=== PATIENT | male | born 1945 | race Caucasian/White ===

== ENCOUNTER 2018-04-26 12:45 | Inpatient (IN) | payer MEDICARE, BC ==
[2018-04-26] VITALS (9 sets, daily range): BP systolic 122–124; BP diastolic 57–61; PULSE 54–61; RESP 16; TEMP 99.1–99.3; O2SAT 97–100
[~2018-04-26] VITALS: Ht 177.8 cm; Wt 97.3 kg
[2018-04-26 13:06] LABS: AUTOMATED NEUTROPHIL # 11.4 TH/MM3 (1.8-7.7); BASOPHIL # 0.1 TH/MM3 (0-0.2); BASOPHIL % 0.6 % (0.0-2.0); EOSINOPHIL # 0.4 TH/MM3 (0-0.4); EOSINOPHIL % 2.6 % (0.0-4.0); HEMATOCRIT 43.6 % (39.0-51.0); HEMOGLOBIN 14.7 GM/DL (13.0-17.0); MEAN CORPUSCULAR HEMOGLOBIN 31.4 PG (27.0-34.0); MEAN CORPUSCULAR HGB CONC 33.8 % (32.0-36.0); MEAN PLATELET VOLUME 8.6 FL (7.0-11.0); MONO % 6.3 % (0.0-8.0); NEUT % 71.5 % (16.0-70.0); PLATELET COUNT 210 TH/MM3 (150-450); RED BLOOD COUNT 4.69 MIL/MM3 (4.50-5.90); RED CELL DISTRIBUTION WIDTH 13.4 % (11.6-17.2)
--- NOTE | 2018-04-26 13:07 | PD ---
HPI Chief Complaint: Trauma alert Time Seen by Provider: 12:58 Travel History International Travel<30 days: No Contact w/Intl Traveler<30days: No Traveled to known affect area: No History of Present Illness HPI This patient presents as a trauma alert. When I heard about it I gave report to Dr. Shipley who is present in the ER prior to arrival. This patient is 72 and fell out of a tree approximately 12-15 foot to the ground. He struck his head. Reportedly lost consciousness for unknown amount of time. GCS initially was 8 but had come up to 12 upon arrival. Blood pressure 180/100 on arrival. Symptoms are severe. Patient is moaning on arrival but seems confused and cannot answer questions appropriately. He is unable to provide history or review of systems. Allergies-Medications (Allergen,Severity, Reaction): Coded Allergies: No Known Allergies (Unverified , 04/26/18) Review of Systems ROS Limitations: Clinical Condition, Altered Mental Status, Uncooperative, Poor Historian Physical Exam Narrative GENERAL: Well-nourished, well-developed patient in spinal mobilization. He is confused and moaning SKIN: Focused skin assessment reveals no rash and nodules. Skin is Warm and dry. HEAD: Right ear canal is filled with blood. The TM is not visible. Normocephalic. EYES: Pupils equal and round. No scleral icterus. No injection or drainage. ENT: No nasal bleeding or discharge. Mucous membranes pink and moist. NECK: Trachea midline. No JVD. C-collar maintained CARDIOVASCULAR: Regular rate and rhythm. No murmur appreciated. RESPIRATORY: No accessory muscle use. Clear to auscultation but diminished and symmetric. Breath sounds equal bilaterally. GASTROINTESTINAL: Abdomen has a slight firmness to it , non-tender, nondistended. Hepatic and splenic margins not palpable. MUSCULOSKELETAL: No obvious deformities. No clubbing. No cyanosis. No edema. NEUROLOGICAL: Awake but confused and moaning . Motor and sensory exams impossible to accurately gauge given his limited participation in exam. PSYCHIATRIC: Agitated mood and affect; insight and judgment poor . Data Data Last Documented VS Vital Signs Date Time Temp Pulse Resp B/P (MAP) Pulse Ox O2 Delivery O2 Flow Rate FiO2 04/26/18 13:45 100 100 04/26/18 12:45 4.00 Orders Orders I-Stat Profile (04/26/18 12:46) I-Stat Creatinine (04/26/18 12:46) Complete Blood Count With Diff (04/26/18 12:46) Prothrombin Time / Inr (Pt) (04/26/18 12:46) Act Partial Throm Time (Ptt) (04/26/18 12:46) Type And Screen (04/26/18 12:46) Chest, Single Ap (04/26/18 12:46) Iv Access Insert/Monitor (04/26/18 12:46) Ecg Monitoring (04/26/18 12:46) Oximetry (04/26/18 12:46) Oxygen Administration (04/26/18 12:46) Ed Poc Ultrasound (04/26/18 12:46) Basic Metabolic Panel (Bmp) (04/26/18 12:51) Fibrinogen (04/26/18 12:51) Alcohol (Ethanol) (04/26/18 12:51) Ct Brain W/O Iv Contrast(Rout) (04/26/18 12:51) Ct Cerv Spine W/O Contrast (04/26/18 12:51) Ct Abd/Pel W Iv Contrast(Rout) (04/26/18 12:51) Ct Thorax/ Chest W Iv Contrast (04/26/18 12:51) Admit To Inpatient (04/26/18 ) Code Status (04/26/18 13:01) Vital Signs (Adult) Q4H (04/26/18 13:01) Activity Bed Rest (04/26/18 13:01) Intake + Output ALBA.QSHIFT (04/26/18 13:01) ^ Orogastric Tube (04/26/18 13:01) Diet Npo (04/26/18 Lunch) Sodium Chlor 0.9% 1000 Ml Inj (Ns 1000 M (04/26/18 14:00) Sodium Chloride 0.9% Flush (Ns Flush) (04/26/18 13:15) Sodium Chloride 0.9% Flush (Ns Flush) (04/26/18 21:00) Pantoprazole Inj (Protonix Inj) (04/26/18 14:00) Basic Metabolic Panel (Bmp) (04/27/18 06:00) Hepatic Functional Panel (04/27/18 06:00) Complete Blood Count With Diff (04/27/18 06:00) Resp Incentive Spirometry (04/26/18 ) Naloxone Inj (Narcan Inj) (04/26/18 13:15) Scd Bilateral/Knee High ALBA.QSHIFT (04/26/18 13:01) Inpatient Certification (04/26/18 ) Elevate Head Of Bed (04/26/18 13:06) Resp Ventilation- Volume (04/26/18 ) Restraints Non-Violent ALBA.Q3H (04/26/18 13:06) Ventilator Weaning Readiness ALBA.DAILY@0800 (04/26/18 13:06) Propofol 1000 Mg/100 Ml Inj (Diprivan 10 (04/26/18 13:15) Fentanyl Drip (Fentanyl Drip) (04/26/18 13:15) Iohexol 350 Inj (Omnipaque 350 Inj) (04/26/18 13:35) Labs Laboratory Tests Test 04/26/18 12:47 White Blood Count 16.0 TH/MM3 Red Blood Count 4.69 MIL/MM3 Hemoglobin 14.7 GM/DL Bedside Hemoglobin 14.3 G/DL Hematocrit 43.6 % Bedside Hematocrit 42.0 % Mean Corpuscular Volume 93.0 FL Mean Corpuscular Hemoglobin 31.4 PG Mean Corpuscular Hemoglobin Concent 33.8 % Red Cell Distribution Width 13.4 % Platelet Count 210 TH/MM3 Mean Platelet Volume 8.6 FL Neutrophils (%) (Auto) 71.5 % Lymphocytes (%) (Auto) 19.0 % Monocytes (%) (Auto) 6.3 % Eosinophils (%) (Auto) 2.6 % Basophils (%) (Auto) 0.6 % Neutrophils # (Auto) 11.4 TH/MM3 Lymphocytes # (Auto) 3.0 TH/MM3 Monocytes # (Auto) 1.0 TH/MM3 Eosinophils # (Auto) 0.4 TH/MM3 Basophils # (Auto) 0.1 TH/MM3 CBC Comment DIFF FINAL Differential Comment Prothrombin Time 10.0 SEC Prothromb Time International Ratio 1.0 RATIO Activated Partial Thromboplast Time 21.2 SEC Fibrinogen 360 mg/dL Bedside Sodium 139 MMOL/L Blood Urea Nitrogen 16 MG/DL Creatinine 1.14 MG/DL Random Glucose 143 MG/DL Calcium Level 8.7 MG/DL Sodium Level 140 MEQ/L Potassium Level 3.5 MEQ/L Chloride Level 106 MEQ/L Carbon Dioxide Level 21.4 MEQ/L Bedside Potassium 3.6 MMOL/L Bedside Chloride 105 MMOL/L Anion Gap 13 MEQ/L Bedside Blood Urea Nitrogen 15 MG/DL Bedside Creatinine 1.0 MG/DL Estimat Glomerular Filtration Rate 55 ML/MIN Bedside Glucose 140 MG/DL Ethyl Alcohol Level LESS THAN 3 MG/DL MDM Medical Screen Exam Complete: Yes Emergency Medical Condition: Yes Medical Record Reviewed: Yes Differential Diagnosis Intracranial hemorrhage, brain stem herniation, pneumothorax, liver laceration Narrative Course This patient arrives critically ill as trauma alert. 2 IVs placed and IV fluid bolus initiated I reviewed his chest x-ray which is negative Patient seems to be controlling his airway on arrival. He sent the CT scanner Brain CT shows intracranial hemorrhage Cervical spine CT shows no fracture but some degenerative change Chest CT shows multiple rib fractures Abdomen and pelvis CT shows renal laceration and renal mass and transverse process fractures Patient is critically ill with multiple injuries. He will be admitted to intensive care Critical Care Narrative Aggregate critical care time was 38 minutes. Time to perform other separately billable procedures was not included in the critical care time. My time did not include minutes spent treating any other patients simultaneously or on activities that did not directly contribute to the patient's treatment. The services I provided to this patient were to treat and/or prevent clinically significant deterioration that could result in: Intracranial hemorrhage, permanent neurologic deficit, cardiopulmonary arrest I provided critical care services requiring my management, as noted below: Chart data review, documentation time, medication orders and management, vital sign assessments/reviewing monitor data, ordering and reviewing lab tests, ordering and interpreting/reviewing x-rays and diagnostic studies, care of the patient and discussion of the patient with the admitting physicians. Trauma Alert - Level One Trauma Alert Level One: Full trauma team activate Diagnosis Diagnosis: Primary Impression: Intracranial hemorrhage Additional Impressions: Multiple rib fractures Qualified Codes: S22.41XA - Multiple fractures of ribs, right side, initial encounter for closed fracture Kidney laceration Qualified Codes: S37.031A - Laceration of right kidney, unspecified degree, initial encounter Admitting Physician Requests: Admit Mario Marrufo MD Apr 26, 2018 13:07
--- NOTE | 2018-04-26 13:11 | RADRPT ---
EXAM DATE: 04/26/2018 1:04 PM EDT AGE/SEX: 89 years / Male INDICATIONS: Trauma alert. Fall from a tree. CLINICAL DATA: This is the patient's initial encounter. Patient reports that signs and symptoms have been present for 1 day and indicates a pain score of Nonresponsive. MEDICAL/SURGICAL HISTORY: Non-responsive. Non-responsive. RADIATION DOSE: 66.93 CTDI (mGy) COMPARISON: No prior [facility] exams available for comparison. TECHNIQUE: CT of the head without contrast. Using automated exposure control and adjustment of the mA and/or kV according to patient size, radiation dose was kept as low as reasonably achievable to ob tain optimal diagnostic quality images. FINDINGS: There is multifocal intracranial hemorrhage identified including a thin subdural hematoma over the le ft mid and low convexity brain with maximum thickness of just under a centimeter at the high temporal level. There is subarachnoid blood, mainly over the left convexities and a few punctate areas of par enchymal contusion are identified in the temporal, left frontoparietal and right occipital regions. T here is no significant global brain shift identified. The basal cisterns are patent. The posterior fo ssa and brainstem are grossly unremarkable. There is fluid present in the facial sinuses. No definite skull fracture identified. CONCLUSION: Parenchymal and extra-axial hemorrhage, mainly involving the left hemisphere. Thin left subdural joe salvador without significant global brain shift at present. Electronically signed by: Alcides Kilgore MD 04/26/2018 1:10 PM EDT
--- NOTE | 2018-04-26 13:12 | RADRPT ---
EXAM DATE: 04/26/2018 12:59 PM EDT AGE/SEX: 89 years / Male INDICATIONS: Trauma alert, fall from tree. CLINICAL DATA: This is the patient's initial encounter. Patient reports that signs and symptoms have been present for 1 day and indicates a pain score of Nonresponsive. MEDICAL/SURGICAL HISTORY: Non-responsive. Non-responsive. COMPARISON: No prior [facility] exams available for comparison. FINDINGS: The lungs are clear without infiltrate, nodule, or mass. There is no appreciable pleural effusion for technique. Heart and mediastinum are unremarkable. CONCLUSION: No acute cardiopulmonary disease. Electronically signed by: Fely Powell MD 04/26/2018 1:10 PM EDT
[2018-04-26] MEDS ORDERED: fentaNYL DRIP 250 ML IV PRN (13:15)
[2018-04-26] MEDS ORDERED: PROPOFOL 1000 MG/100 ML INJ 100 ML IV PRN (13:15)
[2018-04-26] MEDS ORDERED: NALOXONE HCL 0.4 MG/ML AMP IV PUSH PRN (13:15)
[2018-04-26] MEDS ORDERED: SODIUM CHLORIDE 0.9% FLUSH 10 ML FLUSH IV FLUSH PRN (13:15)
[2018-04-26] MEDS ORDERED: PROPOFOL 1000 MG/100 ML INJ 100 ML ONE (13:21)
[2018-04-26 13:24] LABS: BICARBONATE 21.4 MEQ/L (21.0-32.0); BLOOD UREA NITROGEN 16 MG/DL (7-18); CALCIUM 8.7 MG/DL (8.5-10.1); CHLORIDE 106 MEQ/L (98-107); CREATININE 1.14 MG/DL (0.60-1.30); GLOMERULAR FILTRATION RATE 55 ML/MIN (>89); GLUCOSE,RANDOM 143 MG/DL (74-106); SODIUM (NA) 140 MEQ/L (136-145)
[2018-04-26] MEDS ORDERED: IOHEXOL 350 MG/ML 10 ML VIAL (for RAD DIAG) IVCONTRAST ONE (13:35)
--- NOTE | 2018-04-26 13:46 | RADRPT ---
EXAM DATE: 04/26/2018 1:26 PM EDT AGE/SEX: 89 years / Male INDICATIONS: Trauma alert. Fall from a tree. CLINICAL DATA: This is the patient's initial encounter. Patient reports that signs and symptoms have been present for 1 day and indicates a pain score of Nonresponsive. MEDICAL/SURGICAL HISTORY: Non-responsive. Non-responsive. RADIATION DOSE: 19.88 CTDI (mGy) COMPARISON: No prior [place] exams available for comparison. TECHNIQUE: Contiguous axial images were obtained using helical multirow detector technique. The vol umetric data was post-processed with multiplanar reconstruction in oblique axial, sagittal, and coron al planes. Using automated exposure control and adjustment of the mA and/or kV according to patient s ize, radiation dose was kept as low as reasonably achievable to obtain optimal diagnostic quality eusebia ges. FINDINGS: No significant subluxation or soft tissue swelling is seen. There is opacification of the right sphe noid sinus discussed on the patient's brain CT examination. C2-C3: No appreciable compromise to the thecal sac, exiting nerve roots are seen. The neural foramin a are patent bilaterally. No appreciable thecal sac stenosis is seen. C3-C4: Slight degenerative changes are present in the disc space and facets. Slight bulging disc and hypertrophic changes are present with mild compromise to bilateral lateral recess and no significant thecal sac stenosis. C4-C5: No appreciable compromise to the thecal sac, exiting nerve roots are seen. The neural foramin a are patent bilaterally. No appreciable thecal sac stenosis is seen. C5-C6: Significant degenerative changes are present in the disc space and facets. There is moderate neural foraminal compromise on the right without any significant thecal sac stenosis. C6-C7: No appreciable compromise to the thecal sac, exiting nerve roots are seen. The neural forami na are patent bilaterally. No appreciable thecal sac stenosis is seen. C7-T1: No appreciable compromise to the thecal sac, exiting nerve roots are seen. The neural foramin a are patent bilaterally. No appreciable thecal sac stenosis is seen. CONCLUSION: Degenerative spondylosis with neural foraminal compromise right C5-6 without any signifi cant thecal sac stenosis. Electronically signed by: Fely Powell MD 04/26/2018 1:45 PM EDT
--- NOTE | 2018-04-26 13:56 | RADRPT ---
EXAM DATE: 04/26/2018 1:33 PM EDT AGE/SEX: 89 years / Male INDICATIONS: Trauma alert. Fall from a tree. CLINICAL DATA: This is the patient's initial encounter. Patient reports that signs and symptoms have been present for 1 day and indicates a pain score of Nonresponsive. MEDICAL/SURGICAL HISTORY: Non-responsive. Non-responsive. RADIATION DOSE: 19.85 CTDI (mGy) COMPARISON: No prior [place] exams available for comparison. TECHNIQUE: Multiple contiguous axial images were obtained through the chest during bolus infusion of 89 ml Omnipaque 350 (iohexol) nonionic water-soluble contrast as a cumulative dose for multiple exa ms. Images were obtained in suspended respiration using multiple row detector helical technique. U sing automated exposure control and adjustment of the mA and/or kV according to patient size, radiati on dose was kept as low as reasonably achievable to obtain optimal diagnostic quality images. FINDINGS: Moderate parenchymal contusion is present in the right upper lobe arts of the right middle lobe. Ther e is dependent atelectasis in both lung bases. There is no pneumothorax. There is a tiny right pleura l effusion. No appreciable pathological adenopathy is seen within the mediastinum. Multiple acute r ib fractures are seen on the right and there are also old rib fractures on the right. There is a joe ngioma T10 vertebrae. There are acute fractures of transverse process of T5 and T6 on the right possi christian T7. Small hiatal hernia is seen. There are findings in the upper abdomen discussed on the patient 's CT abdomen. CONCLUSION: 1. Multiple displaced rib fractures on the right and there are fractures of transverse processes of T5, T6 and possibly T7 on the right. 2. Parenchymal contusions in the right lung. 3. There are findings in the upper abdomen discussed on the patient's CT abdomen. Electronically signed by: Fely Powell MD 04/26/2018 1:54 PM EDT
[2018-04-26] MEDS: SODIUM CHLOR 0.9% 1000 ML INJ 1,000 ML IV SCH (14:00)
--- NOTE | 2018-04-26 14:02 | RADRPT ---
EXAM DATE: 04/26/2018 1:33 PM EDT AGE/SEX: 89 years / Male INDICATIONS: Trauma alert. Fall from a tree. CLINICAL DATA: This is the patient's initial encounter. Patient reports that signs and symptoms have been present for 1 day and indicates a pain score of Nonresponsive. MEDICAL/SURGICAL HISTORY: Non-responsive. Non-responsive. ORAL CONTRAST: No oral contrast ingested. RADIATION DOSE: 19.85 CTDI (mGy) ; Combined studies COMPARISON: No prior [place] exams available for comparison. TECHNIQUE: Multiple contiguous axial images were obtained through the abdomen and pelvis following b olus infusion of 89 ml Omnipaque 350 (iohexol) nonionic water-soluble contrast as a cumulative dose for multiple exams. No oral contrast ingested. Using automated exposure control and adjustment of t he mA and/or kV according to patient size, the radiation dose was kept as low as reasonably achievabl e to obtain optimal diagnostic quality images. FINDINGS: Lower Lungs: See the CT of the thorax dictated separately.. Liver: The liver has a homogeneous density without space-occupying lesion. There is no dilation of th e biliary tree. Spleen: Homogeneous density without enlargement. Pancreas: Unremarkable without mass or calcification. Kidneys: There is a laceration involving the posterior mid to lower pole of the right kidney. There is a small amount of hemorrhage within the perirenal retroperitoneum. A 2.4 cm solid mass is seen lat erally within the right mid pole. 2.9 cm simple cyst involving the lower pole of the right kidney. Le ft kidney is unremarkable.. Adrenal Glands: Unremarkable. Aorta: The aorta and proximal iliac vessels are grossly unremarkable without aneurysmal dilation. Bowel/Mesentery: The bowel loops are grossly unremarkable. The cecum and sigmoid colon have a normal configuration. Abdominal Wall: Intact. Retroperitoneum: No evidence of adenopathy in the retrocrural, para-aortic, or deep pelvic regions. Bladder: Contours are smooth. Reproductive Organs: No abnormal masses or calcifications seen. Inguinal: The inguinal region is unremarkable without evidence of adenopathy. Bony Structures: Unremarkable. CONCLUSION: 1. Laceration involving the mid to lower pole of the right kidney with a small amount of perirenal b lood but no active hemorrhage observed. 2. 2.4 cm solid mass involving the right mid pole kidney worrisome for renal cell carcinoma. Electronically signed by: Derek Cardenas MD 04/26/2018 2:00 PM EDT
[2018-04-26] MEDS ORDERED: SUCCINYLCHOLINE CHLORIDE 200 MG/10 ML VIAL ONE (14:10)
[2018-04-26] MEDS: PROPOFOL 1000 MG/100 ML IV PRN ×2 (14:38→20:16)
[2018-04-26] MEDS: PANTOPRAZOLE SODIUM 40 MG VIAL IV PUSH SCH (14:38)
[2018-04-26] MEDS: fentaNYL 2,500 MCG/NS 250 ML IV PRN (14:38)
--- NOTE | 2018-04-26 16:52 | PD.OP ---
Operative Report Date of Surgery: Apr 26, 2018 Preoperative Diagnosis: Severe traumatic brain injury Postoperative Diagnosis: Severe traumatic brain injury Procedure: Right frontal melissa hole, placement of bur hole with placement of intracranial pressure monitor. Anesthesia: local Surgeon: Emiliano Chiang Wheel Polisher(s): SALEEM Operation and Findings: INDICATIONS FOR THE PROCEDURE The patient is 75 an adult male who was brought to [facility] as a trauma alert with a severe traumatic brain injury GCS was 7 CT of the brain showed traumatic subarachnoid hemorrhage and a small subdural hematoma. Placement of ICP monitor was indicated as recommended by the Trauma Commitee of [place] [employer] DETAILS OF THE SURGICAL PROCEDURE The right frontal area was shaved, prepped and draped in the usual sterile fashion. An entry point was selected behind the hairline, approximately 30 mm lateral to the midline. The incision was infiltrated with 1% lidocaine with epinephrine 1:100,000 dilution. A small incision was made with a 15 blade down to the level of the periosteum. Using a twist drill a melissa hole was made. The dura was opened with a blunt stylet, and a Simin bolt was secured to the bone. A fiberoptic transducer was calibrated according to the rubber tile floor layer's instructions, and advanced into the parenchyma of the frontal lobe through the bolt. An intracranial pressure of 11 mmHg was achieved with a good waveform. A Betadine sterile dressing was applied. The patient tolerated the procedure well. There were no intraoperative complications. Blood loss was minimal. Emiliano Chiang MD Apr 26, 2018 16:52
--- NOTE | 2018-04-26 16:59 | MH ---
cc: Goergia Bustillo MD DATE OF ADMISSION: 04/26/2018 ADMITTING PHYSICIAN: Georgia Bustillo MD, trauma surgery ADMITTING DIAGNOSES: Traumatic brain injury, right chest injury. HISTORY OF PRESENT DISEASE: This 72-year-old gentleman was brought in as priority 1 trauma alert after falling about 12-15 feet out of a tree as the ladder went flying sideways. The patient fell on a concrete walkway, right side down. According to witnesses, he was completely unconscious and on the arrival, the paramedics' [place] Coma Scale was 3-4, which improved on the way to about 8 or 9. The patient brought with a spinal board with C-collar in place, moaning and groaning and complained but pain in the right chest. PAST MEDICAL HISTORY: According to his is completely negative. PAST SURGICAL HISTORY: Negative. MEDICATIONS: The patient does not take any medications. ALLERGIES: NO ALLERGIES. 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 PHYSICAL EXAMINATION: GENERAL: Reveals a 72-year-old male. HEENT: Normocephalic, trauma to the head consisting of some bruising over the left side of the head just above the ear and some small lacerations and abrasions of the ear. The patient has blood coming out of the ear. The patient also has some contusions over the left side of the occiput, but these are barely palpable. Pupils are equal, reactive. Extraocular muscles appear to be intact, but patient does not follow commands. No loza sign, no raccoon eyes. As above noted, there are abrasions over the right ear and also blood in the external auditory canal. No hemotympanum on the left. Facial bones appeared to be intact. Oral cavity appears to be intact. Mandible is intact. NECK: C-collar front is removed. The patient has bilateral carotid pulses. No bruits. No signs of trauma to the neck. C-collar is repositioned. CHEST: Bilateral breath sounds. The patient is very tender to palpation on the right chest, and while there is no crepitus present, patient is certainly tender over the area of the 4th, 5th, 6th and 7th ribs. HEART: Regular rhythm. Hemodynamically, patient is stable. Pressure in the emergency room is 180/100. ABDOMEN: Slightly firm on palpation, some voluntary guarding, but no rebound. No masses noted. No signs of trauma to the abdomen. Pelvis appears to be stable. Flanks: Patient has some bruising over the right flank and slight swelling there over the right kidney, but nothing else. No abrasions. EXTREMITIES: The patient has bilateral femoral, popliteal, dorsalis pedis and posterior tibial pulse to palpation. Bilateral brachial, radial and ulnar pulses. No signs of deformities of extremities. NEUROLOGIC: As noted above, patient's [place] Coma Scale was 3 on the scene. Now, in the ER, is about 10, perhaps 11 at times. The patient is moving all 4 extremities and follows simple commands. Sensory is preserved. Deep tendon reflexes are normal. No pathologic reflexes. PROTOCOL RESUSCITATION: The patient was resuscitated on trauma principles. Primary and secondary survey, resuscitation, definitive care carried out simultaneously. The patient is taken to the CAT scan for further workup. FINAL DIAGNOSIS: Traumatic brain injury with mainly left frontal temporoparietal subarachnoid and subdural bleed and some superficial contusions of the brain, right chest contusion with a small hemothorax and serial rib fractures of 5th, 6th, 7th, 8th ribs, transverse process fractures of several vertebrae, lacerations of the right kidney with a hematoma. The patient is taken back to the emergency room trauma room after CAT scan, intubated under elective circumstances, then transferred to ICU for further care. Neurosurgery was consulted. All the neurosurgical protective measures in place. Spoken to the family. CRITICAL CARE TIME: 48 minutes. MD FABIOLA Davis/MILAGRO , 04:29 PM , 04:58 PM
--- NOTE | 2018-04-26 17:00 | PD.CONS ---
[facility] Service Neurosurgery Consult Requested By Trauma sureon Reason for Consult Trauma alert Primary Care Physician Alcides Beach MD History of Present Illness This 72-year-old gentleman was brought in as priority 1 trauma alert after falling about 12-15 feet out of a tree. Apparently the ladder fell sideways. No seizure activity. No tonguebitting. No incontinence of stool or urine. The patient fell on a concrete walkway, right side down. According to witnesses, he was completely unconscious and on the arrival, the paramedics' [place] Coma Scale was 3, which improved after resuscitation to about 8. The patient brought with a spinal board with C-collar in place, moaning and groaning. CT showed traumatic SAHand a small SDH. Neurosurgery consultation was requested Review of Systems ROS not possible due to his neurological condition ROS Limitations: Clinical Condition, Intubated, Altered Mental Status Past Family Social History Allergies: Coded Allergies: No Known Allergies (Unverified , 04/26/18) Past Medical History Unobtainable due to his neurological condition Past Surgical History Unobtainable due to his neurological condition Reported Medications Unobtainable due to his neurological condition Active Ordered Medications Current Medications Sodium Chloride 1,000 ml @ 100 mls/hr Q10H IV ; Start 04/26/18 at 14:00 Sodium Chloride (NS Flush) 2 ml UNSCH PRN IV FLUSH FLUSH AFTER USING IV ACCESS ; Start 04/26/18 at 13:15 Sodium Chloride (NS Flush) 2 ml BID IV FLUSH ; Start 04/26/18 at 21:00 Pantoprazole Sodium (Protonix Inj) 40 mg Q24H IV PUSH Last administered on at 14:38; Start 04/26/18 at 14:00 Naloxone HCl (Narcan Inj) 0.4 mg UNSCH PRN IV PUSH SEE LABEL COMMENTS; Start at 13:15 Propofol 100 ml @ 0 mls/hr TITRATE PRN IV SEDATION; Start 04/26/18 at 13:15; Stop 04/26/18 at 14:31; Status DC Fentanyl Citrate 250 ml TITRATE PRN IV SEDATION; Start 04/26/18 at 13:15; Stop 04/26/18 at 14:31; Status DC Iohexol (Omnipaque 350 Inj) 89 ml STK-MED ONCE IVCONTRAST Last administered on 04/26/18at 13:35; Start 04/26/18 at 13:35; Stop 04/26/18 at 13:36; Status DC Succinylcholine Chloride (Quelicin Inj) 200 mg STK-MED ONCE .ROUTE ; Start at 14:10; Stop 04/26/18 at 14:11; Status DC Fentanyl Citrate 250 ml @ 5 mls/hr TITRATE PRN IV Sedation Last administered on 04/26/18at 14:38; Start 04/26/18 at 14:30 Propofol 100 ml @ 2.463 mls/ hr TITRATE PRN IV SEDATION Last administered on at 14:38; Start 04/26/18 at 14:30 Propofol 100 ml @ As Directed STK-MED ONCE .ROUTE ; Start 04/26/18 at 13:21; Stop 04/26/18 at 14:31; Status DC Levetriacetam 500 mg/Sodium Chloride 105 ml @ 420 mls/hr Q12HR IV ; Start at 21:00 Sodium Chloride 188 meq/Sodium Chloride 1,047 ml @ 40 mls/hr Q24H IV ; Start at 16:45; Status UNV Family History Unobtainable due to his neurological condition Social History Unobtainable due to his neurological condition Apparently 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 GCS 7. HEENT: Normocephalic, trauma to the head consisting of some bruising over the left side of the head just above the ear and some small lacerations and abrasions of the ear. The patient has blood coming from his right ear. The patient also has some contusions over the left side of the occiput CHEST: Bilateral breath sounds. The patient is very tender to palpation on the right chest, and while there is no crepitus present, patient is certainly tender over the area of the 4th, 5th, 6th and 7th ribs. HEART: Regular rhythm. Hemodynamically, patient is stable. Pressure in the emergency room is 180/100. ABDOMEN: Slightly firm on palpation, some voluntary guarding, but no rebound. No masses noted. No signs of trauma to the abdomen. Pelvis appears to be stable. Flanks: Patient has some bruising over the right flank and slight swelling there over the right kidney, but nothing else. No abrasions. EXTREMITIES: The patient has bilateral femoral, popliteal, dorsalis pedis and posterior tibial pulse to palpation. Bilateral brachial, radial and ulnar pulses. No signs of deformities of extremities. Cranial Nerves: Pupils equal, round, reactive to light. Eyes appear conjugated. There was no nystagmus, no papilledema. Face musculature appeared symmetrical at rest. Face sensation, olfaction, visual ching, and hearing cannot be adequately assessed due to his neurological condition. The patient has a corneal reflex. He has a gag reflex. The sternocleidomastoid and trapezius are symmetrical. Motor: His muscle tone and bulk are normal. He moves purposefully all 4 extremities symmetrically. Reflexes: Deep tendon reflexes are 1+ and symmetrical in the biceps, triceps, and brachioradialis, bilaterally, in the upper extremities. In the lower extremities, the patellar and ankles are 1+, bilaterally. There is a bilateral plantar flexion response. There is no clonus or other abnormal reflexes noted. Sensory: On examination there is response to painful stimuli, localizing with both upper and lower extremities. Cerebellar: Examination cannot be adequately assessed due to the patient's neurological condition. Laboratory Laboratory Tests Test 04/26/18 12:47 White Blood Count 16.0 Red Blood Count 4.69 Hemoglobin 14.7 Bedside Hemoglobin 14.3 Hematocrit 43.6 Bedside Hematocrit 42.0 Mean Corpuscular Volume 93.0 Mean Corpuscular Hemoglobin 31.4 Mean Corpuscular Hemoglobin Concent 33.8 Red Cell Distribution Width 13.4 Platelet Count 210 Mean Platelet Volume 8.6 Neutrophils (%) (Auto) 71.5 Lymphocytes (%) (Auto) 19.0 Monocytes (%) (Auto) 6.3 Eosinophils (%) (Auto) 2.6 Basophils (%) (Auto) 0.6 Neutrophils # (Auto) 11.4 Lymphocytes # (Auto) 3.0 Monocytes # (Auto) 1.0 Eosinophils # (Auto) 0.4 Basophils # (Auto) 0.1 CBC Comment DIFF FINAL Differential Comment Prothrombin Time 10.0 Prothromb Time International Ratio 1.0 Activated Partial Thromboplast Time 21.2 Fibrinogen 360 Bedside Sodium 139 Blood Urea Nitrogen 16 Creatinine 1.14 Random Glucose 143 Calcium Level 8.7 Sodium Level 140 Potassium Level 3.5 Chloride Level 106 Carbon Dioxide Level 21.4 Bedside Potassium 3.6 Bedside Chloride 105 Anion Gap 13 Bedside Blood Urea Nitrogen 15 Bedside Creatinine 1.0 Estimat Glomerular Filtration Rate 55 Bedside Glucose 140 Ethyl Alcohol Level LESS THAN 3 Result Diagram: 04/26/18 1247 04/26/18 1247 Attending Statement I reviewed his radiiological studies including Head CT 04/26/18 125 Signed Impressions: CONCLUSION: Parenchymal and extra-axial hemorrhage, mainly involving the left hemisphere. T hin left subdural hematoma without significant global brain shift at present. Chest CT 04/26/18 125 Signed Impressions: CONCLUSION: 1. Multiple displaced rib fractures on the right and there are fractures of tr ansverse processes of T5, T6 and possibly T7 on the right. 2. Parenchymal contusions in the right lung. 3. There are findings in the upper abdomen discussed on the patient's CT abdom en. Cervical Spine CT 04/26/181250 Signed Impressions: CONCLUSION: Degenerative spondylosis with neural foraminal compromise right C5 -6 without any significant thecal sac stenosis. Abdomen/Pelvis CT 04/26/18 125 Signed Impressions: CONCLUSION: 1. Laceration involving the mid to lower pole of the right kidney with a small amount of perirenal blood but no active hemorrhage observed. 2. 2.4 cm solid mass involving the right mid pole kidney worrisome for renal c ell carcinoma. Chest X-Ray 04/26/18 1246 Signed Impressions: CONCLUSION: No acute cardiopulmonary disease. neuro checks. Placement of ICP monitor was indicated as recommended by the Tra[employer] of [place]. HOB elevation 30 degrees. Monitor PCO2 Otorrhea. Elevate HOB 30 degrees Thoracic transverse process fractures. Nonperative treatment. Narcotic analgesics for pain control Pulmonary.. Continue aggressive pulmonary toilette, nasotracheal suction, and breathing treatments with nebulizers. Nutrition. NPO Renal. monitor closely urine output, BUN and creatinine Endocrine. Monitor serial Acu checks and SSI as needed in detail ID monitor for signs of infection Protonix for stress ulcer prophylaxis Familia hose and SCD's for DVT prophylaxis. Further recommendations will depend on his clinical evolution and follow up Studies Emiliano Chiang MD Apr 26, 2018 17:00
[2018-04-26] MEDS: SODIUM CHLORIDE 23.4% INJ 188 MEQ in SODIUM CHLOR 0.9% 1000 ML INJ 1,000 ML IV SCH (18:13)
--- NOTE | 2018-04-26 19:38 | RADRPT ---
EXAM DATE: 04/26/2018 7:29 PM EDT AGE/SEX: 72 years / Male INDICATIONS: Short of breath, intubation. CLINICAL DATA: This is the patient's initial encounter. Patient reports that signs and symptoms have been present for 1 day and indicates a pain score of Nonresponsive. MEDICAL/SURGICAL HISTORY: None. None. COMPARISON: Chest x-ray 04/26/2018 at 1249 hours. FINDINGS: A single portable frontal view the chest shows an endotracheal tube with the tip 5 cm from the eleazar . Nasogastric tube courses off the inferior margin of the film. Consolidation is seen involving the r ight lower lobe. Left lung is clear. No effusions. Heart is normal in size. CONCLUSION: Right lower lobe infiltrate. This is new from the prior study. Interval intubation and placement o f nasogastric tube. Electronically signed by: Derek Cardenas MD 04/26/2018 7:37 PM EDT
[2018-04-26] MEDS: levETIRAcetam INJ 500 MG in SODIUM CHLORIDE 0.9% INJ 100 ML IV SCH (20:16)
[2018-04-26] MEDS: SODIUM CHLORIDE 0.9% FLUSH 10 ML FLUSH IV FLUSH SCH (20:16)
[2018-04-27] VITALS (17 sets, daily range): BP systolic 110–152; BP diastolic 48–52; PULSE 46–64; RESP 16–20; TEMP 98.2–99.7; O2SAT 100
[2018-04-27] MEDS: PROPOFOL 1000 MG/100 ML IV PRN ×5 (01:00→19:24)
[2018-04-27 07:22] LABS: AUTOMATED NEUTROPHIL # 5.7 TH/MM3 (1.8-7.7); BASOPHIL % 0.1 % (0.0-2.0); HEMATOCRIT 31.4 % (39.0-51.0); HEMOGLOBIN 10.9 GM/DL (13.0-17.0); LYMPH % 9.2 % (9.0-44.0); LYMPHOCYTE # 0.7 TH/MM3 (1.0-4.8); MEAN CELL VOLUME 92.1 FL (80.0-100.0); MEAN CORPUSCULAR HGB CONC 34.8 % (32.0-36.0); MEAN PLATELET VOLUME 8.8 FL (7.0-11.0); MONO % 13.9 % (0.0-8.0); NEUT % 76.8 % (16.0-70.0); PLATELET COUNT 157 TH/MM3 (150-450); RED BLOOD COUNT 3.41 MIL/MM3 (4.50-5.90); RED CELL DISTRIBUTION WIDTH 13.5 % (11.6-17.2); WHITE BLOOD COUNT 7.5 TH/MM3 (4.0-11.0)
[2018-04-27 07:24] LABS: ALBUMIN 2.4 GM/DL (3.4-5.0); BICARBONATE 19.3 MEQ/L (21.0-32.0); CALCIUM 7.7 MG/DL (8.5-10.1); CREATININE 0.78 MG/DL (0.60-1.30); DIRECT BILIRUBIN ADULT 0.1 MG/DL (0.0-0.2); INDIRECT BILIRUBIN 0.4 MG/DL (0.0-0.8); TOTAL BILIRUBIN ADULT 0.5 MG/DL (0.2-1.0); TOTAL PROTEIN 5.3 GM/DL (6.4-8.2)
[2018-04-27] MEDS ORDERED: POTASSIUM CHLORIDE 25 MEQ EFFERVESCENT TAB PO PRN ×2 (07:30)
[2018-04-27] MEDS ORDERED: MAGNESIUM SULFATE INJ 4 GM in SODIUM CHLORIDE 0.9% INJ 92 ML IV PRN (07:30)
[2018-04-27] MEDS ORDERED: MAGNESIUM SULFATE INJ 2 GM in SODIUM CHLORIDE 0.9% INJ 96 ML IV PRN (07:30)
[2018-04-27] MEDS ORDERED: RESP: ALBUTEROL 2.5 MG/IPRATROPIUM 0.5 MG NEB (PRN) NEB (07:30)
[2018-04-27] MEDS ORDERED: POTASSIUM PHOSPHATE MONOBASIC 500 MG TAB PO PRN (07:30)
[2018-04-27] MEDS ORDERED: POTASSIUM PHOSPHATE MONOBASIC 500 MG TAB PO/TUBE PRN (07:30)
[2018-04-27] MEDS ORDERED: SODIUM PHOSPHATE INJ 30 MMOL in SODIUM CHLOR 0.9% 250 ML INJ 240 ML IV PRN (07:30)
[2018-04-27] MEDS ORDERED: MAGNESIUM OXIDE 400 MG TAB PO PRN (07:30)
[2018-04-27] MEDS ORDERED: POTASSIUM CHLOR 40 MEQ PREMIX 100 ML IV-CENTRAL PRN ×2 (07:30)
[2018-04-27] MEDS ORDERED: POTASSIUM CHLOR 20 MEQ PREMIX 100 ML IV PRN (07:30)
[2018-04-27] MEDS ORDERED: POTASSIUM PHOSPHATE INJ 30 MMOL in SODIUM CHLOR 0.9% 250 ML INJ 250 ML IV PRN (07:30)
[2018-04-27] MEDS ORDERED: LACTULOSE SYRUP 20 GM/30 ML CUP PO PRN (07:30)
[2018-04-27] MEDS: CHLORHEXIDINE 0.12% (ORAL KIT) 15 ML CUP MT SCH ×2 (08:00→20:00)
[2018-04-27] MEDS: RESP: ALBUTEROL 2.5 MG/IPRATROPIUM 0.5 MG NEB (SCH) NEB ×3 (08:57→20:36)
[2018-04-27] MEDS: SODIUM CHLORIDE 0.9% FLUSH 10 ML FLUSH IV FLUSH SCH ×2 (09:00→22:15)
[2018-04-27] MEDS: DOCUSATE SODIUM 50 MG/SENNA 8.6 MG TAB PO SCH ×2 (09:04→22:15)
[2018-04-27] MEDS: levETIRAcetam INJ 500 MG in SODIUM CHLORIDE 0.9% INJ 100 ML IV SCH ×2 (09:04→22:16)
[2018-04-27] MEDS: MAGNESIUM HYDROXIDE SUSP 30 ML CUP PO SCH ×2 (09:04→22:15)
[2018-04-27] MEDS: PANTOPRAZOLE SODIUM 40 MG VIAL IV PUSH SCH (14:00)
[2018-04-27] MEDS: SODIUM CHLOR 0.9% 1000 ML INJ 1,000 ML IV SCH ×2 (14:59)
--- NOTE | 2018-04-27 15:12 | HHI.CCPN ---
Subjective Brief History This 72-year-old gentleman was brought in as priority 1 trauma alert after falling about 12-15 feet out of a tree as the ladder went flying sideways. The patient fell on a concrete walkway, right side down. According to witnesses, he was completely unconscious and on the arrival, the paramedics' [place] Coma Scale was 3-4, which improved on the way to about 8 or 9. The patient brought with a spinal board with C-collar in place, moaning and groaning and complained but pain in the right chest. Patient was resuscitated according trauma principles and placed in ICU for further care Final injuries Traumatic brain injury with mainly left frontal temporoparietal subarachnoid and subdural bleed and some superficial contusions of the brain Right chest contusion with a small hemothorax and serial rib fractures of 5th, 6th, 7th, 8th ribs, Transverse process fractures of several vertebrae, Laceration of the right kidney with a hematoma and a small mass of the right kidney 24 Hour Review/Hospital Course 04/27/2018 Patient remains intubated and ventilated Neuroprotective measures including propofol and fentanyl Keppra 2% hypertonic saline at 30 cc/h ICP remains 4-12 mmHg Hemodynamically patient stable Bilateral good breath sounds on decreasing levels of ventilatory support with good PO2 FiO2 gradient Objective Vital Signs Date Time Temp Pulse Resp B/P (MAP) Pulse Ox O2 Delivery O2 Flow Rate FiO2 04/27/18 14:00 52 04/27/18 12:00 40 04/27/18 12:00 99.0 18 142/48 (79) 100 04/27/18 07:00 Mechanical Ventilator 04/26/18 12:45 4.00 Intake and Output 04/27/18 04/27/18 04/28/18 08:00 16:00 00:00 Intake Total 1005 ml Output Total 400 ml Balance -400 ml 1005 ml Result Diagram: 04/27/18 0555 04/27/18 1115 Other Results Laboratory Tests Test 04/26/18 18:45 Blood Gas Puncture Site ART LINE Blood Gas Patient Temperature 98.6 Blood Gas HCO3 19 mmol/L (22-26) Blood Gas Base Excess -5.4 mmol/L (-2-2) Blood Gas Oxygen Saturation 97 % (90-100) Arterial Blood pH 7.37 (7.380-7.420) Arterial Blood Partial Pressure CO2 34 mmHg (38-42) Arterial Blood Partial Pressure O2 161 mmHg (61-120) Arterial Blood Oxygen Content 17.0 Vol % (12.0-20.0) Arterial Blood Carboxyhemoglobin 0.9 % (0-4) Arterial Blood Methemoglobin 1.2 % (0-2) Blood Gas Hemoglobin 12.2 G/DL (12.0-16.0) Oxygen Delivery Device VENTILATOR Blood Gas Ventilator Setting PRVC16/550/1.0/+5 Blood Gas Inspired Oxygen 50 % Exam [employer] Patient remains intubated and ventilated Neuroprotective measures including propofol and fentanyl Keppra 2% hypertonic saline at 30 cc/h ICP remains 4-12 mmHg Hemodynamic/Cardiac Hemodynamically patient stable white count normal and hemoglobin 10 g/dL Pulmonary/Respiratory Hemodynamically patient stable Bilateral good breath sounds on decreasing levels of ventilatory support with good PO2 FiO2 gradient Remains on AC ventilatory support 40% FiO2 and adequate PCO2 between 32 and 40 mmHg Abdomen/GI Nutrition Abdomen soft flat Renal/I&O Renal function well-preserved Assessment and Plan Attestation Plan Patient to continue this regimen Repeat CT scan of the brain tomorrow We will start on enteral feedings Depending on patient's neurologic progression will probably wake up patient on Tuesday see how he does Critical care time 34 minutes Georgia Bustillo MD Apr 27, 2018 15:12
--- NOTE | 2018-04-27 16:46 | HHI.NSPN ---
(Sofia Younger) Note Status Status: Progress Note (Sofia Younger) Interval History Interval History This 72-year-old gentleman was brought in as priority 1 trauma alert after falling about 12-15 feet out of a tree. Apparently the ladder fell sideways. No seizure activity. No tonguebitting. No incontinence of stool or urine. The patient fell on a concrete walkway, right side down. According to witnesses, he was completely unconscious and on the arrival, the paramedics' [place] Coma Scale was 3, which improved after resuscitation to about 8. The patient brought with a spinal board with C-collar in place, moaning and groaning. CT showed traumatic SAHand a small SDH. Neurosurgery consultation was requested 04/27: patient seen this morning during rounds, mildly sedated, intubated, but seen to be moving purposefully, no opening eyes or following commands. (Sofia Younger) Labs, Micro, & Vital Signs Results Date Time Temp Pulse Resp B/P (MAP) Pulse Ox O2 Delivery O2 Flow Rate FiO2 04/27/18 15:15 100 40 04/27/18 14:00 52 04/27/18 12:00 52 04/27/18 12:00 40 04/27/18 12:00 99.0 52 18 142/48 (79) 100 04/27/18 10:06 100 40 04/27/18 10:00 56 04/27/18 08:00 40 04/27/18 08:00 48 04/27/18 08:00 98.2 46 16 140/52 (81) 100 04/27/18 07:42 100 40 04/27/18 07:00 100 Mechanical Ventilator 40 04/27/18 06:00 52 04/27/18 04:00 50 04/27/18 04:00 98.6 50 16 110/48 (68) 100 04/27/18 04:00 40 04/27/18 03:30 100 35 04/27/18 02:00 50 04/27/18 00:00 40 04/27/18 00:00 50 04/27/18 00:00 99.0 50 16 110/48 (68) 100 04/26/18 23:50 100 35 04/26/18 22:00 54 04/26/18 20:45 100 40 04/26/18 20:00 40 04/26/18 20:00 99.3 54 16 122/57 (78) 100 04/26/18 20:00 55 04/26/18 19:00 Mechanical Ventilator 40 04/26/18 18:00 60 04/28/18 07:00 Intake Total 1005 ml Balance 1005 ml Constitutional Vital Signs Date Time Temp Pulse Resp B/P (MAP) Pulse Ox O2 Delivery O2 Flow Rate FiO2 04/27/18 15:15 100 40 04/27/18 14:00 52 04/27/18 12:00 52 04/27/18 12:00 40 04/27/18 12:00 99.0 52 18 142/48 (79) 100 04/27/18 10:06 100 40 04/27/18 10:00 56 04/27/18 08:00 40 04/27/18 08:00 48 04/27/18 08:00 98.2 46 16 140/52 (81) 100 04/27/18 07:42 100 40 04/27/18 07:00 100 Mechanical Ventilator 40 04/27/18 06:00 52 04/27/18 04:00 50 04/27/18 04:00 98.6 50 16 110/48 (68) 100 04/27/18 04:00 40 04/27/18 03:30 100 35 04/27/18 02:00 50 04/27/18 00:00 40 04/27/18 00:00 50 04/27/18 00:00 99.0 50 16 110/48 (68) 100 04/26/18 23:50 100 35 04/26/18 22:00 54 04/26/18 20:45 100 40 04/26/18 20:00 40 04/26/18 20:00 99.3 54 16 122/57 (78) 100 04/26/18 20:00 55 04/26/18 19:00 Mechanical Ventilator 40 04/26/18 18:00 60 04/28/18 07:00 Intake Total 1005 ml Balance 1005 ml (Sofia Younger) Review of Systems ROS Limitations: Intubated (Sofia Younger) Physical Exam General: intubated, no apparent distress HEENT: normocephalic, right ICP monitor in place, ICPs =3. Some blood noted in right ear. Nonicteric sclera. Neuro: sedated, not following commands. Cranial nerve: pupils equal, round, and reactive to light. Conjugate gaze. Neck: no JVD, trachea midline Musculoskeletal: no clubbing, moving extremities purposefully, not following commands for testing Respiratory: clear, mechanically ventilated Heart: regular rate rhythm (Sofia Younger) General: intubated, appears comfortable in no apparent distress HEENT: normocephalic, right ICP monitor in place, ICPs controlled. Nonicteric sclera. Neuro: sedated, not following commands. Cranial nerve: pupils equal, round, and reactive to light. Conjugate gaze. Neck: no JVD, trachea midline Musculoskeletal: no clubbing, not following commands for testing Respiratory: clear, mechanically ventilated Heart: regular rate rhythm (Emiliano Chiang MD) Medications Current Medications Current Medications Medications (Trade) Dose Ordered Sig/Bonilla Route PRN Reason Start Time Stop Time Status Last Admin Dose Admin Sodium Chloride 1,000 ml @ 40 mls/hr Q24H IV 04/26/18 14:00 04/27/18 14:59 Sodium Chloride (NS Flush) 2 ml UNSCH PRN IV FLUSH FLUSH AFTER USING IV ACCESS 04/26/18 13:15 Sodium Chloride (NS Flush) 2 ml BID IV FLUSH 04/26/18 21:00 04/27/18 09:00 Pantoprazole Sodium (Protonix Inj) 40 mg Q24H IV PUSH 04/26/18 14:00 04/27/18 14:00 Naloxone HCl (Narcan Inj) 0.4 mg UNSCH PRN IV PUSH SEE LABEL COMMENTS 04/26/18 13:15 Fentanyl Citrate 250 ml @ 5 mls/hr TITRATE PRN IV Sedation 04/26/18 14:30 04/26/18 14:38 Propofol 100 ml @ 2.463 mls/ hr TITRATE PRN IV SEDATION 04/26/18 14:30 04/27/18 16:03 Levetriacetam 500 mg/Sodium Chloride 105 ml @ 420 mls/hr Q12HR IV 04/26/18 21:00 04/27/18 09:04 Sodium Chloride 188 meq/Sodium Chloride 1,047 ml @ 40 mls/hr Q24H IV 04/26/18 18:30 04/26/18 18:13 Potassium Chloride 100 ml @ 50 mls/hr Q2H PRN IV-CENTRAL For Potassium 2.8 - 3.2 mEq/L 04/27/18 07:30 Potassium Chloride 100 ml @ 50 mls/hr Q2H PRN IV For Potassium 2.8 - 3.2 mEq/L 04/27/18 07:30 Potassium Bicarb/ Potassium Chloride (K-Lyte Cl Eff) 50 meq UNSCH PRN PO For Potassium 3.3 - 3.5 mEq/L 04/27/18 07:30 Potassium Chloride 100 ml @ 25 mls/hr UNSCH PRN IV-CENTRAL For Potassium 3.3 - 3.5 mEq/L 04/27/18 07:30 Potassium Chloride 100 ml @ 50 mls/hr Q2H PRN IV For Potassium 3.3 - 3.5 mEq/L 04/27/18 07:30 Magnesium Sulfate 4 gm/Sodium Chloride 100 ml @ 50 mls/hr UNSCH PRN IV For Magnesium 0.9 - 1.1 mg/dL 04/27/18 07:30 Magnesium Oxide (Mag-Ox) 800 mg UNSCH PRN PO For Magnesium 1.2 - 1.6 mg/dL 04/27/18 07:30 Magnesium Sulfate 2 gm/Sodium Chloride 100 ml @ 50 mls/hr UNSCH PRN IV For Magnesium 1.2 - 1.6 mg/dL 04/27/18 07:30 Potassium Phosphate (K-Phos) 2,000 mg Q4H PRN PO For Phosphorus < 2.5 mg/dL 04/27/18 07:30 Sodium Phosphate 30 mmol/Sodium Chloride 250 ml @ 42 mls/hr UNSCH PRN IV For Phosphorus < 2.5 mg/dL 04/27/18 07:30 Potassium Phosphate (K-Phos) 2,000 mg UNSCH PRN PO/TUBE SEE LABEL COMMENTS 04/27/18 07:30 Potassium Phosphate 30 mmol/ Sodium Chloride 260 ml @ 42 mls/hr UNSCH PRN IV SEE LABEL COMMENTS 04/27/18 07:30 Chlorhexidine Gluconate (Peridex 0.12% Liq) 15 ml BID@08,20 MT 04/27/18 08:00 04/27/18 08:00 Albuterol/ Ipratropium (Duoneb Neb) 1 ampule Q6HR NEB NEB 04/27/18 10:00 04/27/18 15:15 Albuterol/ Ipratropium (Duoneb Neb) 1 ampule Q2HR NEB PRN NEB wheezing 04/27/18 07:30 Senna/Docusate Sodium (Meron-Colace) 1 tab BID PO 04/27/18 09:00 04/27/18 09:04 Magnesium Hydroxide (Milk Of Magnesia Liq) 30 ml BID PO 04/27/18 09:00 04/27/18 09:04 Lactulose (Lactulose Liq) 30 ml DAILY PRN PO If no Bowel Movement in 2 days 04/27/18 07:30 Acetaminophen 100 ml @ 400 mls/hr Q6H PRN IV temp>101 04/27/18 16:15 UNV (Sofia Younger) Current Medications Current Medications Sodium Chloride 1,000 ml @ 100 mls/hr Q10H IV Last administered on 04/29/18at 23 :34; Start 04/26/18 at 14:00; Stop 04/30/18 at 09:29; Status DC Sodium Chloride (NS Flush) 2 ml UNSCH PRN IV FLUSH FLUSH AFTER USING IV ACCESS ; Start 04/26/18 at 13:15 Sodium Chloride (NS Flush) 2 ml BID IV FLUSH Last administered on 05/02/18at 20: 34; Start 04/26/18 at 21:00 Pantoprazole Sodium (Protonix Inj) 40 mg Q24H IV PUSH Last administered on 05/03at 14:07; Start 04/26/18 at 14:00 Naloxone HCl (Narcan Inj) 0.4 mg UNSCH PRN IV PUSH SEE LABEL COMMENTS; Start at 13:15 Propofol 100 ml @ 0 mls/hr TITRATE PRN IV SEDATION; Start 04/26/18 at 13:15; Stop 04/26/18 at 14:31; Status DC Fentanyl Citrate 250 ml TITRATE PRN IV SEDATION; Start 04/26/18 at 13:15; Stop 04/26/18 at 14:31; Status DC Iohexol (Omnipaque 350 Inj) 89 ml STK-MED ONCE IVCONTRAST Last administered on 04/26/18at 13:35; Start 04/26/18 at 13:35; Stop 04/26/18 at 13:36; Status DC Succinylcholine Chloride (Quelicin Inj) 200 mg STK-MED ONCE .ROUTE ; Start at 14:10; Stop 04/26/18 at 14:11; Status DC Fentanyl Citrate 250 ml @ 5 mls/hr TITRATE PRN IV Sedation Last administered on 05/03/18at 12:17; Start 04/26/18 at 14:30 Propofol 100 ml @ 2.463 mls/ hr TITRATE PRN IV SEDATION Last administered on at 12:17; Start 04/26/18 at 14:30 Propofol 100 ml @ As Directed STK-MED ONCE .ROUTE ; Start 04/26/18 at 13:21; Stop 04/26/18 at 14:31; Status DC Levetriacetam 500 mg/Sodium Chloride 105 ml @ 420 mls/hr Q12HR IV Last administered on 05/03/18at 08:37; Start 04/26/18 at 21:00 Sodium Chloride 188 meq/Sodium Chloride 1,047 ml @ 40 mls/hr Q24H IV Last administered on 04/29/18at 20:58; Start 04/26/18 at 18:30; Stop 04/30/18 at 09:29; Status DC Potassium Chloride 100 ml @ 50 mls/hr Q2H PRN IV-CENTRAL For Potassium 2.8 - 3.2 mEq/L; Start 04/27/18 at 07:30 Potassium Chloride 100 ml @ 50 mls/hr Q2H PRN IV For Potassium 2.8 - 3.2 mEq/L ; Start 04/27/18 at 07:30 Potassium Bicarb/ Potassium Chloride (K-Lyte Cl Eff) 50 meq UNSCH PRN PO For Potassium 3.3 - 3.5 mEq/L Last administered on 04/29/18at 06:17; Start 04/27/18 at 07:30 Potassium Chloride 100 ml @ 25 mls/hr UNSCH PRN IV-CENTRAL For Potassium 3.3 - 3.5 mEq/L; Start 04/27/18 at 07:30 Potassium Chloride 100 ml @ 50 mls/hr Q2H PRN IV For Potassium 3.3 - 3.5 mEq/L ; Start 04/27/18 at 07:30 Magnesium Sulfate 4 gm/Sodium Chloride 100 ml @ 50 mls/hr UNSCH PRN IV For Magnesium 0.9 - 1.1 mg/dL; Start 04/27/18 at 07:30 Magnesium Oxide (Mag-Ox) 800 mg UNSCH PRN PO For Magnesium 1.2 - 1.6 mg/dL; Start 04/27/18 at 07:30 Magnesium Sulfate 2 gm/Sodium Chloride 100 ml @ 50 mls/hr UNSCH PRN IV For Magnesium 1.2 - 1.6 mg/dL; Start 04/27/18 at 07:30 Potassium Phosphate (K-Phos) 2,000 mg Q4H PRN PO For Phosphorus < 2.5 mg/dL; Start 04/27/18 at 07:30 Sodium Phosphate 30 mmol/Sodium Chloride 250 ml @ 42 mls/hr UNSCH PRN IV For Phosphorus < 2.5 mg/dL Last administered on 04/27/18at 22:16; Start 04/27/18 at 07: 30 Potassium Phosphate (K-Phos) 2,000 mg UNSCH PRN PO/TUBE SEE LABEL COMMENTS; Start 04/27/18 at 07:30 Potassium Phosphate 30 mmol/ Sodium Chloride 260 ml @ 42 mls/hr UNSCH PRN IV SEE LABEL COMMENTS; Start 04/27/18 at 07:30 Chlorhexidine Gluconate (Peridex 0.12% Liq) 15 ml BID@08,20 MT Last administered on 05/03/18at 08:00; Start 04/27/18 at 08:00 Potassium Bicarb/ Potassium Chloride (K-Lyte Cl Eff) 50 meq ONCE PRN PO Electrolyte replacement; Start 04/27/18 at 07:30; Status UNV Albuterol/ Ipratropium (Duoneb Neb) 1 ampule Q6HR NEB NEB Last administered on 05/01/18at 07:40; Start 04/27/18 at 10:00; Stop 05/01/18 at 09:59; Status DC Albuterol/ Ipratropium (Duoneb Neb) 1 ampule Q2HR NEB PRN NEB wheezing; Start 04/27/18 at 07:30 Senna/Docusate Sodium (Meron-Colace) 1 tab BID PO Last administered on at 08:36; Start 04/27/18 at 09:00 Magnesium Hydroxide (Milk Of Magnesia Liq) 30 ml BID PO Last administered on at 08:36; Start 04/27/18 at 09:00 Lactulose (Lactulose Liq) 30 ml DAILY PRN PO If no Bowel Movement in 2 days; Start 04/27/18 at 07:30; Stop 04/29/18 at 08:39; Status DC Acetaminophen 100 ml @ 400 mls/hr Q6H PRN IV temp>101 Last administered on at 14:07; Start 04/27/18 at 16:15 Meperidine HCl (Demerol Inj) 25 mg Q6H PRN IV PUSH shivering; Start 04/28/18 at 10:30 Lactulose (Lactulose Liq) 30 ml DAILY PO Last administered on 05/03/18at 08:36; Start 04/29/18 at 09:00 Furosemide (Lasix Inj) 40 mg ONCE ONCE IV PUSH Last administered on 04/30/18at 09:57; Start 04/30/18 at 09:30; Stop 04/30/18 at 09:38; Status DC Hydralazine HCl (Apresoline Inj) 10 mg Q6H PRN IV PUSH SBP>175. DBP > 105; Start 04/30/18 at 10:15; Stop 04/30/18 at 13:57; Status DC Clonidine (Catapres-Tts 0.1mg Patch.7d) 1 patch Q7D T-DERMAL Last administered on 04/30/18at 11:45; Start 04/30/18 at 11:00; Stop 05/01/18 at 16:05; Status DC Miscellaneous Information 1 Q7D T-DERMAL ; Start 05/07/18 at 11:00; Stop at 11:00; Status DC Enoxaparin Sodium (Lovenox Inj) 40 mg Q24H SQ Last administered on 05/03/18at 10 :43; Start 05/01/18 at 11:00 Metoprolol Tartrate (Lopressor Inj) 5 mg Q6H IV PUSH ; Start 05/01/18 at 12:00; Stop 05/02/18 at 09:23; Status DC Clonidine (Catapres-Tts 0.2 Mg Patch.7d) 1 patch Q7D T-DERMAL Last administered on 05/01/18at 16:28; Start 05/01/18 at 17:00; Stop 05/03/18 at 09:36 ; Status DC Lisinopril (Prinivil) 10 mg Q12HR PO Last administered on 05/03/18at 08:36; Start 05/01/18 at 17:00 Oxycodone HCl (Roxicodone) 10 mg Q6H NG Last administered on 05/03/18at 10:43; Start 05/01/18 at 16:15 Hydralazine HCl (Apresoline Inj) 10 mg Q6H PRN IV PUSH SYS BP GREATER THAN 170 MMHG; Start 05/01/18 at 17:15; Stop 05/01/18 at 17:18; Status DC Hydralazine HCl (Apresoline) 25 mg Q6H NG Last administered on 05/03/18at 10:43 ; Start 05/01/18 at 17:00 Nicardipine HCl 25 mg/Sodium Chloride 260 ml @ 52 mls/hr TITRATE PRN IV Blood pressure management Last administered on 05/03/18at 07:21; Start 05/01/18 at 18: 00 Etomidate (Amidate Inj) 40 mg STK-MED ONCE .ROUTE ; Start 05/02/18 at 08:38; Stop 05/02/18 at 08:39; Status DC Rocuronium Mitchell (Zemuron Inj) 100 mg STK-MED ONCE .ROUTE ; Start 05/02/18 at 08:39; Stop 05/02/18 at 08:40; Status DC Rocuronium Mitchell (Zemuron Inj) 50 mg BOLUS ONCE IV Last administered on 05/02at 10:00; Start 05/02/18 at 10:00; Stop 05/02/18 at 10:01; Status DC Midazolam HCl (Versed Inj) 5 mg ONCE ONCE IM ; Start 05/02/18 at 10:00; Stop at 10:05; Status DC Midazolam HCl (Versed Inj) 5 mg ONCE ONCE IV ; Start 05/02/18 at 10:15; Stop at 10:16; Status DC Clonidine (Catapres-Tts 0.3 Mg Patch.7d) 1 patch Q7D T-DERMAL Last administered on 05/03/18at 11:48; Start 05/03/18 at 11:00 Furosemide (Lasix Inj) 40 mg ONCE ONCE IV PUSH Last administered on 05/03/18at 10:44; Start 05/03/18 at 09:45; Stop 05/03/18 at 10:09; Status DC Artificial Tears (Lacrilube Opht Oint) 1 applic Q12HR EACH EYE Last administered on 05/03/18at 11:48; Start 05/03/18 at 11:00 Miscellaneous Information 1 Q7D T-DERMAL ; Start 05/10/18 at 10:59 (Emiliano Chiang MD) Medical Decision Making MDM Remarks 73 year old male trauma alert, fall off ladder onto cement TBI, left traumatic subarachnoid, subdural hemorrhage, s/p placement of ICP monitor (Sofia Younger) Plan Plan Remarks cont ICP monitoring neuro checks f/u CT Brain tomorrow am cont critical care per trauma team nonchemical dvt prophylaxis in view of acute ICH protonix for stress ulcer prophylaxis seizure prophylaxis (Sofia Younger) Attending Statement Neurologically ICP's are fluctuating On sedation vacation patient moves all 4 extremities opens eyes but does not follow commands and does not track making [place] Coma Scale 7 CPP within the parameters of autoregulation Remains on neuroprotective measures including propofol fentanyl Keppra Decrease 2% saline to about 20 cc an hour at this point Hemodynamic/Cardiac Hemodynamically stable with boots of hypertension Pulmonary/Respiratory He remains critical remains on assist control ventilation and pulmonary status and PO2 FiO2 gradient will allow for extubation Abdomen/GI Nutrition Abdomen soft active bowel sounds enteral feeds tolerated again as the Time progresses I do not believe the patient will need a feeding tube i.e. PEG and will extubate successfully eventually Renal/I&O Renal function well-preserved Hypertonic saline 2% at 20 cc/h Sodium 1 48 mEq/L and serum osmolality within physiologic parameters under 330 mOsm per lite Renal/I&O Renal function will preserved Nutrition. tube feedings Renal. monitor closely urine output, BUN and creatinine Endocrine. Monitor serial Acu checks and SSI as needed in detail ID monitor for signs of infection Protonix for stress ulcer prophylaxis Familia hose and SCD's for DVT prophylaxis The exam, history, and the medical decision-making described in the above note were completed with the assistance of the mid-level provider. I reviewed and agree with the findings presented. I attest that I had a [id number] encounter with the patient on the same day, and personally performed and documented my assessment and findings in the medical record. (Emiliano Chiang MD) Sofia Younger Apr 27, 2018 16:46 Emiliano Chiang MD May 03, 2018 14:52
[2018-04-27 18:21] LABS: PHOSPHORUS 2.1 MG/DL (2.5-4.9)
[2018-04-27] MEDS: SODIUM CHLORIDE 23.4% INJ 188 MEQ in SODIUM CHLOR 0.9% 1000 ML INJ 1,000 ML IV SCH (19:23)
[2018-04-28] VITALS (22 sets, daily range): BP systolic 102–148; BP diastolic 44–66; PULSE 51–84; RESP 16–22; TEMP 99–100.3; O2SAT 96–100
[2018-04-28] MEDS: PROPOFOL 1000 MG/100 ML IV PRN ×4 (00:41→18:49)
[2018-04-28] MEDS: fentaNYL 2,500 MCG/NS 250 ML IV PRN (00:42)
[2018-04-28] MEDS: RESP: ALBUTEROL 2.5 MG/IPRATROPIUM 0.5 MG NEB (SCH) NEB ×4 (03:15→20:42)
--- NOTE | 2018-04-28 04:45 | RADRPT ---
EXAM DATE: 04/28/2018 4:31 AM EDT AGE/SEX: 72 years / Male INDICATIONS: Follow up trauma. CLINICAL DATA: This is the patient's subsequent encounter. Patient reports that signs and symptoms h ave been present for 3 days and indicates a pain score of Nonresponsive. MEDICAL/SURGICAL HISTORY: Non-responsive. Non-responsive. COMPARISON: [facility] [place], CHEST SINGLE AP, 04/26/2018. . FINDINGS: Mild basilar airspace disease similar to April 26. Cardiomegaly. Endotracheal tube in good position. NG enters stomach. CONCLUSION: Endotracheal tube and nasogastric tube in good position. Stable mild basilar airspace disease. No pne umothorax. Electronically signed by: Bart Serrato MD 04/28/2018 4:43 AM EDT
--- NOTE | 2018-04-28 05:09 | RADRPT ---
EXAM DATE: 04/28/2018 4:58 AM EDT AGE/SEX: 72 years / Male INDICATIONS: Follow-up trauma, subdural hematoma. CLINICAL DATA: This is the patient's subsequent encounter. Patient reports that signs and symptoms h ave been present for 2 days and indicates a pain score of Nonresponsive. MEDICAL/SURGICAL HISTORY: Non-responsive. Non-responsive. RADIATION DOSE: 56.35 CTDI (mGy) COMPAR[place]: [facility] [place]RA[place], 04/26/2018. . TECHNIQUE: CT of the head without contrast. Using automated exposure control and adjustment of the mA and/or kV according to patient size, radiation dose was kept as low as reasonably achievable to ob tain optimal diagnostic quality images. FINDINGS: There is a small amount of residual subdural hematoma which is improving from 11 6 on the left. Scatt ered hemorrhagic contusions in the brain or involving with some developing encephalomalacia in the le ft frontal region. Scattered subarachnoid hemorrhage is stable. There is fluid in the left maxillary sinus, sphenoid sinus and ethmoid air cells. Total thickening right maxillary sinus. CONCLUSION: 1. Improving left subdural hemorrhage. Evolving bilateral hemorrhagic contusions with scattered suba rachnoid hemorrhage. No new intracranial hemorrhage. Electronically signed by: Bart Serrato MD 04/28/2018 5:08 AM EDT
[2018-04-28 05:53] LABS: AUTOMATED NEUTROPHIL # 6.2 TH/MM3 (1.8-7.7); BASOPHIL % 0.3 % (0.0-2.0); EOSINOPHIL # 0.1 TH/MM3 (0-0.4); EOSINOPHIL % 1.4 % (0.0-4.0); HEMATOCRIT 27.2 % (39.0-51.0); HEMOGLOBIN 9.2 GM/DL (13.0-17.0); LYMPH % 7.8 % (9.0-44.0); LYMPHOCYTE # 0.6 TH/MM3 (1.0-4.8); MEAN CELL VOLUME 93.8 FL (80.0-100.0); MEAN CORPUSCULAR HEMOGLOBIN 31.9 PG (27.0-34.0); MEAN PLATELET VOLUME 8.5 FL (7.0-11.0); MONO % 8.3 % (0.0-8.0); MONOCYTE # 0.6 TH/MM3 (0-0.9); NEUT % 82.2 % (16.0-70.0); PLATELET COUNT 125 TH/MM3 (150-450); RED CELL DISTRIBUTION WIDTH 13.7 % (11.6-17.2); WHITE BLOOD COUNT 7.6 TH/MM3 (4.0-11.0)
[2018-04-28 06:21] LABS: ALBUMIN 2.2 GM/DL (3.4-5.0); BICARBONATE 22.9 MEQ/L (21.0-32.0); CALCIUM 7.1 MG/DL (8.5-10.1); CALCIUM-PROTEIN CORRECTED 8.2 MG/DL (8.5-10.1); CREATININE 0.78 MG/DL (0.60-1.30); TOTAL BILIRUBIN ADULT 0.5 MG/DL (0.2-1.0); TOTAL PROTEIN 5.1 GM/DL (6.4-8.2)
[2018-04-28] MEDS: CHLORHEXIDINE 0.12% (ORAL KIT) 15 ML CUP MT SCH ×2 (08:00→20:00)
[2018-04-28] MEDS: SODIUM CHLORIDE 0.9% FLUSH 10 ML FLUSH IV FLUSH SCH ×2 (08:33→21:00)
[2018-04-28] MEDS: DOCUSATE SODIUM 50 MG/SENNA 8.6 MG TAB PO SCH ×2 (08:33→20:55)
[2018-04-28] MEDS: MAGNESIUM HYDROXIDE SUSP 30 ML CUP PO SCH ×2 (08:33→20:55)
[2018-04-28] MEDS: levETIRAcetam INJ 500 MG in SODIUM CHLORIDE 0.9% INJ 100 ML IV SCH ×2 (08:34→20:55)
[2018-04-28] MEDS ORDERED: MEPERIDINE HCL 25 MG/ML VIAL IV PUSH PRN (10:30)
--- NOTE | 2018-04-28 11:24 | PD.HHIRBSE ---
Patient History Record/History Review Reason for Referral: The patient is a 72 year old unknown handed male status post traumatic brain injury secondary to a 12-15 foot fall sustained on 04/26/2018. The patient was admitted as a Trauma Alert I after falling 12-15 feet onto a concrete sidewalk. He had positive LOC at the scene, with GCS of 3-4, improving to 8-[address] showed left frontotemporal SAH and SDH with additional contusion. Additional injuries included serial rib fractures and right kidney laceration. He is referred for baseline neurobehavioral status examination per trauma protocol to assess cognitive, behavioral and emotional aspects of the injury and to provide treatment recommendations. Past Surgical/Medical History Past Surgery: Yes Major surgery in last 100 days: Unknown Hx Anesthesia Reactions: No Hx Orthopedic Surgery: Yes (left ankle) Hx of Neuro Prob: No Hx of Musculoskeletal Pro: No Hx of Cardiovascular Prob: No Hx of Respiratory Problem: No Hx of Problems: No Hx of Immuno Disor: No Hx of Endocrine Problems: No Hx of Eye Probl: No Hx of Hearing or Ear Problems: No Hx Dental Problems: No Blood Transfusion History Will receive Blood /Blood prod: Yes Medication Active Medications Acetaminophen 100 ml @ 400 mls/hr Q6H PRN IV; Start 04/27/18 at 16:15 Meperidine HCl (Demerol Inj) 25 mg Q6H PRN IV PUSH; Start 04/28/18 at 10:30 Mental Status Assessment Orientation: unable to asses Self, unable to asses Place, unable to asses Time , unable to asses Situation Observation The patient is presently intubated and sedated. Adjustment/Coping Assessment Adjustment/Coping: Not Assessed: Depression, Anxiety, Pain, Apathy, Awareness, Insight Observation The patient is intubated and sedated. LTG Status: Deferred STG Status: Deferred Team Members: Neuropsychologist Behavior Assessment Agitation: None Treatment Engagement: No effort Observation Behaviorally, the patient demonstrated no signs of agitation, impulsivity or disinhibition. There was no remarkable evidence of a formal thought disorder or psychosis. LTG - Status: Deferred STG Status: Deferred Team Members: Neuropsychologist Diagnosis/Discharge Plan Impression 72 year old male s/p TBI 2T fall on 04/26/2018. Diagnosis: (1) Major neurocognitive disorder due to Alzheimer's disease, probable, without behavioral disturbance [place] Level: I:No response-total assistance Maximizing acute care outcome It is recommended that the patient be monitored for emergent behavioral impulsivity as the medical condition evolves. This patients neuropathological challenges may limit his rehabilitation potential going forward, and these challenges will require specialized therapeutic skills to maximize outcome. Additionally, the patients family is experiencing ongoing issues of adjustment given the traumatic nature of the injury, and they may benefit from ongoing psychological assistance. At this point in the recovery process, the patient does not have cognitive capacity as the patient is unable to understand a situation and its likely consequences, nor is he able to manipulate information rationally. Cognitive capacity will be assessed throughout the recovery process. Discharge Planning Anticipated Problems Ongoing areas of concern will include behavioral impulsivity, lack of insight and judgment, which is expected to improve with time and treatment. Presently , the patient is critically ill. Given the severity of the patient's injuries it is my clinical opinion that this patient will be unable to return to any type of productive employment for at least one year, perhaps longer and likely never. This patient is not considered safe to discharge home without supervision at this time. Treatment Plan This clinician will continue to follow with you throughout the course of this patients critical care treatment, and I will be available to meet with the patients family/support system to facilitate their understanding and the ongoing care of their family member. The goals of neuropsychological intervention shall be both educational and supportive to the family/support system as is deemed clinically appropriate. Discharge Needs TBD Thank you Thank you for the opportunity to assist in this patients care. Germán Arriaga, Ph.D., ABPP Board Certified in Clinical Neuropsychology [place] [employer] [place] Licensed Psychologist #[id number] Germán Arriaga PhD Apr 28, 2018 11:24
--- NOTE | 2018-04-28 11:34 | PD.HHIRBSE ---
Patient History Record/History Review Reason for Referral: The patient is a 72 year old unknown handed male status post traumatic brain injury secondary to a 12-15 foot fall sustained on 04/26/2018. The patient was admitted as a Trauma Alert I after falling 12-15 feet onto a concrete sidewalk. He had positive LOC at the scene, with GCS of 3-4, improving to 8-[address] showed left frontotemporal SAH and SDH with additional contusion. Additional injuries included serial rib fractures and right kidney laceration. He is referred for baseline neurobehavioral status examination per trauma protocol to assess cognitive, behavioral and emotional aspects of the injury and to provide treatment recommendations. Past Surgical/Medical History Past Surgery: Yes Major surgery in last 100 days: Unknown Hx Anesthesia Reactions: No Hx Orthopedic Surgery: Yes (left ankle) Hx of Neuro Prob: No Hx of Musculoskeletal Pro: No Hx of Cardiovascular Prob: No Hx of Respiratory Problem: No Hx of Problems: No Hx of Immuno Disor: No Hx of Endocrine Problems: No Hx of Eye Probl: No Hx of Hearing or Ear Problems: No Hx Dental Problems: No Blood Transfusion History Will receive Blood /Blood prod: Yes Medication Active Medications Acetaminophen 100 ml @ 400 mls/hr Q6H PRN IV; Start 04/27/18 at 16:15 Meperidine HCl (Demerol Inj) 25 mg Q6H PRN IV PUSH; Start 04/28/18 at 10:30 Mental Status Assessment Orientation: unable to asses Self, unable to asses Place, unable to asses Time , unable to asses Situation Observation The patient is presently intubated and sedated. Adjustment/Coping Assessment Adjustment/Coping: Not Assessed: Depression, Anxiety, Pain, Apathy, Awareness, Insight Observation The patient is intubated and sedated. LTG Status: Deferred STG Status: Deferred Team Members: Neuropsychologist Behavior Assessment Agitation: None Treatment Engagement: No effort Observation Behaviorally, the patient demonstrated no signs of agitation, impulsivity or disinhibition. There was no remarkable evidence of a formal thought disorder or psychosis. LTG - Status: Deferred STG Status: Deferred Team Members: Neuropsychologist Diagnosis/Discharge Plan Impression 72 year old male s/p TBI 2T fall on 04/26/2018. Diagnosis: (1) Major neurocognitive disorder as late effect of traumatic brain injury without behavioral disturbance Maximizing acute care outcome It is recommended that the patient be monitored for emergent behavioral impulsivity as the medical condition evolves. This patients neuropathological challenges may limit his rehabilitation potential going forward, and these challenges will require specialized therapeutic skills to maximize outcome. Additionally, the patients family is experiencing ongoing issues of adjustment given the traumatic nature of the injury, and they may benefit from ongoing psychological assistance. At this point in the recovery process, the patient does not have cognitive capacity as the patient is unable to understand a situation and its likely consequences, nor is he able to manipulate information rationally. Cognitive capacity will be assessed throughout the recovery process. Discharge Planning Anticipated Problems Ongoing areas of concern will include behavioral impulsivity, lack of insight and judgment, which is expected to improve with time and treatment. Presently , the patient is critically ill. Given the severity of the patient's injuries it is my clinical opinion that this patient will be unable to return to any type of productive employment for at least one year, perhaps longer and likely never. This patient is not considered safe to discharge home without supervision at this time. Treatment Plan This clinician will continue to follow with you throughout the course of this patients rehabilitation treatment, and I will be available to meet with the patients family/support system to facilitate their understanding and the ongoing care of their family member. The goals of neuropsychological intervention shall be both educational and supportive to the family/support system as is deemed clinically appropriate. Additionally, I would recommend a referral to Dr. Lund for ongoing patient and family adjustment issues if they are coming to [place]. Discharge Needs TBD Thank you Thank you for the opportunity to assist in this patients care. Germán Arriaga, Ph.D., ABPP Board Certified in Clinical Neuropsychology [place] [employer] [place] Licensed Psychologist #[id number] Germán Arriaga PhD Apr 28, 2018 11:34
[2018-04-28] MEDS: PANTOPRAZOLE SODIUM 40 MG VIAL IV PUSH SCH (13:13)
[2018-04-28] MEDS: ACETAMINOPHEN 1000 MG/100 ML 100 ML IV PRN ×2 (13:13→21:04)
[2018-04-28] MEDS: SODIUM CHLOR 0.9% 1000 ML INJ 1,000 ML IV SCH (14:34)
--- NOTE | 2018-04-28 15:02 | PD.PSY.CON ---
Provisional Diagnosis Admission Date Apr 26, 2018 at 13:48 History of Present Illness Service Psychiatry Consult Requested By Trauma Reason for Consult Psychiatric evaluate Primary Care Physician Alcides Beach MD Past Family Social History Coded Allergies: No Known Allergies (Unverified , 04/26/18) Current Medications Medications (Trade) Dose Ordered Sig/[place] Route Start Time Stop Time Status Last Admin Sodium Chloride 1,000 ml @ 100 mls/hr Q10H IV 04/26/18 14:00 04/28/18 14:34 (NS Flush) 2 ml UNSCH PRN IV FLUSH 04/26/18 13:15 (NS Flush) 2 ml BID IV FLUSH 04/26/18 21:00 04/28/18 08:33 (Protonix Inj) 40 mg Q24H IV PUSH 04/26/18 14:00 04/28/18 13:13 (Narcan Inj) 0.4 mg UNSCH PRN IV PUSH 04/26/18 13:15 Fentanyl Citrate 250 ml @ 5 mls/hr TITRATE PRN IV 04/26/18 14:30 04/28/18 00:42 Propofol 100 ml @ 2.463 mls/ hr TITRATE PRN IV 04/26/18 14:30 04/28/18 13:13 Levetriacetam 500 mg/Sodium Chloride 105 ml @ 420 mls/hr Q12HR IV 04/26/18 21:00 04/28/18 08:34 Sodium Chloride 188 meq/Sodium Chloride 1,047 ml @ 40 mls/hr Q24H IV 04/26/18 18:30 04/27/18 19:23 Potassium Chloride 100 ml @ 50 mls/hr Q2H PRN IV-CENTRAL 04/27/18 07:30 Potassium Chloride 100 ml @ 50 mls/hr Q2H PRN IV 04/27/18 07:30 (K-Lyte Cl Eff) 50 meq UNSCH PRN PO 04/27/18 07:30 Potassium Chloride 100 ml @ 25 mls/hr UNSCH PRN IV-CENTRAL 04/27/18 07:30 Potassium Chloride 100 ml @ 50 mls/hr Q2H PRN IV 04/27/18 07:30 Magnesium Sulfate 4 gm/Sodium Chloride 100 ml @ 50 mls/hr UNSCH PRN IV 04/27/18 07:30 (Mag-Ox) 800 mg UNSCH PRN PO 04/27/18 07:30 Magnesium Sulfate 2 gm/Sodium Chloride 100 ml @ 50 mls/hr UNSCH PRN IV 04/27/18 07:30 (K-Phos) 2,000 mg Q4H PRN PO 04/27/18 07:30 Sodium Phosphate 30 mmol/Sodium Chloride 250 ml @ 42 mls/hr UNSCH PRN IV 04/27/18 07:30 04/27/18 22:16 (K-Phos) 2,000 mg UNSCH PRN PO/TUBE 04/27/18 07:30 Potassium Phosphate 30 mmol/ Sodium Chloride 260 ml @ 42 mls/hr UNSCH PRN IV 04/27/18 07:30 (Peridex 0.12% Liq) 15 ml BID@08,20 MT 04/27/18 08:00 04/28/18 08:00 (Duoneb Neb) 1 ampule Q6HR NEB NEB 04/27/18 10:00 04/28/18 07:35 (Duoneb Neb) 1 ampule Q2HR NEB PRN NEB 04/27/18 07:30 (Meron-Colace) 1 tab BID PO 04/27/18 09:00 04/28/18 08:33 (Milk Of Magnesia Liq) 30 ml BID PO 04/27/18 09:00 04/28/18 08:33 (Lactulose Liq) 30 ml DAILY PRN PO 04/27/18 07:30 Acetaminophen 100 ml @ 400 mls/hr Q6H PRN IV 04/27/18 16:15 04/28/18 13:13 (Demerol Inj) 25 mg Q6H PRN IV PUSH 04/28/18 10:30 Physical Exam Vital Signs Vital Signs Date Time Temp Pulse Resp B/P (MAP) Pulse Ox O2 Delivery O2 Flow Rate FiO2 04/28/18 13:22 100 40 04/28/18 12:00 99.7 74 19 148/48 (81) 04/28/18 07:00 Mechanical Ventilator 04/26/18 12:45 4.00 I/O 04/28/18 04/28/18 04/29/18 08:00 16:00 00:00 Intake Total 4312 ml 105 ml Output Total 400 ml Balance 3912 ml 105 ml Lab Results Test 04/27/18 17:50 04/28/18 03:38 04/28/18 05:30 04/28/18 12:00 Sodium Level 146 MEQ/L 147 MEQ/L 148 MEQ/L Serum Osmolality 297 MOSM/KG 301 MOSM/KG 306 MOSM/KG Phosphorus Level 2.1 MG/DL Blood Gas Puncture Site ART LINE Blood Gas Patient Temperature 98.6 Blood Gas HCO3 21 mmol/L Blood Gas Base Excess -3.3 mmol/L Blood Gas Oxygen Saturation 96 % Arterial Blood pH 7.35 Arterial Blood Partial Pressure CO2 40 mmHg Arterial Blood Partial Pressure O2 100 mmHg Arterial Blood Oxygen Content 12.6 Vol % Arterial Blood Carboxyhemoglobin 1.1 % Arterial Blood Methemoglobin 1.3 % Blood Gas Hemoglobin 9.3 G/DL Oxygen Delivery Device VENT Blood Gas Ventilator Setting PRVC/AC Blood Gas Inspired Oxygen 40 % White Blood Count 7.6 TH/MM3 Red Blood Count 2.90 MIL/MM3 Hemoglobin 9.2 GM/DL Hematocrit 27.2 % Mean Corpuscular Volume 93.8 FL Mean Corpuscular Hemoglobin 31.9 PG Mean Corpuscular Hemoglobin Concent 34.0 % Red Cell Distribution Width 13.7 % Platelet Count 125 TH/MM3 Mean Platelet Volume 8.5 FL Neutrophils (%) (Auto) 82.2 % Lymphocytes (%) (Auto) 7.8 % Monocytes (%) (Auto) 8.3 % Eosinophils (%) (Auto) 1.4 % Basophils (%) (Auto) 0.3 % Neutrophils # (Auto) 6.2 TH/MM3 Lymphocytes # (Auto) 0.6 TH/MM3 Monocytes # (Auto) 0.6 TH/MM3 Eosinophils # (Auto) 0.1 TH/MM3 Basophils # (Auto) 0.0 TH/MM3 CBC Comment DIFF FINAL Differential Comment Blood Urea Nitrogen 14 MG/DL Creatinine 0.78 MG/DL Random Glucose 106 MG/DL Total Protein 5.1 GM/DL Albumin 2.2 GM/DL Calcium Level 7.1 MG/DL Alkaline Phosphatase 32 U/L Aspartate Amino Transf (AST/SGOT) 39 U/L Alanine Aminotransferase (ALT/SGPT) 35 U/L Total Bilirubin 0.5 MG/DL Potassium Level 3.6 MEQ/L Chloride Level 117 MEQ/L Carbon Dioxide Level 22.9 MEQ/L Anion Gap 7 MEQ/L Estimat Glomerular Filtration Rate 98 ML/MIN Protein Corrected Calcium 8.2 MG/DL Assessment & Plan Problem List: (1) Major neurocognitive disorder due to Alzheimer's disease, probable, without behavioral disturbance ICD Codes: G30.9 - Alzheimer's disease, unspecified; F02.80 - Dementia in other diseases classified elsewhere without behavioral disturbance Assessment & Plan: The patient is intubated, unable to participate in psychiatric assessment at the moment. I will follow-up. Assessment & Plan Estimated LOS: Dangelo Cordova MD Apr 28, 2018 15:02
--- NOTE | 2018-04-28 15:03 | HHI.NSPN ---
(Sofia Younger) Note Status Status: Progress Note (Sofia Younger) Interval History Interval History This 72-year-old gentleman was brought in as priority 1 trauma alert after falling about 12-15 feet out of a tree. Apparently the ladder fell sideways. No seizure activity. No tonguebitting. No incontinence of stool or urine. The patient fell on a concrete walkway, right side down. According to witnesses, he was completely unconscious and on the arrival, the paramedics' [place] Coma Scale was 3, which improved after resuscitation to about 8. The patient brought with a spinal board with C-collar in place, moaning and groaning. CT showed traumatic SAHand a small SDH. Neurosurgery consultation was requested 04/27: patient seen this morning during rounds, mildly sedated, intubated, but seen to be moving purposefully, no opening eyes or following commands. 04/28: seen this am during rounds, ICPs controlled overnight, intubated and currently well sedated. f/u CT Brain this morning completed, improved SDH, with evolving contusion. (Sofia Younger) Labs, Micro, & Vital Signs Results Date Time Temp Pulse Resp B/P (MAP) Pulse Ox O2 Delivery O2 Flow Rate FiO2 04/28/18 13:22 100 40 04/28/18 12:00 40 04/28/18 12:00 99.7 74 19 148/48 (81) 100 04/28/18 12:00 74 04/28/18 10:00 62 04/28/18 09:53 100 40 04/28/18 08:00 40 04/28/18 08:00 99.0 64 17 128/52 (77) 100 04/28/18 08:00 62 04/28/18 07:35 100 40 04/28/18 07:00 100 Mechanical Ventilator 40 04/28/18 06:00 99.7 60 16 130/66 (87) 99 04/28/18 06:00 60 04/28/18 05:17 98 40 04/28/18 04:40 100 100 04/28/18 04:00 40 04/28/18 04:00 99.3 60 16 110/56 (74) 100 04/28/18 04:00 54 04/28/18 02:08 100 40 04/28/18 02:00 51 04/28/18 00:00 40 04/28/18 00:00 51 04/27/18 22:00 50 04/27/18 20:34 100 40 04/27/18 20:00 55 04/27/18 20:00 40 04/27/18 19:00 100 Mechanical Ventilator 40 04/27/18 18:00 59 04/27/18 16:00 99.7 64 20 152/52 (85) 100 04/27/18 16:00 40 04/27/18 16:00 64 04/27/18 15:15 100 40 04/29/18 07:00 Intake Total 105 ml Balance 105 ml Constitutional Vital Signs Date Time Temp Pulse Resp B/P (MAP) Pulse Ox O2 Delivery O2 Flow Rate FiO2 04/28/18 13:22 100 40 04/28/18 12:00 40 04/28/18 12:00 99.7 74 19 148/48 (81) 100 04/28/18 12:00 74 04/28/18 10:00 62 04/28/18 09:53 100 40 04/28/18 08:00 40 04/28/18 08:00 99.0 64 17 128/52 (77) 100 04/28/18 08:00 62 04/28/18 07:35 100 40 04/28/18 07:00 100 Mechanical Ventilator 40 04/28/18 06:00 99.7 60 16 130/66 (87) 99 04/28/18 06:00 60 04/28/18 05:17 98 40 04/28/18 04:40 100 100 04/28/18 04:00 40 04/28/18 04:00 99.3 60 16 110/56 (74) 100 04/28/18 04:00 54 04/28/18 02:08 100 40 04/28/18 02:00 51 04/28/18 00:00 40 04/28/18 00:00 51 04/27/18 22:00 50 04/27/18 20:34 100 40 04/27/18 20:00 55 6/7/18 20:00 40 04/27/18 19:00 100 Mechanical Ventilator 40 04/27/18 18:00 59 04/27/18 16:00 99.7 64 20 152/52 (85) 100 04/27/18 16:00 40 04/27/18 16:00 64 04/27/18 15:15 100 40 04/29/18 07:00 Intake Total 105 ml Balance 105 ml (Sofia Younger) Review of Systems ROS Limitations: Intubated (Sofia Younger) Physical Exam General: intubated, no apparent distress HEENT: normocephalic, right ICP monitor in place, ICPs = 5. Nonicteric sclera. Neuro: sedated, not following commands. Cranial nerve: pupils equal, round, and reactive to light. Conjugate gaze. Neck: no JVD, trachea midline Musculoskeletal: no clubbing, moving extremities purposefully, not following commands for testing Respiratory: clear, mechanically ventilated Heart: regular rate rhythm (Sofia Younger) General: intubated, appears comfortable in no apparent distress HEENT: normocephalic, right ICP monitor in place, ICPs controlled. Nonicteric sclera. Neuro: sedated, not following commands. Cranial nerve: pupils equal, round, and reactive to light. Conjugate gaze. Neck: no JVD, trachea midline Musculoskeletal: no clubbing, not following commands for testing Respiratory: clear, mechanically ventilated Heart: regular rate rhythm (Emiliano Chiang MD) Medications Current Medications Current Medications Medications (Trade) Dose Ordered Sig/Bonilla Route PRN Reason Start Time Stop Time Status Last Admin Dose Admin Sodium Chloride 1,000 ml @ 100 mls/hr Q10H IV 04/26/18 14:00 04/28/18 14:34 Sodium Chloride (NS Flush) 2 ml UNSCH PRN IV FLUSH FLUSH AFTER USING IV ACCESS 04/26/18 13:15 Sodium Chloride (NS Flush) 2 ml BID IV FLUSH 04/26/18 21:00 04/28/18 08:33 Pantoprazole Sodium (Protonix Inj) 40 mg Q24H IV PUSH 04/26/18 14:00 04/28/18 13:13 Naloxone HCl (Narcan Inj) 0.4 mg UNSCH PRN IV PUSH SEE LABEL COMMENTS 04/26/18 13:15 Fentanyl Citrate 250 ml @ 5 mls/hr TITRATE PRN IV Sedation 04/26/18 14:30 04/28/18 00:42 Propofol 100 ml @ 2.463 mls/ hr TITRATE PRN IV SEDATION 04/26/18 14:30 04/28/18 13:13 Levetriacetam 500 mg/Sodium Chloride 105 ml @ 420 mls/hr Q12HR IV 04/26/18 21:00 04/28/18 08:34 Sodium Chloride 188 meq/Sodium Chloride 1,047 ml @ 40 mls/hr Q24H IV 04/26/18 18:30 04/27/18 19:23 Potassium Chloride 100 ml @ 50 mls/hr Q2H PRN IV-CENTRAL For Potassium 2.8 - 3.2 mEq/L 04/27/18 07:30 Potassium Chloride 100 ml @ 50 mls/hr Q2H PRN IV For Potassium 2.8 - 3.2 mEq/L 04/27/18 07:30 Potassium Bicarb/ Potassium Chloride (K-Lyte Cl Eff) 50 meq UNSCH PRN PO For Potassium 3.3 - 3.5 mEq/L 04/27/18 07:30 Potassium Chloride 100 ml @ 25 mls/hr UNSCH PRN IV-CENTRAL For Potassium 3.3 - 3.5 mEq/L 04/27/18 07:30 Potassium Chloride 100 ml @ 50 mls/hr Q2H PRN IV For Potassium 3.3 - 3.5 mEq/L 04/27/18 07:30 Magnesium Sulfate 4 gm/Sodium Chloride 100 ml @ 50 mls/hr UNSCH PRN IV For Magnesium 0.9 - 1.1 mg/dL 04/27/18 07:30 Magnesium Oxide (Mag-Ox) 800 mg UNSCH PRN PO For Magnesium 1.2 - 1.6 mg/dL 04/27/18 07:30 Magnesium Sulfate 2 gm/Sodium Chloride 100 ml @ 50 mls/hr UNSCH PRN IV For Magnesium 1.2 - 1.6 mg/dL 04/27/18 07:30 Potassium Phosphate (K-Phos) 2,000 mg Q4H PRN PO For Phosphorus < 2.5 mg/dL 04/27/18 07:30 Sodium Phosphate 30 mmol/Sodium Chloride 250 ml @ 42 mls/hr UNSCH PRN IV For Phosphorus < 2.5 mg/dL 04/27/18 07:30 04/27/18 22:16 Potassium Phosphate (K-Phos) 2,000 mg UNSCH PRN PO/TUBE SEE LABEL COMMENTS 04/27/18 07:30 Potassium Phosphate 30 mmol/ Sodium Chloride 260 ml @ 42 mls/hr UNSCH PRN IV SEE LABEL COMMENTS 04/27/18 07:30 Chlorhexidine Gluconate (Peridex 0.12% Liq) 15 ml BID@08,20 MT 04/27/18 08:00 04/28/18 08:00 Albuterol/ Ipratropium (Duoneb Neb) 1 ampule Q6HR NEB NEB 04/27/18 10:00 04/28/18 07:35 Albuterol/ Ipratropium (Duoneb Neb) 1 ampule Q2HR NEB PRN NEB wheezing 04/27/18 07:30 Senna/Docusate Sodium (Meron-Colace) 1 tab BID PO 04/27/18 09:00 04/28/18 08:33 Magnesium Hydroxide (Milk Of Magnesia Liq) 30 ml BID PO 04/27/18 09:00 04/28/18 08:33 Lactulose (Lactulose Liq) 30 ml DAILY PRN PO If no Bowel Movement in 2 days 04/27/18 07:30 Acetaminophen 100 ml @ 400 mls/hr Q6H PRN IV temp>101 04/27/18 16:15 04/28/18 13:13 Meperidine HCl (Demerol Inj) 25 mg Q6H PRN IV PUSH shivering 04/28/18 10:30 (Sofia Younger) Current Medications Current Medications Sodium Chloride 1,000 ml @ 100 mls/hr Q10H IV Last administered on 04/29/18at 23 :34; Start 04/26/18 at 14:00; Stop 04/30/18 at 09:29; Status DC Sodium Chloride (NS Flush) 2 ml UNSCH PRN IV FLUSH FLUSH AFTER USING IV ACCESS ; Start 04/26/18 at 13:15 Sodium Chloride (NS Flush) 2 ml BID IV FLUSH Last administered on 05/02/18at 20: 34; Start 04/26/18 at 21:00 Pantoprazole Sodium (Protonix Inj) 40 mg Q24H IV PUSH Last administered on 05/03at 14:07; Start 04/26/18 at 14:00 Naloxone HCl (Narcan Inj) 0.4 mg UNSCH PRN IV PUSH SEE LABEL COMMENTS; Start at 13:15 Propofol 100 ml @ 0 mls/hr TITRATE PRN IV SEDATION; Start 04/26/18 at 13:15; Stop 04/26/18 at 14:31; Status DC Fentanyl Citrate 250 ml TITRATE PRN IV SEDATION; Start 04/26/18 at 13:15; Stop 04/26/18 at 14:31; Status DC Iohexol (Omnipaque 350 Inj) 89 ml STK-MED ONCE IVCONTRAST Last administered on 04/26/18at 13:35; Start 04/26/18 at 13:35; Stop 04/26/18 at 13:36; Status DC Succinylcholine Chloride (Quelicin Inj) 200 mg STK-MED ONCE .ROUTE ; Start at 14:10; Stop 04/26/18 at 14:11; Status DC Fentanyl Citrate 250 ml @ 5 mls/hr TITRATE PRN IV Sedation Last administered on 05/03/18at 12:17; Start 04/26/18 at 14:30 Propofol 100 ml @ 2.463 mls/ hr TITRATE PRN IV SEDATION Last administered on at 12:17; Start 04/26/18 at 14:30 Propofol 100 ml @ As Directed STK-MED ONCE .ROUTE ; Start 04/26/18 at 13:21; Stop 04/26/18 at 14:31; Status DC Levetriacetam 500 mg/Sodium Chloride 105 ml @ 420 mls/hr Q12HR IV Last administered on 05/03/18at 08:37; Start 04/26/18 at 21:00 Sodium Chloride 188 meq/Sodium Chloride 1,047 ml @ 40 mls/hr Q24H IV Last administered on 04/29/18at 20:58; Start 04/26/18 at 18:30; Stop 04/30/18 at 09:29; Status DC Potassium Chloride 100 ml @ 50 mls/hr Q2H PRN IV-CENTRAL For Potassium 2.8 - 3.2 mEq/L; Start 04/27/18 at 07:30 Potassium Chloride 100 ml @ 50 mls/hr Q2H PRN IV For Potassium 2.8 - 3.2 mEq/L ; Start 04/27/18 at 07:30 Potassium Bicarb/ Potassium Chloride (K-Lyte Cl Eff) 50 meq UNSCH PRN PO For Potassium 3.3 - 3.5 mEq/L Last administered on 04/29/18at 06:17; Start 04/27/18 at 07:30 Potassium Chloride 100 ml @ 25 mls/hr UNSCH PRN IV-CENTRAL For Potassium 3.3 - 3.5 mEq/L; Start 04/27/18 at 07:30 Potassium Chloride 100 ml @ 50 mls/hr Q2H PRN IV For Potassium 3.3 - 3.5 mEq/L ; Start 04/27/18 at 07:30 Magnesium Sulfate 4 gm/Sodium Chloride 100 ml @ 50 mls/hr UNSCH PRN IV For Magnesium 0.9 - 1.1 mg/dL; Start 04/27/18 at 07:30 Magnesium Oxide (Mag-Ox) 800 mg UNSCH PRN PO For Magnesium 1.2 - 1.6 mg/dL; Start 04/27/18 at 07:30 Magnesium Sulfate 2 gm/Sodium Chloride 100 ml @ 50 mls/hr UNSCH PRN IV For Magnesium 1.2 - 1.6 mg/dL; Start 04/27/18 at 07:30 Potassium Phosphate (K-Phos) 2,000 mg Q4H PRN PO For Phosphorus < 2.5 mg/dL; Start 04/27/18 at 07:30 Sodium Phosphate 30 mmol/Sodium Chloride 250 ml @ 42 mls/hr UNSCH PRN IV For Phosphorus < 2.5 mg/dL Last administered on 04/27/18at 22:16; Start 04/27/18 at 07: 30 Potassium Phosphate (K-Phos) 2,000 mg UNSCH PRN PO/TUBE SEE LABEL COMMENTS; Start 04/27/18 at 07:30 Potassium Phosphate 30 mmol/ Sodium Chloride 260 ml @ 42 mls/hr UNSCH PRN IV SEE LABEL COMMENTS; Start 04/27/18 at 07:30 Chlorhexidine Gluconate (Peridex 0.12% Liq) 15 ml BID@08,20 MT Last administered on 05/03/18at 08:00; Start 04/27/18 at 08:00 Potassium Bicarb/ Potassium Chloride (K-Lyte Cl Eff) 50 meq ONCE PRN PO Electrolyte replacement; Start 04/27/18 at 07:30; Status UNV Albuterol/ Ipratropium (Duoneb Neb) 1 ampule Q6HR NEB NEB Last administered on 05/01/18at 07:40; Start 04/27/18 at 10:00; Stop 05/01/18 at 09:59; Status DC Albuterol/ Ipratropium (Duoneb Neb) 1 ampule Q2HR NEB PRN NEB wheezing; Start 04/27/18 at 07:30 Senna/Docusate Sodium (Meron-Colace) 1 tab BID PO Last administered on at 08:36; Start 04/27/18 at 09:00 Magnesium Hydroxide (Milk Of Magnesia Liq) 30 ml BID PO Last administered on at 08:36; Start 04/27/18 at 09:00 Lactulose (Lactulose Liq) 30 ml DAILY PRN PO If no Bowel Movement in 2 days; Start 04/27/18 at 07:30; Stop 04/29/18 at 08:39; Status DC Acetaminophen 100 ml @ 400 mls/hr Q6H PRN IV temp>101 Last administered on at 14:07; Start 04/27/18 at 16:15 Meperidine HCl (Demerol Inj) 25 mg Q6H PRN IV PUSH shivering; Start 04/28/18 at 10:30 Lactulose (Lactulose Liq) 30 ml DAILY PO Last administered on 05/03/18at 08:36; Start 04/29/18 at 09:00 Furosemide (Lasix Inj) 40 mg ONCE ONCE IV PUSH Last administered on 04/30/18at 09:57; Start 04/30/18 at 09:30; Stop 04/30/18 at 09:38; Status DC Hydralazine HCl (Apresoline Inj) 10 mg Q6H PRN IV PUSH SBP>175. DBP > 105; Start 04/30/18 at 10:15; Stop 04/30/18 at 13:57; Status DC Clonidine (Catapres-Tts 0.1mg Patch.7d) 1 patch Q7D T-DERMAL Last administered on 04/30/18at 11:45; Start 04/30/18 at 11:00; Stop 05/01/18 at 16:05; Status DC Miscellaneous Information 1 Q7D T-DERMAL ; Start 05/07/18 at 11:00; Stop at 11:00; Status DC Enoxaparin Sodium (Lovenox Inj) 40 mg Q24H SQ Last administered on 05/03/18at 10 :43; Start 05/01/18 at 11:00 Metoprolol Tartrate (Lopressor Inj) 5 mg Q6H IV PUSH ; Start 05/01/18 at 12:00; Stop 05/02/18 at 09:23; Status DC Clonidine (Catapres-Tts 0.2 Mg Patch.7d) 1 patch Q7D T-DERMAL Last administered on 05/01/18at 16:28; Start 05/01/18 at 17:00; Stop 05/03/18 at 09:36 ; Status DC Lisinopril (Prinivil) 10 mg Q12HR PO Last administered on 05/03/18at 08:36; Start 05/01/18 at 17:00 Oxycodone HCl (Roxicodone) 10 mg Q6H NG Last administered on 05/03/18at 10:43; Start 05/01/18 at 16:15 Hydralazine HCl (Apresoline Inj) 10 mg Q6H PRN IV PUSH SYS BP GREATER THAN 170 MMHG; Start 05/01/18 at 17:15; Stop 05/01/18 at 17:18; Status DC Hydralazine HCl (Apresoline) 25 mg Q6H NG Last administered on 05/03/18at 10:43 ; Start 05/01/18 at 17:00 Nicardipine HCl 25 mg/Sodium Chloride 260 ml @ 52 mls/hr TITRATE PRN IV Blood pressure management Last administered on 05/03/18at 07:21; Start 05/01/18 at 18: 00 Etomidate (Amidate Inj) 40 mg STK-MED ONCE .ROUTE ; Start 05/02/18 at 08:38; Stop 05/02/18 at 08:39; Status DC Rocuronium [place] (Zemuron Inj) 100 mg STK-MED ONCE .ROUTE ; Start 05/02/18 at 08:39; Stop 05/02/18 at 08:40; Status DC Rocuronium [place] (Zemuron Inj) 50 mg BOLUS ONCE IV Last administered on 05/02at 10:00; Start 05/02/18 at 10:00; Stop 05/02/18 at 10:01; Status DC Midazolam HCl (Versed Inj) 5 mg ONCE ONCE IM ; Start 05/02/18 at 10:00; Stop at 10:05; Status DC Midazolam HCl (Versed Inj) 5 mg ONCE ONCE IV ; Start 05/02/18 at 10:15; Stop at 10:16; Status DC Clonidine (Catapres-Tts 0.3 Mg Patch.7d) 1 patch Q7D T-DERMAL Last administered on 05/03/18at 11:48; Start 05/03/18 at 11:00 Furosemide (Lasix Inj) 40 mg ONCE ONCE IV PUSH Last administered on 05/03/18at 10:44; Start 05/03/18 at 09:45; Stop 05/03/18 at 10:09; Status DC Artificial Tears (Lacrilube Opht Oint) 1 applic Q12HR EACH EYE Last administered on 05/03/18at 11:48; Start 05/03/18 at 11:00 Miscellaneous Information 1 Q7D T-DERMAL ; Start 05/10/18 at 10:59 (Emiliano Chiang MD) Medical Decision Making MDM Remarks 73 year old male trauma alert, fall off ladder onto cement TBI, left traumatic subarachnoid, subdural hemorrhage, s/p placement of ICP monitor 04/26/18, stable ICPs Last Impressions Head CT 04/28/18 0600 Signed Impressions: CONCLUSION: 1. Improving left subdural hemorrhage. Evolving bilateral hemorrhagic contusio ns with scattered subarachnoid hemorrhage. No new intracranial hemorrhage. Chest X-Ray 04/28/18 0600 Signed Impressions: CONCLUSION: Endotracheal tube and nasogastric tube in good position. Stable mild basilar ai rspace disease. No pneumothorax. Chest CT 04/26/18 1251 Signed Impressions: CONCLUSION: 1. Multiple displaced rib fractures on the right and there are fractures of tr ansverse processes of T5, T6 and possibly T7 on the right. 2. Parenchymal contusions in the right lung. 3. There are findings in the upper abdomen discussed on the patient's CT abdom en. Cervical Spine CT 04/26/18 1251 Signed Impressions: CONCLUSION: Degenerative spondylosis with neural foraminal compromise right C5 -6 without any significant thecal sac stenosis. Abdomen/Pelvis CT 04/26/18 1251 Signed Impressions: CONCLUSION: 1. Laceration involving the mid to lower pole of the right kidney with a small amount of perirenal blood but no active hemorrhage observed. 2. 2.4 cm solid mass involving the right mid pole kidney worrisome for renal c ell carcinoma. (Sofia Younger) Plan Plan Remarks f/u CT Brain reviewed, cont nonsurgical management cont ICP monitoring neuro checks cont critical care per trauma team nonchemical dvt prophylaxis in view of acute ICH protonix for stress ulcer prophylaxis seizure prophylaxis (Sofia Younger) Attending Statement Neurologically ICP's are controlled On sedation vacation patient moves all 4 extremities opens eyes but does not follow commands and does not track making [place] Coma Scale 7 CPP within the parameters of autoregulation Remains on neuroprotective measures including propofol fentanyl Keppra Decrease 2% saline to about 20 cc an hour at this point Hemodynamic/Cardiac Hemodynamically stable with boots of hypertension Pulmonary/Respiratory He remains critical remains on assist control ventilation and pulmonary status and PO2 FiO2 gradient will allow for extubation Abdomen/GI Nutrition Abdomen soft active bowel sounds enteral feeds tolerated again as the Time progresses I do not believe the patient will need a feeding tube i.e. PEG and will extubate successfully eventually Renal/I&O Renal function well-preserved Hypertonic saline 2% at 20 cc/h Sodium 1 48 mEq/L and serum osmolality within physiologic parameters under 330 mOsm per lite Renal/I&O Renal function will preserved Nutrition. tube feedings Renal. monitor closely urine output, BUN and creatinine Endocrine. Monitor serial Acu checks and SSI as needed in detail ID monitor for signs of infection Protonix for stress ulcer prophylaxis Familia hose and SCD's for DVT prophylaxis The exam, history, and the medical decision-making described in the above note were completed with the assistance of the mid-level provider. I reviewed and agree with the findings presented. I attest that I had a aviq-jo-pyna encounter with the patient on the same day, and personally performed and documented my assessment and findings in the medical record. (Emiliano Chiang MD) Sofia Younger Apr 28, 2018 15:03 Emiliano Chiang MD May 03, 2018 15:00
--- NOTE | 2018-04-28 18:55 | HHI.CCPN ---
Subjective Brief History This 72-year-old gentleman was brought in as priority 1 trauma alert after falling about 12-15 feet out of a tree as the ladder went flying sideways. The patient fell on a concrete walkway, right side down. According to witnesses, he was completely unconscious and on the arrival, the paramedics' [place] Coma Scale was 3-4, which improved on the way to about 8 or 9. The patient brought with a spinal board with C-collar in place, moaning and groaning and complained but pain in the right chest. Patient was resuscitated according trauma principles and placed in ICU for further care Final injuries Traumatic brain injury with mainly left frontal temporoparietal subarachnoid and subdural bleed and some superficial contusions of the brain Right chest contusion with a small hemothorax and serial rib fractures of 5th, 6th, 7th, 8th ribs, Transverse process fractures of several vertebrae, Laceration of the right kidney with a hematoma and a small mass of the right kidney 24 Hour Review/Hospital Course 04/27/2018 Patient remains intubated and ventilated Neuroprotective measures including propofol and fentanyl Keppra 2% hypertonic saline at 30 cc/h ICP remains 4-12 mmHg Hemodynamically patient stable Bilateral good breath sounds on decreasing levels of ventilatory support with good PO2 FiO2 gradient 04/28/2018 No change in neurologic status On sedation vacation patient moves all 4 extremities opens eyes but does not follow commands and does not track making [place] Coma Scale about 6 or 7 This is fairly significant brain injury and will take a while to resolve ICP remains low and from my point ICP monitor can be removed CPP within the parameters of autoregulation Remains on neuroprotective measures including propofol fentanyl Keppra Decrease 2% saline to about 20 cc an hour at this point Hemodynamically patient stable Bilateral breath sounds remains on assist control ventilation and pulmonary status and PO2 FiO2 gradient will allow for extubation but of course patient's neurologic status does not allow for the same Patient will not need tracheostomy and I believe he will recover in next few days sufficiently and regaining consciousness to extubate safely Abdomen soft enteral feeds tolerated Renal function normal Objective Vital Signs Date Time Temp Pulse Resp B/P (MAP) Pulse Ox O2 Delivery O2 Flow Rate FiO2 04/28/18 16:32 100 40 04/28/18 16:00 100.0 56 16 102/44 (63) 04/28/18 07:00 Mechanical Ventilator 04/26/18 12:45 4.00 Intake and Output 6/8/18 6/8/18 6/9/18 08:00 16:00 00:00 Intake Total 4312 ml 105 ml Output Total 400 ml Balance 3912 ml 105 ml Result Diagram: 04/28/18 0530 04/28/18 1200 Other Results Laboratory Tests Test 04/28/18 03:38 Blood Gas Puncture Site ART LINE Blood Gas Patient Temperature 98.6 Blood Gas HCO3 21 mmol/L (22-26) Blood Gas Base Excess -3.3 mmol/L (-2-2) Blood Gas Oxygen Saturation 96 % (90-100) Arterial Blood pH 7.35 (7.380-7.420) Arterial Blood Partial Pressure CO2 40 mmHg (38-42) Arterial Blood Partial Pressure O2 100 mmHg (61-120) Arterial Blood Oxygen Content 12.6 Vol % (12.0-20.0) Arterial Blood Carboxyhemoglobin 1.1 % (0-4) Arterial Blood Methemoglobin 1.3 % (0-2) Blood Gas Hemoglobin 9.3 G/DL (12.0-16.0) Oxygen Delivery Device VENT Blood Gas Ventilator Setting PRVC/AC Blood Gas Inspired Oxygen 40 % Imaging Last [address] 04/28/18 06 Signed Impressions: CONCLUSION: 1. Improving left subdural hemorrhage. Evolving bilateral hemorrhagic contusio ns with scattered subarachnoid hemorrhage. No new intracranial hemorrhage. Chest X-Ray 04/28/18 06 Signed Impressions: CONCLUSION: Endotracheal tube and nasogastric tube in good position. Stable mild basilar ai rspace disease. No pneumothorax. Exam SERVER No change in neurologic status On sedation vacation patient moves all 4 extremities opens eyes but does not follow commands and does not track making [place] Coma Scale about 6 or 7 This is fairly significant brain injury and will take a while to resolve ICP remains low and from my point ICP monitor can be removed CPP within the parameters of autoregulation Remains on neuroprotective measures including propofol fentanyl Keppra Decrease 2% saline to about 20 cc an hour at this point Hemodynamic/Cardiac Hemodynamically patient stable Pulmonary/Respiratory Bilateral breath sounds remains on assist control ventilation and pulmonary status and PO2 FiO2 gradient will allow for extubation but of course patient's neurologic status does not allow for the same Patient will not need tracheostomy and I believe he will recover in next few days sufficiently and regaining consciousness to extubate safely Abdomen/GI Nutrition Abdomen soft active bowel sounds enteral feeds tolerated again as the Time progresses I do not believe the patient will need a feeding tube i.e. PEG and will extubate successfully eventually Renal/I&O Renal function well-preserved Hypertonic saline 2% at 20 cc/h Sodium 1 48 mEq/L and serum osmolality within physiologic parameters under 330 mOsm per liter Assessment and Plan Attestation Critical care 32 minutes Georgia Bustillo MD Apr 28, 2018 18:55
[2018-04-28] MEDS: SODIUM CHLORIDE 23.4% INJ 188 MEQ in SODIUM CHLOR 0.9% 1000 ML INJ 1,000 ML IV SCH (22:44)
[2018-04-29] VITALS (19 sets, daily range): BP systolic 106–158; BP diastolic 48–72; PULSE 50–80; RESP 16–22; TEMP 98.2–100.2; O2SAT 97–100
[2018-04-29] MEDS: SODIUM CHLOR 0.9% 1000 ML INJ 1,000 ML IV SCH ×3 (01:52→23:34)
[2018-04-29] MEDS: PROPOFOL 1000 MG/100 ML IV PRN ×3 (02:58→21:24)
[2018-04-29] MEDS: RESP: ALBUTEROL 2.5 MG/IPRATROPIUM 0.5 MG NEB (SCH) NEB ×4 (04:06→20:05)
--- NOTE | 2018-04-29 04:18 | RADRPT ---
EXAM DATE: 04/29/2018 3:47 AM EDT AGE/SEX: 72 years / Male INDICATIONS: Shortness of breath CLINICAL DATA: This is the patient's subsequent encounter. Patient reports that signs and symptoms h ave been present for 4 - 6 days and indicates a pain score of Nonresponsive. MEDICAL/SURGICAL HISTORY: Non-responsive. Non-responsive. COMPARISON: [facility], CHEST SINGLE AP, 04/28/2018. . FINDINGS: Endotracheal tube in good position. NG enters stomach. Basilar airspace disease and pleural effusion slightly increased from 8 comparison. No pneumothorax. CONCLUSION: Increasing basilar airspace disease since April 28. Bilateral pleural effusions present. Support appara tus unchanged. Electronically signed by: Bart Serrato MD 04/29/2018 4:17 AM EDT
[2018-04-29 04:25] LABS: AUTOMATED NEUTROPHIL # 5.1 TH/MM3 (1.8-7.7); BASOPHIL % 0.7 % (0.0-2.0); EOSINOPHIL # 0.2 TH/MM3 (0-0.4); EOSINOPHIL % 2.8 % (0.0-4.0); HEMATOCRIT 22.2 % (39.0-51.0); HEMOGLOBIN 7.7 GM/DL (13.0-17.0); LYMPHOCYTE # 0.5 TH/MM3 (1.0-4.8); MEAN CELL VOLUME 93.2 FL (80.0-100.0); MEAN CORPUSCULAR HEMOGLOBIN 32.3 PG (27.0-34.0); MEAN CORPUSCULAR HGB CONC 34.6 % (32.0-36.0); MEAN PLATELET VOLUME 8.6 FL (7.0-11.0); MONO % 7.1 % (0.0-8.0); MONOCYTE # 0.4 TH/MM3 (0-0.9); NEUT % 81.4 % (16.0-70.0); PLATELET COUNT 117 TH/MM3 (150-450); RED BLOOD COUNT 2.38 MIL/MM3 (4.50-5.90); RED CELL DISTRIBUTION WIDTH 13.7 % (11.6-17.2); WHITE BLOOD COUNT 6.3 TH/MM3 (4.0-11.0)
[2018-04-29 04:55] LABS: ALBUMIN 1.8 GM/DL (3.4-5.0); BICARBONATE 23.1 MEQ/L (21.0-32.0); CALCIUM 7.1 MG/DL (8.5-10.1); CALCIUM-PROTEIN CORRECTED 8.5 MG/DL (8.5-10.1); CREATININE 0.74 MG/DL (0.60-1.30); TOTAL BILIRUBIN ADULT 0.3 MG/DL (0.2-1.0); TOTAL PROTEIN 4.6 GM/DL (6.4-8.2)
[2018-04-29] MEDS: CHLORHEXIDINE 0.12% (ORAL KIT) 15 ML CUP MT SCH ×2 (08:00→19:53)
--- NOTE | 2018-04-29 08:56 | HHI.CCPN ---
Subjective Brief History This 72-year-old gentleman was brought in as priority 1 trauma alert after falling about 12-15 feet out of a tree as the ladder went flying sideways. The patient fell on a concrete walkway, right side down. According to witnesses, he was completely unconscious and on the arrival, the paramedics' [place] Coma Scale was 3-4, which improved on the way to about 8 or 9. The patient brought with a spinal board with C-collar in place, moaning and groaning and complained but pain in the right chest. Patient was resuscitated according trauma principles and placed in ICU for further care Final injuries Traumatic brain injury with mainly left frontal temporoparietal subarachnoid and subdural bleed and some superficial contusions of the brain Right chest contusion with a small hemothorax and serial rib fractures of 5th, 6th, 7th, 8th ribs, Transverse process fractures of several vertebrae, Laceration of the right kidney with a hematoma and a small mass of the right kidney 24 Hour Review/Hospital Course 04/27/2018 Patient remains intubated and ventilated Neuroprotective measures including propofol and fentanyl Keppra 2% hypertonic saline at 30 cc/h ICP remains 4-12 mmHg Hemodynamically patient stable Bilateral good breath sounds on decreasing levels of ventilatory support with good PO2 FiO2 gradient 04/28/2018 No change in neurologic status On sedation vacation patient moves all 4 extremities opens eyes but does not follow commands and does not track making [place] Coma Scale about 6 or 7 This is fairly significant brain injury and will take a while to resolve ICP remains low and from my point ICP monitor can be removed CPP within the parameters of autoregulation Remains on neuroprotective measures including propofol fentanyl Keppra Decrease 2% saline to about 20 cc an hour at this point Hemodynamically patient stable Bilateral breath sounds remains on assist control ventilation and pulmonary status and PO2 FiO2 gradient will allow for extubation but of course patient's neurologic status does not allow for the same Patient will not need tracheostomy and I believe he will recover in next few days sufficiently and regaining consciousness to extubate safely Abdomen soft enteral feeds tolerated Renal function normal 04/29/2018 No change in neurologic status Patient remains stable on propofol fentanyl Keppra ICP remains within physiologic range and ICP monitor may be removed as per neurosurgery Hemodynamically remains stable however hemoglobin dropped to 7.8 g/dL as a result of hemodilution and obviously decreased production We will transfuse 2 units PRBC faced with age and neurologic injury Bilateral good breath sounds good PO2 FiO2 gradient Abdomen soft enteral feeds tolerated Plan Once okay with neurosurgery will wake up the patient and start weaning down the sedation probably tomorrow or Tuesday Transfuse 2 units PRBC Continue care Objective Vital Signs Date Time Temp Pulse Resp B/P (MAP) Pulse Ox O2 Delivery O2 Flow Rate FiO2 04/29/18 06:00 64 04/29/18 04:29 100 40 04/29/18 04:00 98.2 18 106/48 (67) 04/28/18 20:00 Mechanical Ventilator 04/26/18 12:45 4.00 Intake and Output 04/29/18 04/29/18 04/30/18 08:00 16:00 00:00 Intake Total 487 ml Output Total 350 ml Balance 137 ml Result Diagram: 04/29/18 0400 04/29/18 0400 Other Results Laboratory Tests Test 04/29/18 03:13 Blood Gas Puncture Site ART LINE Blood Gas Patient Temperature 98.6 Blood Gas HCO3 23 mmol/L (22-26) Blood Gas Base Excess -1.6 mmol/L (-2-2) Blood Gas Oxygen Saturation 97 % (90-100) Arterial Blood pH 7.39 (7.380-7.420) Arterial Blood Partial Pressure CO2 38 mmHg (38-42) Arterial Blood Partial Pressure O2 117 mmHg (61-120) Arterial Blood Oxygen Content 11.8 Vol % (12.0-20.0) Arterial Blood Carboxyhemoglobin 1.2 % (0-4) Arterial Blood Methemoglobin 1.1 % (0-2) Blood Gas Hemoglobin 8.5 G/DL (12.0-16.0) Oxygen Delivery Device VENTILATOR Blood Gas Ventilator Setting PRVC16/550/1.0/+5 Blood Gas Inspired Oxygen 40 % Imaging Last 24 hours Impressions Chest X-Ray 04/29/18 0600 Signed Impressions: CONCLUSION: Increasing basilar airspace disease since April 28. Bilateral pleural effusions p resent. Support apparatus unchanged. 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 neurologic status Patient remains stable on propofol fentanyl Keppra ICP remains within physiologic range and ICP monitor may be removed as per neurosurgery Hemodynamic/Cardiac Hemodynamically remains stable however hemoglobin dropped to 7.8 g/dL as a result of hemodilution and obviously decreased production We will transfuse 2 units PRBC faced with age and neurologic injury Pulmonary/Respiratory Bilateral good breath sounds good PO2 FiO2 gradient Remains on assist control ventilation with PCO2 between 32 and 40 mmHg Again when okay with neurosurgery will start weaning down the ventilator and work toward extubation if neurologic status allows for the same Abdomen/GI Nutrition Abdomen soft enteral feeds tolerated Assessment and Plan Attestation Plan Once okay with neurosurgery will wake up the patient and start weaning down the sedation probably tomorrow or Tuesday Transfuse 2 units PRBC Critical care time 32 minutes Georgia Bustillo MD Apr 29, 2018 08:55
[2018-04-29] MEDS: SODIUM CHLORIDE 0.9% FLUSH 10 ML FLUSH IV FLUSH SCH ×2 (09:00→20:58)
[2018-04-29] MEDS: MAGNESIUM HYDROXIDE SUSP 30 ML CUP PO SCH ×2 (09:01→20:58)
[2018-04-29] MEDS: LACTULOSE SYRUP 20 GM/30 ML CUP PO SCH (09:01)
[2018-04-29] MEDS: DOCUSATE SODIUM 50 MG/SENNA 8.6 MG TAB PO SCH ×2 (09:01→20:58)
[2018-04-29] MEDS: levETIRAcetam INJ 500 MG in SODIUM CHLORIDE 0.9% INJ 100 ML IV SCH ×2 (09:02→19:53)
[2018-04-29] MEDS: PANTOPRAZOLE SODIUM 40 MG VIAL IV PUSH SCH (13:53)
--- NOTE | 2018-04-29 15:59 | HHI.NSPN ---
History Chief Complaint: Intubated Interval History his 72-year-old gentleman was brought in as priority 1 trauma alert after falling about 12-15 feet out of a tree. Apparently the ladder fell sideways. No seizure activity. No tonguebitting. No incontinence of stool or urine. The patient fell on a concrete walkway, right side down. According to witnesses, he was completely unconscious and on the arrival, the paramedics' [place] Coma Scale was 3, which improved after resuscitation to about 8. The patient brought with a spinal board with C-collar in place, moaning and groaning. CT showed traumatic SAHand a small SDH. Neurosurgery consultation was requested 04/27: patient seen this morning during rounds, mildly sedated, intubated, but seen to be moving purposefully, no opening eyes or following commands. 04/28: seen this am during rounds, ICPs controlled overnight, intubated and currently well sedated. f/u CT Brain this morning completed, improved SDH, with evolving contusion. 04/29/2018: Remains intubated, sedated. ICP monitor in place with ICPs less than 10 with good waveform. Pinpoint pupils. Mild flexion deep pain upper extremities. Not following commands Exam Results Vital Signs Date Time Temp Pulse Resp B/P (MAP) Pulse Ox O2 Delivery O2 Flow Rate FiO2 04/29/18 14:57 100.0 61 16 145/56 100 04/29/18 12:00 40 04/29/18 07:00 Mechanical Ventilator 04/26/18 12:45 4.00 Intake and Output 04/29/18 04/29/18 04/30/18 08:00 16:00 00:00 Intake Total 487 ml 490 ml Output Total 350 ml Balance 137 ml 490 ml Physical Examination General: intubated, no apparent distress HEENT: normocephalic, right ICP monitor in place, ICP less than 10 with good waveform. Nonicteric sclera. Neuro: sedated, not following commands. Cranial nerve: pupils equal, round, and reactive to light. 10 mm. Conjugate gaze left greater than right. Neck: no JVD, trachea midline Musculoskeletal: no clubbing, moving extremities purposefully, not following commands for testing Respiratory: clear, mechanically ventilated Heart: regular rate rhythm Lab, Micro, Other Results Last 48 hours Impressions Chest X-Ray 04/29/18599 Signed Impressions: CONCLUSION: Increasing basilar airspace disease since April 28. Bilateral pleural effusions p resent. Support apparatus unchanged. Head CT 04/28/18599 Signed Impressions: CONCLUSION: 1. Improving left subdural hemorrhage. Evolving bilateral hemorrhagic contusio ns with scattered subarachnoid hemorrhage. No new intracranial hemorrhage. Chest X-Ray 04/28/18599 Signed Impressions: CONCLUSION: Endotracheal tube and nasogastric tube in good position. Stable mild basilar ai rspace disease. No pneumothorax. Laboratory Tests Test 04/28/18 18:20 04/29/18 00:00 04/29/18 03:13 04/29/18 04:00 Sodium Level 149 MEQ/L 151 MEQ/L 152 MEQ/L Serum Osmolality 303 MOSM/KG 310 MOSM/KG 312 MOSM/KG Blood Gas Puncture Site ART LINE Blood Gas Patient Temperature 98.6 Blood Gas HCO3 23 mmol/L Blood Gas Base Excess -1.6 mmol/L Blood Gas Oxygen Saturation 97 % Arterial Blood pH 7.39 Arterial Blood Partial Pressure CO2 38 mmHg Arterial Blood Partial Pressure O2 117 mmHg Arterial Blood Oxygen Content 11.8 Vol % Arterial Blood Carboxyhemoglobin 1.2 % Arterial Blood Methemoglobin 1.1 % Blood Gas Hemoglobin 8.5 G/DL Oxygen Delivery Device VENTILATOR Blood Gas Ventilator Setting PRVC16/550/1.0/+5 Blood Gas Inspired Oxygen 40 % White Blood Count 6.3 TH/MM3 Red Blood Count 2.38 MIL/MM3 Hemoglobin 7.7 GM/DL Hematocrit 22.2 % Mean Corpuscular Volume 93.2 FL Mean Corpuscular Hemoglobin 32.3 PG Mean Corpuscular Hemoglobin Concent 34.6 % Red Cell Distribution Width 13.7 % Platelet Count 117 TH/MM3 Mean Platelet Volume 8.6 FL Neutrophils (%) (Auto) 81.4 % Lymphocytes (%) (Auto) 8.0 % Monocytes (%) (Auto) 7.1 % Eosinophils (%) (Auto) 2.8 % Basophils (%) (Auto) 0.7 % Neutrophils # (Auto) 5.1 TH/MM3 Lymphocytes # (Auto) 0.5 TH/MM3 Monocytes # (Auto) 0.4 TH/MM3 Eosinophils # (Auto) 0.2 TH/MM3 Basophils # (Auto) 0.0 TH/MM3 CBC Comment DIFF FINAL Differential Comment Blood Urea Nitrogen 11 MG/DL Creatinine 0.74 MG/DL Random Glucose 134 MG/DL Total Protein 4.6 GM/DL Albumin 1.8 GM/DL Calcium Level 7.1 MG/DL Alkaline Phosphatase 34 U/L Aspartate Amino Transf (AST/SGOT) 30 U/L Alanine Aminotransferase (ALT/SGPT) 27 U/L Total Bilirubin 0.3 MG/DL Potassium Level 3.5 MEQ/L Chloride Level 122 MEQ/L Carbon Dioxide Level 23.1 MEQ/L Anion Gap 7 MEQ/L Estimat Glomerular Filtration Rate 104 ML/MIN Protein Corrected Calcium 8.5 MG/DL Test 04/29/18 12:15 Sodium Level 155 MEQ/L Serum Osmolality 315 MOSM/KG Medical Decision Making Impression and Plan Impression: 1. Stable neurologic exam following traumatic brain injury. ICPs are satisfactory. CT scan head 04/28/2018 revealed improving subdural hematoma, evolving contusions. Plan: Continue ICP monitor Continue Keppra for seizure prophylaxis Ulcer prophylaxis Continuing ventilatory support and sedation as needed Monitor sodium Oscar Blanca MD Apr 29, 2018 15:59
[2018-04-29] MEDS: fentaNYL 2,500 MCG/NS 250 ML IV PRN (19:53)
[2018-04-29] MEDS: SODIUM CHLORIDE 23.4% INJ 188 MEQ in SODIUM CHLOR 0.9% 1000 ML INJ 1,000 ML IV SCH (20:58)
[2018-04-30] VITALS (17 sets, daily range): BP systolic 124–167; BP diastolic 49–73; PULSE 52–89; RESP 16–24; TEMP 99–101.1; O2SAT 98–100
[2018-04-30] MEDS: PROPOFOL 1000 MG/100 ML IV PRN ×5 (01:08→22:15)
--- NOTE | 2018-04-30 03:50 | RADRPT ---
EXAM DATE: 04/30/2018 3:45 AM EDT AGE/SEX: 72 years / Male INDICATIONS: Follow up trauma. CLINICAL DATA: This is the patient's subsequent encounter. Patient reports that signs and symptoms h ave been present for 4 - 6 days and indicates a pain score of Nonresponsive. MEDICAL/SURGICAL HISTORY: Non-responsive. Non-responsive. COMPARISON: [facility] [place], CHEST SINGLE AP, 04/29/2018. . FINDINGS: The endotracheal tube and nasogastric tube are both good position. Mild bibasilar consolidations righ t greater than left. Bilateral pleural effusions right greater than left. CONCLUSION: Persistent consolidation right lung base. ET tube in good position. Electronically signed by: Arcadio Trejo MD 04/30/2018 3:49 AM EDT
[2018-04-30] MEDS: RESP: ALBUTEROL 2.5 MG/IPRATROPIUM 0.5 MG NEB (SCH) NEB ×4 (04:08→20:19)
[2018-04-30 04:45] LABS: AUTOMATED NEUTROPHIL # 6.6 TH/MM3 (1.8-7.7); BASOPHIL % 0.5 % (0.0-2.0); EOSINOPHIL # 0.4 TH/MM3 (0-0.4); EOSINOPHIL % 4.4 % (0.0-4.0); HEMATOCRIT 30.2 % (39.0-51.0); HEMOGLOBIN 10.4 GM/DL (13.0-17.0); LYMPH % 11.1 % (9.0-44.0); MEAN CELL VOLUME 91.4 FL (80.0-100.0); MEAN CORPUSCULAR HEMOGLOBIN 31.5 PG (27.0-34.0); MEAN CORPUSCULAR HGB CONC 34.4 % (32.0-36.0); MEAN PLATELET VOLUME 8.7 FL (7.0-11.0); MONO % 7.5 % (0.0-8.0); MONOCYTE # 0.7 TH/MM3 (0-0.9); NEUT % 76.5 % (16.0-70.0); PLATELET COUNT 134 TH/MM3 (150-450); RED CELL DISTRIBUTION WIDTH 14.4 % (11.6-17.2); WHITE BLOOD COUNT 8.7 TH/MM3 (4.0-11.0)
[2018-04-30 05:10] LABS: ALBUMIN 1.8 GM/DL (3.4-5.0); BICARBONATE 24.7 MEQ/L (21.0-32.0); CALCIUM 7.3 MG/DL (8.5-10.1); CREATININE 0.76 MG/DL (0.60-1.30)
[2018-04-30 05:12] LABS: CALCIUM-PROTEIN CORRECTED 8.4 MG/DL (8.5-10.1); TOTAL BILIRUBIN ADULT 0.5 MG/DL (0.2-1.0); TOTAL PROTEIN 5.1 GM/DL (6.4-8.2)
[2018-04-30 05:40] LABS: BANDS 10 % (0-6); LYMPHOCYTES 11 % (9-44); MONOCYTES 1 % (0-8); MYELOCYTES 1 % (0-0); NEUTROPHIL # MANUAL DIFF 7.2 TH/MM3 (1.8-7.7); POLYS (SEG NEUTROPHILS) 72 % (16-70)
[2018-04-30 05:41] LABS: TOXIC GRANULATION 2+ (NORMAL)
[2018-04-30] MEDS: ACETAMINOPHEN 1000 MG/100 ML 100 ML IV PRN (06:07)
[2018-04-30] MEDS: CHLORHEXIDINE 0.12% (ORAL KIT) 15 ML CUP MT SCH ×2 (07:25→20:28)
[2018-04-30] MEDS: levETIRAcetam INJ 500 MG in SODIUM CHLORIDE 0.9% INJ 100 ML IV SCH ×2 (07:25→20:39)
[2018-04-30] MEDS: SODIUM CHLORIDE 0.9% FLUSH 10 ML FLUSH IV FLUSH SCH ×2 (07:26→20:39)
[2018-04-30] MEDS: DOCUSATE SODIUM 50 MG/SENNA 8.6 MG TAB PO SCH ×2 (07:27→20:29)
[2018-04-30] MEDS: MAGNESIUM HYDROXIDE SUSP 30 ML CUP PO SCH ×2 (07:27→20:29)
[2018-04-30] MEDS: LACTULOSE SYRUP 20 GM/30 ML CUP PO SCH (07:27)
[2018-04-30] MEDS ORDERED: FUROSEMIDE 40 MG/4 ML VIAL IV PUSH ONE (09:30)
--- NOTE | 2018-04-30 09:50 | HHI.NSPN ---
History Chief Complaint: Unable to assess due to clinical condition. Interval History This 72-year-old gentleman was brought in as priority 1 trauma alert after falling about 12-15 feet out of a tree. Apparently the ladder fell sideways. No seizure activity. No tonguebitting. No incontinence of stool or urine. The patient fell on a concrete walkway, right side down. According to witnesses, he was completely unconscious and on the arrival, the paramedics' [place] Coma Scale was 3, which improved after resuscitation to about 8. The patient brought with a spinal board with C-collar in place, moaning and groaning. CT showed traumatic SAHand a small SDH. Neurosurgery consultation was requested 04/27: patient seen this morning during rounds, mildly sedated, intubated, but seen to be moving purposefully, no opening eyes or following commands. 04/28: seen this am during rounds, ICPs controlled overnight, intubated and currently well sedated. f/u CT Brain this morning completed, improved SDH, with evolving contusion. 04/29/2018: Remains intubated, sedated. ICP monitor in place with ICPs less than 10 with good waveform. Pinpoint pupils. Mild flexion deep pain upper extremities. Not following commands 04/30: This morning the patient does appear to have his eyes partially open with family visiting. His sedation had been held prior to being seen and his ICPs ranged from 13 to 15 mm Hg as seen. His systolic blood pressure went up to the 190s mm Hg with the sedation off. He had would spontaneously move the left upper extremity grossly. He did not appear to follow any commands. He moved both lower extremities to noxious stimulation. Exam Results 04/28/18 04/28/18 04/29/18 04/29/18 04/30/18 04/30/18 06:00 18:00 06:00 18:00 06: 18:00 Intake Total 5382 ml 427 ml 1487 ml 2839 ml 651 ml Output Total 400 ml 700 ml 350 ml 450 ml 350.0 ml Balance 4982 ml -273 ml 1137 ml 2389 ml 301.0 ml Intake IV Total 5382 ml 305 ml 1000 ml 1205 ml Tube Feeding 62 ml 487 ml 694 ml 651 ml Packed Cells 800 ml Blood Product IV Normal Saline Flush 140 ml Tube Irrigant 60 ml Output Urine Total 350 ml 500 ml 350 ml 450 ml 350 ml Gastric Drainage Total 50 ml 200 ml Tube Feeding Residual Discard 0 ml # Bowel Movements 0 0 0 2 1 Vital Signs Date Time Temp Pulse Resp B/P (MAP) Pulse Ox O2 Delivery O2 Flow Rate FiO2 04/30/18 08:13 99 40 04/30/18 08:00 40 04/30/18 08:00 68 04/30/18 08:00 100.0 68 24 167/62 (97) 100 04/30/18 07:00 100 Mechanical Ventilator 40 04/30/18 06:00 67 04/30/18 06:00 40 04/30/18 04:08 99 40 04/30/18 04:00 89 04/30/18 04:00 100.2 69 19 164/56 (92) 100 04/30/18 02:00 62 04/30/18 00:00 52 04/30/18 00:00 40 04/30/18 00:00 99.0 52 16 124/49 (74) 99 04/29/18 23:10 97 40 04/29/18 22:00 71 04/29/18 20:05 98 40 04/29/18 20:00 77 04/29/18 20:00 99.5 69 20 154/58 (90) 98 04/29/18 20:00 Mechanical Ventilator 04/29/18 20:00 40 04/29/18 18:00 55 04/29/18 16:00 100.2 70 20 148/68 (94) 100 04/29/18 16:00 70 04/29/18 16:00 40 04/29/18 14:57 100.0 61 16 145/56 100 04/29/18 14:00 62 04/29/18 13:38 99.9 62 16 139/54 100 04/29/18 12:00 68 04/29/18 12:00 40 04/29/18 12:00 100.0 68 17 139/72 (94) 100 04/29/18 10:00 62 04/29/18 09:16 100 40 04/29/18 08:00 99.1 62 17 158/68 (98) 100 04/29/18 08:00 40 04/29/18 08:00 62 04/29/18 07:00 100 Mechanical Ventilator 40 04/29/18 06:00 64 04/29/18 04:29 100 40 04/29/18 04:00 98.2 50 18 106/48 (67) 100 04/29/18 04:00 40 04/29/18 04:00 50 04/29/18 02:00 80 04/29/18 01:45 99 40 04/29/18 00:00 63 04/29/18 00:00 40 04/29/18 00:00 99.1 63 22 146/61 (89) 100 04/28/18 22:30 99 40 04/28/18 22:00 84 04/28/18 20:00 69 04/28/18 20:00 Mechanical Ventilator 04/28/18 20:00 100.3 77 22 141/50 (80) 99 04/28/18 20:00 40 04/28/18 19:50 100 40 04/28/18 18:00 68 04/28/18 16:32 100 40 04/28/18 16:00 100.0 56 16 102/44 (63) 99 04/28/18 16:00 56 04/28/18 16:00 40 04/28/18 14:00 58 04/28/18 13:22 100 40 04/28/18 12:00 40 04/28/18 12:00 99.7 74 19 148/48 (81) 100 04/28/18 12:00 74 04/28/18 10:00 62 04/28/18 09:53 100 40 04/28/18 08:00 40 04/28/18 08:00 99.0 64 17 128/52 (77) 100 04/28/18 08:00 62 04/28/18 07:35 100 40 04/28/18 07:00 100 Mechanical Ventilator 40 04/28/18 06:00 99.7 60 16 130/66 (87) 99 04/28/18 06:00 60 04/28/18 05:17 98 40 04/28/18 04:40 100 100 04/28/18 04:00 40 04/28/18 04:00 99.3 60 16 110/56 (74) 100 04/28/18 04:00 54 04/28/18 02:08 100 40 04/28/18 02:00 51 04/28/18 00:00 40 04/28/18 00:00 51 04/27/18 22:00 50 04/27/18 20:34 100 40 04/27/18 20:00 55 04/27/18 20:00 40 04/27/18 19:00 100 Mechanical Ventilator 40 04/27/18 18:00 59 04/27/18 16:00 99.7 64 20 152/52 (85) 100 04/27/18 16:00 40 04/27/18 16:00 64 04/27/18 15:15 100 40 04/27/18 14:00 52 04/27/18 12:00 52 04/27/18 12:00 40 04/27/18 12:00 99.0 52 18 142/48 (79) 100 04/27/18 10:06 100 40 04/27/18 10:00 56 Physical Examination GENERAL: Intubated and mechanically sedated. No apparent distress. Eyes appear partially open with family visiting. HEENT: Normocephalic. ICP monitoring bolt in place, site w/o any drainage, erythema or streaking. PERRLA, left gaze preference. Orally intubated. OGT. MUSCULOSKELETAL: Grossly moving left upper. Moved both lower to noxious stimulation. No evident clubbing or deformity. NEUROLOGICAL: Eyes appear partially open but opens to noxious stimulation. PERRLA, left gaze preference. Nonverbal, intubated. Does not appear to follow any commands. Grossly moving LUE spontaneously. Slight flexion response BLE L>R to local noxious stimulation. ICP ranged from 13 to 15 mm Hg w/good waveform. Lab, Micro, Other Results Recent Impressions Chest X-Ray 04/30/18599 Signed Impressions: CONCLUSION: Persistent consolidation right lung base. ET tube in good position. Chest X-Ray 04/29/18599 Signed Impressions: CONCLUSION: Increasing basilar airspace disease since April 28. Bilateral pleural effusions p resent. Support apparatus unchanged. Head CT 04/28/18599 Signed Impressions: CONCLUSION: 1. Improving left subdural hemorrhage. Evolving bilateral hemorrhagic contusio ns with scattered subarachnoid hemorrhage. No new intracranial hemorrhage. Chest X-Ray 04/28/18599 Signed Impressions: CONCLUSION: Endotracheal tube and nasogastric tube in good position. Stable mild basilar ai rspace disease. No pneumothorax. Laboratory Tests Test 04/27/18 11:15 04/27/18 17:50 04/28/18 03:38 04/28/18 05:30 Sodium Level 144 MEQ/L 146 MEQ/L 147 MEQ/L Serum Osmolality 295 MOSM/KG 297 MOSM/KG 301 MOSM/KG Phosphorus Level 2.1 MG/DL Blood Gas Puncture Site ART LINE Blood Gas Patient Temperature 98.6 Blood Gas HCO3 21 mmol/L Blood Gas Base Excess -3.3 mmol/L Blood Gas Oxygen Saturation 96 % Arterial Blood pH 7.35 Arterial Blood Partial Pressure CO2 40 mmHg Arterial Blood Partial Pressure O2 100 mmHg Arterial Blood Oxygen Content 12.6 Vol % Arterial Blood Carboxyhemoglobin 1.1 % Arterial Blood Methemoglobin 1.3 % Blood Gas Hemoglobin 9.3 G/DL Oxygen Delivery Device VENT Blood Gas Ventilator Setting PRVC/AC Blood Gas Inspired Oxygen 40 % White Blood Count 7.6 TH/MM3 Red Blood Count 2.90 MIL/MM3 Hemoglobin 9.2 GM/DL Hematocrit 27.2 % Mean Corpuscular Volume 93.8 FL Mean Corpuscular Hemoglobin 31.9 PG Mean Corpuscular Hemoglobin Concent 34.0 % Red Cell Distribution Width 13.7 % Platelet Count 125 TH/MM3 Mean Platelet Volume 8.5 FL Neutrophils (%) (Auto) 82.2 % Lymphocytes (%) (Auto) 7.8 % Monocytes (%) (Auto) 8.3 % Eosinophils (%) (Auto) 1.4 % Basophils (%) (Auto) 0.3 % Neutrophils # (Auto) 6.2 TH/MM3 Lymphocytes # (Auto) 0.6 TH/MM3 Monocytes # (Auto) 0.6 TH/MM3 Eosinophils # (Auto) 0.1 TH/MM3 Basophils # (Auto) 0.0 TH/MM3 CBC Comment DIFF FINAL Differential Comment Blood Urea Nitrogen 14 MG/DL Creatinine 0.78 MG/DL Random Glucose 106 MG/DL Total Protein 5.1 GM/DL Albumin 2.2 GM/DL Calcium Level 7.1 MG/DL Alkaline Phosphatase 32 U/L Aspartate Amino Transf (AST/SGOT) 39 U/L Alanine Aminotransferase (ALT/SGPT) 35 U/L Total Bilirubin 0.5 MG/DL Potassium Level 3.6 MEQ/L Chloride Level 117 MEQ/L Carbon Dioxide Level 22.9 MEQ/L Anion Gap 7 MEQ/L Estimat Glomerular Filtration Rate 98 ML/MIN Protein Corrected Calcium 8.2 MG/DL Test 04/28/18 12:00 04/28/18 18:20 04/29/18 00:00 04/29/18 03:13 Sodium Level 148 MEQ/L 149 MEQ/L 151 MEQ/L Serum Osmolality 306 MOSM/KG 303 MOSM/KG 310 MOSM/KG Blood Gas Puncture Site ART LINE Blood Gas Patient Temperature 98.6 Blood Gas HCO3 23 mmol/L Blood Gas Base Excess -1.6 mmol/L Blood Gas Oxygen Saturation 97 % Arterial Blood pH 7.39 Arterial Blood Partial Pressure CO2 38 mmHg Arterial Blood Partial Pressure O2 117 mmHg Arterial Blood Oxygen Content 11.8 Vol % Arterial Blood Carboxyhemoglobin 1.2 % Arterial Blood Methemoglobin 1.1 % Blood Gas Hemoglobin 8.5 G/DL Oxygen Delivery Device VENTILATOR Blood Gas Ventilator Setting PRVC16/550/1.0/+5 Blood Gas Inspired Oxygen 40 % Test 04/29/18 04:00 04/29/18 12:15 04/29/18 17:15 04/30/18 00:00 White Blood Count 6.3 TH/MM3 Red Blood Count 2.38 MIL/MM3 Hemoglobin 7.7 GM/DL Hematocrit 22.2 % Mean Corpuscular Volume 93.2 FL Mean Corpuscular Hemoglobin 32.3 PG Mean Corpuscular Hemoglobin Concent 34.6 % Red Cell Distribution Width 13.7 % Platelet Count 117 TH/MM3 Mean Platelet Volume 8.6 FL Neutrophils (%) (Auto) 81.4 % Lymphocytes (%) (Auto) 8.0 % Monocytes (%) (Auto) 7.1 % Eosinophils (%) (Auto) 2.8 % Basophils (%) (Auto) 0.7 % Neutrophils # (Auto) 5.1 TH/MM3 Lymphocytes # (Auto) 0.5 TH/MM3 Monocytes # (Auto) 0.4 TH/MM3 Eosinophils # (Auto) 0.2 TH/MM3 Basophils # (Auto) 0.0 TH/MM3 CBC Comment DIFF FINAL Differential Comment Blood Urea Nitrogen 11 MG/DL Creatinine 0.74 MG/DL Random Glucose 134 MG/DL Total Protein 4.6 GM/DL Albumin 1.8 GM/DL Calcium Level 7.1 MG/DL Alkaline Phosphatase 34 U/L Aspartate Amino Transf (AST/SGOT) 30 U/L Alanine Aminotransferase (ALT/SGPT) 27 U/L Total Bilirubin 0.3 MG/DL Sodium Level 152 MEQ/L 155 MEQ/L 155 MEQ/L 157 MEQ/L Potassium Level 3.5 MEQ/L Chloride Level 122 MEQ/L Carbon Dioxide Level 23.1 MEQ/L Anion Gap 7 MEQ/L Estimat Glomerular Filtration Rate 104 ML/MIN Serum Osmolality 312 MOSM/KG 315 MOSM/KG 319 MOSM/KG 318 MOSM/KG Protein Corrected Calcium 8.5 MG/DL Test 04/30/18 02:50 04/30/18 04:15 Blood Gas Puncture Site ART LINE Blood Gas Patient Temperature 98.6 Blood Gas HCO3 23 mmol/L Blood Gas Base Excess -1.2 mmol/L Blood Gas Oxygen Saturation 94 % Arterial Blood pH 7.39 Arterial Blood Partial Pressure CO2 39 mmHg Arterial Blood Partial Pressure O2 80 mmHg Arterial Blood Oxygen Content 13.4 Vol % Arterial Blood Carboxyhemoglobin 1.7 % Arterial Blood Methemoglobin 1.1 % Blood Gas Hemoglobin 10.0 G/DL Oxygen Delivery Device VENTILATOR Blood Gas Ventilator Setting PRVC/AC Blood Gas Inspired Oxygen 40 % White Blood Count 8.7 TH/MM3 Red Blood Count 3.30 MIL/MM3 Hemoglobin 10.4 GM/DL Hematocrit 30.2 % Mean Corpuscular Volume 91.4 FL Mean Corpuscular Hemoglobin 31.5 PG Mean Corpuscular Hemoglobin Concent 34.4 % Red Cell Distribution Width 14.4 % Platelet Count 134 TH/MM3 Mean Platelet Volume 8.7 FL Neutrophils (%) (Auto) 76.5 % Lymphocytes (%) (Auto) 11.1 % Monocytes (%) (Auto) 7.5 % Eosinophils (%) (Auto) 4.4 % Basophils (%) (Auto) 0.5 % Neutrophils # (Auto) 6.6 TH/MM3 Lymphocytes # (Auto) 1.0 TH/MM3 Monocytes # (Auto) 0.7 TH/MM3 Eosinophils # (Auto) 0.4 TH/MM3 Basophils # (Auto) 0.0 TH/MM3 CBC Comment AUTO DIFF Differential Total Cells Counted 100 Neutrophils % (Manual) 72 % Band Neutrophils % 10 % Lymphocytes % 11 % Monocytes % 1 % Eosinophils % 5 % Neutrophils # (Manual) 7.2 TH/MM3 Myelocytes 1 % Differential Comment FINAL DIFF MANUAL Toxic Granulation 2+ Platelet Estimate LOW Platelet Morphology Comment NORMAL Blood Urea Nitrogen 12 MG/DL Creatinine 0.76 MG/DL Random Glucose 130 MG/DL Total Protein 5.1 GM/DL Albumin 1.8 GM/DL Calcium Level 7.3 MG/DL Alkaline Phosphatase 50 U/L Aspartate Amino Transf (AST/SGOT) 45 U/L Alanine Aminotransferase (ALT/SGPT) 42 U/L Total Bilirubin 0.5 MG/DL Sodium Level 157 MEQ/L Potassium Level 3.8 MEQ/L Chloride Level 126 MEQ/L Carbon Dioxide Level 24.7 MEQ/L Anion Gap 6 MEQ/L Estimat Glomerular Filtration Rate 101 ML/MIN Serum Osmolality 322 MOSM/KG Protein Corrected Calcium 8.4 MG/DL Medical Decision Making Impression and Plan Impression: 1. Stable neurologic exam following traumatic brain injury. ICPs are satisfactory. CT scan head 04/28/2018 revealed improving subdural hematoma, evolving contusions. Definite eye opening to noxious stimulation. Grossly moving LUE spontaneously & BLE to noxious stimulation slightly. ICPs in mid teens. Sodium 157. Plan: Continue neuro checks. Continue ICP monitor Continue Keppra for seizure prophylaxis Mechanical DVT prophylaxis. Stress ulcer prophylaxis. Continuing ventilatory support and sedation as needed Monitor sodium Rajan Whitmore Apr 30, 2018 09:50
[2018-04-30] MEDS ORDERED: hydrALAZINE HCL 20 MG/ML VIAL IV PUSH PRN (10:15)
--- NOTE | 2018-04-30 10:41 | HHI.CCPN ---
Subjective Brief History This 72-year-old gentleman was brought in as priority 1 trauma alert after falling about 12-15 feet out of a tree as the ladder went flying sideways. The patient fell on a concrete walkway, right side down. According to witnesses, he was completely unconscious and on the arrival, the paramedics' [place] Coma Scale was 3-4, which improved on the way to about 8 or 9. The patient brought with a spinal board with C-collar in place, moaning and groaning and complained but pain in the right chest. Patient was resuscitated according trauma principles and placed in ICU for further care Final injuries Traumatic brain injury with mainly left frontal temporoparietal subarachnoid and subdural bleed and some superficial contusions of the brain Right chest contusion with a small hemothorax and serial rib fractures of 5th, 6th, 7th, 8th ribs, Transverse process fractures of several vertebrae, Laceration of the right kidney with a hematoma and a small mass of the right kidney 24 Hour Review/Hospital Course 04/27/2018 Patient remains intubated and ventilated Neuroprotective measures including propofol and fentanyl Keppra 2% hypertonic saline at 30 cc/h ICP remains 4-12 mmHg Hemodynamically patient stable Bilateral good breath sounds on decreasing levels of ventilatory support with good PO2 FiO2 gradient 04/28/2018 No change in neurologic status On sedation vacation patient moves all 4 extremities opens eyes but does not follow commands and does not track making [place] Coma Scale about 6 or 7 This is fairly significant brain injury and will take a while to resolve ICP remains low and from my point ICP monitor can be removed CPP within the parameters of autoregulation Remains on neuroprotective measures including propofol fentanyl Keppra Decrease 2% saline to about 20 cc an hour at this point Hemodynamically patient stable Bilateral breath sounds remains on assist control ventilation and pulmonary status and PO2 FiO2 gradient will allow for extubation but of course patient's neurologic status does not allow for the same Patient will not need tracheostomy and I believe he will recover in next few days sufficiently and regaining consciousness to extubate safely Abdomen soft enteral feeds tolerated Renal function normal 04/29/2018 No change in neurologic status Patient remains stable on propofol fentanyl Keppra ICP remains within physiologic range and ICP monitor may be removed as per neurosurgery Hemodynamically remains stable however hemoglobin dropped to 7.8 g/dL as a result of hemodilution and obviously decreased production We will transfuse 2 units PRBC faced with age and neurologic injury Bilateral good breath sounds good PO2 FiO2 gradient Abdomen soft enteral feeds tolerated Plan Once okay with neurosurgery will wake up the patient and start weaning down the sedation probably tomorrow or Tuesday Transfuse 2 units PRBC Continue care 04/30/2018 No change in current status Patient remains on neuroprotective measures with decreasing levels of propofol and fentanyl On sedation vacation moves purposefully does not open eyes yet Will need another few days before sufficiently improved to wean and extubate ICP remains 5-12 mmHg Hemodynamically patient stable if not somewhat hypertensive which is being addressed Bilateral breath sounds and bilateral pleural effusions with atelectasis as a result probably of her original event and retention of secretions I am concerned about patient's pulmonary function and he might need bronchoscopy early next week Renal function preserved Patient about 12 L positive since the arrival will diurese gently to take of the third space now that systemic inflammatory response is abating Objective Vital Signs Date Time Temp Pulse Resp B/P (MAP) Pulse Ox O2 Delivery O2 Flow Rate FiO2 04/30/18 10:00 68 04/30/18 08:13 99 40 04/30/18 08:00 100.0 24 167/62 (97) 04/30/18 07:00 Mechanical Ventilator 04/26/18 12:45 4.00 Intake and Output 04/30/18 04/30/18 05/01/18 08:00 16:00 00:00 Intake Total 651 ml Output Total 350.0 ml Balance 301.0 ml Result Diagram: 04/30/18 0415 04/30/18 0415 Other Results Laboratory Tests Test 04/30/18 02:50 Blood Gas Puncture Site ART LINE Blood Gas Patient Temperature 98.6 Blood Gas HCO3 23 mmol/L (22-26) Blood Gas Base Excess -1.2 mmol/L (-2-2) Blood Gas Oxygen Saturation 94 % (90-100) Arterial Blood pH 7.39 (7.380-7.420) Arterial Blood Partial Pressure CO2 39 mmHg (38-42) Arterial Blood Partial Pressure O2 80 mmHg (61-120) Arterial Blood Oxygen Content 13.4 Vol % (12.0-20.0) Arterial Blood Carboxyhemoglobin 1.7 % (0-4) Arterial Blood Methemoglobin 1.1 % (0-2) Blood Gas Hemoglobin 10.0 G/DL (12.0-16.0) Oxygen Delivery Device VENTILATOR Blood Gas Ventilator Setting PRVC/AC Blood Gas Inspired Oxygen 40 % Imaging Last 24 hours Impressions Chest X-Ray 04/30/18 0600 Signed Impressions: CONCLUSION: Persistent consolidation right lung base. ET tube in good position. 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 Patient remains on neuroprotective measures with decreasing levels of propofol and fentanyl On sedation vacation moves purposefully does not open eyes yet Will need another few days before sufficiently improved to wean and extubate ICP remains 5-12 mmHg DC hypertonic saline in face of rising sodium is 1 57 mEq/L Hemodynamic/Cardiac Hemodynamically patient stable if not somewhat hypertensive which is being addressed Pulmonary/Respiratory Bilateral breath sounds and bilateral pleural effusions with atelectasis as a result probably of her original event and retention of secretions I am concerned about patient's pulmonary function and he might need bronchoscopy early next week Patient remains on assist control ventilation with good PO2 FiO2 gradient Abdomen/GI Nutrition Enteral feeds tolerated Renal/I&O Renal function preserved Patient about 12 L positive since the arrival will diurese gently to take of the third space now that systemic inflammatory response is abating Assessment and Plan Attestation Critical care 32 minutes Georgia Bustillo MD Apr 30, 2018 10:41
[2018-04-30] MEDS ORDERED: cloNIDine HCL 0.1 MG/24 HR PATCH T-DERMAL SCH (11:00)
[2018-04-30] MEDS: PANTOPRAZOLE SODIUM 40 MG VIAL IV PUSH SCH (14:49)
[2018-04-30] MEDS: fentaNYL 2,500 MCG/NS 250 ML IV PRN (16:08)
[2018-05-01] VITALS (17 sets, daily range): BP systolic 142–166; BP diastolic 52–77; PULSE 51–67; RESP 16–19; TEMP 99.9–100.6; O2SAT 93–99
[2018-05-01] MEDS: PROPOFOL 1000 MG/100 ML IV PRN ×2 (02:45→22:23)
[2018-05-01] MEDS: fentaNYL 2,500 MCG/NS 250 ML IV PRN ×2 (03:06→17:18)
[2018-05-01] MEDS: RESP: ALBUTEROL 2.5 MG/IPRATROPIUM 0.5 MG NEB (SCH) NEB ×2 (03:52→07:40)
--- NOTE | 2018-05-01 03:53 | RADRPT ---
EXAM DATE: 05/01/2018 3:37 AM EDT AGE/SEX: 72 years / Male INDICATIONS: Follow up trauma. CLINICAL DATA: This is the patient's subsequent encounter. Patient reports that signs and symptoms h ave been present for 4 - 6 days and indicates a pain score of Nonresponsive. MEDICAL/SURGICAL HISTORY: Non-responsive. Non-responsive. COMPARISON: [facility] [place], CHEST SINGLE AP, 04/30/2018. . FINDINGS: Endotracheal tube, nasogastric tube remain in place. Persistent bilateral confluent pulmonary opacity with lower lung zone predominance. No significant interval change. Bilateral pleural effusions uncha nged. No evidence of pneumothorax. CONCLUSION: Persistent prominent bilateral confluent pulmonary parenchymal opacity indicating pulmonary edema or consolidation. Persistent bilateral pleural effusions. Electronically signed by: Rodrigo Olivares MD 05/01/2018 3:52 AM EDT
[2018-05-01 05:02] LABS: BASOPHIL # 0.1 TH/MM3 (0-0.2); BASOPHIL % 0.7 % (0.0-2.0); EOSINOPHIL # 0.6 TH/MM3 (0-0.4); EOSINOPHIL % 6.9 % (0.0-4.0); HEMATOCRIT 30.7 % (39.0-51.0); HEMOGLOBIN 10.4 GM/DL (13.0-17.0); LYMPH % 9.9 % (9.0-44.0); LYMPHOCYTE # 0.9 TH/MM3 (1.0-4.8); MEAN CELL VOLUME 90.9 FL (80.0-100.0); MEAN CORPUSCULAR HEMOGLOBIN 30.7 PG (27.0-34.0); MEAN CORPUSCULAR HGB CONC 33.8 % (32.0-36.0); MEAN PLATELET VOLUME 8.9 FL (7.0-11.0); MONO % 7.3 % (0.0-8.0); MONOCYTE # 0.7 TH/MM3 (0-0.9); NEUT % 75.2 % (16.0-70.0); PLATELET COUNT 158 TH/MM3 (150-450); RED BLOOD COUNT 3.38 MIL/MM3 (4.50-5.90); RED CELL DISTRIBUTION WIDTH 14.4 % (11.6-17.2); WHITE BLOOD COUNT 9.3 TH/MM3 (4.0-11.0)
[2018-05-01 05:10] LABS: ALBUMIN 1.7 GM/DL (3.4-5.0); ALKALINE PHOSPHATASE 67 U/L (45-117); ALT (GPT) 65 U/L (12-78); AST (GOT) 57 U/L (15-37); BICARBONATE 28.4 MEQ/L (21.0-32.0); BLOOD UREA NITROGEN 16 MG/DL (7-18); CALCIUM 7.5 MG/DL (8.5-10.1); CHLORIDE 122 MEQ/L (98-107); CREATININE 0.72 MG/DL (0.60-1.30); GLOMERULAR FILTRATION RATE 107 ML/MIN (>89); GLUCOSE,RANDOM 147 MG/DL (74-106); TOTAL BILIRUBIN ADULT 0.5 MG/DL (0.2-1.0); TOTAL PROTEIN 5.1 GM/DL (6.4-8.2)
[2018-05-01 05:13] LABS: SODIUM (NA) 156 MEQ/L (136-145)
[2018-05-01] MEDS: CHLORHEXIDINE 0.12% (ORAL KIT) 15 ML CUP MT SCH ×2 (07:55→20:00)
[2018-05-01 08:08] LABS: BANDS 22 % (0-6); BASOPHILS 1 % (0-2); LYMPHOCYTES 7 % (9-44); METAMYELOCYTES 5 % (0-1); MONOCYTES 5 % (0-8); MYELOCYTES 1 % (0-0); NEUTROPHIL # MANUAL DIFF 7.6 TH/MM3 (1.8-7.7); POLYS (SEG NEUTROPHILS) 54 % (16-70)
--- NOTE | 2018-05-01 08:09 | HHI.PR ---
Neuropsych Emotional Emotional: UnabletoAssess: Emotional, Anxious/Fearful, Depressed/Sad, Hostile/ Resentful, Irritable/Angry/Frustrate, Labile, Constricted/Blunted Behavior Behavior: Intact: Impulsive/Agitated, Unable to Asses: Behavior, Coping/ Acceptance, Cooperative w/ Treatment, Motivation, Frustration Tolerance/[place], Suicidal/Homicidal Risk Cognitive Cognitive: Unable to Asses: Cognitive, Attention/Concentration, Confused/ Orientation, Insight/Awareness, Judgement/Problem-Solving, Memory Psychosocial Psychosocial: Intact: Psychosocial, Family/Other Adjustment, Realistic Expectation, Unable to Asses: Self-Esteem/Confidence Progress Notes/Response to Tx Contents of Sessions: Adjustment, Level of Consciousness Time with Patient: 30 minutes Premorbid psychological status Premorbid Cognitive, Emotional and Behavioral Status: Stable. The patient has college years of education and a solid work history prior to this injury. The patient has no prior psychiatric difficulties, as described above. Substance abuse history is unknown. Behavioral Reactions of Patient and Family/Support System: Stable. The patient s family is experiencing ongoing issues of adjustment given the nature of the injury, and this aspect of recovery will require ongoing monitoring. Emotional/Behavioral Status of Patient and Family/Support System: Stable. Pertinent issues, if appropriate to this patients clinical care, are described in detail above. Maximizing acute care outcome It is recommended that the patient be monitored for emergent behavioral impulsivity as the medical condition evolves. This patients neuropathological challenges may limit his rehabilitation potential going forward, and these challenges will require specialized therapeutic skills to maximize outcome. Additionally, the patients family is experiencing ongoing issues of adjustment given the traumatic nature of the injury, and they may benefit from ongoing psychological assistance. At this point in the recovery process, the patient does not have cognitive capacity as the patient is unable to understand a situation and its likely consequences, nor is he able to manipulate information rationally. Cognitive capacity will be assessed throughout the recovery process. Anticipated Problems Ongoing areas of concern will include behavioral impulsivity, lack of insight and judgment, which is expected to improve with time and treatment. Presently , the patient is critically ill. Given the severity of the patient's injuries it is my clinical opinion that this patient will be unable to return to any type of productive employment for at least one year, perhaps longer and likely never. This patient is not considered safe to discharge home without supervision at this time. Treatment Plan This clinician will continue to follow with you throughout the course of this patients critical care treatment, and I will be available to meet with the patients family/support system to facilitate their understanding and the ongoing care of their family member. The goals of neuropsychological intervention shall be both educational and supportive to the family/support system as is deemed clinically appropriate. [facility] Level: III:Localized response-total assist Impression 72 year old male s/p TBI 2T fall on 04/26/2018. Diagnosis: (1) Major neurocognitive disorder as late effect of traumatic brain injury without behavioral disturbance Progress Note Narrative PTD 5. Off sedation, the patient moves purposefully, and as such he is considered a sedated [place] III. His ICPs have been between 5-12. No issues of agitation/restlessness as the patient remains sedated and intubated. I will follow. Germán Arriaga PhD May 01, 2018 8:09 am
[2018-05-01] MEDS: DOCUSATE SODIUM 50 MG/SENNA 8.6 MG TAB PO SCH ×2 (08:52→21:40)
[2018-05-01] MEDS: LACTULOSE SYRUP 20 GM/30 ML CUP PO SCH (08:53)
[2018-05-01] MEDS: SODIUM CHLORIDE 0.9% FLUSH 10 ML FLUSH IV FLUSH SCH ×2 (08:53→21:40)
[2018-05-01] MEDS: levETIRAcetam INJ 500 MG in SODIUM CHLORIDE 0.9% INJ 100 ML IV SCH ×2 (08:53→21:40)
[2018-05-01] MEDS: MAGNESIUM HYDROXIDE SUSP 30 ML CUP PO SCH ×2 (08:54→21:40)
[2018-05-01] MEDS: ENOXAPARIN SODIUM 40 MG/0.4 ML SYRINGE SQ SCH (09:54)
[2018-05-01] MEDS: METOPROLOL TARTRATE 5 MG/5 ML VIAL IV PUSH SCH ×3 (11:59→23:54)
[2018-05-01] MEDS: PANTOPRAZOLE SODIUM 40 MG VIAL IV PUSH SCH (14:16)
[2018-05-01] MEDS: ACETAMINOPHEN 1000 MG/100 ML 100 ML IV PRN (14:21)
--- NOTE | 2018-05-01 16:11 | HHI.CCPN ---
Subjective Brief History This 72-year-old gentleman was brought in as priority 1 trauma alert after falling about 12-15 feet out of a tree as the ladder went flying sideways. The patient fell on a concrete walkway, right side down. According to witnesses, he was completely unconscious and on the arrival, the paramedics' [place] Coma Scale was 3-4, which improved on the way to about 8 or 9. The patient brought with a spinal board with C-collar in place, moaning and groaning and complained but pain in the right chest. Patient was resuscitated according trauma principles and placed in ICU for further care Final injuries Traumatic brain injury with mainly left frontal temporoparietal subarachnoid and subdural bleed and some superficial contusions of the brain Right chest contusion with a small hemothorax and serial rib fractures of 5th, 6th, 7th, 8th ribs, Transverse process fractures of several vertebrae, Laceration of the right kidney with a hematoma and a small mass of the right kidney 24 Hour Review/Hospital Course 04/27/2018 Patient remains intubated and ventilated Neuroprotective measures including propofol and fentanyl Keppra 2% hypertonic saline at 30 cc/h ICP remains 4-12 mmHg Hemodynamically patient stable Bilateral good breath sounds on decreasing levels of ventilatory support with good PO2 FiO2 gradient 04/28/2018 No change in neurologic status On sedation vacation patient moves all 4 extremities opens eyes but does not follow commands and does not track making [place] Coma Scale about 6 or 7 This is fairly significant brain injury and will take a while to resolve ICP remains low and from my point ICP monitor can be removed CPP within the parameters of autoregulation Remains on neuroprotective measures including propofol fentanyl Keppra Decrease 2% saline to about 20 cc an hour at this point Hemodynamically patient stable Bilateral breath sounds remains on assist control ventilation and pulmonary status and PO2 FiO2 gradient will allow for extubation but of course patient's neurologic status does not allow for the same Patient will not need tracheostomy and I believe he will recover in next few days sufficiently and regaining consciousness to extubate safely Abdomen soft enteral feeds tolerated Renal function normal 04/29/2018 No change in neurologic status Patient remains stable on propofol fentanyl Keppra ICP remains within physiologic range and ICP monitor may be removed as per neurosurgery Hemodynamically remains stable however hemoglobin dropped to 7.8 g/dL as a result of hemodilution and obviously decreased production We will transfuse 2 units PRBC faced with age and neurologic injury Bilateral good breath sounds good PO2 FiO2 gradient Abdomen soft enteral feeds tolerated Plan Once okay with neurosurgery will wake up the patient and start weaning down the sedation probably tomorrow or Tuesday Transfuse 2 units PRBC Continue care 04/30/2018 No change in current status Patient remains on neuroprotective measures with decreasing levels of propofol and fentanyl On sedation vacation moves purposefully does not open eyes yet Will need another few days before sufficiently improved to wean and extubate ICP remains 5-12 mmHg Hemodynamically patient stable if not somewhat hypertensive which is being addressed Bilateral breath sounds and bilateral pleural effusions with atelectasis as a result probably of her original event and retention of secretions I am concerned about patient's pulmonary function and he might need bronchoscopy early next week Renal function preserved Patient about 12 L positive since the arrival will diurese gently to take of the third space now that systemic inflammatory response is abating 05/01/2018 Neurologically patient is unchanged if not somewhat better With decrease of sedation and sedation vacation patient is waking up moving all 4 extremities however does not open eyes or follow commands This is very early in the course and I believe patient will eventually improve neurologically Hemodynamically stable somewhat hypertensive and medications adjusted for the same Added nicardipine drip for management of recalcitrant hypertension Bilateral breath sounds remains on assist control ventilation will start on CPAP trials daily Abdomen soft enteral feeds tolerated I am not sure this patient will require tracheostomy but I believe he will come off the ventilator without one Objective Vital Signs Date Time Temp Pulse Resp B/P (MAP) Pulse Ox O2 Delivery O2 Flow Rate FiO2 05/01/18 16:00 51 05/01/18 12:00 100.6 16 166/77 (106) 99 05/01/18 12:00 35 05/01/18 07:15 Mechanical Ventilator Intake and Output 05/01/18 05/01/18 05/02/18 08:00 16:00 00:00 Intake Total 1161 ml Output Total 500 ml Balance 661 ml Result Diagram: 05/01/18 0430 05/01/18 0430 Other Results Laboratory Tests Test 05/01/18 04:30 Blood Gas Puncture Site SANTA Blood Gas Patient Temperature 98.6 Blood Gas HCO3 27 mmol/L (22-26) Blood Gas Base Excess 2.8 mmol/L (-2-2) Blood Gas Oxygen Saturation 94 % (90-100) Arterial Blood pH 7.41 (7.380-7.420) Arterial Blood Partial Pressure CO2 44 mmHg (38-42) Arterial Blood Partial Pressure O2 77 mmHg (61-120) Arterial Blood Oxygen Content 13.9 Vol % (12.0-20.0) Arterial Blood Carboxyhemoglobin 1.7 % (0-4) Arterial Blood Methemoglobin 0.8 % (0-2) Blood Gas Hemoglobin 10.4 G/DL (12.0-16.0) Oxygen Delivery Device VENT Blood Gas Ventilator Setting SEE COMMENTS Blood Gas Inspired Oxygen 40 % Imaging Last 24 hours Impressions Chest X-Ray 05/01/18 0600 Signed Impressions: CONCLUSION: Persistent prominent bilateral confluent pulmonary parenchymal opacity indicati ng pulmonary edema or consolidation. Persistent bilateral pleural effusions. 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 patient is unchanged if not somewhat better With decrease of sedation and sedation vacation patient is waking up moving all 4 extremities however does not open eyes or follow commands This is very early in the course and I believe patient will eventually improve neurologically Hypertonic saline has been discontinued considering that patient's sodium is 1 56 mEq/L and serum osmolality remains below 330 mOsm per liter ICPs low and bolt has been removed Hemodynamic/Cardiac Hemodynamically patient is stable Pulmonary/Respiratory Hemodynamically stable somewhat hypertensive and medications adjusted for the same Bilateral breath sounds remains on assist control ventilation will start on CPAP trials daily Abdomen/GI Nutrition Abdomen soft enteral feeds tolerated Renal/I&O Renal function will preserved Assessment and Plan Attestation Noted bolt has been removed will wean down the sedation and see if patient can tolerate some CPAP trials and decide depending on the level of neurologic recovery but the patient requires tracheostomy or not Critical care time 32 minutes Georgia Bustillo MD May 01, 2018 16:11
[2018-05-01] MEDS: LISINOPRIL 10 MG TAB PO SCH ×2 (17:00→21:40)
[2018-05-01] MEDS ORDERED: cloNIDine HCL 0.2 MG/24 HR PATCH T-DERMAL SCH (17:00)
--- NOTE | 2018-05-01 17:08 | HHI.NSPN ---
(Sofia Younger) Note Status Status: Progress Note (Sofia Younger) Interval History Interval History This 72-year-old gentleman was brought in as priority 1 trauma alert after falling about 12-15 feet out of a tree. Apparently the ladder fell sideways. No seizure activity. No tonguebitting. No incontinence of stool or urine. The patient fell on a concrete walkway, right side down. According to witnesses, he was completely unconscious and on the arrival, the paramedics' [place] Coma Scale was 3, which improved after resuscitation to about 8. The patient brought with a spinal board with C-collar in place, moaning and groaning. CT showed traumatic SAHand a small SDH. Neurosurgery consultation was requested 04/27: patient seen this morning during rounds, mildly sedated, intubated, but seen to be moving purposefully, no opening eyes or following commands. 04/28: seen this am during rounds, ICPs controlled overnight, intubated and currently well sedated. f/u CT Brain this morning completed, improved SDH, with evolving contusion. 05/01: intubated, sedated reported to move spontaneously when sedation lowered but not following command. ICPs controlled. (Sofia Younger) Labs, Micro, & Vital Signs Results Date Time Temp Pulse Resp B/P (MAP) Pulse Ox O2 Delivery O2 Flow Rate FiO2 05/01/18 16:00 100.2 51 16 162/72 (102) 98 05/01/18 16:00 100 05/01/18 16:00 51 05/01/18 14:00 57 05/01/18 12:00 100.6 59 16 166/77 (106) 99 05/01/18 12:00 59 05/01/18 12:00 97 35 05/01/18 12:00 100 05/01/18 10:00 65 05/01/18 08:00 100.2 67 19 162/73 (102) 98 05/01/18 08:00 100 05/01/18 08:00 64 05/01/18 07:40 98 35 05/01/18 07:15 97 Mechanical Ventilator 40 05/01/18 06:00 60 05/01/18 04:00 60 05/01/18 04:00 99.9 60 16 148/58 (88) 97 05/01/18 04:00 40 05/01/18 03:53 99 40 05/01/18 02:00 62 05/01/18 00:11 98 40 05/01/18 00:00 58 05/01/18 00:00 100.0 58 16 146/54 (84) 98 05/01/18 00:00 40 04/30/18 22:00 62 04/30/18 20:19 99 40 04/30/18 20:00 64 04/30/18 20:00 100.4 64 20 164/73 (103) 100 04/30/18 20:00 40 04/30/18 19:00 100 Mechanical Ventilator 40 04/30/18 18:00 60 Constitutional Vital Signs Date Time Temp Pulse Resp B/P (MAP) Pulse Ox O2 Delivery O2 Flow Rate FiO2 05/01/18 16:00 100.2 51 16 162/72 (102) 98 05/01/18 16:00 100 05/01/18 16:00 51 05/01/18 14:00 57 05/01/18 12:00 100.6 59 16 166/77 (106) 99 05/01/18 12:00 59 05/01/18 12:00 97 35 05/01/18 12:00 100 05/01/18 10:00 65 05/01/18 08:00 100.2 67 19 162/73 (102) 98 05/01/18 08:00 100 05/01/18 08:00 64 05/01/18 07:40 98 35 05/01/18 07:15 97 Mechanical Ventilator 40 05/01/18 06:00 60 05/01/18 04:00 60 05/01/18 04:00 99.9 60 16 148/58 (88) 97 05/01/18 04:00 40 05/01/18 03:53 99 40 05/01/18 02:00 62 05/01/18 00:11 98 40 05/01/18 00:00 58 05/01/18 00:00 100.0 58 16 146/54 (84) 98 6/11/18 00:00 40 04/30/18 22:00 62 04/30/18 20:19 99 40 04/30/18 20:00 64 04/30/18 20:00 100.4 64 20 164/73 (103) 100 04/30/18 20:00 40 04/30/18 19:00 100 Mechanical Ventilator 40 04/30/18 18:00 60 (Sofia Younger) Physical Exam General: intubated, appears comfortable in no apparent distress HEENT: normocephalic, right ICP monitor in place, ICPs controlled. Nonicteric sclera. Neuro: sedated, not following commands. Cranial nerve: pupils equal, round, and reactive to light. Conjugate gaze. Neck: no JVD, trachea midline Musculoskeletal: no clubbing, not following commands for testing Respiratory: clear, mechanically ventilated Heart: regular rate rhythm (Sofia Younger) General: intubated, appears comfortable in no apparent distress HEENT: normocephalic, right ICP monitor in place, ICPs controlled. Nonicteric sclera. Neuro: sedated, not following commands. Cranial nerve: pupils equal, round, and reactive to light. Conjugate gaze. Neck: no JVD, trachea midline Musculoskeletal: no clubbing, not following commands for testing Respiratory: clear, mechanically ventilated Heart: regular rate rhythm (Emiliano Chiang MD) Medications Current Medications Current Medications Medications (Trade) Dose Ordered Sig/Bonilla Route PRN Reason Start Time Stop Time Status Last Admin Dose Admin Sodium Chloride (NS Flush) 2 ml UNSCH PRN IV FLUSH FLUSH AFTER USING IV ACCESS 04/26/18 13:15 Sodium Chloride (NS Flush) 2 ml BID IV FLUSH 04/26/18 21:00 05/01/18 08:53 Pantoprazole Sodium (Protonix Inj) 40 mg Q24H IV PUSH 04/26/18 14:00 05/01/18 14:16 Naloxone HCl (Narcan Inj) 0.4 mg UNSCH PRN IV PUSH SEE LABEL COMMENTS 04/26/18 13:15 Fentanyl Citrate 250 ml @ 5 mls/hr TITRATE PRN IV Sedation 04/26/18 14:30 05/01/18 03:06 Propofol 100 ml @ 2.463 mls/ hr TITRATE PRN IV SEDATION 04/26/18 14:30 05/01/18 02:45 Levetriacetam 500 mg/Sodium Chloride 105 ml @ 420 mls/hr Q12HR IV 04/26/18 21:00 05/01/18 08:53 Potassium Chloride 100 ml @ 50 mls/hr Q2H PRN IV-CENTRAL For Potassium 2.8 - 3.2 mEq/L 04/27/18 07:30 Potassium Chloride 100 ml @ 50 mls/hr Q2H PRN IV For Potassium 2.8 - 3.2 mEq/L 04/27/18 07:30 Potassium Bicarb/ Potassium Chloride (K-Lyte Cl Eff) 50 meq UNSCH PRN PO For Potassium 3.3 - 3.5 mEq/L 04/27/18 07:30 04/29/18 06:17 Potassium Chloride 100 ml @ 25 mls/hr UNSCH PRN IV-CENTRAL For Potassium 3.3 - 3.5 mEq/L 04/27/18 07:30 Potassium Chloride 100 ml @ 50 mls/hr Q2H PRN IV For Potassium 3.3 - 3.5 mEq/L 04/27/18 07:30 Magnesium Sulfate 4 gm/Sodium Chloride 100 ml @ 50 mls/hr UNSCH PRN IV For Magnesium 0.9 - 1.1 mg/dL 04/27/18 07:30 Magnesium Oxide (Mag-Ox) 800 mg UNSCH PRN PO For Magnesium 1.2 - 1.6 mg/dL 04/27/18 07:30 Magnesium Sulfate 2 gm/Sodium Chloride 100 ml @ 50 mls/hr UNSCH PRN IV For Magnesium 1.2 - 1.6 mg/dL 04/27/18 07:30 Potassium Phosphate (K-Phos) 2,000 mg Q4H PRN PO For Phosphorus < 2.5 mg/dL 04/27/18 07:30 Sodium Phosphate 30 mmol/Sodium Chloride 250 ml @ 42 mls/hr UNSCH PRN IV For Phosphorus < 2.5 mg/dL 04/27/18 07:30 04/27/18 22:16 Potassium Phosphate (K-Phos) 2,000 mg UNSCH PRN PO/TUBE SEE LABEL COMMENTS 04/27/18 07:30 Potassium Phosphate 30 mmol/ Sodium Chloride 260 ml @ 42 mls/hr UNSCH PRN IV SEE LABEL COMMENTS 04/27/18 07:30 Chlorhexidine Gluconate (Peridex 0.12% Liq) 15 ml BID@08,20 MT 04/27/18 08:00 05/01/18 07:55 Albuterol/ Ipratropium (Duoneb Neb) 1 ampule Q2HR NEB PRN NEB wheezing 04/27/18 07:30 Senna/Docusate Sodium (Meron-Colace) 1 tab BID PO 04/27/18 09:00 05/01/18 08:52 Magnesium Hydroxide (Milk Of Magnesia Liq) 30 ml BID PO 04/27/18 09:00 04/29/18 09:01 Acetaminophen 100 ml @ 400 mls/hr Q6H PRN IV temp>101 04/27/18 16:15 05/01/18 14:21 Meperidine HCl (Demerol Inj) 25 mg Q6H PRN IV PUSH shivering 04/28/18 10:30 Lactulose (Lactulose Liq) 30 ml DAILY PO 04/29/18 09:00 04/29/18 09:01 Enoxaparin Sodium (Lovenox Inj) 40 mg Q24H SQ 05/01/18 11:00 05/01/18 09:54 Metoprolol Tartrate (Lopressor Inj) 5 mg Q6H IV PUSH 05/01/18 12:00 Clonidine (Catapres-Tts 0.2 Mg Patch.7d) 1 patch Q7D T-DERMAL 05/01/18 17:00 05/01/18 16:28 Lisinopril (Prinivil) 10 mg Q12HR PO 05/01/18 21:00 Oxycodone HCl (Roxicodone) 10 mg Q6H NG 05/01/18 16:15 05/01/18 16:29 (Sofia Younger) Current Medications Current Medications Sodium Chloride 1,000 ml @ 100 mls/hr Q10H IV Last administered on 04/29/18at 23 :34; Start 04/26/18 at 14:00; Stop 04/30/18 at 09:29; Status DC Sodium Chloride (NS Flush) 2 ml UNSCH PRN IV FLUSH FLUSH AFTER USING IV ACCESS ; Start 04/26/18 at 13:15 Sodium Chloride (NS Flush) 2 ml BID IV FLUSH Last administered on 05/02/18at 20: 34; Start 04/26/18 at 21:00 Pantoprazole Sodium (Protonix Inj) 40 mg Q24H IV PUSH Last administered on 05/03at 14:07; Start 04/26/18 at 14:00 Naloxone HCl (Narcan Inj) 0.4 mg UNSCH PRN IV PUSH SEE LABEL COMMENTS; Start at 13:15 Propofol 100 ml @ 0 mls/hr TITRATE PRN IV SEDATION; Start 04/26/18 at 13:15; Stop 04/26/18 at 14:31; Status DC Fentanyl Citrate 250 ml TITRATE PRN IV SEDATION; Start 04/26/18 at 13:15; Stop 04/26/18 at 14:31; Status DC Iohexol (Omnipaque 350 Inj) 89 ml STK-MED ONCE IVCONTRAST Last administered on 04/26/18at 13:35; Start 04/26/18 at 13:35; Stop 04/26/18 at 13:36; Status DC Succinylcholine Chloride (Quelicin Inj) 200 mg STK-MED ONCE .ROUTE ; Start at 14:10; Stop 04/26/18 at 14:11; Status DC Fentanyl Citrate 250 ml @ 5 mls/hr TITRATE PRN IV Sedation Last administered on 05/03/18at 12:17; Start 04/26/18 at 14:30 Propofol 100 ml @ 2.463 mls/ hr TITRATE PRN IV SEDATION Last administered on at 12:17; Start 04/26/18 at 14:30 Propofol 100 ml @ As Directed STK-MED ONCE .ROUTE ; Start 04/26/18 at 13:21; Stop 04/26/18 at 14:31; Status DC Levetriacetam 500 mg/Sodium Chloride 105 ml @ 420 mls/hr Q12HR IV Last administered on 05/03/18at 08:37; Start 04/26/18 at 21:00 Sodium Chloride 188 meq/Sodium Chloride 1,047 ml @ 40 mls/hr Q24H IV Last administered on 04/29/18at 20:58; Start 04/26/18 at 18:30; Stop 04/30/18 at 09:29; Status DC Potassium Chloride 100 ml @ 50 mls/hr Q2H PRN IV-CENTRAL For Potassium 2.8 - 3.2 mEq/L; Start 04/27/18 at 07:30 Potassium Chloride 100 ml @ 50 mls/hr Q2H PRN IV For Potassium 2.8 - 3.2 mEq/L ; Start 04/27/18 at 07:30 Potassium Bicarb/ Potassium Chloride (K-Lyte Cl Eff) 50 meq UNSCH PRN PO For Potassium 3.3 - 3.5 mEq/L Last administered on 04/29/18at 06:17; Start 04/27/18 at 07:30 Potassium Chloride 100 ml @ 25 mls/hr UNSCH PRN IV-CENTRAL For Potassium 3.3 - 3.5 mEq/L; Start 04/27/18 at 07:30 Potassium Chloride 100 ml @ 50 mls/hr Q2H PRN IV For Potassium 3.3 - 3.5 mEq/L ; Start 04/27/18 at 07:30 Magnesium Sulfate 4 gm/Sodium Chloride 100 ml @ 50 mls/hr UNSCH PRN IV For Magnesium 0.9 - 1.1 mg/dL; Start 04/27/18 at 07:30 Magnesium Oxide (Mag-Ox) 800 mg UNSCH PRN PO For Magnesium 1.2 - 1.6 mg/dL; Start 04/27/18 at 07:30 Magnesium Sulfate 2 gm/Sodium Chloride 100 ml @ 50 mls/hr UNSCH PRN IV For Magnesium 1.2 - 1.6 mg/dL; Start 04/27/18 at 07:30 Potassium Phosphate (K-Phos) 2,000 mg Q4H PRN PO For Phosphorus < 2.5 mg/dL; Start 04/27/18 at 07:30 Sodium Phosphate 30 mmol/Sodium Chloride 250 ml @ 42 mls/hr UNSCH PRN IV For Phosphorus < 2.5 mg/dL Last administered on 04/27/18at 22:16; Start 04/27/18 at 07: 30 Potassium Phosphate (K-Phos) 2,000 mg UNSCH PRN PO/TUBE SEE LABEL COMMENTS; Start 04/27/18 at 07:30 Potassium Phosphate 30 mmol/ Sodium Chloride 260 ml @ 42 mls/hr UNSCH PRN IV SEE LABEL COMMENTS; Start 04/27/18 at 07:30 Chlorhexidine Gluconate (Peridex 0.12% Liq) 15 ml BID@08,20 MT Last administered on 05/03/18at 08:00; Start 04/27/18 at 08:00 Potassium Bicarb/ Potassium Chloride (K-Lyte Cl Eff) 50 meq ONCE PRN PO Electrolyte replacement; Start 04/27/18 at 07:30; Status UNV Albuterol/ Ipratropium (Duoneb Neb) 1 ampule Q6HR NEB NEB Last administered on 05/01/18at 07:40; Start 04/27/18 at 10:00; Stop 05/01/18 at 09:59; Status DC Albuterol/ Ipratropium (Duoneb Neb) 1 ampule Q2HR NEB PRN NEB wheezing; Start 04/27/18 at 07:30 Senna/Docusate Sodium (Meron-Colace) 1 tab BID PO Last administered on at 08:36; Start 04/27/18 at 09:00 Magnesium Hydroxide (Milk Of Magnesia Liq) 30 ml BID PO Last administered on at 08:36; Start 04/27/18 at 09:00 Lactulose (Lactulose Liq) 30 ml DAILY PRN PO If no Bowel Movement in 2 days; Start 04/27/18 at 07:30; Stop 04/29/18 at 08:39; Status DC Acetaminophen 100 ml @ 400 mls/hr Q6H PRN IV temp>101 Last administered on at 14:07; Start 04/27/18 at 16:15 Meperidine HCl (Demerol Inj) 25 mg Q6H PRN IV PUSH shivering; Start 04/28/18 at 10:30 Lactulose (Lactulose Liq) 30 ml DAILY PO Last administered on 05/03/18at 08:36; Start 04/29/18 at 09:00 Furosemide (Lasix Inj) 40 mg ONCE ONCE IV PUSH Last administered on 04/30/18at 09:57; Start 04/30/18 at 09:30; Stop 04/30/18 at 09:38; Status DC Hydralazine HCl (Apresoline Inj) 10 mg Q6H PRN IV PUSH SBP>175. DBP > 105; Start 04/30/18 at 10:15; Stop 04/30/18 at 13:57; Status DC Clonidine (Catapres-Tts 0.1mg Patch.7d) 1 patch Q7D T-DERMAL Last administered on 04/30/18at 11:45; Start 04/30/18 at 11:00; Stop 05/01/18 at 16:05; Status DC Miscellaneous Information 1 Q7D T-DERMAL ; Start 05/07/18 at 11:00; Stop at 11:00; Status DC Enoxaparin Sodium (Lovenox Inj) 40 mg Q24H SQ Last administered on 05/03/18at 10 :43; Start 05/01/18 at 11:00 Metoprolol Tartrate (Lopressor Inj) 5 mg Q6H IV PUSH ; Start 05/01/18 at 12:00; Stop 05/02/18 at 09:23; Status DC Clonidine (Catapres-Tts 0.2 Mg Patch.7d) 1 patch Q7D T-DERMAL Last administered on 05/01/18at 16:28; Start 05/01/18 at 17:00; Stop 05/03/18 at 09:36 ; Status DC Lisinopril (Prinivil) 10 mg Q12HR PO Last administered on 05/03/18at 08:36; Start 05/01/18 at 17:00 Oxycodone HCl (Roxicodone) 10 mg Q6H NG Last administered on 05/03/18at 10:43; Start 05/01/18 at 16:15 Hydralazine HCl (Apresoline Inj) 10 mg Q6H PRN IV PUSH SYS BP GREATER THAN 170 MMHG; Start 05/01/18 at 17:15; Stop 05/01/18 at 17:18; Status DC Hydralazine HCl (Apresoline) 25 mg Q6H NG Last administered on 05/03/18at 10:43 ; Start 05/01/18 at 17:00 Nicardipine HCl 25 mg/Sodium Chloride 260 ml @ 52 mls/hr TITRATE PRN IV Blood pressure management Last administered on 05/03/18at 07:21; Start 05/01/18 at 18: 00 Etomidate (Amidate Inj) 40 mg STK-MED ONCE .ROUTE ; Start 05/02/18 at 08:38; Stop 05/02/18 at 08:39; Status DC Rocuronium [place] (Zemuron Inj) 100 mg STK-MED ONCE .ROUTE ; Start 05/02/18 at 08:39; Stop 05/02/18 at 08:40; Status DC Rocuronium [place] (Zemuron Inj) 50 mg BOLUS ONCE IV Last administered on 05/02at 10:00; Start 05/02/18 at 10:00; Stop 05/02/18 at 10:01; Status DC Midazolam HCl (Versed Inj) 5 mg ONCE ONCE IM ; Start 05/02/18 at 10:00; Stop at 10:05; Status DC Midazolam HCl (Versed Inj) 5 mg ONCE ONCE IV ; Start 05/02/18 at 10:15; Stop at 10:16; Status DC Clonidine (Catapres-Tts 0.3 Mg Patch.7d) 1 patch Q7D T-DERMAL Last administered on 05/03/18at 11:48; Start 05/03/18 at 11:00 Furosemide (Lasix Inj) 40 mg ONCE ONCE IV PUSH Last administered on 05/03/18at 10:44; Start 05/03/18 at 09:45; Stop 05/03/18 at 10:09; Status DC Artificial Tears (Lacrilube Opht Oint) 1 applic Q12HR EACH EYE Last administered on 05/03/18at 11:48; Start 05/03/18 at 11:00 Miscellaneous Information 1 Q7D T-DERMAL ; Start 05/10/18 at 10:59 (Emiliano Chiang MD) Medical Decision Making MDM Remarks 73 year old male trauma alert, fall off ladder onto cement TBI, left traumatic subarachnoid, subdural hemorrhage, s/p placement of ICP monitor 04/26/18, stable ICPs Head CT 04/28/18 Impressions: CONCLUSION: 1. Improving left subdural hemorrhage. Evolving bilateral hemorrhagic contusio ns with scattered subarachnoid hemorrhage. No new intracranial hemorrhage. (Sofia Younger) Plan Plan Remarks ICP monitor removed per Dr. Chiang, cont critical care per trauma team, neuro checks, sedation weaning as tolerated and follow up neuro exam (Sofia Younger) Attending Statement Neurologically patient is unchanged. remove ICPs low and bolt has been removed With decrease of sedation and sedation vacation patient is waking up moving all 4 extremities however does not open eyes or follow commands Hypertonic saline has been discontinued considering that patient's sodium is 1 56 mEq/L and serum osmolality remains below 330 mOsm per liter Hemodynamic/Cardiac Hemodynamically patient is stable Pulmonary/Respiratory Hemodynamically stable somewhat hypertensive and medications adjusted for the same Bilateral breath sounds remains on assist control ventilation will start on CPAP trials daily Abdomen/GI Nutrition Abdomen soft enteral feeds tolerated Renal/I&O Renal function will preserved Nutrition. tube feedings Renal. monitor closely urine output, BUN and creatinine Endocrine. Monitor serial Acu checks and SSI as needed in detail ID monitor for signs of infection Protonix for stress ulcer prophylaxis Familia hose and SCD's for DVT prophylaxis The exam, history, and the medical decision-making described in the above note were completed with the assistance of the mid-level provider. I reviewed and agree with the findings presented. I attest that I had a [id number] encounter with the patient on the same day, and personally performed and documented my assessment and findings in the medical record. (Emiliano Chiang MD) Sofia Younger May 01, 2018 17:08 Emiliano Chiang MD May 03, 2018 14:33
[2018-05-01] MEDS ORDERED: hydrALAZINE HCL 20 MG/ML VIAL IV PUSH PRN (17:15)
[2018-05-01] MEDS: hydrALAZINE HCL 25 MG TAB NG SCH ×2 (17:19→22:41)
[2018-05-01] MEDS: niCARdipine INJ 25 MG in SODIUM CHLOR 0.9% 250 ML INJ 250 ML IV PRN ×2 (20:21→22:42)
[2018-05-02] VITALS (20 sets, daily range): BP systolic 123–156; BP diastolic 52–74; PULSE 58–70; RESP 18–26; TEMP 98.2–101.1; O2SAT 92–100
--- NOTE | 2018-05-02 03:40 | RADRPT ---
EXAM DATE: 05/02/2018 3:37 AM EDT AGE/SEX: 72 years / Male INDICATIONS: Trauma. CLINICAL DATA: This is the patient's subsequent encounter. Patient reports that signs and symptoms h ave been present for 1 week and indicates a pain score of Nonresponsive. MEDICAL/SURGICAL HISTORY: Non-responsive. Non-responsive. [place] [facility] [place]. . FINDINGS: Single AP view of the chest. Endotracheal tube and nasogastric tube remain in place. Decrease in bila teral pulmonary opacity. Persistent bilateral pleural effusions. Cardiomediastinal silhouette unchang ed. CONCLUSION: Decreased bilateral pulmonary parenchymal opacity indicating decreased pulmonary edema. Small bilater al pleural effusions again seen. Electronically signed by: Rodrigo Olivares MD 05/02/2018 3:39 AM EDT
[2018-05-02] MEDS: niCARdipine INJ 25 MG in SODIUM CHLOR 0.9% 250 ML INJ 250 ML IV PRN ×9 (03:43→23:59)
[2018-05-02 04:32] LABS: BASOPHIL # 0.1 TH/MM3 (0-0.2); BASOPHIL % 0.7 % (0.0-2.0); EOSINOPHIL # 0.2 TH/MM3 (0-0.4); EOSINOPHIL % 1.9 % (0.0-4.0); HEMATOCRIT 32.3 % (39.0-51.0); LYMPH % 7.5 % (9.0-44.0); LYMPHOCYTE # 0.8 TH/MM3 (1.0-4.8); MEAN CELL VOLUME 91.5 FL (80.0-100.0); MEAN CORPUSCULAR HEMOGLOBIN 31.2 PG (27.0-34.0); MEAN CORPUSCULAR HGB CONC 34.1 % (32.0-36.0); MEAN PLATELET VOLUME 8.6 FL (7.0-11.0); MONO % 10.4 % (0.0-8.0); NEUT % 79.5 % (16.0-70.0); PLATELET COUNT 183 TH/MM3 (150-450); RED BLOOD COUNT 3.54 MIL/MM3 (4.50-5.90); RED CELL DISTRIBUTION WIDTH 14.4 % (11.6-17.2)
[2018-05-02 04:37] LABS: ALBUMIN 1.7 GM/DL (3.4-5.0); ALT (GPT) 64 U/L (12-78); AST (GOT) 43 U/L (15-37); BICARBONATE 27.7 MEQ/L (21.0-32.0); BLOOD UREA NITROGEN 23 MG/DL (7-18); CALCIUM 7.7 MG/DL (8.5-10.1); CHLORIDE 118 MEQ/L (98-107); CREATININE 0.71 MG/DL (0.60-1.30); GLOMERULAR FILTRATION RATE 109 ML/MIN (>89); GLUCOSE,RANDOM 114 MG/DL (74-106); SODIUM (NA) 152 MEQ/L (136-145)
[2018-05-02] MEDS: hydrALAZINE HCL 25 MG TAB NG SCH ×4 (04:38→22:24)
[2018-05-02 04:40] LABS: ALKALINE PHOSPHATASE 66 U/L (45-117); TOTAL BILIRUBIN ADULT 0.6 MG/DL (0.2-1.0); TOTAL PROTEIN 5.6 GM/DL (6.4-8.2)
[2018-05-02] MEDS: fentaNYL 2,500 MCG/NS 250 ML IV PRN ×2 (05:03→19:58)
[2018-05-02 05:25] LABS: BANDS 7 % (0-6); BASOPHILS 1 % (0-2); LYMPHOCYTES 3 % (9-44); METAMYELOCYTES 1 % (0-1); MONOCYTES 5 % (0-8); NEUTROPHIL # MANUAL DIFF 8.9 TH/MM3 (1.8-7.7); POLYS (SEG NEUTROPHILS) 81 % (16-70)
[2018-05-02] MEDS: METOPROLOL TARTRATE 5 MG/5 ML VIAL IV PUSH SCH (05:52)
[2018-05-02] MEDS: CHLORHEXIDINE 0.12% (ORAL KIT) 15 ML CUP MT SCH ×2 (07:21→20:32)
--- NOTE | 2018-05-02 07:55 | HHI.PR ---
Neuropsych Emotional Emotional: UnabletoAssess: Emotional, Anxious/Fearful, Depressed/Sad, Hostile/ Resentful, Irritable/Angry/Frustrate, Labile, Constricted/Blunted Behavior Behavior: Intact: Impulsive/Agitated, Unable to Asses: Behavior, Coping/ Acceptance, Cooperative w/ Treatment, Motivation, Frustration Tolerance/[place], Suicidal/Homicidal Risk Cognitive Cognitive: Unable to Asses: Cognitive, Attention/Concentration, Confused/ Orientation, Insight/Awareness, Judgement/Problem-Solving, Memory Psychosocial Psychosocial: Intact: Psychosocial, Family/Other Adjustment, Realistic Expectation, Unable to Asses: Self-Esteem/Confidence Progress Notes/Response to Tx Contents of Sessions: Adjustment, Level of Consciousness Time with Patient: 30 minutes Premorbid psychological status Premorbid Cognitive, Emotional and Behavioral Status: Stable. The patient has college years of education and a solid work history prior to this injury. The patient has no prior psychiatric difficulties, as described above. Substance abuse history is unknown. Behavioral Reactions of Patient and Family/Support System: Stable. The patient s family is experiencing ongoing issues of adjustment given the nature of the injury, and this aspect of recovery will require ongoing monitoring. Emotional/Behavioral Status of Patient and Family/Support System: Stable. Pertinent issues, if appropriate to this patients clinical care, are described in detail above. Maximizing acute care outcome It is recommended that the patient be monitored for emergent behavioral impulsivity as the medical condition evolves. This patients neuropathological challenges may limit his rehabilitation potential going forward, and these challenges will require specialized therapeutic skills to maximize outcome. Additionally, the patients family is experiencing ongoing issues of adjustment given the traumatic nature of the injury, and they may benefit from ongoing psychological assistance. At this point in the recovery process, the patient does not have cognitive capacity as the patient is unable to understand a situation and its likely consequences, nor is he able to manipulate information rationally. Cognitive capacity will be assessed throughout the recovery process. Anticipated Problems Ongoing areas of concern will include behavioral impulsivity, lack of insight and judgment, which is expected to improve with time and treatment. Presently , the patient is critically ill. Given the severity of the patient's injuries it is my clinical opinion that this patient will be unable to return to any type of productive employment for at least one year, perhaps longer and likely never. This patient is not considered safe to discharge home without supervision at this time. Treatment Plan This clinician will continue to follow with you throughout the course of this patients critical care treatment, and I will be available to meet with the patients family/support system to facilitate their understanding and the ongoing care of their family member. The goals of neuropsychological intervention shall be both educational and supportive to the family/support system as is deemed clinically appropriate. [facility] Level: III:Localized response-total assist Impression 72 year old male s/p TBI 2T fall on 04/26/2018. Diagnosis: (1) Major neurocognitive disorder as late effect of traumatic brain injury without behavioral disturbance Progress Note Narrative PTD 6. The patient continues to improve from a medical standpoint, may not need trach. There are no issues of agitation/restlessness, and the patient is Rancho III off sedation. I will follow. Germán Arriaga PhD May 02, 2018 7:55 am
[2018-05-02] MEDS: MAGNESIUM HYDROXIDE SUSP 30 ML CUP PO SCH ×2 (07:58→20:33)
[2018-05-02] MEDS: LACTULOSE SYRUP 20 GM/30 ML CUP PO SCH (07:58)
[2018-05-02] MEDS: levETIRAcetam INJ 500 MG in SODIUM CHLORIDE 0.9% INJ 100 ML IV SCH ×2 (07:58→20:32)
[2018-05-02] MEDS: LISINOPRIL 10 MG TAB PO SCH ×2 (07:58→20:33)
[2018-05-02] MEDS: SODIUM CHLORIDE 0.9% FLUSH 10 ML FLUSH IV FLUSH SCH ×2 (07:58→20:34)
[2018-05-02] MEDS: DOCUSATE SODIUM 50 MG/SENNA 8.6 MG TAB PO SCH ×2 (07:58→20:33)
[2018-05-02] MEDS ORDERED: ETOMIDATE 40 MG/20 ML VIAL ONE (08:38)
[2018-05-02] MEDS ORDERED: ROCURONIUM INJ 50 MG/5 ML VIAL ONE (08:39)
[2018-05-02] MEDS ORDERED: ROCURONIUM INJ 50 MG/5 ML VIAL IV ONE (10:00)
[2018-05-02] MEDS ORDERED: MIDAZOLAM HCL 5 MG/ML VIAL (1 ML) IM ONE (10:00)
[2018-05-02] MEDS: ENOXAPARIN SODIUM 40 MG/0.4 ML SYRINGE SQ SCH (10:01)
--- NOTE | 2018-05-02 10:05 | HHI.NSPN ---
(Sofia Younger) Note Status Status: Progress Note (Sofia Younger) Interval History Interval History This 72-year-old gentleman was brought in as priority 1 trauma alert after falling about 12-15 feet out of a tree. Apparently the ladder fell sideways. No seizure activity. No tonguebitting. No incontinence of stool or urine. The patient fell on a concrete walkway, right side down. According to witnesses, he was completely unconscious and on the arrival, the paramedics' [place] Coma Scale was 3, which improved after resuscitation to about 8. The patient brought with a spinal board with C-collar in place, moaning and groaning. CT showed traumatic SAHand a small SDH. Neurosurgery consultation was requested 04/27: patient seen this morning during rounds, mildly sedated, intubated, but seen to be moving purposefully, no opening eyes or following commands. 04/28: seen this am during rounds, ICPs controlled overnight, intubated and currently well sedated. f/u CT Brain this morning completed, improved SDH, with evolving contusion. 05/01: intubated, sedated reported to move spontaneously when sedation lowered but not following command. ICPs controlled. 05/02: intubated, mildly sedated, minimally opens eyes, moves extremities, but not following commands. planned bronchoscopy today with trauma. (Sofia Younger) Labs, Micro, & Vital Signs Results Date Time Temp Pulse Resp B/P (MAP) Pulse Ox O2 Delivery O2 Flow Rate FiO2 05/02/18 09:30 93 45 05/02/18 08:00 68 05/02/18 08:00 99.8 68 19 139/53 (81) 92 05/02/18 08:00 45 05/02/18 07:25 62 155/58 05/02/18 07:00 94 Mechanical Ventilator 45 05/02/18 06:00 62 05/02/18 04:51 93 40 05/02/18 04:00 35 05/02/18 04:00 100.0 62 18 156/52 (86) 93 05/02/18 04:00 62 05/02/18 03:43 63 157/53 05/02/18 02:00 62 05/02/18 01:28 94 35 05/02/18 00:00 62 05/02/18 00:00 35 05/02/18 00:00 100.0 62 23 144/54 (84) 94 05/01/18 22:42 67 142/52 05/01/18 22:00 64 05/01/18 20:24 93 35 05/01/18 20:21 74 166/74 05/01/18 20:00 64 05/01/18 20:00 35 05/01/18 20:00 99.9 64 19 142/52 (82) 95 05/01/18 19:00 95 Mechanical Ventilator 35 05/01/18 18:00 64 05/01/18 17:18 98 35 05/01/18 16:00 100.2 51 16 162/72 (102) 98 05/01/18 16:00 100 05/01/18 16:00 51 05/01/18 14:00 57 05/01/18 12:00 100.6 59 16 166/77 (106) 99 05/01/18 12:00 59 05/01/18 12:00 97 35 05/01/18 12:00 100 Constitutional Vital Signs Date Time Temp Pulse Resp B/P (MAP) Pulse Ox O2 Delivery O2 Flow Rate FiO2 05/02/18 09:30 93 45 05/02/18 08:00 68 05/02/18 08:00 99.8 68 19 139/53 (81) 92 05/02/18 08:00 45 05/02/18 07:25 62 155/58 05/02/18 07:00 94 Mechanical Ventilator 45 05/02/18 06:00 62 05/02/18 04:51 93 40 05/02/18 04:00 35 05/02/18 04:00 100.0 62 18 156/52 (86) 93 05/02/18 04:00 62 05/02/18 03:43 63 157/53 05/02/18 02:00 62 05/02/18 01:28 94 35 05/02/18 00:00 62 05/02/18 00:00 35 05/02/18 00:00 100.0 62 23 144/54 (84) 94 05/01/18 22:42 67 142/52 05/01/18 22:00 64 05/01/18 20:24 93 35 05/01/18 20:21 74 166/74 05/01/18 20:00 64 05/01/18 20:00 35 05/01/18 20:00 99.9 64 19 142/52 (82) 95 05/01/18 19:00 95 Mechanical Ventilator 35 05/01/18 18:00 64 05/01/18 17:18 98 35 05/01/18 16:00 100.2 51 16 162/72 (102) 98 05/01/18 16:00 100 05/01/18 16:00 51 05/01/18 14:00 57 05/01/18 12:00 100.6 59 16 166/77 (106) 99 05/01/18 12:00 59 05/01/18 12:00 97 35 05/01/18 12:00 100 (Sofia Younger) Review of Systems ROS Limitations: Intubated (Sofia Younger) Physical Exam General: intubated, appears comfortable in no apparent distress HEENT: normocephalic, right bolt site with steri-strips, clean and dry. Nonicteric sclera. Neuro: sedated, opened eyes briefly when stimulated but not following commands. Cranial nerve: pupils equal, round, and reactive to light. Conjugate gaze. Neck: no JVD, trachea midline Musculoskeletal: no clubbing, not following commands for testing, some spontaneous movements seen Respiratory: clear, mechanically ventilated Heart: regular rate rhythm (Sofia Younger) General: intubated, appears comfortable in no apparent distress HEENT: normocephalic, right ICP monitor in place, ICPs controlled. Nonicteric sclera. Neuro: sedated, not following commands. Cranial nerve: pupils equal, round, and reactive to light. Conjugate gaze. Neck: no JVD, trachea midline Musculoskeletal: no clubbing, not following commands for testing Respiratory: clear, mechanically ventilated Heart: regular rate rhythm (Emiliano Chiang MD) Medications Current Medications Current Medications Medications (Trade) Dose Ordered Sig/Bonilla Route PRN Reason Start Time Stop Time Status Last Admin Dose Admin Sodium Chloride (NS Flush) 2 ml UNSCH PRN IV FLUSH FLUSH AFTER USING IV ACCESS 04/26/18 13:15 Sodium Chloride (NS Flush) 2 ml BID IV FLUSH 04/26/18 21:00 05/02/18 07:58 Pantoprazole Sodium (Protonix Inj) 40 mg Q24H IV PUSH 04/26/18 14:00 05/01/18 14:16 Naloxone HCl (Narcan Inj) 0.4 mg UNSCH PRN IV PUSH SEE LABEL COMMENTS 04/26/18 13:15 Fentanyl Citrate 250 ml @ 5 mls/hr TITRATE PRN IV Sedation 04/26/18 14:30 05/02/18 05:03 Propofol 100 ml @ 2.463 mls/ hr TITRATE PRN IV SEDATION 04/26/18 14:30 05/01/18 22:23 Levetriacetam 500 mg/Sodium Chloride 105 ml @ 420 mls/hr Q12HR IV 04/26/18 21:00 05/02/18 07:58 Potassium Chloride 100 ml @ 50 mls/hr Q2H PRN IV-CENTRAL For Potassium 2.8 - 3.2 mEq/L 04/27/18 07:30 Potassium Chloride 100 ml @ 50 mls/hr Q2H PRN IV For Potassium 2.8 - 3.2 mEq/L 04/27/18 07:30 Potassium Bicarb/ Potassium Chloride (K-Lyte Cl Eff) 50 meq UNSCH PRN PO For Potassium 3.3 - 3.5 mEq/L 04/27/18 07:30 04/29/18 06:17 Potassium Chloride 100 ml @ 25 mls/hr UNSCH PRN IV-CENTRAL For Potassium 3.3 - 3.5 mEq/L 04/27/18 07:30 Potassium Chloride 100 ml @ 50 mls/hr Q2H PRN IV For Potassium 3.3 - 3.5 mEq/L 04/27/18 07:30 Magnesium Sulfate 4 gm/Sodium Chloride 100 ml @ 50 mls/hr UNSCH PRN IV For Magnesium 0.9 - 1.1 mg/dL 04/27/18 07:30 Magnesium Oxide (Mag-Ox) 800 mg UNSCH PRN PO For Magnesium 1.2 - 1.6 mg/dL 04/27/18 07:30 Magnesium Sulfate 2 gm/Sodium Chloride 100 ml @ 50 mls/hr UNSCH PRN IV For Magnesium 1.2 - 1.6 mg/dL 04/27/18 07:30 Potassium Phosphate (K-Phos) 2,000 mg Q4H PRN PO For Phosphorus < 2.5 mg/dL 04/27/18 07:30 Sodium Phosphate 30 mmol/Sodium Chloride 250 ml @ 42 mls/hr UNSCH PRN IV For Phosphorus < 2.5 mg/dL 04/27/18 07:30 04/27/18 22:16 Potassium Phosphate (K-Phos) 2,000 mg UNSCH PRN PO/TUBE SEE LABEL COMMENTS 04/27/18 07:30 Potassium Phosphate 30 mmol/ Sodium Chloride 260 ml @ 42 mls/hr UNSCH PRN IV SEE LABEL COMMENTS 04/27/18 07:30 Chlorhexidine Gluconate (Peridex 0.12% Liq) 15 ml BID@08,20 MT 04/27/18 08:00 05/02/18 07:21 Albuterol/ Ipratropium (Duoneb Neb) 1 ampule Q2HR NEB PRN NEB wheezing 04/27/18 07:30 Senna/Docusate Sodium (Meron-Colace) 1 tab BID PO 04/27/18 09:00 05/02/18 07:58 Magnesium Hydroxide (Milk Of Magnesia Liq) 30 ml BID PO 04/27/18 09:00 05/02/18 07:58 Acetaminophen 100 ml @ 400 mls/hr Q6H PRN IV temp>101 04/27/18 16:15 05/01/18 14:21 Meperidine HCl (Demerol Inj) 25 mg Q6H PRN IV PUSH shivering 04/28/18 10:30 Lactulose (Lactulose Liq) 30 ml DAILY PO 04/29/18 09:00 05/02/18 07:58 Enoxaparin Sodium (Lovenox Inj) 40 mg Q24H SQ 05/01/18 11:00 05/02/18 10:01 Clonidine (Catapres-Tts 0.2 Mg Patch.7d) 1 patch Q7D T-DERMAL 05/01/18 17:00 05/01/18 16:28 Lisinopril (Prinivil) 10 mg Q12HR PO 05/01/18 17:00 05/02/18 07:58 Oxycodone HCl (Roxicodone) 10 mg Q6H NG 05/01/18 16:15 05/02/18 10:01 Hydralazine HCl (Apresoline) 25 mg Q6H NG 05/01/18 17:00 05/02/18 10:01 Nicardipine HCl 25 mg/Sodium Chloride 260 ml @ 52 mls/hr TITRATE PRN IV Blood pressure management 05/01/18 18:00 05/02/18 07:25 (Sofia Younger) Current Medications Current Medications Sodium Chloride 1,000 ml @ 100 mls/hr Q10H IV Last administered on 04/29/18at 23 :34; Start 04/26/18 at 14:00; Stop 04/30/18 at 09:29; Status DC Sodium Chloride (NS Flush) 2 ml UNSCH PRN IV FLUSH FLUSH AFTER USING IV ACCESS ; Start 04/26/18 at 13:15 Sodium Chloride (NS Flush) 2 ml BID IV FLUSH Last administered on 05/02/18at 20: 34; Start 04/26/18 at 21:00 Pantoprazole Sodium (Protonix Inj) 40 mg Q24H IV PUSH Last administered on 05/03at 14:07; Start 04/26/18 at 14:00 Naloxone HCl (Narcan Inj) 0.4 mg UNSCH PRN IV PUSH SEE LABEL COMMENTS; Start at 13:15 Propofol 100 ml @ 0 mls/hr TITRATE PRN IV SEDATION; Start 04/26/18 at 13:15; Stop 04/26/18 at 14:31; Status DC Fentanyl Citrate 250 ml TITRATE PRN IV SEDATION; Start 04/26/18 at 13:15; Stop 04/26/18 at 14:31; Status DC Iohexol (Omnipaque 350 Inj) 89 ml STK-MED ONCE IVCONTRAST Last administered on 04/26/18at 13:35; Start 04/26/18 at 13:35; Stop 04/26/18 at 13:36; Status DC Succinylcholine Chloride (Quelicin Inj) 200 mg STK-MED ONCE .ROUTE ; Start at 14:10; Stop 04/26/18 at 14:11; Status DC Fentanyl Citrate 250 ml @ 5 mls/hr TITRATE PRN IV Sedation Last administered on 05/03/18at 12:17; Start 04/26/18 at 14:30 Propofol 100 ml @ 2.463 mls/ hr TITRATE PRN IV SEDATION Last administered on at 12:17; Start 04/26/18 at 14:30 Propofol 100 ml @ As Directed STK-MED ONCE .ROUTE ; Start 04/26/18 at 13:21; Stop 04/26/18 at 14:31; Status DC Levetriacetam 500 mg/Sodium Chloride 105 ml @ 420 mls/hr Q12HR IV Last administered on 05/03/18at 08:37; Start 04/26/18 at 21:00 Sodium Chloride 188 meq/Sodium Chloride 1,047 ml @ 40 mls/hr Q24H IV Last administered on 04/29/18at 20:58; Start 04/26/18 at 18:30; Stop 04/30/18 at 09:29; Status DC Potassium Chloride 100 ml @ 50 mls/hr Q2H PRN IV-CENTRAL For Potassium 2.8 - 3.2 mEq/L; Start 04/27/18 at 07:30 Potassium Chloride 100 ml @ 50 mls/hr Q2H PRN IV For Potassium 2.8 - 3.2 mEq/L ; Start 04/27/18 at 07:30 Potassium Bicarb/ Potassium Chloride (K-Lyte Cl Eff) 50 meq UNSCH PRN PO For Potassium 3.3 - 3.5 mEq/L Last administered on 04/29/18at 06:17; Start 04/27/18 at 07:30 Potassium Chloride 100 ml @ 25 mls/hr UNSCH PRN IV-CENTRAL For Potassium 3.3 - 3.5 mEq/L; Start 04/27/18 at 07:30 Potassium Chloride 100 ml @ 50 mls/hr Q2H PRN IV For Potassium 3.3 - 3.5 mEq/L ; Start 04/27/18 at 07:30 Magnesium Sulfate 4 gm/Sodium Chloride 100 ml @ 50 mls/hr UNSCH PRN IV For Magnesium 0.9 - 1.1 mg/dL; Start 04/27/18 at 07:30 Magnesium Oxide (Mag-Ox) 800 mg UNSCH PRN PO For Magnesium 1.2 - 1.6 mg/dL; Start 04/27/18 at 07:30 Magnesium Sulfate 2 gm/Sodium Chloride 100 ml @ 50 mls/hr UNSCH PRN IV For Magnesium 1.2 - 1.6 mg/dL; Start 04/27/18 at 07:30 Potassium Phosphate (K-Phos) 2,000 mg Q4H PRN PO For Phosphorus < 2.5 mg/dL; Start 04/27/18 at 07:30 Sodium Phosphate 30 mmol/Sodium Chloride 250 ml @ 42 mls/hr UNSCH PRN IV For Phosphorus < 2.5 mg/dL Last administered on 04/27/18at 22:16; Start 04/27/18 at 07: 30 Potassium Phosphate (K-Phos) 2,000 mg UNSCH PRN PO/TUBE SEE LABEL COMMENTS; Start 04/27/18 at 07:30 Potassium Phosphate 30 mmol/ Sodium Chloride 260 ml @ 42 mls/hr UNSCH PRN IV SEE LABEL COMMENTS; Start 04/27/18 at 07:30 Chlorhexidine Gluconate (Peridex 0.12% Liq) 15 ml BID@08,20 MT Last administered on 05/03/18at 08:00; Start 04/27/18 at 08:00 Potassium Bicarb/ Potassium Chloride (K-Lyte Cl Eff) 50 meq ONCE PRN PO Electrolyte replacement; Start 04/27/18 at 07:30; Status UNV Albuterol/ Ipratropium (Duoneb Neb) 1 ampule Q6HR NEB NEB Last administered on 05/01/18at 07:40; Start 04/27/18 at 10:00; Stop 05/01/18 at 09:59; Status DC Albuterol/ Ipratropium (Duoneb Neb) 1 ampule Q2HR NEB PRN NEB wheezing; Start 04/27/18 at 07:30 Senna/Docusate Sodium (Meron-Colace) 1 tab BID PO Last administered on at 08:36; Start 04/27/18 at 09:00 Magnesium Hydroxide (Milk Of Magnesia Liq) 30 ml BID PO Last administered on at 08:36; Start 04/27/18 at 09:00 Lactulose (Lactulose Liq) 30 ml DAILY PRN PO If no Bowel Movement in 2 days; Start 04/27/18 at 07:30; Stop 04/29/18 at 08:39; Status DC Acetaminophen 100 ml @ 400 mls/hr Q6H PRN IV temp>101 Last administered on at 14:07; Start 04/27/18 at 16:15 Meperidine HCl (Demerol Inj) 25 mg Q6H PRN IV PUSH shivering; Start 04/28/18 at 10:30 Lactulose (Lactulose Liq) 30 ml DAILY PO Last administered on 05/03/18at 08:36; Start 04/29/18 at 09:00 Furosemide (Lasix Inj) 40 mg ONCE ONCE IV PUSH Last administered on 04/30/18at 09:57; Start 04/30/18 at 09:30; Stop 04/30/18 at 09:38; Status DC Hydralazine HCl (Apresoline Inj) 10 mg Q6H PRN IV PUSH SBP>175. DBP > 105; Start 04/30/18 at 10:15; Stop 04/30/18 at 13:57; Status DC Clonidine (Catapres-Tts 0.1mg Patch.7d) 1 patch Q7D T-DERMAL Last administered on 04/30/18at 11:45; Start 04/30/18 at 11:00; Stop 05/01/18 at 16:05; Status DC Miscellaneous Information 1 Q7D T-DERMAL ; Start 05/07/18 at 11:00; Stop at 11:00; Status DC Enoxaparin Sodium (Lovenox Inj) 40 mg Q24H SQ Last administered on 05/03/18at 10 :43; Start 05/01/18 at 11:00 Metoprolol Tartrate (Lopressor Inj) 5 mg Q6H IV PUSH ; Start 05/01/18 at 12:00; Stop 05/02/18 at 09:23; Status DC Clonidine (Catapres-Tts 0.2 Mg Patch.7d) 1 patch Q7D T-DERMAL Last administered on 05/01/18at 16:28; Start 05/01/18 at 17:00; Stop 05/03/18 at 09:36 ; Status DC Lisinopril (Prinivil) 10 mg Q12HR PO Last administered on 05/03/18at 08:36; Start 05/01/18 at 17:00 Oxycodone HCl (Roxicodone) 10 mg Q6H NG Last administered on 05/03/18at 10:43; Start 05/01/18 at 16:15 Hydralazine HCl (Apresoline Inj) 10 mg Q6H PRN IV PUSH SYS BP GREATER THAN 170 MMHG; Start 05/01/18 at 17:15; Stop 05/01/18 at 17:18; Status DC Hydralazine HCl (Apresoline) 25 mg Q6H NG Last administered on 05/03/18at 10:43 ; Start 05/01/18 at 17:00 Nicardipine HCl 25 mg/Sodium Chloride 260 ml @ 52 mls/hr TITRATE PRN IV Blood pressure management Last administered on 05/03/18at 07:21; Start 05/01/18 at 18: 00 Etomidate (Amidate Inj) 40 mg STK-MED ONCE .ROUTE ; Start 05/02/18 at 08:38; Stop 05/02/18 at 08:39; Status DC Rocuronium Marble (Zemuron Inj) 100 mg STK-MED ONCE .ROUTE ; Start 05/02/18 at 08:39; Stop 05/02/18 at 08:40; Status DC Rocuronium Marble (Zemuron Inj) 50 mg BOLUS ONCE IV Last administered on 05/02at 10:00; Start 05/02/18 at 10:00; Stop 05/02/18 at 10:01; Status DC Midazolam HCl (Versed Inj) 5 mg ONCE ONCE IM ; Start 05/02/18 at 10:00; Stop at 10:05; Status DC Midazolam HCl (Versed Inj) 5 mg ONCE ONCE IV ; Start 05/02/18 at 10:15; Stop at 10:16; Status DC Clonidine (Catapres-Tts 0.3 Mg Patch.7d) 1 patch Q7D T-DERMAL Last administered on 05/03/18at 11:48; Start 05/03/18 at 11:00 Furosemide (Lasix Inj) 40 mg ONCE ONCE IV PUSH Last administered on 05/03/18at 10:44; Start 05/03/18 at 09:45; Stop 05/03/18 at 10:09; Status DC Artificial Tears (Lacrilube Opht Oint) 1 applic Q12HR EACH EYE Last administered on 05/03/18at 11:48; Start 05/03/18 at 11:00 Miscellaneous Information 1 Q7D T-DERMAL ; Start 05/10/18 at 10:59 (Emiliano Chiang MD) Medical Decision Making MDM Remarks 73 year old male trauma alert, fall off ladder onto cement TBI, left traumatic subarachnoid, subdural hemorrhage, s/p placement of ICP monitor 04/26/18, stable ICPs, ICP monitor removed 05/01/[address] 04/28/18 Impressions: CONCLUSION: 1. Improving left subdural hemorrhage. Evolving bilateral hemorrhagic contusions with scattered subarachnoid hemorrhage. No new intracranial hemorrhage. (Sofia Yonuger) Plan Plan Remarks cont critical care per trauma team, neuro checks, sedation weaning as tolerated and follow up neuro exam dw family in room (Sofia Younger) Attending Statement Neurologically ICPs bolt has been removed With decrease of sedation and sedation vacation patient is waking up moving all 4 extremities, but he does not open eyes or follow commands Hypertonic saline has been discontinued considering that patient's sodium is 1 56 mEq/L and serum osmolality remains below 330 mOsm per liter Hemodynamic/Cardiac Hemodynamically patient is hypertgensive, on multiple medicationsstable Pulmonary/Respiratory Hemodynamically stable somewhat hypertensive and medications adjusted for the same Bilateral breath sounds remains on assist control ventilation will start on CPAP trials daily Abdomen/GI Nutrition Abdomen soft enteral feeds tolerated Renal/I&O Renal function will preserved Nutrition. tube feedings Renal. monitor closely urine output, BUN and creatinine Endocrine. Monitor serial Acu checks and SSI as needed in detail ID monitor for signs of infection Protonix for stress ulcer prophylaxis Familia hose and SCD's for DVT prophylaxis The exam, history, and the medical decision-making described in the above note were completed with the assistance of the mid-level provider. I reviewed and agree with the findings presented. I attest that I had a [id number] encounter with the patient on the same day, and personally performed and documented my assessment and findings in the medical record. (Emiliano Chiang MD) Sofia Younger May 02, 2018 10:05 Emiliano Chiang MD May 03, 2018 14:33
[2018-05-02] MEDS: MIDAZOLAM HCL 5 MG/ML VIAL (1 ML) IV ONE ×2 (10:15→10:16)
[2018-05-02] MEDS: PANTOPRAZOLE SODIUM 40 MG VIAL IV PUSH SCH (14:00)
--- NOTE | 2018-05-02 16:13 | HHI.CCPN ---
Subjective Brief History This 72-year-old gentleman was brought in as priority 1 trauma alert after falling about 12-15 feet out of a tree as the ladder went flying sideways. The patient fell on a concrete walkway, right side down. According to witnesses, he was completely unconscious and on the arrival, the paramedics' [place] Coma Scale was 3-4, which improved on the way to about 8 or 9. The patient brought with a spinal board with C-collar in place, moaning and groaning and complained but pain in the right chest. Patient was resuscitated according trauma principles and placed in ICU for further care Final injuries Traumatic brain injury with mainly left frontal temporoparietal subarachnoid and subdural bleed and some superficial contusions of the brain Right chest contusion with a small hemothorax and serial rib fractures of 5th, 6th, 7th, 8th ribs, Transverse process fractures of several vertebrae, Laceration of the right kidney with a hematoma and a small mass of the right kidney 24 Hour Review/Hospital Course 04/27/2018 Patient remains intubated and ventilated Neuroprotective measures including propofol and fentanyl Keppra 2% hypertonic saline at 30 cc/h ICP remains 4-12 mmHg Hemodynamically patient stable Bilateral good breath sounds on decreasing levels of ventilatory support with good PO2 FiO2 gradient 04/28/2018 No change in neurologic status On sedation vacation patient moves all 4 extremities opens eyes but does not follow commands and does not track making [place] Coma Scale about 6 or 7 This is fairly significant brain injury and will take a while to resolve ICP remains low and from my point ICP monitor can be removed CPP within the parameters of autoregulation Remains on neuroprotective measures including propofol fentanyl Keppra Decrease 2% saline to about 20 cc an hour at this point Hemodynamically patient stable Bilateral breath sounds remains on assist control ventilation and pulmonary status and PO2 FiO2 gradient will allow for extubation but of course patient's neurologic status does not allow for the same Patient will not need tracheostomy and I believe he will recover in next few days sufficiently and regaining consciousness to extubate safely Abdomen soft enteral feeds tolerated Renal function normal 04/29/2018 No change in neurologic status Patient remains stable on propofol fentanyl Keppra ICP remains within physiologic range and ICP monitor may be removed as per neurosurgery Hemodynamically remains stable however hemoglobin dropped to 7.8 g/dL as a result of hemodilution and obviously decreased production We will transfuse 2 units PRBC faced with age and neurologic injury Bilateral good breath sounds good PO2 FiO2 gradient Abdomen soft enteral feeds tolerated Plan Once okay with neurosurgery will wake up the patient and start weaning down the sedation probably tomorrow or Tuesday Transfuse 2 units PRBC Continue care 04/30/2018 No change in current status Patient remains on neuroprotective measures with decreasing levels of propofol and fentanyl On sedation vacation moves purposefully does not open eyes yet Will need another few days before sufficiently improved to wean and extubate ICP remains 5-12 mmHg Hemodynamically patient stable if not somewhat hypertensive which is being addressed Bilateral breath sounds and bilateral pleural effusions with atelectasis as a result probably of her original event and retention of secretions I am concerned about patient's pulmonary function and he might need bronchoscopy early next week Renal function preserved Patient about 12 L positive since the arrival will diurese gently to take of the third space now that systemic inflammatory response is abating 05/01/2018 Neurologically patient is unchanged if not somewhat better With decrease of sedation and sedation vacation patient is waking up moving all 4 extremities however does not open eyes or follow commands This is very early in the course and I believe patient will eventually improve neurologically Hemodynamically stable somewhat hypertensive and medications adjusted for the same Added nicardipine drip for management of recalcitrant hypertension Bilateral breath sounds remains on assist control ventilation will start on CPAP trials daily Abdomen soft enteral feeds tolerated I am not sure this patient will require tracheostomy but I believe he will come off the ventilator without one 05/02/2018 Patient neurologically slightly improving On sedation vacation moves all 4 extremities does not follow commands Bilateral good breath sounds on assist control ventilation and will start on CPAP trials Patient does have significant secretions and atelectasis mainly right lower lobe Underwent successful bronchoscopy today Abdomen soft enteral feeds tolerated Again as noted previously patient might or might not require tracheostomy and will see how he does in next few days neurologically which will be the base of placing one or not Objective Vital Signs Date Time Temp Pulse Resp B/P (MAP) Pulse Ox O2 Delivery O2 Flow Rate FiO2 05/02/18 16:07 98 50 05/02/18 15:18 60 141/53 05/02/18 12:00 98.2 20 05/02/18 07:00 Mechanical Ventilator Intake and Output 05/02/18 05/02/18 05/03/18 08:00 16:00 00:00 Intake Total 948 ml 500 ml Output Total 925 ml Balance 23 ml 500 ml Result Diagram: 05/02/18 0414 05/02/18 0414 Other Results Laboratory Tests Test 05/02/18 05:06 Blood Gas Puncture Site ART LINE Blood Gas Patient Temperature 98.6 Blood Gas HCO3 26 mmol/L (22-26) Blood Gas Base Excess 2.4 mmol/L (-2-2) Blood Gas Oxygen Saturation 91 % (90-100) Arterial Blood pH 7.44 (7.380-7.420) Arterial Blood Partial Pressure CO2 39 mmHg (38-42) Arterial Blood Partial Pressure O2 62 mmHg (61-120) Arterial Blood Oxygen Content 16.0 Vol % (12.0-20.0) Arterial Blood Carboxyhemoglobin 1.6 % (0-4) Arterial Blood Methemoglobin 1.0 % (0-2) Blood Gas Hemoglobin 12.5 G/DL (12.0-16.0) Oxygen Delivery Device VENTILATOR Blood Gas Ventilator Setting PRVC-AC Blood Gas Inspired Oxygen 35 % Imaging Last 24 hours Impressions Chest X-Ray 05/02/18 0600 Signed Impressions: CONCLUSION: Decreased bilateral pulmonary parenchymal opacity indicating decreased pulmonar y edema. Small bilateral pleural effusions again seen. Exam [employer] On sedation vacation moves all extremities but does not follow commands Hemodynamic/Cardiac Hemodynamically stable Pulmonary/Respiratory Bilateral good breath sounds remains on assist control ventilation mode Abdomen/GI Nutrition Abdomen soft enteral feeds tolerated Renal/I&O Renal function preserved Metabolic/Acid-Base Metabolically intact Assessment and Plan Attestation Critical care time 32 minutes Georgia Bustillo MD May 02, 2018 16:13
[2018-05-02] MEDS: PROPOFOL 1000 MG/100 ML IV PRN (18:58)
[2018-05-02] MEDS: ACETAMINOPHEN 1000 MG/100 ML 100 ML IV PRN (20:33)
[2018-05-03] VITALS (14 sets, daily range): BP systolic 122–179; BP diastolic 53–86; PULSE 60–92; RESP 16–26; TEMP 99.9–101.1; O2SAT 92–100
[2018-05-03] MEDS: niCARdipine INJ 25 MG in SODIUM CHLOR 0.9% 250 ML INJ 250 ML IV PRN ×3 (03:10→07:21)
[2018-05-03] MEDS: hydrALAZINE HCL 25 MG TAB NG SCH ×4 (05:12→23:03)
--- NOTE | 2018-05-03 05:28 | RADRPT ---
EXAM DATE: 05/03/2018 5:23 AM EDT AGE/SEX: 72 years / Male INDICATIONS: Shortness of breath. CLINICAL DATA: This is the patient's subsequent encounter. Patient reports that signs and symptoms h ave been present for 1 week and indicates a pain score of Nonresponsive. MEDICAL/SURGICAL HISTORY: Non-responsive. Non-responsive. COMPARISON: [facility] – [place]ST SINGLE AP, 05/02/2018. . FINDINGS: Single AP view of the chest. Endotracheal tube and nasogastric tube remain in place. Bilateral pulmon slade parenchymal opacity with lower lung zone predominance unchanged. Cardiomediastinal silhouette unc hanged. No evidence of pneumothorax. Small bilateral pleural effusions. CONCLUSION: No significant interval change with persistent bilateral mid to lower lung zone pulmonary opacity. Electronically signed by: Rodrigo Olivares MD 05/03/2018 5:27 AM EDT
[2018-05-03 05:40] LABS: AUTOMATED NEUTROPHIL # 7.9 TH/MM3 (1.8-7.7); BASOPHIL # 0.1 TH/MM3 (0-0.2); BASOPHIL % 0.7 % (0.0-2.0); EOSINOPHIL # 0.2 TH/MM3 (0-0.4); EOSINOPHIL % 1.8 % (0.0-4.0); HEMATOCRIT 32.3 % (39.0-51.0); HEMOGLOBIN 10.9 GM/DL (13.0-17.0); LYMPH % 5.8 % (9.0-44.0); LYMPHOCYTE # 0.6 TH/MM3 (1.0-4.8); MEAN CORPUSCULAR HEMOGLOBIN 30.8 PG (27.0-34.0); MEAN CORPUSCULAR HGB CONC 33.9 % (32.0-36.0); MEAN PLATELET VOLUME 8.5 FL (7.0-11.0); MONO % 10.9 % (0.0-8.0); MONOCYTE # 1.1 TH/MM3 (0-0.9); NEUT % 80.8 % (16.0-70.0); PLATELET COUNT 226 TH/MM3 (150-450); RED BLOOD COUNT 3.55 MIL/MM3 (4.50-5.90); RED CELL DISTRIBUTION WIDTH 13.9 % (11.6-17.2); WHITE BLOOD COUNT 9.8 TH/MM3 (4.0-11.0)
[2018-05-03 05:56] LABS: ALBUMIN 1.8 GM/DL (3.4-5.0); ALT (GPT) 58 U/L (12-78); AST (GOT) 37 U/L (15-37); BLOOD UREA NITROGEN 32 MG/DL (7-18); CALCIUM 7.7 MG/DL (8.5-10.1); CHLORIDE 118 MEQ/L (98-107); GLOMERULAR FILTRATION RATE 95 ML/MIN (>89); GLUCOSE,RANDOM 139 MG/DL (74-106); SODIUM (NA) 152 MEQ/L (136-145)
[2018-05-03 05:59] LABS: ALKALINE PHOSPHATASE 76 U/L (45-117); TOTAL BILIRUBIN ADULT 0.8 MG/DL (0.2-1.0); TOTAL PROTEIN 5.6 GM/DL (6.4-8.2)
[2018-05-03 07:17] LABS: BANDS 10 % (0-6); LYMPHOCYTES 7 % (9-44); METAMYELOCYTES 2 % (0-1); MONOCYTES 5 % (0-8); NEUTROPHIL # MANUAL DIFF 8.4 TH/MM3 (1.8-7.7); POLYS (SEG NEUTROPHILS) 74 % (16-70)
[2018-05-03] MEDS: CHLORHEXIDINE 0.12% (ORAL KIT) 15 ML CUP MT SCH ×2 (08:00→21:12)
--- NOTE | 2018-05-03 08:23 | HHI.PR ---
Neuropsych Emotional Emotional: UnabletoAssess: Emotional, Anxious/Fearful, Depressed/Sad, Hostile/ Resentful, Irritable/Angry/Frustrate, Labile, Constricted/Blunted Behavior Behavior: Intact: Impulsive/Agitated, Unable to Asses: Behavior, Coping/ Acceptance, Cooperative w/ Treatment, Motivation, Frustration Tolerance/[place], Suicidal/Homicidal Risk Cognitive Cognitive: Unable to Asses: Cognitive, Attention/Concentration, Confused/ Orientation, Insight/Awareness, Judgement/Problem-Solving, Memory Psychosocial Psychosocial: Intact: Psychosocial, Family/Other Adjustment, Realistic Expectation, Unable to Asses: Self-Esteem/Confidence Progress Notes/Response to Tx Contents of Sessions: Adjustment, Level of Consciousness Time with Patient: 30 minutes Premorbid psychological status Premorbid Cognitive, Emotional and Behavioral Status: Stable. The patient has college years of education and a solid work history prior to this injury. The patient has no prior psychiatric difficulties, as described above. Substance abuse history is unknown. Behavioral Reactions of Patient and Family/Support System: Stable. The patient s family is experiencing ongoing issues of adjustment given the nature of the injury, and this aspect of recovery will require ongoing monitoring. Emotional/Behavioral Status of Patient and Family/Support System: Stable. Pertinent issues, if appropriate to this patients clinical care, are described in detail above. Maximizing acute care outcome It is recommended that the patient be monitored for emergent behavioral impulsivity as the medical condition evolves. This patients neuropathological challenges may limit his rehabilitation potential going forward, and these challenges will require specialized therapeutic skills to maximize outcome. Additionally, the patients family is experiencing ongoing issues of adjustment given the traumatic nature of the injury, and they may benefit from ongoing psychological assistance. At this point in the recovery process, the patient does not have cognitive capacity as the patient is unable to understand a situation and its likely consequences, nor is he able to manipulate information rationally. Cognitive capacity will be assessed throughout the recovery process. Anticipated Problems Ongoing areas of concern will include behavioral impulsivity, lack of insight and judgment, which is expected to improve with time and treatment. Presently , the patient is critically ill. Given the severity of the patient's injuries it is my clinical opinion that this patient will be unable to return to any type of productive employment for at least one year, perhaps longer and likely never. This patient is not considered safe to discharge home without supervision at this time. Treatment Plan This clinician will continue to follow with you throughout the course of this patients critical care treatment, and I will be available to meet with the patients family/support system to facilitate their understanding and the ongoing care of their family member. The goals of neuropsychological intervention shall be both educational and supportive to the family/support system as is deemed clinically appropriate. [facility] Level: III:Localized response-total assist Impression 72 year old male s/p TBI 2T fall on 04/26/2018. Diagnosis: (1) Major neurocognitive disorder as late effect of traumatic brain injury without behavioral disturbance Progress Note Narrative PTD 7. Bronchoscopy yesterday. On sedation vacation, moves x 4 but does not follow. Now [place] III, sedated. May or may not require trach. No issues of agitation/restlessness. I will follow. Germán Arriaga PhD May 03, 2018 8:23 am
[2018-05-03] MEDS: PROPOFOL 1000 MG/100 ML IV PRN ×5 (08:32→23:57)
[2018-05-03] MEDS: DOCUSATE SODIUM 50 MG/SENNA 8.6 MG TAB PO SCH ×2 (08:36→21:13)
[2018-05-03] MEDS: LACTULOSE SYRUP 20 GM/30 ML CUP PO SCH (08:36)
[2018-05-03] MEDS: LISINOPRIL 10 MG TAB PO SCH ×2 (08:36→21:13)
[2018-05-03] MEDS: MAGNESIUM HYDROXIDE SUSP 30 ML CUP PO SCH ×2 (08:36→21:13)
[2018-05-03] MEDS: levETIRAcetam INJ 500 MG in SODIUM CHLORIDE 0.9% INJ 100 ML IV SCH ×2 (08:37→21:05)
[2018-05-03] MEDS: SODIUM CHLORIDE 0.9% FLUSH 10 ML FLUSH IV FLUSH SCH ×2 (08:39→21:13)
[2018-05-03] MEDS ORDERED: FUROSEMIDE 40 MG/4 ML VIAL IV PUSH ONE (09:45)
[2018-05-03] MEDS: ENOXAPARIN SODIUM 40 MG/0.4 ML SYRINGE SQ SCH (10:43)
[2018-05-03] MEDS: cloNIDine HCL 0.3 MG/24 HR PATCH T-DERMAL SCH (11:48)
[2018-05-03] MEDS: ARTIFICIAL TEARS OPTH OINT 3.5 APPLIC/3.5 GM TUBO EACH EYE SCH ×2 (11:48→21:00)
--- NOTE | 2018-05-03 12:14 | HHI.CCPN ---
Subjective Brief History This 72-year-old gentleman was brought in as priority 1 trauma alert after falling about 12-15 feet out of a tree as the ladder went flying sideways. The patient fell on a concrete walkway, right side down. According to witnesses, he was completely unconscious and on the arrival, the paramedics' [place] Coma Scale was 3-4, which improved on the way to about 8 or 9. The patient brought with a spinal board with C-collar in place, moaning and groaning and complained but pain in the right chest. Patient was resuscitated according trauma principles and placed in ICU for further care Final injuries Traumatic brain injury with mainly left frontal temporoparietal subarachnoid and subdural bleed and some superficial contusions of the brain Right chest contusion with a small hemothorax and serial rib fractures of 5th, 6th, 7th, 8th ribs, Transverse process fractures of several vertebrae, Laceration of the right kidney with a hematoma and a small mass of the right kidney 24 Hour Review/Hospital Course 04/27/2018 Patient remains intubated and ventilated Neuroprotective measures including propofol and fentanyl Keppra 2% hypertonic saline at 30 cc/h ICP remains 4-12 mmHg Hemodynamically patient stable Bilateral good breath sounds on decreasing levels of ventilatory support with good PO2 FiO2 gradient 04/28/2018 No change in neurologic status On sedation vacation patient moves all 4 extremities opens eyes but does not follow commands and does not track making [place] Coma Scale about 6 or 7 This is fairly significant brain injury and will take a while to resolve ICP remains low and from my point ICP monitor can be removed CPP within the parameters of autoregulation Remains on neuroprotective measures including propofol fentanyl Keppra Decrease 2% saline to about 20 cc an hour at this point Hemodynamically patient stable Bilateral breath sounds remains on assist control ventilation and pulmonary status and PO2 FiO2 gradient will allow for extubation but of course patient's neurologic status does not allow for the same Patient will not need tracheostomy and I believe he will recover in next few days sufficiently and regaining consciousness to extubate safely Abdomen soft enteral feeds tolerated Renal function normal 04/29/2018 No change in neurologic status Patient remains stable on propofol fentanyl Keppra ICP remains within physiologic range and ICP monitor may be removed as per neurosurgery Hemodynamically remains stable however hemoglobin dropped to 7.8 g/dL as a result of hemodilution and obviously decreased production We will transfuse 2 units PRBC faced with age and neurologic injury Bilateral good breath sounds good PO2 FiO2 gradient Abdomen soft enteral feeds tolerated Plan Once okay with neurosurgery will wake up the patient and start weaning down the sedation probably tomorrow or Tuesday Transfuse 2 units PRBC Continue care 04/30/2018 No change in current status Patient remains on neuroprotective measures with decreasing levels of propofol and fentanyl On sedation vacation moves purposefully does not open eyes yet Will need another few days before sufficiently improved to wean and extubate ICP remains 5-12 mmHg Hemodynamically patient stable if not somewhat hypertensive which is being addressed Bilateral breath sounds and bilateral pleural effusions with atelectasis as a result probably of her original event and retention of secretions I am concerned about patient's pulmonary function and he might need bronchoscopy early next week Renal function preserved Patient about 12 L positive since the arrival will diurese gently to take of the third space now that systemic inflammatory response is abating 05/01/2018 Neurologically patient is unchanged if not somewhat better With decrease of sedation and sedation vacation patient is waking up moving all 4 extremities however does not open eyes or follow commands This is very early in the course and I believe patient will eventually improve neurologically Hemodynamically stable somewhat hypertensive and medications adjusted for the same Added nicardipine drip for management of recalcitrant hypertension Bilateral breath sounds remains on assist control ventilation will start on CPAP trials daily Abdomen soft enteral feeds tolerated I am not sure this patient will require tracheostomy but I believe he will come off the ventilator without one 05/02/2018 Patient neurologically slightly improving On sedation vacation moves all 4 extremities does not follow commands Bilateral good breath sounds on assist control ventilation and will start on CPAP trials Patient does have significant secretions and atelectasis mainly right lower lobe Underwent successful bronchoscopy today Abdomen soft enteral feeds tolerated Again as noted previously patient might or might not require tracheostomy and will see how he does in next few days neurologically which will be the base of placing one or not 05/03/2018 Neurologic status unchanged On sedation vacation patient moves all 4 extremities but does not follow commands and is very restless ICP monitor has been removed due to low ICP pressures throughout At this point the patient remains on small dose propofol and fentanyl in face of his injuries however he is not ready to come off the respirator due to the low GCS Hemodynamically patient is stable however hypertensive Catapres patch Lisinopril Hydralazine Beta-blockers could not be used due to patient's development of bradycardia. Patient was placed on nicardipine drip however at this point we going to stop this due to large fluid load associated with the same Abdomen soft enteral feeds tolerated Renal function is preserved patient is now fluid overloaded in anasarca with bilateral pleural effusions right more than left We will try outpatient somewhat and see how he does but he may need right chest drained to evacuate hydrothorax Objective Vital Signs Date Time Temp Pulse Resp B/P (MAP) Pulse Ox O2 Delivery O2 Flow Rate FiO2 05/03/18 11:53 92 40 05/03/18 07:21 74 159/57 05/03/18 06:12 19 05/03/18 04:00 100.4 05/02/18 19:00 Mechanical Ventilator Intake and Output 05/03/18 05/03/18 05/04/18 08:00 16:00 00:00 Intake Total 1269 ml Output Total 925 ml Balance 344 ml Result Diagram: 05/03/18 0520 05/03/18 0520 Other Results Laboratory Tests Test 05/03/18 03:32 Blood Gas Puncture Site ART LINE Blood Gas Patient Temperature 98.6 Blood Gas HCO3 26 mmol/L (22-26) Blood Gas Base Excess 3.0 mmol/L (-2-2) Blood Gas Oxygen Saturation 93 % (90-100) Arterial Blood pH 7.49 (7.380-7.420) Arterial Blood Partial Pressure CO2 35 mmHg (38-42) Arterial Blood Partial Pressure O2 69 mmHg (61-120) Arterial Blood Oxygen Content 14.2 Vol % (12.0-20.0) Arterial Blood Carboxyhemoglobin 1.5 % (0-4) Arterial Blood Methemoglobin 1.0 % (0-2) Blood Gas Hemoglobin 10.8 G/DL (12.0-16.0) Oxygen Delivery Device VENTILATOR Blood Gas Ventilator Setting PRVC16/550/1.0/+10 Blood Gas Inspired Oxygen 40 % Imaging Last 24 hours Impressions Chest X-Ray 05/03/18 0600 Signed Impressions: CONCLUSION: No significant interval change with persistent bilateral mid to lower lung zone pulmonary opacity. Exam [facility] [employer] Neurologic status unchanged On sedation vacation patient moves all 4 extremities but does not follow commands and is very restless ICP monitor has been removed due to low ICP pressures throughout At this point the patient remains on small dose propofol and fentanyl in face of his injuries however he is not ready to come off the respirator due to the low GCS Hemodynamic/Cardiac Hemodynamically patient is stable however hypertensive Catapres patch Lisinopril Hydralazine Beta-blockers could not be used due to patient's development of bradycardia. Patient was placed on nicardipine drip however at this point we going to stop this due to large fluid load associated with the same Pulmonary/Respiratory Remains on the ventilator assist control and will start on some CPAP trials although patient of course cannot be extubated due to low level of consciousness Depending on his progress in next few days he may or may not need tracheostomy Abdomen/GI Nutrition Abdomen soft enteral feeds tolerated Renal/I&O Renal function is preserved patient is now fluid overloaded in anasarca with bilateral pleural effusions right more than left We will try outpatient somewhat and see how he does but he may need right chest drained to evacuate hydrothorax Assessment and Plan Attestation Critical care time 32 minutes Georgia Bustillo MD May 03, 2018 12:14
[2018-05-03] MEDS: fentaNYL 2,500 MCG/NS 250 ML IV PRN (12:17)
--- NOTE | 2018-05-03 12:38 | HHI.NSPN ---
(Sofia Younger) Note Status Status: Progress Note (Sofia Younger) Interval History Interval History This 72-year-old gentleman was brought in as priority 1 trauma alert after falling about 12-15 feet out of a tree. Apparently the ladder fell sideways. No seizure activity. No tonguebitting. No incontinence of stool or urine. The patient fell on a concrete walkway, right side down. According to witnesses, he was completely unconscious and on the arrival, the paramedics' [place] Coma Scale was 3, which improved after resuscitation to about 8. The patient brought with a spinal board with C-collar in place, moaning and groaning. CT showed traumatic SAHand a small SDH. Neurosurgery consultation was requested 04/27: patient seen this morning during rounds, mildly sedated, intubated, but seen to be moving purposefully, no opening eyes or following commands. 04/28: seen this am during rounds, ICPs controlled overnight, intubated and currently well sedated. f/u CT Brain this morning completed, improved SDH, with evolving contusion. 05/01: intubated, sedated reported to move spontaneously when sedation lowered but not following command. ICPs controlled. 05/02: intubated, mildly sedated, minimally opens eyes, moves extremities, but not following commands. planned bronchoscopy today with trauma. 05/03: remains intubated, sedated. no changes neurologically. (Sofia Younger) Labs, Micro, & Vital Signs Results Date Time Temp Pulse Resp B/P (MAP) Pulse Ox O2 Delivery O2 Flow Rate FiO2 05/03/18 11:53 92 40 05/03/18 09:57 96 40 05/03/18 07:21 74 159/57 05/03/18 06:12 19 05/03/18 06:00 66 05/03/18 05:13 66 152/56 05/03/18 04:24 97 40 05/03/18 04:00 100.4 80 16 156/70 (98) 98 05/03/18 04:00 50 05/03/18 04:00 80 05/03/18 03:10 75 167/64 05/03/18 02:00 60 05/03/18 01:34 97 40 05/03/18 00:00 99.9 60 16 127/53 (77) 98 05/03/18 00:00 60 05/03/18 00:00 50 05/02/18 23:59 63 125/51 05/02/18 22:17 98 40 05/02/18 22:00 68 05/02/18 21:52 68 149/59 05/02/18 20:10 98 40 05/02/18 20:00 70 05/02/18 20:00 101.1 70 26 138/58 (84) 98 05/02/18 20:00 50 05/02/18 19:58 68 140/56 05/02/18 19:00 96 Mechanical Ventilator 40 05/02/18 18:13 67 165/61 05/02/18 18:00 62 05/02/18 16:07 98 50 05/02/18 16:00 100.2 66 21 124/74 (91) 98 05/02/18 16:00 65 05/02/18 16:00 50 05/02/18 15:18 60 141/53 05/02/18 14:00 59 05/02/18 13:10 92 100 05/02/18 12:23 60 119/58 05/04/18 07:00 Intake Total 260 ml Balance 260 ml Constitutional Vital Signs Date Time Temp Pulse Resp B/P (MAP) Pulse Ox O2 Delivery O2 Flow Rate FiO2 05/03/18 11:53 92 40 05/03/18 09:57 96 40 05/03/18 07:21 74 159/57 05/03/18 06:12 19 05/03/18 06:00 66 05/03/18 05:13 66 152/56 05/03/18 04:24 97 40 05/03/18 04:00 100.4 80 16 156/70 (98) 98 05/03/18 04:00 50 05/03/18 04:00 80 05/03/18 03:10 75 167/64 05/03/18 02:00 60 05/03/18 01:34 97 40 05/03/18 00:00 99.9 60 16 127/53 (77) 98 05/03/18 00:00 60 6/13/18 00:00 50 05/02/18 23:59 63 125/51 05/02/18 22:17 98 40 05/02/18 22:00 68 05/02/18 21:52 68 149/59 05/02/18 20:10 98 40 05/02/18 20:00 70 05/02/18 20:00 101.1 70 26 138/58 (84) 98 05/02/18 20:00 50 05/02/18 19:58 68 140/56 05/02/18 19:00 96 Mechanical Ventilator 40 05/02/18 18:13 67 165/61 05/02/18 18:00 62 05/02/18 16:07 98 50 05/02/18 16:00 100.2 66 21 124/74 (91) 98 05/02/18 16:00 65 05/02/18 16:00 50 05/02/18 15:18 60 141/53 05/02/18 14:00 59 05/02/18 13:10 92 100 05/02/18 12:23 60 119/58 05/04/18 07:00 Intake Total 260 ml Balance 260 ml (Sofia Younger) Physical Exam General: intubated, intermittent coughing. HEENT: normocephalic. Nonicteric sclera. Leaking noted from bolt site under steri strips. Steri-strips remove, with slight serous drainage from bolt site. Neuro: sedated, not following commands. Cranial nerve: pupils equal, round, and reactive to light. Conjugate gaze. Neck: no JVD, trachea midline Musculoskeletal: no clubbing, not following commands for testing, some spontaneous movements seen Respiratory: clear, mechanically ventilated Heart: regular rate rhythm (Sofia Younger) General: intubated, intermittent coughing. HEENT: normocephalic. Nonicteric sclera. Leaking noted from bolt site under steri strips. Steri-strips remove, with slight serous drainage from bolt site. Neuro: sedated, not following commands. Cranial nerve: pupils equal, round, and reactive to light. Conjugate gaze. Neck: no JVD, trachea midline Musculoskeletal: no clubbing, not following commands for testing, some spontaneous movements seen Respiratory: clear, mechanically ventilated Heart: regular rate rhythm (Emiliano Chiang MD) Medications Current Medications Current Medications Medications (Trade) Dose Ordered Sig/[place]illa Route PRN Reason Start Time Stop Time Status Last Admin Dose Admin Sodium Chloride (NS Flush) 2 ml UNSCH PRN IV FLUSH FLUSH AFTER USING IV ACCESS 04/26/18 13:15 Sodium Chloride (NS Flush) 2 ml BID IV FLUSH 04/26/18 21:00 05/02/18 20:34 Pantoprazole Sodium (Protonix Inj) 40 mg Q24H IV PUSH 04/26/18 14:00 05/02/18 14:00 Naloxone HCl (Narcan Inj) 0.4 mg UNSCH PRN IV PUSH SEE LABEL COMMENTS 04/26/18 13:15 Fentanyl Citrate 250 ml @ 5 mls/hr TITRATE PRN IV Sedation 04/26/18 14:30 05/02/18 19:58 Propofol 100 ml @ 2.463 mls/ hr TITRATE PRN IV SEDATION 04/26/18 14:30 05/03/18 08:32 Levetriacetam 500 mg/Sodium Chloride 105 ml @ 420 mls/hr Q12HR IV 04/26/18 21:00 05/03/18 08:37 Potassium Chloride 100 ml @ 50 mls/hr Q2H PRN IV-CENTRAL For Potassium 2.8 - 3.2 mEq/L 04/27/18 07:30 Potassium Chloride 100 ml @ 50 mls/hr Q2H PRN IV For Potassium 2.8 - 3.2 mEq/L 04/27/18 07:30 Potassium Bicarb/ Potassium Chloride (K-Lyte Cl Eff) 50 meq UNSCH PRN PO For Potassium 3.3 - 3.5 mEq/L 04/27/18 07:30 04/29/18 06:17 Potassium Chloride 100 ml @ 25 mls/hr UNSCH PRN IV-CENTRAL For Potassium 3.3 - 3.5 mEq/L 04/27/18 07:30 Potassium Chloride 100 ml @ 50 mls/hr Q2H PRN IV For Potassium 3.3 - 3.5 mEq/L 04/27/18 07:30 Magnesium Sulfate 4 gm/Sodium Chloride 100 ml @ 50 mls/hr UNSCH PRN IV For Magnesium 0.9 - 1.1 mg/dL 04/27/18 07:30 Magnesium Oxide (Mag-Ox) 800 mg UNSCH PRN PO For Magnesium 1.2 - 1.6 mg/dL 04/27/18 07:30 Magnesium Sulfate 2 gm/Sodium Chloride 100 ml @ 50 mls/hr UNSCH PRN IV For Magnesium 1.2 - 1.6 mg/dL 04/27/18 07:30 Potassium Phosphate (K-Phos) 2,000 mg Q4H PRN PO For Phosphorus < 2.5 mg/dL 04/27/18 07:30 Sodium Phosphate 30 mmol/Sodium Chloride 250 ml @ 42 mls/hr UNSCH PRN IV For Phosphorus < 2.5 mg/dL 04/27/18 07:30 04/27/18 22:16 Potassium Phosphate (K-Phos) 2,000 mg UNSCH PRN PO/TUBE SEE LABEL COMMENTS 04/27/18 07:30 Potassium Phosphate 30 mmol/ Sodium Chloride 260 ml @ 42 mls/hr UNSCH PRN IV SEE LABEL COMMENTS 04/27/18 07:30 Chlorhexidine Gluconate (Peridex 0.12% Liq) 15 ml BID@08,20 MT 04/27/18 08:00 05/03/18 08:00 Albuterol/ Ipratropium (Duoneb Neb) 1 ampule Q2HR NEB PRN NEB wheezing 04/27/18 07:30 Senna/Docusate Sodium (Meron-Colace) 1 tab BID PO 04/27/18 09:00 05/03/18 08:36 Magnesium Hydroxide (Milk Of Magnesia Liq) 30 ml BID PO 04/27/18 09:00 05/03/18 08:36 Acetaminophen 100 ml @ 400 mls/hr Q6H PRN IV temp>101 04/27/18 16:15 05/02/18 20:33 Meperidine HCl (Demerol Inj) 25 mg Q6H PRN IV PUSH shivering 04/28/18 10:30 Lactulose (Lactulose Liq) 30 ml DAILY PO 04/29/18 09:00 05/03/18 08:36 Enoxaparin Sodium (Lovenox Inj) 40 mg Q24H SQ 05/01/18 11:00 05/03/18 10:43 Lisinopril (Prinivil) 10 mg Q12HR PO 05/01/18 17:00 05/03/18 08:36 Oxycodone HCl (Roxicodone) 10 mg Q6H NG 05/01/18 16:15 05/03/18 10:43 Hydralazine HCl (Apresoline) 25 mg Q6H NG 05/01/18 17:00 05/03/18 10:43 Nicardipine HCl 25 mg/Sodium Chloride 260 ml @ 52 mls/hr TITRATE PRN IV Blood pressure management 05/01/18 18:00 05/03/18 07:21 Clonidine (Catapres-Tts 0.3 Mg Patch.7d) 1 patch Q7D T-DERMAL 05/03/18 11:00 05/03/18 11:48 Artificial Tears (Lacrilube Opht Oint) 1 applic Q12HR EACH EYE 05/03/18 11:00 05/03/18 11:48 Miscellaneous Information 1 Q7D T-DERMAL 05/10/18 10:59 (Sofia Younger) Current Medications Current Medications Sodium Chloride 1,000 ml @ 100 mls/hr Q10H IV Last administered on 04/29/18at 23 :34; Start 04/26/18 at 14:00; Stop 04/30/18 at 09:29; Status DC Sodium Chloride (NS Flush) 2 ml UNSCH PRN IV FLUSH FLUSH AFTER USING IV ACCESS ; Start 04/26/18 at 13:15 Sodium Chloride (NS Flush) 2 ml BID IV FLUSH Last administered on 05/02/18at 20: 34; Start 04/26/18 at 21:00 Pantoprazole Sodium (Protonix Inj) 40 mg Q24H IV PUSH Last administered on 05/03at 14:07; Start 04/26/18 at 14:00 Naloxone HCl (Narcan Inj) 0.4 mg UNSCH PRN IV PUSH SEE LABEL COMMENTS; Start at 13:15 Propofol 100 ml @ 0 mls/hr TITRATE PRN IV SEDATION; Start 04/26/18 at 13:15; Stop 04/26/18 at 14:31; Status DC Fentanyl Citrate 250 ml TITRATE PRN IV SEDATION; Start 04/26/18 at 13:15; Stop 04/26/18 at 14:31; Status DC Iohexol (Omnipaque 350 Inj) 89 ml STK-MED ONCE IVCONTRAST Last administered on 04/26/18at 13:35; Start 04/26/18 at 13:35; Stop 04/26/18 at 13:36; Status DC Succinylcholine Chloride (Quelicin Inj) 200 mg STK-MED ONCE .ROUTE ; Start at 14:10; Stop 04/26/18 at 14:11; Status DC Fentanyl Citrate 250 ml @ 5 mls/hr TITRATE PRN IV Sedation Last administered on 05/03/18at 12:17; Start 04/26/18 at 14:30 Propofol 100 ml @ 2.463 mls/ hr TITRATE PRN IV SEDATION Last administered on at 12:17; Start 04/26/18 at 14:30 Propofol 100 ml @ As Directed STK-MED ONCE .ROUTE ; Start 04/26/18 at 13:21; Stop 04/26/18 at 14:31; Status DC Levetriacetam 500 mg/Sodium Chloride 105 ml @ 420 mls/hr Q12HR IV Last administered on 05/03/18at 08:37; Start 04/26/18 at 21:00 Sodium Chloride 188 meq/Sodium Chloride 1,047 ml @ 40 mls/hr Q24H IV Last administered on 04/29/18at 20:58; Start 04/26/18 at 18:30; Stop 04/30/18 at 09:29; Status DC Potassium Chloride 100 ml @ 50 mls/hr Q2H PRN IV-CENTRAL For Potassium 2.8 - 3.2 mEq/L; Start 04/27/18 at 07:30 Potassium Chloride 100 ml @ 50 mls/hr Q2H PRN IV For Potassium 2.8 - 3.2 mEq/L ; Start 04/27/18 at 07:30 Potassium Bicarb/ Potassium Chloride (K-Lyte Cl Eff) 50 meq UNSCH PRN PO For Potassium 3.3 - 3.5 mEq/L Last administered on 04/29/18at 06:17; Start 04/27/18 at 07:30 Potassium Chloride 100 ml @ 25 mls/hr UNSCH PRN IV-CENTRAL For Potassium 3.3 - 3.5 mEq/L; Start 04/27/18 at 07:30 Potassium Chloride 100 ml @ 50 mls/hr Q2H PRN IV For Potassium 3.3 - 3.5 mEq/L ; Start 04/27/18 at 07:30 Magnesium Sulfate 4 gm/Sodium Chloride 100 ml @ 50 mls/hr UNSCH PRN IV For Magnesium 0.9 - 1.1 mg/dL; Start 04/27/18 at 07:30 Magnesium Oxide (Mag-Ox) 800 mg UNSCH PRN PO For Magnesium 1.2 - 1.6 mg/dL; Start 04/27/18 at 07:30 Magnesium Sulfate 2 gm/Sodium Chloride 100 ml @ 50 mls/hr UNSCH PRN IV For Magnesium 1.2 - 1.6 mg/dL; Start 04/27/18 at 07:30 Potassium Phosphate (K-Phos) 2,000 mg Q4H PRN PO For Phosphorus < 2.5 mg/dL; Start 04/27/18 at 07:30 Sodium Phosphate 30 mmol/Sodium Chloride 250 ml @ 42 mls/hr UNSCH PRN IV For Phosphorus < 2.5 mg/dL Last administered on 04/27/18at 22:16; Start 04/27/18 at 07: 30 Potassium Phosphate (K-Phos) 2,000 mg UNSCH PRN PO/TUBE SEE LABEL COMMENTS; Start 04/27/18 at 07:30 Potassium Phosphate 30 mmol/ Sodium Chloride 260 ml @ 42 mls/hr UNSCH PRN IV SEE LABEL COMMENTS; Start 04/27/18 at 07:30 Chlorhexidine Gluconate (Peridex 0.12% Liq) 15 ml BID@08,20 MT Last administered on 05/03/18at 08:00; Start 04/27/18 at 08:00 Potassium Bicarb/ Potassium Chloride (K-Lyte Cl Eff) 50 meq ONCE PRN PO Electrolyte replacement; Start 04/27/18 at 07:30; Status UNV Albuterol/ Ipratropium (Duoneb Neb) 1 ampule Q6HR NEB NEB Last administered on 05/01/18at 07:40; Start 04/27/18 at 10:00; Stop 05/01/18 at 09:59; Status DC Albuterol/ Ipratropium (Duoneb Neb) 1 ampule Q2HR NEB PRN NEB wheezing; Start 04/27/18 at 07:30 Senna/Docusate Sodium (Meron-Colace) 1 tab BID PO Last administered on at 08:36; Start 04/27/18 at 09:00 Magnesium Hydroxide (Milk Of Magnesia Liq) 30 ml BID PO Last administered on at 08:36; Start 04/27/18 at 09:00 Lactulose (Lactulose Liq) 30 ml DAILY PRN PO If no Bowel Movement in 2 days; Start 04/27/18 at 07:30; Stop 04/29/18 at 08:39; Status DC Acetaminophen 100 ml @ 400 mls/hr Q6H PRN IV temp>101 Last administered on at 14:07; Start 04/27/18 at 16:15 Meperidine HCl (Demerol Inj) 25 mg Q6H PRN IV PUSH shivering; Start 04/28/18 at 10:30 Lactulose (Lactulose Liq) 30 ml DAILY PO Last administered on 05/03/18at 08:36; Start 04/29/18 at 09:00 Furosemide (Lasix Inj) 40 mg ONCE ONCE IV PUSH Last administered on 04/30/18at 09:57; Start 04/30/18 at 09:30; Stop 04/30/18 at 09:38; Status DC Hydralazine HCl (Apresoline Inj) 10 mg Q6H PRN IV PUSH SBP>175. DBP > 105; Start 04/30/18 at 10:15; Stop 04/30/18 at 13:57; Status DC Clonidine (Catapres-Tts 0.1mg Patch.7d) 1 patch Q7D T-DERMAL Last administered on 04/30/18at 11:45; Start 04/30/18 at 11:00; Stop 05/01/18 at 16:05; Status DC Miscellaneous Information 1 Q7D T-DERMAL ; Start 05/07/18 at 11:00; Stop at 11:00; Status DC Enoxaparin Sodium (Lovenox Inj) 40 mg Q24H SQ Last administered on 05/03/18at 10 :43; Start 05/01/18 at 11:00 Metoprolol Tartrate (Lopressor Inj) 5 mg Q6H IV PUSH ; Start 05/01/18 at 12:00; Stop 05/02/18 at 09:23; Status DC Clonidine (Catapres-Tts 0.2 Mg Patch.7d) 1 patch Q7D T-DERMAL Last administered on 05/01/18at 16:28; Start 05/01/18 at 17:00; Stop 05/03/18 at 09:36 ; Status DC Lisinopril (Prinivil) 10 mg Q12HR PO Last administered on 05/03/18at 08:36; Start 05/01/18 at 17:00 Oxycodone HCl (Roxicodone) 10 mg Q6H NG Last administered on 05/03/18at 10:43; Start 05/01/18 at 16:15 Hydralazine HCl (Apresoline Inj) 10 mg Q6H PRN IV PUSH SYS BP GREATER THAN 170 MMHG; Start 05/01/18 at 17:15; Stop 05/01/18 at 17:18; Status DC Hydralazine HCl (Apresoline) 25 mg Q6H NG Last administered on 05/03/18at 10:43 ; Start 05/01/18 at 17:00 Nicardipine HCl 25 mg/Sodium Chloride 260 ml @ 52 mls/hr TITRATE PRN IV Blood pressure management Last administered on 05/03/18at 07:21; Start 05/01/18 at 18: 00 Etomidate (Amidate Inj) 40 mg STK-MED ONCE .ROUTE ; Start 05/02/18 at 08:38; Stop 05/02/18 at 08:39; Status DC Rocuronium [place] (Zemuron Inj) 100 mg STK-MED ONCE .ROUTE ; Start 05/02/18 at 08:39; Stop 05/02/18 at 08:40; Status DC Rocuronium [place] (Zemuron Inj) 50 mg BOLUS ONCE IV Last administered on 05/02at 10:00; Start 05/02/18 at 10:00; Stop 05/02/18 at 10:01; Status DC Midazolam HCl (Versed Inj) 5 mg ONCE ONCE IM ; Start 05/02/18 at 10:00; Stop at 10:05; Status DC Midazolam HCl (Versed Inj) 5 mg ONCE ONCE IV ; Start 05/02/18 at 10:15; Stop at 10:16; Status DC Clonidine (Catapres-Tts 0.3 Mg Patch.7d) 1 patch Q7D T-DERMAL Last administered on 05/03/18at 11:48; Start 05/03/18 at 11:00 Furosemide (Lasix Inj) 40 mg ONCE ONCE IV PUSH Last administered on 05/03/18at 10:44; Start 05/03/18 at 09:45; Stop 05/03/18 at 10:09; Status DC Artificial Tears (Lacrilube Opht Oint) 1 applic Q12HR EACH EYE Last administered on 05/03/18at 11:48; Start 05/03/18 at 11:00 Miscellaneous Information 1 Q7D T-DERMAL ; Start 05/10/18 at 10:59 (Emiliano Chiang MD) Medical Decision Making MDM Remarks 73 year old male trauma alert, fall off ladder onto cement TBI, left traumatic subarachnoid, subdural hemorrhage, s/p placement of ICP monitor 04/26/18, stable ICPs, ICP monitor removed 05/01/[address] 04/28/18 Impressions: CONCLUSION: 1. Improving left subdural hemorrhage. Evolving bilateral hemorrhagic contusions with scattered subarachnoid hemorrhage. No new intracranial hemorrhage. (Sofia Younger) Plan Plan Remarks cont critical care per trauma team, sedation weaning as tolerated and follow up neuro exam notified Dr. Chiang regarding appearance of bolt site who personally examined wound, he advised to clean wound and place a suture using sterile techniques, area was clean with Betadine solution, a single stitch placed with silk suture. no further leaking noted (Sofia Younger) Attending Statement Neurologically ICPs were low and bolt has been removed With decrease of sedation and sedation vacation patient is waking up moving all 4 extremities however does not open eyes or follow commands Hypertonic saline has been discontinued considering that patient's sodium is 1 56 mEq/L and serum osmolality remains below 330 mOsm per liter Hemodynamic/Cardiac Hemodynamically patient is stable, but very hypertensive Catapres patch Lisinopril Hydralazine Beta-blockers could not be used due to patient's development of bradycardia. Pulmonary/Respiratory Hemodynamically stable somewhat hypertensive and medications adjusted for the same Bilateral breath sounds remains on assist control ventilation will start on CPAP trials daily Abdomen/GI Nutrition Abdomen soft enteral feeds tolerated Renal/I&O Renal function will preserved Nutrition. tube feedings Renal. monitor closely urine output, BUN and creatinine Endocrine. Monitor serial Acu checks and SSI as needed in detail ID monitor for signs of infection Protonix for stress ulcer prophylaxis Familia hose and SCD's for DVT prophylaxis The exam, history, and the medical decision-making described in the above note were completed with the assistance of the mid-level provider. I reviewed and agree with the findings presented. I attest that I had a [id number] encounter with the patient on the same day, and personally performed and documented my assessment and findings in the medical record. (Emiliano Chiang MD) Sofia Younger May 03, 2018 12:38 Emiliano Chiang MD May 03, 2018 14:34
[2018-05-03] MEDS: ACETAMINOPHEN 1000 MG/100 ML 100 ML IV PRN ×2 (14:07→21:04)
[2018-05-03] MEDS: PANTOPRAZOLE SODIUM 40 MG VIAL IV PUSH SCH (14:07)
[2018-05-03] MEDS ORDERED: FUROSEMIDE 20 MG/2 ML VIAL IV PUSH ONE (20:45)
[2018-05-03] MEDS: METOPROLOL TARTRATE 5 MG/5 ML VIAL IV PUSH SCH (21:04)
[2018-05-04] VITALS (21 sets, daily range): BP systolic 156–185; BP diastolic 56–73; PULSE 58–75; RESP 15–21; TEMP 100–101.2; O2SAT 98–100
[2018-05-04] MEDS: METOPROLOL TARTRATE 5 MG/5 ML VIAL IV PUSH SCH ×4 (03:14→20:06)
[2018-05-04] MEDS: PROPOFOL 1000 MG/100 ML IV PRN ×5 (03:48→23:17)
[2018-05-04] MEDS: hydrALAZINE HCL 25 MG TAB NG SCH ×4 (03:48→23:00)
--- NOTE | 2018-05-04 04:41 | RADRPT ---
EXAM DATE: 05/04/2018 4:36 AM EDT AGE/SEX: 72 years / Male INDICATIONS: Shortness of breath. CLINICAL DATA: This is the patient's subsequent encounter. Patient reports that signs and symptoms h ave been present for 1 week and indicates a pain score of Nonresponsive. MEDICAL/SURGICAL HISTORY: Non-responsive. Non-responsive. COMPARISON: [facility] – [place], CHEST SINGLE AP, 05/03/2018. . FINDINGS: Single AP view the chest. Endotracheal tube and nasogastric tube remain in place. Persistent bilatera l diffuse pulmonary parenchymal opacity with lower lung zone predominance is again seen with slight i ncrease in severity. Cardiomediastinal silhouette unchanged. Small bilateral pleural effusions. No ev idence of pneumothorax. CONCLUSION: Slight increase in severity of bilateral pulmonary parenchymal opacity. Differential diagnosis includ es pulmonary edema versus infection. Electronically signed by: Rodrigo Olivares MD 05/04/2018 4:40 AM EDT
[2018-05-04] MEDS: fentaNYL 2,500 MCG/NS 250 ML IV PRN (05:20)
[2018-05-04 05:30] LABS: AUTOMATED NEUTROPHIL # 8.1 TH/MM3 (1.8-7.7); BASOPHIL # 0.1 TH/MM3 (0-0.2); BASOPHIL % 0.6 % (0.0-2.0); EOSINOPHIL # 0.2 TH/MM3 (0-0.4); EOSINOPHIL % 2.2 % (0.0-4.0); HEMATOCRIT 31.7 % (39.0-51.0); HEMOGLOBIN 10.6 GM/DL (13.0-17.0); LYMPH % 10.3 % (9.0-44.0); LYMPHOCYTE # 1.1 TH/MM3 (1.0-4.8); MEAN CELL VOLUME 91.8 FL (80.0-100.0); MEAN CORPUSCULAR HEMOGLOBIN 30.7 PG (27.0-34.0); MEAN CORPUSCULAR HGB CONC 33.4 % (32.0-36.0); MEAN PLATELET VOLUME 8.7 FL (7.0-11.0); MONO % 10.7 % (0.0-8.0); MONOCYTE # 1.1 TH/MM3 (0-0.9); NEUT % 76.2 % (16.0-70.0); PLATELET COUNT 228 TH/MM3 (150-450); RED BLOOD COUNT 3.45 MIL/MM3 (4.50-5.90); RED CELL DISTRIBUTION WIDTH 13.9 % (11.6-17.2); WHITE BLOOD COUNT 10.6 TH/MM3 (4.0-11.0)
[2018-05-04 05:53] LABS: ALBUMIN 1.7 GM/DL (3.4-5.0); ALKALINE PHOSPHATASE 103 U/L (45-117); ALT (GPT) 104 U/L (12-78); AST (GOT) 89 U/L (15-37); BICARBONATE 26.8 MEQ/L (21.0-32.0); BLOOD UREA NITROGEN 30 MG/DL (7-18); CALCIUM 7.7 MG/DL (8.5-10.1); CHLORIDE 116 MEQ/L (98-107); CREATININE 0.76 MG/DL (0.60-1.30); GLOMERULAR FILTRATION RATE 101 ML/MIN (>89); GLUCOSE,RANDOM 109 MG/DL (74-106); MAGNESIUM 2.9 MG/DL (1.5-2.5); SODIUM (NA) 151 MEQ/L (136-145); TOTAL BILIRUBIN ADULT 0.6 MG/DL (0.2-1.0); TOTAL PROTEIN 5.6 GM/DL (6.4-8.2)
[2018-05-04 07:53] LABS: BASOPHILS 2 % (0-2); LYMPHOCYTES 3 % (9-44); MONOCYTES 5 % (0-8); MYELOCYTES 1 % (0-0); NEUTROPHIL # MANUAL DIFF 9.2 TH/MM3 (1.8-7.7); POLYS (SEG NEUTROPHILS) 86 % (16-70)
--- NOTE | 2018-05-04 08:06 | HHI.PR ---
Neuropsych Emotional Emotional: UnabletoAssess: Emotional, Anxious/Fearful, Depressed/Sad, Hostile/ Resentful, Irritable/Angry/Frustrate, Labile, Constricted/Blunted Behavior Behavior: Intact: Impulsive/Agitated, Unable to Asses: Behavior, Coping/ Acceptance, Cooperative w/ Treatment, Motivation, Frustration Tolerance/[place], Suicidal/Homicidal Risk Cognitive Cognitive: Unable to Asses: Cognitive, Attention/Concentration, Confused/ Orientation, Insight/Awareness, Judgement/Problem-Solving, Memory Psychosocial Psychosocial: Intact: Psychosocial, Family/Other Adjustment, Realistic Expectation, Unable to Asses: Self-Esteem/Confidence Progress Notes/Response to Tx Contents of Sessions: Adjustment, Level of Consciousness Time with Patient: 30 minutes Premorbid psychological status Premorbid Cognitive, Emotional and Behavioral Status: Stable. The patient has college years of education and a solid work history prior to this injury. The patient has no prior psychiatric difficulties, as described above. Substance abuse history is unknown. Behavioral Reactions of Patient and Family/Support System: Stable. The patient s family is experiencing ongoing issues of adjustment given the nature of the injury, and this aspect of recovery will require ongoing monitoring. Emotional/Behavioral Status of Patient and Family/Support System: Stable. Pertinent issues, if appropriate to this patients clinical care, are described in detail above. Maximizing acute care outcome It is recommended that the patient be monitored for emergent behavioral impulsivity as the medical condition evolves. This patients neuropathological challenges may limit his rehabilitation potential going forward, and these challenges will require specialized therapeutic skills to maximize outcome. Additionally, the patients family is experiencing ongoing issues of adjustment given the traumatic nature of the injury, and they may benefit from ongoing psychological assistance. At this point in the recovery process, the patient does not have cognitive capacity as the patient is unable to understand a situation and its likely consequences, nor is he able to manipulate information rationally. Cognitive capacity will be assessed throughout the recovery process. Anticipated Problems Ongoing areas of concern will include behavioral impulsivity, lack of insight and judgment, which is expected to improve with time and treatment. Presently , the patient is critically ill. Given the severity of the patient's injuries it is my clinical opinion that this patient will be unable to return to any type of productive employment for at least one year, perhaps longer and likely never. This patient is not considered safe to discharge home without supervision at this time. Treatment Plan This clinician will continue to follow with you throughout the course of this patients critical care treatment, and I will be available to meet with the patients family/support system to facilitate their understanding and the ongoing care of their family member. The goals of neuropsychological intervention shall be both educational and supportive to the family/support system as is deemed clinically appropriate. [facility] Level: III:Localized response-total assist Impression 72 year old male s/p TBI 2T fall on 04/26/2018. Diagnosis: (1) Major neurocognitive disorder as late effect of traumatic brain injury without behavioral disturbance Progress Note Narrative PTD 8. The patient is restless on sedation vacation, beta blockers cannot be used due to bradycardia. Otherwise, he remains sedated and intubated. No issues of agitation when sedated. He is [place]. I will follow. Germán Arriaga PhD May 04, 2018 8:06 am
[2018-05-04] MEDS: MAGNESIUM HYDROXIDE SUSP 30 ML CUP PO SCH ×2 (09:00→20:06)
[2018-05-04] MEDS: LACTULOSE SYRUP 20 GM/30 ML CUP PO SCH (09:00)
[2018-05-04] MEDS: DOCUSATE SODIUM 50 MG/SENNA 8.6 MG TAB PO SCH ×2 (09:00→20:06)
[2018-05-04] MEDS: LISINOPRIL 10 MG TAB PO SCH ×2 (09:14→20:06)
[2018-05-04] MEDS: SODIUM CHLORIDE 0.9% FLUSH 10 ML FLUSH IV FLUSH SCH ×2 (09:16→20:04)
[2018-05-04] MEDS: ARTIFICIAL TEARS OPTH OINT 3.5 APPLIC/3.5 GM TUBO EACH EYE SCH ×2 (09:16→20:01)
[2018-05-04] MEDS: CHLORHEXIDINE 0.12% (ORAL KIT) 15 ML CUP MT SCH ×2 (09:16→20:01)
[2018-05-04] MEDS ORDERED: FUROSEMIDE 20 MG/2 ML VIAL IV PUSH ONE (09:40)
--- NOTE | 2018-05-04 10:52 | RADRPT ---
EXAM DATE: 05/04/2018 10:41 AM EDT AGE/SEX: 72 years / Male INDICATIONS: Follow up for left subdural hemorrhage. CLINICAL DATA: This is the patient's subsequent encounter. Patient reports that signs and symptoms h ave been present for 1 week and indicates a pain score of Nonresponsive. MEDICAL/SURGICAL HISTORY: . Subdural hemorrhage. None. RADIATION DOSE: 66.41 CTDI (mGy) COMPARISON: [facility] – [place], CT BRAIN W/O CONTRAST, 04/26/2018. . TECHNIQUE: CT of the head without contrast. Using automated exposure control and adjustment of the mA and/or kV according to patient size, radiation dose was kept as low as reasonably achievable to ob tain optimal diagnostic quality images. FINDINGS: Extra-axial hemorrhage along the left frontal and temporal lobes has almost completely resolved. Ther e is continued evidence of blood layering out along the left cerebellar tentorium which is stable. Hyperdense blood products within left frontal and temporal contusions continue to evolve and are sign ificantly less dense. Focal parenchymal edema remains evident within the contused regions. Sulcal eff acement remains evident along the left cerebral convexity. Midline structures remain well preserved w ithout significant shift. The sphenoid sinus is completely opacified. A hairline fracture is along the inferior margin of the r ight temporal bone base of the skull. CONCLUSION: 1. Evolving traumatic brain injury with resolving hemorrhages. 2. Persistent edema in left frontal and temporal lobe contusions. 3. No significant shift of midline structures. 4. Hairline fracture along the base of the skull in the right temporal region. 5. No evidence of new hemorrhage or acute infarct. Electronically signed by: Zhen Harry MD 05/04/2018 10:51 AM EDT
[2018-05-04] MEDS: ENOXAPARIN SODIUM 40 MG/0.4 ML SYRINGE SQ SCH (11:04)
--- NOTE | 2018-05-04 11:06 | RADRPT ---
EXAM DATE: 05/04/2018 10:43 AM EDT AGE/SEX: 72 years / Male INDICATIONS: Follow up for trauma. CLINICAL DATA: This is the patient's subsequent encounter. Patient reports that signs and symptoms h ave been present for 1 week and indicates a pain score of Nonresponsive. MEDICAL/SURGICAL HISTORY: . Subdural hemorrhage. None. RADIATION DOSE: 19.03 CTDI (mGy) COMPARISON: [facility] [place], CT THORAX W CONTRAST, 04/26/2018. . TECHNIQUE: Multiple contiguous axial images were obtained through the chest without contrast. Image s were obtained in suspended respiration using multiple row detector helical technique. Using automa carla exposure control and adjustment of the mA and/or kV according to patient size, radiation dose was kept as low as reasonably achievable to obtain optimal diagnostic quality images. FINDINGS: A moderate to large sized right-sided pleural effusion has developed. Small left effusion is identifi ed in the left base. There is extensive consolidating airspace disease with near total consolidation of both lower lobes. There is no evidence of pneumothorax. Nasogastric and endotracheal tubes remain in good position. It is mildly enlarged but stable. There is no evidence of pericardial effusion. [id number] rodrigo nary artery calcification is noted. There is no evidence of mediastinal hematoma or vascular injury. Multiple right-sided rib fractures are again identified. There is a mildly displaced fracture along t he lateral margin of the right fourth rib. Thoracic spine sternum appear intact. CONCLUSION: 1. Increasing bilateral pleural effusions with a moderate to large effusion on the right. 2. Total consolidation of both lower lobes. 3. No other significant change. Electronically signed by: Zhen Harry MD 05/04/2018 11:05 AM EDT
--- NOTE | 2018-05-04 11:10 | HHI.NSPN ---
Note Status Status: Progress Note Interval History Interval History This 72-year-old gentleman was brought in as priority 1 trauma alert after falling about 12-15 feet out of a tree. Apparently the ladder fell sideways. No seizure activity. No tonguebitting. No incontinence of stool or urine. The patient fell on a concrete walkway, right side down. According to witnesses, he was completely unconscious and on the arrival, the paramedics' [place] Coma Scale was 3, which improved after resuscitation to about 8. The patient brought with a spinal board with C-collar in place, moaning and groaning. CT showed traumatic SAHand a small SDH. Neurosurgery consultation was requested 04/27: patient seen this morning during rounds, mildly sedated, intubated, but seen to be moving purposefully, no opening eyes or following commands. 04/28: seen this am during rounds, ICPs controlled overnight, intubated and currently well sedated. f/u CT Brain this morning completed, improved SDH, with evolving contusion. 05/01: intubated, sedated reported to move spontaneously when sedation lowered but not following command. ICPs controlled. 05/02: intubated, mildly sedated, minimally opens eyes, moves extremities, but not following commands. planned bronchoscopy today with trauma. 05/03: remains intubated, sedated. no changes neurologically. 05/04: remains intubated, sedated requiring for blood pressure control. for follow up CT Brain. Labs, Micro, & Vital Signs Results Date Time Temp Pulse Resp B/P (MAP) Pulse Ox O2 Delivery O2 Flow Rate FiO2 05/04/18 10:17 20 05/04/18 10:15 100 100 05/04/18 08:22 100 45 05/04/18 08:00 75 05/04/18 08:00 45 05/04/18 07:00 100 Mechanical Ventilator 4.00 45 05/04/18 06:00 68 05/04/18 04:00 59 05/04/18 04:00 100.2 59 21 178/60 (99) 100 05/04/18 04:00 45 05/04/18 03:29 100 45 05/04/18 02:00 61 05/04/18 00:03 98 45 05/04/18 00:00 100.0 58 15 156/56 (89) 100 05/04/18 00:00 58 05/04/18 00:00 45 05/03/18 22:00 69 05/03/18 20:41 99 45 05/03/18 20:00 100.7 65 19 179/60 (99) 97 05/03/18 20:00 45 05/03/18 20:00 65 05/03/18 19:00 99 Mechanical Ventilator 45 05/03/18 18:00 101.0 68 24 122/86 (98) 100 05/03/18 16:00 45 05/03/18 12:00 45 05/03/18 12:00 101.1 73 19 147/55 (85) 97 05/03/18 11:53 92 40 05/05/18 07:00 Intake Total 100 ml Balance 100 ml Constitutional Vital Signs Date Time Temp Pulse Resp B/P (MAP) Pulse Ox O2 Delivery O2 Flow Rate FiO2 05/04/18 10:17 20 05/04/18 10:15 100 100 05/04/18 08:22 100 45 05/04/18 08:00 75 05/04/18 08:00 45 05/04/18 07:00 100 Mechanical Ventilator 4.00 45 05/04/18 06:00 68 05/04/18 04:00 59 05/04/18 04:00 100.2 59 21 178/60 (99) 100 05/04/18 04:00 45 05/04/18 03:29 100 45 05/04/18 02:00 61 05/04/18 00:03 98 45 05/04/18 00:00 100.0 58 15 156/56 (89) 100 05/04/18 00:00 58 05/04/18 00:00 45 05/03/18 22:00 69 05/03/18 20:41 99 45 05/03/18 20:00 100.7 65 19 179/60 (99) 97 05/03/18 20:00 45 05/03/18 20:00 65 05/03/18 19:00 99 Mechanical Ventilator 45 05/03/18 18:00 101.0 68 24 122/86 (98) 100 05/03/18 16:00 45 05/03/18 12:00 45 05/03/18 12:00 101.1 73 19 147/55 (85) 97 05/03/18 11:53 92 40 05/05/18 07:00 Intake Total 100 ml Balance 100 ml Review of Systems ROS Limitations: Intubated Physical Exam General: intubated, appears comfortable in no apparent distress HEENT: normocephalic, bolt site clean and dry with suture in place, no drainage or leakage noted, no erythema. Nonicteric sclera. Neuro: sedated, not following commands. Cranial nerve: pupils equal, round, and reactive to light. Conjugate gaze. Neck: no JVD, trachea midline Musculoskeletal: no clubbing, sedated, not following commands for testing Respiratory: clear, mechanically ventilated Heart: regular rate rhythm Medications Current Medications Current Medications Medications (Trade) Dose Ordered Sig/Bonilla Route PRN Reason Start Time Stop Time Status Last Admin Dose Admin Sodium Chloride (NS Flush) 2 ml UNSCH PRN IV FLUSH FLUSH AFTER USING IV ACCESS 04/26/18 13:15 Sodium Chloride (NS Flush) 2 ml BID IV FLUSH 04/26/18 21:00 05/04/18 09:16 Pantoprazole Sodium (Protonix Inj) 40 mg Q24H IV PUSH 04/26/18 14:00 05/03/18 14:07 Naloxone HCl (Narcan Inj) 0.4 mg UNSCH PRN IV PUSH SEE LABEL COMMENTS 04/26/18 13:15 Fentanyl Citrate 250 ml @ 5 mls/hr TITRATE PRN IV Sedation 04/26/18 14:30 05/04/18 05:20 Propofol 100 ml @ 2.463 mls/ hr TITRATE PRN IV SEDATION 04/26/18 14:30 05/04/18 08:10 Potassium Chloride 100 ml @ 50 mls/hr Q2H PRN IV-CENTRAL For Potassium 2.8 - 3.2 mEq/L 04/27/18 07:30 Potassium Chloride 100 ml @ 50 mls/hr Q2H PRN IV For Potassium 2.8 - 3.2 mEq/L 04/27/18 07:30 Potassium Bicarb/ Potassium Chloride (K-Lyte Cl Eff) 50 meq UNSCH PRN PO For Potassium 3.3 - 3.5 mEq/L 04/27/18 07:30 04/29/18 06:17 Potassium Chloride 100 ml @ 25 mls/hr UNSCH PRN IV-CENTRAL For Potassium 3.3 - 3.5 mEq/L 04/27/18 07:30 Potassium Chloride 100 ml @ 50 mls/hr Q2H PRN IV For Potassium 3.3 - 3.5 mEq/L 04/27/18 07:30 Magnesium Sulfate 4 gm/Sodium Chloride 100 ml @ 50 mls/hr UNSCH PRN IV For Magnesium 0.9 - 1.1 mg/dL 04/27/18 07:30 Magnesium Oxide (Mag-Ox) 800 mg UNSCH PRN PO For Magnesium 1.2 - 1.6 mg/dL 04/27/18 07:30 Magnesium Sulfate 2 gm/Sodium Chloride 100 ml @ 50 mls/hr UNSCH PRN IV For Magnesium 1.2 - 1.6 mg/dL 04/27/18 07:30 Potassium Phosphate (K-Phos) 2,000 mg Q4H PRN PO For Phosphorus < 2.5 mg/dL 04/27/18 07:30 Sodium Phosphate 30 mmol/Sodium Chloride 250 ml @ 42 mls/hr UNSCH PRN IV For Phosphorus < 2.5 mg/dL 04/27/18 07:30 04/27/18 22:16 Potassium Phosphate (K-Phos) 2,000 mg UNSCH PRN PO/TUBE SEE LABEL COMMENTS 04/27/18 07:30 Potassium Phosphate 30 mmol/ Sodium Chloride 260 ml @ 42 mls/hr UNSCH PRN IV SEE LABEL COMMENTS 04/27/18 07:30 Chlorhexidine Gluconate (Peridex 0.12% Liq) 15 ml BID@08,20 MT 04/27/18 08:00 05/04/18 09:16 Albuterol/ Ipratropium (Duoneb Neb) 1 ampule Q2HR NEB PRN NEB wheezing 04/27/18 07:30 Senna/Docusate Sodium (Meron-Colace) 1 tab BID PO 04/27/18 09:00 05/03/18 21:13 Magnesium Hydroxide (Milk Of Magnesia Liq) 30 ml BID PO 04/27/18 09:00 05/03/18 21:13 Acetaminophen 100 ml @ 400 mls/hr Q6H PRN IV temp>101 04/27/18 16:15 05/03/18 21:04 Meperidine HCl (Demerol Inj) 25 mg Q6H PRN IV PUSH shivering 04/28/18 10:30 Lactulose (Lactulose Liq) 30 ml DAILY PO 04/29/18 09:00 05/03/18 08:36 Enoxaparin Sodium (Lovenox Inj) 40 mg Q24H SQ 05/01/18 11:00 05/03/18 10:43 Lisinopril (Prinivil) 10 mg Q12HR PO 05/01/18 17:00 05/04/18 09:14 Oxycodone HCl (Roxicodone) 10 mg Q6H NG 05/01/18 16:15 05/04/18 09:17 Hydralazine HCl (Apresoline) 25 mg Q6H NG 05/01/18 17:00 05/04/18 03:48 Clonidine (Catapres-Tts 0.3 Mg Patch.7d) 1 patch Q7D T-DERMAL 05/03/18 11:00 05/03/18 11:48 Artificial Tears (Lacrilube Opht Oint) 1 applic Q12HR EACH EYE 05/03/18 11:00 05/04/18 09:16 Miscellaneous Information 1 Q7D T-DERMAL 05/10/18 10:59 Metoprolol Tartrate (Lopressor Inj) 2.5 mg Q6H IV PUSH 05/03/18 21:00 05/04/18 09:14 Medical Decision Making MDM Remarks 73 year old male trauma alert, fall off ladder onto cement TBI, left traumatic subarachnoid, subdural hemorrhage, s/p placement of ICP monitor 04/26/18, stable ICPs, ICP monitor removed 05/01/[address] 04/28/18 Impressions: CONCLUSION: 1. Improving left subdural hemorrhage. Evolving bilateral hemorrhagic contusions with scattered subarachnoid hemorrhage. No new intracranial hemorrhage. Plan Plan Remarks cont critical care per trauma team, cont sedation weaning as tolerated and follow up neuro exam Sofia Younger May 04, 2018 11:10
[2018-05-04] MEDS: ACETAMINOPHEN 1000 MG/100 ML 100 ML IV PRN (11:41)
[2018-05-04] MEDS: PANTOPRAZOLE SODIUM 40 MG VIAL IV PUSH SCH (13:49)
--- NOTE | 2018-05-04 15:32 | HHI.CCPN ---
Subjective Brief History This 72-year-old gentleman was brought in as priority 1 trauma alert after falling about 12-15 feet out of a tree as the ladder went flying sideways. The patient fell on a concrete walkway, right side down. According to witnesses, he was completely unconscious and on the arrival, the paramedics' [place] Coma Scale was 3-4, which improved on the way to about 8 or 9. The patient brought with a spinal board with C-collar in place, moaning and groaning and complained but pain in the right chest. Patient was resuscitated according trauma principles and placed in ICU for further care Final injuries Traumatic brain injury with mainly left frontal temporoparietal subarachnoid and subdural bleed and some superficial contusions of the brain Right chest contusion with a small hemothorax and serial rib fractures of 5th, 6th, 7th, 8th ribs, Transverse process fractures of several vertebrae, Laceration of the right kidney with a hematoma and a small mass of the right kidney 24 Hour Review/Hospital Course 04/27/2018 Patient remains intubated and ventilated Neuroprotective measures including propofol and fentanyl Keppra 2% hypertonic saline at 30 cc/h ICP remains 4-12 mmHg Hemodynamically patient stable Bilateral good breath sounds on decreasing levels of ventilatory support with good PO2 FiO2 gradient 04/28/2018 No change in neurologic status On sedation vacation patient moves all 4 extremities opens eyes but does not follow commands and does not track making [place] Coma Scale about 6 or 7 This is fairly significant brain injury and will take a while to resolve ICP remains low and from my point ICP monitor can be removed CPP within the parameters of autoregulation Remains on neuroprotective measures including propofol fentanyl Keppra Decrease 2% saline to about 20 cc an hour at this point Hemodynamically patient stable Bilateral breath sounds remains on assist control ventilation and pulmonary status and PO2 FiO2 gradient will allow for extubation but of course patient's neurologic status does not allow for the same Patient will not need tracheostomy and I believe he will recover in next few days sufficiently and regaining consciousness to extubate safely Abdomen soft enteral feeds tolerated Renal function normal 04/29/2018 No change in neurologic status Patient remains stable on propofol fentanyl Keppra ICP remains within physiologic range and ICP monitor may be removed as per neurosurgery Hemodynamically remains stable however hemoglobin dropped to 7.8 g/dL as a result of hemodilution and obviously decreased production We will transfuse 2 units PRBC faced with age and neurologic injury Bilateral good breath sounds good PO2 FiO2 gradient Abdomen soft enteral feeds tolerated Plan Once okay with neurosurgery will wake up the patient and start weaning down the sedation probably tomorrow or Tuesday Transfuse 2 units PRBC Continue care 04/30/2018 No change in current status Patient remains on neuroprotective measures with decreasing levels of propofol and fentanyl On sedation vacation moves purposefully does not open eyes yet Will need another few days before sufficiently improved to wean and extubate ICP remains 5-12 mmHg Hemodynamically patient stable if not somewhat hypertensive which is being addressed Bilateral breath sounds and bilateral pleural effusions with atelectasis as a result probably of her original event and retention of secretions I am concerned about patient's pulmonary function and he might need bronchoscopy early next week Renal function preserved Patient about 12 L positive since the arrival will diurese gently to take of the third space now that systemic inflammatory response is abating 05/01/2018 Neurologically patient is unchanged if not somewhat better With decrease of sedation and sedation vacation patient is waking up moving all 4 extremities however does not open eyes or follow commands This is very early in the course and I believe patient will eventually improve neurologically Hemodynamically stable somewhat hypertensive and medications adjusted for the same Added nicardipine drip for management of recalcitrant hypertension Bilateral breath sounds remains on assist control ventilation will start on CPAP trials daily Abdomen soft enteral feeds tolerated I am not sure this patient will require tracheostomy but I believe he will come off the ventilator without one 05/02/2018 Patient neurologically slightly improving On sedation vacation moves all 4 extremities does not follow commands Bilateral good breath sounds on assist control ventilation and will start on CPAP trials Patient does have significant secretions and atelectasis mainly right lower lobe Underwent successful bronchoscopy today Abdomen soft enteral feeds tolerated Again as noted previously patient might or might not require tracheostomy and will see how he does in next few days neurologically which will be the base of placing one or not 05/03/2018 Neurologic status unchanged On sedation vacation patient moves all 4 extremities but does not follow commands and is very restless ICP monitor has been removed due to low ICP pressures throughout At this point the patient remains on small dose propofol and fentanyl in face of his injuries however he is not ready to come off the respirator due to the low GCS Hemodynamically patient is stable however hypertensive Catapres patch Lisinopril Hydralazine Beta-blockers could not be used due to patient's development of bradycardia. Patient was placed on nicardipine drip however at this point we going to stop this due to large fluid load associated with the same Abdomen soft enteral feeds tolerated Renal function is preserved patient is now fluid overloaded in anasarca with bilateral pleural effusions right more than left We will try outpatient somewhat and see how he does but he may need right chest drained to evacuate hydrothorax 05/04/2018 Neurologically patient is unchanged Slightly decrease of propofol to 35 mcg and remains on fentanyl No change in neurologic status Based on low [place] Coma Scale patient will require tracheostomy Hemodynamically stable however hypertensive and now controlled with several medications as above noted Nicardipine has been removed due to huge volume load and general edema this has provoked Renal function well-preserved patient now diuresing very well and is back to his weight Tolerates enteral feeds well Plan Tracheostomy tomorrow and then weaned to liberate from the ventilator Gradually decrease sedation as the blood pressure and patient's general condition tolerates Will require neuro rehab placement Objective Vital Signs Date Time Temp Pulse Resp B/P (MAP) Pulse Ox O2 Delivery O2 Flow Rate FiO2 05/04/18 14:00 63 05/04/18 12:00 40 05/04/18 12:00 101.2 16 185/60 (101) 100 05/04/18 07:00 Mechanical Ventilator 4.00 Intake and Output 05/04/18 05/04/18 05/05/18 08:00 16:00 00:00 Intake Total 698 ml 100 ml Output Total 1550 ml Balance -852 ml 100 ml Result Diagram: 05/04/18 0500 05/04/18 0500 Other Results Laboratory Tests Test 05/04/18 03:54 Blood Gas Puncture Site ART LINE Blood Gas Patient Temperature 98.6 Blood Gas HCO3 28 mmol/L (22-26) Blood Gas Base Excess 4.1 mmol/L (-2-2) Blood Gas Oxygen Saturation 97 % (90-100) Arterial Blood pH 7.45 (7.380-7.420) Arterial Blood Partial Pressure CO2 41 mmHg (38-42) Arterial Blood Partial Pressure O2 117 mmHg (61-120) Arterial Blood Oxygen Content 16.2 Vol % (12.0-20.0) Arterial Blood Carboxyhemoglobin 1.2 % (0-4) Arterial Blood Methemoglobin 1.0 % (0-2) Blood Gas Hemoglobin 11.8 G/DL (12.0-16.0) Oxygen Delivery Device VENTILATOR Blood Gas Ventilator Setting PRVC/ AC Blood Gas Inspired Oxygen 45 % Imaging Last 24 hours Impressions Chest X-Ray 05/04/18 0600 Signed Impressions: CONCLUSION: Slight increase in severity of bilateral pulmonary parenchymal opacity. Differe ntial diagnosis includes pulmonary edema versus infection. Head CT 05/04/18 0000 Signed Impressions: CONCLUSION: 1. Evolving traumatic brain injury with resolving hemorrhages. 2. Persistent edema in left frontal and temporal lobe contusions. 3. No significant shift of midline structures. 4. Hairline fracture along the base of the skull in the right temporal region. 5. No evidence of new hemorrhage or acute infarct. Chest CT 05/04/18 0000 Signed Impressions: CONCLUSION: 1. Increasing bilateral pleural effusions with a moderate to large effusion on the right. 2. Total consolidation of both lower lobes. 3. No other significant change. 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 patient is unchanged Slightly decrease of propofol to 35 mcg and remains on fentanyl No change in neurologic status Based on low [place] Coma Scale patient will require tracheostomy Hemodynamic/Cardiac Hemodynamically stable however hypertensive and now controlled with several medications as above noted Nicardipine has been removed due to huge volume load and general edema this has provoked Pulmonary/Respiratory Remains on assist control ventilation CPAP trials very well tolerated today For tracheostomy tomorrow Renal/I&O Renal function well-preserved patient now diuresing very well and is back to his weight Tolerates enteral feeds well Assessment and Plan Attestation Plan Tracheostomy tomorrow and then weaned to liberate from the ventilator Gradually decrease sedation as the blood pressure and patient's general condition tolerates Will require neuro rehab placement Critical care time 32 minutes Georgia Bustillo MD May 04, 2018 15:32
[2018-05-05] VITALS (17 sets, daily range): BP systolic 134–180; BP diastolic 53–87; PULSE 55–77; RESP 17–20; TEMP 98.2–100; O2SAT 99–100
[2018-05-05] MEDS: METOPROLOL TARTRATE 5 MG/5 ML VIAL IV PUSH SCH ×4 (03:00→20:07)
--- NOTE | 2018-05-05 04:19 | RADRPT ---
EXAM DATE: 05/05/2018 3:58 AM EDT AGE/SEX: 72 years / Male INDICATIONS: Pleural effusion. CLINICAL DATA: This is the patient's subsequent encounter. Patient reports that signs and symptoms h ave been present for 1 week and indicates a pain score of Nonresponsive. MEDICAL/SURGICAL HISTORY: Non-responsive. Non-responsive. COMPARISON: [facility] – [place], CHEST SINGLE AP, 05/04/2018. . FINDINGS: The tip of ET tube is at the thoracic inlet 9.9 cm from the eleazar. The NG tube tip is directed into the stomach. The heart size is normal. There is increased density at the mid and lower lungs. There i s blunting of the costophrenic angles. CONCLUSION: The diffuse increased density in the lower lungs likely secondary to the effusions. Some degree of co nsolidation or atelectasis can be considered. Mild bilateral pleural effusions. Electronically signed by: Alcides Marsh MD 05/05/2018 4:18 AM EDT
[2018-05-05] MEDS: hydrALAZINE HCL 25 MG TAB NG SCH ×4 (05:31→23:38)
[2018-05-05 06:14] LABS: AUTOMATED NEUTROPHIL # 10.2 TH/MM3 (1.8-7.7); BASOPHIL # 0.1 TH/MM3 (0-0.2); BASOPHIL % 0.5 % (0.0-2.0); EOSINOPHIL # 0.4 TH/MM3 (0-0.4); EOSINOPHIL % 2.9 % (0.0-4.0); HEMATOCRIT 31.5 % (39.0-51.0); HEMOGLOBIN 10.6 GM/DL (13.0-17.0); LYMPH % 6.1 % (9.0-44.0); LYMPHOCYTE # 0.8 TH/MM3 (1.0-4.8); MEAN CELL VOLUME 92.7 FL (80.0-100.0); MEAN CORPUSCULAR HEMOGLOBIN 31.1 PG (27.0-34.0); MEAN CORPUSCULAR HGB CONC 33.5 % (32.0-36.0); MEAN PLATELET VOLUME 8.7 FL (7.0-11.0); MONO % 8.4 % (0.0-8.0); NEUT % 82.1 % (16.0-70.0); PLATELET COUNT 232 TH/MM3 (150-450); RED CELL DISTRIBUTION WIDTH 14.1 % (11.6-17.2); WHITE BLOOD COUNT 12.5 TH/MM3 (4.0-11.0)
[2018-05-05 06:33] LABS: ALBUMIN 1.7 GM/DL (3.4-5.0); AST (GOT) 58 U/L (15-37); BICARBONATE 28.3 MEQ/L (21.0-32.0); BLOOD UREA NITROGEN 31 MG/DL (7-18); CALCIUM 8.1 MG/DL (8.5-10.1); CHLORIDE 115 MEQ/L (98-107); CREATININE 0.56 MG/DL (0.60-1.30); GLOMERULAR FILTRATION RATE 143 ML/MIN (>89); GLUCOSE,RANDOM 109 MG/DL (74-106); SODIUM (NA) 152 MEQ/L (136-145)
[2018-05-05 06:34] LABS: ALT (GPT) 89 U/L (12-78)
[2018-05-05 06:37] LABS: ALKALINE PHOSPHATASE 106 U/L (45-117); TOTAL BILIRUBIN ADULT 0.5 MG/DL (0.2-1.0); TOTAL PROTEIN 5.6 GM/DL (6.4-8.2)
[2018-05-05] MEDS: CHLORHEXIDINE 0.12% (ORAL KIT) 15 ML CUP MT SCH ×2 (07:23→20:07)
[2018-05-05] MEDS: PROPOFOL 1000 MG/100 ML IV PRN (07:23)
--- NOTE | 2018-05-05 08:12 | HHI.PR ---
Neuropsych Emotional Emotional: UnabletoAssess: Emotional, Anxious/Fearful, Depressed/Sad, Hostile/ Resentful, Irritable/Angry/Frustrate, Labile, Constricted/Blunted Behavior Behavior: Intact: Impulsive/Agitated, Unable to Asses: Behavior, Coping/ Acceptance, Cooperative w/ Treatment, Motivation, Frustration Tolerance/[place], Suicidal/Homicidal Risk Cognitive Cognitive: Unable to Asses: Cognitive, Attention/Concentration, Confused/ Orientation, Insight/Awareness, Judgement/Problem-Solving, Memory Psychosocial Psychosocial: Intact: Psychosocial, Family/Other Adjustment, Realistic Expectation, Unable to Asses: Self-Esteem/Confidence Progress Notes/Response to Tx Contents of Sessions: Adjustment, Level of Consciousness Time with Patient: 30 minutes Premorbid psychological status Premorbid Cognitive, Emotional and Behavioral Status: Stable. The patient has college years of education and a solid work history prior to this injury. The patient has no prior psychiatric difficulties, as described above. Substance abuse history is unknown. Behavioral Reactions of Patient and Family/Support System: Stable. The patient s family is experiencing ongoing issues of adjustment given the nature of the injury, and this aspect of recovery will require ongoing monitoring. Emotional/Behavioral Status of Patient and Family/Support System: Stable. Pertinent issues, if appropriate to this patients clinical care, are described in detail above. Maximizing acute care outcome It is recommended that the patient be monitored for emergent behavioral impulsivity as the medical condition evolves. This patients neuropathological challenges may limit his rehabilitation potential going forward, and these challenges will require specialized therapeutic skills to maximize outcome. Additionally, the patients family is experiencing ongoing issues of adjustment given the traumatic nature of the injury, and they may benefit from ongoing psychological assistance. At this point in the recovery process, the patient does not have cognitive capacity as the patient is unable to understand a situation and its likely consequences, nor is he able to manipulate information rationally. Cognitive capacity will be assessed throughout the recovery process. Anticipated Problems Ongoing areas of concern will include behavioral impulsivity, lack of insight and judgment, which is expected to improve with time and treatment. Presently , the patient is critically ill. Given the severity of the patient's injuries it is my clinical opinion that this patient will be unable to return to any type of productive employment for at least one year, perhaps longer and likely never. This patient is not considered safe to discharge home without supervision at this time. Treatment Plan This clinician will continue to follow with you throughout the course of this patients critical care treatment, and I will be available to meet with the patients family/support system to facilitate their understanding and the ongoing care of their family member. The goals of neuropsychological intervention shall be both educational and supportive to the family/support system as is deemed clinically appropriate. [facility] Level: III:Localized response-total assist Impression 72 year old male s/p TBI 2T fall on 04/26/2018. Diagnosis: (1) Major neurocognitive disorder as late effect of traumatic brain injury without behavioral disturbance Progress Note Narrative PTD 9. The patient is gradually improving, and is to undergo trach today in order to wean from vent. Sedation is being weaned. No issues of agitation/ restlessness but Propofol is still running. He is Rancho III. Consider Amantadine after trach, unless medically contraindicated. I will follow. Germán Arriaga PhD May 05, 2018 8:12 am
[2018-05-05] MEDS: SODIUM CHLORIDE 0.9% FLUSH 10 ML FLUSH IV FLUSH SCH ×2 (08:46→20:07)
[2018-05-05] MEDS: LACTULOSE SYRUP 20 GM/30 ML CUP PO SCH (08:46)
[2018-05-05] MEDS: ARTIFICIAL TEARS OPTH OINT 3.5 APPLIC/3.5 GM TUBO EACH EYE SCH ×2 (08:46→21:51)
[2018-05-05] MEDS: MAGNESIUM HYDROXIDE SUSP 30 ML CUP PO SCH ×2 (08:47→20:06)
[2018-05-05] MEDS: LISINOPRIL 10 MG TAB PO SCH ×2 (08:47→20:07)
[2018-05-05] MEDS: DOCUSATE SODIUM 50 MG/SENNA 8.6 MG TAB PO SCH ×2 (08:47→20:06)
[2018-05-05] MEDS ORDERED: FUROSEMIDE 20 MG/2 ML VIAL IV PUSH ONE (09:15)
--- NOTE | 2018-05-05 09:20 | HHI.NSPN ---
Note Status Status: Progress Note Interval History Interval History This 72-year-old gentleman was brought in as priority 1 trauma alert after falling about 12-15 feet out of a tree. Apparently the ladder fell sideways. No seizure activity. No tonguebitting. No incontinence of stool or urine. The patient fell on a concrete walkway, right side down. According to witnesses, he was completely unconscious and on the arrival, the paramedics' [place] Coma Scale was 3, which improved after resuscitation to about 8. The patient brought with a spinal board with C-collar in place, moaning and groaning. CT showed traumatic SAHand a small SDH. Neurosurgery consultation was requested 04/27: patient seen this morning during rounds, mildly sedated, intubated, but seen to be moving purposefully, no opening eyes or following commands. 04/28: seen this am during rounds, ICPs controlled overnight, intubated and currently well sedated. f/u CT Brain this morning completed, improved SDH, with evolving contusion. 05/01: intubated, sedated reported to move spontaneously when sedation lowered but not following command. ICPs controlled. 05/02: intubated, mildly sedated, minimally opens eyes, moves extremities, but not following commands. planned bronchoscopy today with trauma. 05/03: remains intubated, sedated. no changes neurologically. 05/04: remains intubated, sedated requiring for blood pressure control. for follow up CT Brain. 05/05: follow up CT Brain shows stable contusions, stable edema without significant midline shift, no new hemorrhage. for tracheostomy today. Labs, Micro, & Vital Signs Results Date Time Temp Pulse Resp B/P (MAP) Pulse Ox O2 Delivery O2 Flow Rate FiO2 05/05/18 07:52 100 40 05/05/18 07:00 100 Mechanical Ventilator 40 05/05/18 06:00 58 05/05/18 04:00 62 05/05/18 04:00 45 05/05/18 04:00 98.5 58 17 150/53 (85) 100 05/05/18 03:45 100 40 05/05/18 02:00 55 05/05/18 00:00 45 05/05/18 00:00 100.0 64 20 176/83 (114) 99 05/05/18 00:00 64 05/04/18 23:26 100 40 05/04/18 22:00 60 05/04/18 20:29 100 Ventilator 05/04/18 20:22 100 40 05/04/18 20:00 69 05/04/18 20:00 45 05/04/18 20:00 100.1 69 20 161/73 (102) 100 05/04/18 19:00 99 Mechanical Ventilator 40 05/04/18 18:00 66 05/04/18 16:16 20 05/04/18 16:08 100 40 05/04/18 16:00 63 05/04/18 16:00 40 05/04/18 16:00 100.0 63 19 172/64 (100) 100 05/04/18 14:00 63 05/04/18 12:00 40 05/04/18 12:00 101.2 67 16 185/60 (101) 100 05/04/18 12:00 67 05/04/18 11:40 40 05/04/18 11:36 100 40 05/04/18 10:15 100 100 05/04/18 10:00 68 05/06/18 07:00 Intake Total 100 ml Balance 100 ml Constitutional Vital Signs Date Time Temp Pulse Resp B/P (MAP) Pulse Ox O2 Delivery O2 Flow Rate FiO2 05/05/18 07:52 100 40 05/05/18 07:00 100 Mechanical Ventilator 40 05/05/18 06:00 58 05/05/18 04:00 62 05/05/18 04:00 45 05/05/18 04:00 98.5 58 17 150/53 (85) 100 05/05/18 03:45 100 40 05/05/18 02:00 55 05/05/18 00:00 45 05/05/18 00:00 100.0 64 20 176/83 (114) 99 05/05/18 00:00 64 05/04/18 23:26 100 40 05/04/18 22:00 60 05/04/18 20:29 100 Ventilator 05/04/18 20:22 100 40 05/04/18 20:00 69 05/04/18 20:00 45 05/04/18 20:00 100.1 69 20 161/73 (102) 100 05/04/18 19:00 99 Mechanical Ventilator 40 05/04/18 18:00 66 05/04/18 16:16 20 05/04/18 16:08 100 40 05/04/18 16:00 63 05/04/18 16:00 40 05/04/18 16:00 100.0 63 19 172/64 (100) 100 05/04/18 14:00 63 05/04/18 12:00 40 05/04/18 12:00 101.2 67 16 185/60 (101) 100 05/04/18 12:00 67 05/04/18 11:40 40 05/04/18 11:36 100 40 05/04/18 10:15 100 100 05/04/18 10:00 68 05/06/18 07:00 Intake Total 100 ml Balance 100 ml Review of Systems ROS Limitations: Intubated Physical Exam General: intubated, sedated. appears comfortable in no apparent distress HEENT: normocephalic, bolt site clean and dry with suture in place, no drainage or leakage noted, no erythema. Nonicteric sclera. Neuro: sedated, not following commands. Cranial nerve: pupils equal, round, and reactive to light. Conjugate gaze. Neck: no JVD, trachea midline Musculoskeletal: no clubbing, sedated, not following commands for testing Respiratory: clear, mechanically ventilated Heart: regular rate rhythm Medications Current Medications Current Medications Medications (Trade) Dose Ordered Sig/Bonilla Route PRN Reason Start Time Stop Time Status Last Admin Dose Admin Sodium Chloride (NS Flush) 2 ml UNSCH PRN IV FLUSH FLUSH AFTER USING IV ACCESS 04/26/18 13:15 Sodium Chloride (NS Flush) 2 ml BID IV FLUSH 04/26/18 21:00 05/05/18 08:46 Pantoprazole Sodium (Protonix Inj) 40 mg Q24H IV PUSH 04/26/18 14:00 05/04/18 13:49 Naloxone HCl (Narcan Inj) 0.4 mg UNSCH PRN IV PUSH SEE LABEL COMMENTS 04/26/18 13:15 Fentanyl Citrate 250 ml @ 5 mls/hr TITRATE PRN IV Sedation 04/26/18 14:30 05/04/18 05:20 Potassium Chloride 100 ml @ 50 mls/hr Q2H PRN IV-CENTRAL For Potassium 2.8 - 3.2 mEq/L 04/27/18 07:30 Potassium Chloride 100 ml @ 50 mls/hr Q2H PRN IV For Potassium 2.8 - 3.2 mEq/L 04/27/18 07:30 Potassium Bicarb/ Potassium Chloride (K-Lyte Cl Eff) 50 meq UNSCH PRN PO For Potassium 3.3 - 3.5 mEq/L 04/27/18 07:30 04/29/18 06:17 Potassium Chloride 100 ml @ 25 mls/hr UNSCH PRN IV-CENTRAL For Potassium 3.3 - 3.5 mEq/L 04/27/18 07:30 Potassium Chloride 100 ml @ 50 mls/hr Q2H PRN IV For Potassium 3.3 - 3.5 mEq/L 04/27/18 07:30 Magnesium Sulfate 4 gm/Sodium Chloride 100 ml @ 50 mls/hr UNSCH PRN IV For Magnesium 0.9 - 1.1 mg/dL 04/27/18 07:30 Magnesium Oxide (Mag-Ox) 800 mg UNSCH PRN PO For Magnesium 1.2 - 1.6 mg/dL 04/27/18 07:30 Magnesium Sulfate 2 gm/Sodium Chloride 100 ml @ 50 mls/hr UNSCH PRN IV For Magnesium 1.2 - 1.6 mg/dL 04/27/18 07:30 Potassium Phosphate (K-Phos) 2,000 mg Q4H PRN PO For Phosphorus < 2.5 mg/dL 04/27/18 07:30 Sodium Phosphate 30 mmol/Sodium Chloride 250 ml @ 42 mls/hr UNSCH PRN IV For Phosphorus < 2.5 mg/dL 04/27/18 07:30 04/27/18 22:16 Potassium Phosphate (K-Phos) 2,000 mg UNSCH PRN PO/TUBE SEE LABEL COMMENTS 04/27/18 07:30 Potassium Phosphate 30 mmol/ Sodium Chloride 260 ml @ 42 mls/hr UNSCH PRN IV SEE LABEL COMMENTS 04/27/18 07:30 Chlorhexidine Gluconate (Peridex 0.12% Liq) 15 ml BID@08,20 MT 04/27/18 08:00 05/05/18 07:23 Albuterol/ Ipratropium (Duoneb Neb) 1 ampule Q2HR NEB PRN NEB wheezing 04/27/18 07:30 Senna/Docusate Sodium (Meron-Colace) 1 tab BID PO 04/27/18 09:00 05/04/18 20:06 Magnesium Hydroxide (Milk Of Magnesia Liq) 30 ml BID PO 04/27/18 09:00 05/04/18 20:06 Acetaminophen 100 ml @ 400 mls/hr Q6H PRN IV temp>101 04/27/18 16:15 05/04/18 11:41 Meperidine HCl (Demerol Inj) 25 mg Q6H PRN IV PUSH shivering 04/28/18 10:30 Lactulose (Lactulose Liq) 30 ml DAILY PO 04/29/18 09:00 05/03/18 08:36 Enoxaparin Sodium (Lovenox Inj) 40 mg Q24H SQ 05/01/18 11:00 05/04/18 11:04 Lisinopril (Prinivil) 10 mg Q12HR PO 05/01/18 17:00 05/05/18 08:47 Oxycodone HCl (Roxicodone) 10 mg Q6H NG 05/01/18 16:15 05/04/18 15:16 Hydralazine HCl (Apresoline) 25 mg Q6H NG 05/01/18 17:00 05/05/18 05:31 Clonidine (Catapres-Tts 0.3 Mg Patch.7d) 1 patch Q7D T-DERMAL 05/03/18 11:00 05/03/18 11:48 Artificial Tears (Lacrilube Opht Oint) 1 applic Q12HR EACH EYE 05/03/18 11:00 05/05/18 08:46 Miscellaneous Information 1 Q7D T-DERMAL 05/10/18 10:59 Metoprolol Tartrate (Lopressor Inj) 2.5 mg Q6H IV PUSH 05/03/18 21:00 05/05/18 08:46 Furosemide (Lasix Inj) 20 mg ONCE ONCE IV PUSH 05/05/18 09:15 05/05/18 09:16 UNV Propofol 100 ml TITRATE PRN IV SEDATION 05/05/18 09:15 UNV Medical Decision Making MDM Remarks 73 year old male trauma alert, fall off ladder onto cement TBI, left traumatic subarachnoid, subdural hemorrhage, s/p placement of ICP monitor 04/26/18, stable ICPs, ICP monitor removed 05/01/[address] 05/04/18 Impressions: CONCLUSION: 1. Evolving traumatic brain injury with resolving hemorrhages. 2. Persistent edema in left frontal and temporal lobe contusions. 3. No significant shift of midline structures. 4. Hairline fracture along the base of the skull in the right temporal region. 5. No evidence of new hemorrhage or acute infarct. Plan Plan Remarks f/u CT Brain reviewed, for tracheostomy today, cont critical care per trauma team, cont sedation weaning as tolerated and follow up neuro exam Sofia Younger May 05, 2018 09:20
[2018-05-05] MEDS: ENOXAPARIN SODIUM 40 MG/0.4 ML SYRINGE SQ SCH (11:00)
[2018-05-05] MEDS: PROPOFOL 1000 MG/100 ML INJ 100 ML IV PRN ×2 (12:52→18:55)
[2018-05-05] MEDS: PANTOPRAZOLE SODIUM 40 MG VIAL IV PUSH SCH (14:00)
[2018-05-05] MEDS ORDERED: MIDAZOLAM HCL 5 MG/ML VIAL (1 ML) IV PUSH ONE (14:45)
[2018-05-05] MEDS ORDERED: ROCURONIUM INJ 50 MG/5 ML VIAL IV PUSH ONE (14:45)
--- NOTE | 2018-05-05 15:36 | HHI.CCPN ---
Subjective Brief History This 72-year-old gentleman was brought in as priority 1 trauma alert after falling about 12-15 feet out of a tree as the ladder went flying sideways. The patient fell on a concrete walkway, right side down. According to witnesses, he was completely unconscious and on the arrival, the paramedics' [place] Coma Scale was 3-4, which improved on the way to about 8 or 9. The patient brought with a spinal board with C-collar in place, moaning and groaning and complained but pain in the right chest. Patient was resuscitated according trauma principles and placed in ICU for further care Final injuries Traumatic brain injury with mainly left frontal temporoparietal subarachnoid and subdural bleed and some superficial contusions of the brain Right chest contusion with a small hemothorax and serial rib fractures of 5th, 6th, 7th, 8th ribs, Transverse process fractures of several vertebrae, Laceration of the right kidney with a hematoma and a small mass of the right kidney 24 Hour Review/Hospital Course 04/27/2018 Patient remains intubated and ventilated Neuroprotective measures including propofol and fentanyl Keppra 2% hypertonic saline at 30 cc/h ICP remains 4-12 mmHg Hemodynamically patient stable Bilateral good breath sounds on decreasing levels of ventilatory support with good PO2 FiO2 gradient 04/28/2018 No change in neurologic status On sedation vacation patient moves all 4 extremities opens eyes but does not follow commands and does not track making [place] Coma Scale about 6 or 7 This is fairly significant brain injury and will take a while to resolve ICP remains low and from my point ICP monitor can be removed CPP within the parameters of autoregulation Remains on neuroprotective measures including propofol fentanyl Keppra Decrease 2% saline to about 20 cc an hour at this point Hemodynamically patient stable Bilateral breath sounds remains on assist control ventilation and pulmonary status and PO2 FiO2 gradient will allow for extubation but of course patient's neurologic status does not allow for the same Patient will not need tracheostomy and I believe he will recover in next few days sufficiently and regaining consciousness to extubate safely Abdomen soft enteral feeds tolerated Renal function normal 04/29/2018 No change in neurologic status Patient remains stable on propofol fentanyl Keppra ICP remains within physiologic range and ICP monitor may be removed as per neurosurgery Hemodynamically remains stable however hemoglobin dropped to 7.8 g/dL as a result of hemodilution and obviously decreased production We will transfuse 2 units PRBC faced with age and neurologic injury Bilateral good breath sounds good PO2 FiO2 gradient Abdomen soft enteral feeds tolerated Plan Once okay with neurosurgery will wake up the patient and start weaning down the sedation probably tomorrow or Tuesday Transfuse 2 units PRBC Continue care 04/30/2018 No change in current status Patient remains on neuroprotective measures with decreasing levels of propofol and fentanyl On sedation vacation moves purposefully does not open eyes yet Will need another few days before sufficiently improved to wean and extubate ICP remains 5-12 mmHg Hemodynamically patient stable if not somewhat hypertensive which is being addressed Bilateral breath sounds and bilateral pleural effusions with atelectasis as a result probably of her original event and retention of secretions I am concerned about patient's pulmonary function and he might need bronchoscopy early next week Renal function preserved Patient about 12 L positive since the arrival will diurese gently to take of the third space now that systemic inflammatory response is abating 05/01/2018 Neurologically patient is unchanged if not somewhat better With decrease of sedation and sedation vacation patient is waking up moving all 4 extremities however does not open eyes or follow commands This is very early in the course and I believe patient will eventually improve neurologically Hemodynamically stable somewhat hypertensive and medications adjusted for the same Added nicardipine drip for management of recalcitrant hypertension Bilateral breath sounds remains on assist control ventilation will start on CPAP trials daily Abdomen soft enteral feeds tolerated I am not sure this patient will require tracheostomy but I believe he will come off the ventilator without one 05/02/2018 Patient neurologically slightly improving On sedation vacation moves all 4 extremities does not follow commands Bilateral good breath sounds on assist control ventilation and will start on CPAP trials Patient does have significant secretions and atelectasis mainly right lower lobe Underwent successful bronchoscopy today Abdomen soft enteral feeds tolerated Again as noted previously patient might or might not require tracheostomy and will see how he does in next few days neurologically which will be the base of placing one or not 05/03/2018 Neurologic status unchanged On sedation vacation patient moves all 4 extremities but does not follow commands and is very restless ICP monitor has been removed due to low ICP pressures throughout At this point the patient remains on small dose propofol and fentanyl in face of his injuries however he is not ready to come off the respirator due to the low GCS Hemodynamically patient is stable however hypertensive Catapres patch Lisinopril Hydralazine Beta-blockers could not be used due to patient's development of bradycardia. Patient was placed on nicardipine drip however at this point we going to stop this due to large fluid load associated with the same Abdomen soft enteral feeds tolerated Renal function is preserved patient is now fluid overloaded in anasarca with bilateral pleural effusions right more than left We will try outpatient somewhat and see how he does but he may need right chest drained to evacuate hydrothorax 05/04/2018 Neurologically patient is unchanged Slightly decrease of propofol to 35 mcg and remains on fentanyl No change in neurologic status Based on low [place] Coma Scale patient will require tracheostomy Hemodynamically stable however hypertensive and now controlled with several medications as above noted Nicardipine has been removed due to huge volume load and general edema this has provoked Renal function well-preserved patient now diuresing very well and is back to his weight Tolerates enteral feeds well Plan Tracheostomy tomorrow and then weaned to liberate from the ventilator Gradually decrease sedation as the blood pressure and patient's general condition tolerates Will require neuro rehab placement 05/05/2018 Neurologically patient is unchanged Remains on small dose fentanyl and 35 mcg of propofol. Due to blood pressure issues patient was more sedated last night On sedation vacation patient moves all extremities but does not open eyes and does not track or follow any commands Withdraws to pain With this low level of consciousness and low [place] Coma Scale, patient clearly cannot be brought to extubation because he will be unable to protect his upper airway Tracheostomy today Hemodynamically stable Objective Vital Signs Date Time Temp Pulse Resp B/P (MAP) Pulse Ox O2 Delivery O2 Flow Rate FiO2 05/05/18 14:00 60 05/05/18 12:00 98.4 17 134/87 (103) 100 05/05/18 12:00 100 05/05/18 07:00 Mechanical Ventilator 05/04/18 07:00 4.00 Intake and Output 05/05/18 05/05/18 05/06/18 08:00 16:00 00:00 Intake Total 975 ml 100 ml Output Total 875 ml Balance 100 ml 100 ml Result Diagram: 05/05/18 0600 05/05/18 0600 Other Results Microbiology Date/Time Source Procedure Growth Status 05/03/18 13:20 Sputum Endotracheal Gram Stain - Final Complete 05/03/18 13:20 Sputum Endotracheal Sputum Culture - Final HEAVY GROWTH NORMAL RESPIRATORY ADITYA Complete 05/03/18 13:00 Urine Catheterized Urine Urine Culture - Final NO GROWTH IN 48 HOURS. Complete Laboratory Tests Test 05/05/18 05:03 Blood Gas Puncture Site ART LINE Blood Gas Patient Temperature 98.6 Blood Gas HCO3 28 mmol/L (22-26) Blood Gas Base Excess 4.2 mmol/L (-2-2) Blood Gas Oxygen Saturation 96 % (90-100) Arterial Blood pH 7.44 (7.380-7.420) Arterial Blood Partial Pressure CO2 42 mmHg (38-42) Arterial Blood Partial Pressure O2 97 mmHg (61-120) Arterial Blood Oxygen Content 15.0 Vol % (12.0-20.0) Arterial Blood Carboxyhemoglobin 1.3 % (0-4) Arterial Blood Methemoglobin 1.0 % (0-2) Blood Gas Hemoglobin 11.0 G/DL (12.0-16.0) Oxygen Delivery Device VENTILATOR Blood Gas Ventilator Setting PRVC/ AC Blood Gas Inspired Oxygen 40 % Imaging Last 24 hours Impressions Chest X-Ray 05/05/18 0600 Signed Impressions: CONCLUSION: The diffuse increased density in the lower lungs likely secondary to the effusi ons. Some degree of consolidation or atelectasis can be considered. Mild bilateral pleural effusions. 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 Due to blood pressure issues patient was more sedated last night On sedation vacation patient moves all extremities but does not open eyes and does not track or follow any commands Withdraws to pain With this low level of consciousness and low [place] Coma Scale, patient clearly cannot be brought to extubation because he will be unable to protect his upper airway Tracheostomy today Hemodynamic/Cardiac Hemodynamically patient is stable Hypertension is now being addressed with several medication regimens Pulmonary/Respiratory Bilateral good breath sounds and good PO2 FiO2 gradient Unfortunately due to low level of consciousness patient cannot be from the ventilator We will go ahead with tracheostomy today Abdomen/GI Nutrition Abdomen soft and enteral feeds well tolerated Renal/I&O Renal function normal and preserved Assessment and Plan Attestation Critical care time 34 minutes Georgia Bustillo MD May 05, 2018 15:36
[2018-05-05] MEDS: fentaNYL 2,500 MCG/NS 250 ML IV PRN (18:55)
[2018-05-06] VITALS (20 sets, daily range): BP systolic 129–178; BP diastolic 58–82; PULSE 61–84; RESP 16; TEMP 100–101; O2SAT 99–100
[2018-05-06] MEDS: METOPROLOL TARTRATE 5 MG/5 ML VIAL IV PUSH SCH ×4 (02:46→21:15)
--- NOTE | 2018-05-06 03:52 | RADRPT ---
EXAM DATE: 05/06/2018 3:39 AM EDT AGE/SEX: 72 years / Male INDICATIONS: Shortness of breath CLINICAL DATA: This is the patient's subsequent encounter. Patient reports that signs and symptoms h ave been present for 1 week and indicates a pain score of Nonresponsive. MEDICAL/SURGICAL HISTORY: Non-responsive. Non-responsive. COMPARISON: [facility] – [place] CHEST SINGLE AP, 05/05/2018. . FINDINGS: A single AP view of the chest demonstrates the endotracheal tube to be 3 cm above the eleazar. Nasogas tric tube unchanged. Bilateral airspace disease. Cardiomegaly The cardiomediastinal contours are unre markable. Osseous structures are intact. CONCLUSION: 1. Endotracheal tube 3 cm above the eleazar. 2. Bilateral airspace disease, stable. Electronically signed by: Eusebio Huerta MD 05/06/2018 3:50 AM EDT
[2018-05-06] MEDS: PROPOFOL 1000 MG/100 ML INJ 100 ML IV PRN (05:00)
[2018-05-06] MEDS: hydrALAZINE HCL 25 MG TAB NG SCH ×4 (05:38→23:00)
[2018-05-06 06:11] LABS: AUTOMATED NEUTROPHIL # 10.5 TH/MM3 (1.8-7.7); BASOPHIL # 0.1 TH/MM3 (0-0.2); BASOPHIL % 0.7 % (0.0-2.0); EOSINOPHIL # 0.4 TH/MM3 (0-0.4); EOSINOPHIL % 3.6 % (0.0-4.0); HEMATOCRIT 29.8 % (39.0-51.0); HEMOGLOBIN 10.1 GM/DL (13.0-17.0); LYMPH % 4.8 % (9.0-44.0); LYMPHOCYTE # 0.6 TH/MM3 (1.0-4.8); MEAN CELL VOLUME 92.3 FL (80.0-100.0); MEAN CORPUSCULAR HEMOGLOBIN 31.3 PG (27.0-34.0); MEAN CORPUSCULAR HGB CONC 33.9 % (32.0-36.0); MEAN PLATELET VOLUME 8.9 FL (7.0-11.0); MONO % 6.4 % (0.0-8.0); MONOCYTE # 0.8 TH/MM3 (0-0.9); NEUT % 84.5 % (16.0-70.0); PLATELET COUNT 260 TH/MM3 (150-450); RED BLOOD COUNT 3.23 MIL/MM3 (4.50-5.90); RED CELL DISTRIBUTION WIDTH 13.6 % (11.6-17.2); WHITE BLOOD COUNT 12.4 TH/MM3 (4.0-11.0)
[2018-05-06 06:42] LABS: ALBUMIN 1.6 GM/DL (3.4-5.0); ALT (GPT) 75 U/L (12-78); AST (GOT) 45 U/L (15-37); BICARBONATE 27.7 MEQ/L (21.0-32.0); BLOOD UREA NITROGEN 30 MG/DL (7-18); CALCIUM 8.2 MG/DL (8.5-10.1); CHLORIDE 115 MEQ/L (98-107); GLUCOSE,RANDOM 108 MG/DL (74-106); SODIUM (NA) 153 MEQ/L (136-145)
[2018-05-06 06:43] LABS: CREATININE 0.68 MG/DL (0.60-1.30); GLOMERULAR FILTRATION RATE 115 ML/MIN (>89)
[2018-05-06 06:45] LABS: ALKALINE PHOSPHATASE 112 U/L (45-117); TOTAL BILIRUBIN ADULT 0.6 MG/DL (0.2-1.0); TOTAL PROTEIN 5.5 GM/DL (6.4-8.2)
--- NOTE | 2018-05-06 07:55 | HHI.NSPN ---
(Eusebio Massey) History Chief Complaint: Unable to assess due to clinical condition. (Eusebio Massey) Interval History This 72-year-old gentleman was brought in as priority 1 trauma alert after falling about 12-15 feet out of a tree. Apparently the ladder fell sideways. No seizure activity. No tonguebitting. No incontinence of stool or urine. The patient fell on a concrete walkway, right side down. According to witnesses, he was completely unconscious and on the arrival, the paramedics' [place] Coma Scale was 3, which improved after resuscitation to about 8. The patient brought with a spinal board with C-collar in place, moaning and groaning. CT showed traumatic SAHand a small SDH. Neurosurgery consultation was requested 04/27: patient seen this morning during rounds, mildly sedated, intubated, but seen to be moving purposefully, no opening eyes or following commands. 04/28: seen this am during rounds, ICPs controlled overnight, intubated and currently well sedated. f/u CT Brain this morning completed, improved SDH, with evolving contusion. 05/01: intubated, sedated reported to move spontaneously when sedation lowered but not following command. ICPs controlled. 05/02: intubated, mildly sedated, minimally opens eyes, moves extremities, but not following commands. planned bronchoscopy today with trauma. 05/03: remains intubated, sedated. no changes neurologically. 05/04: remains intubated, sedated requiring for blood pressure control. for follow up CT Brain. 05/05: follow up CT Brain shows stable contusions, stable edema without significant midline shift, no new hemorrhage. for tracheostomy today. 05/06: Pt sedated on Diprivan and Fentanyl drips. Intubated. Pupils 3mm bilaterally reactive bilaterally. Not following commands for me. (Eusebio Massey) System Review Comments Not able to obtain given clinical condition. (Eusebio Massey) Exam Results Vital Signs Date Time Temp Pulse Resp B/P (MAP) Pulse Ox O2 Delivery O2 Flow Rate FiO2 05/06/18 06:00 61 05/06/18 04:00 100.3 16 129/82 (98) 100 05/06/18 04:00 40 05/05/18 19:00 Mechanical Ventilator 05/04/18 07:00 4.00 Intake and Output 05/06/18 05/06/18 05/07/18 08:00 16:00 00:00 Intake Total 435 ml Output Total 860 ml Balance -425 ml (Eusebio Massey) Physical Examination General: Pt intubated and sedated in the ICU in [facility]. Eyes: Pupils 3mm bilaterally reactive bilaterally. Resp: Intubated. PRVC A/C rate 16 Peep 8. FiO2 40%. Heart: NSR no murmurs Abd: Soft positive bs Skin: No cyanosis or erythema. SCDs in place. Muscle: moves all 4 extremities. Neuro: Pt not opening eyes. Sedated on Diprivan and Fentanyl drips. Not following commands. Pupils 3mm bilaterally reactive bilaterally. (Eusebio Massey) Lab, Micro, Other Results Last Impressions Chest X-Ray 05/06/18 0600 Signed Impressions: CONCLUSION: 1. Endotracheal tube 3 cm above the eleazar. 2. Bilateral airspace disease, stable. Head CT 05/04/18 0000 Signed Impressions: CONCLUSION: 1. Evolving traumatic brain injury with resolving hemorrhages. 2. Persistent edema in left frontal and temporal lobe contusions. 3. No significant shift of midline structures. 4. Hairline fracture along the base of the skull in the right temporal region. 5. No evidence of new hemorrhage or acute infarct. Chest CT 05/04/18 0000 Signed Impressions: CONCLUSION: 1. Increasing bilateral pleural effusions with a moderate to large effusion on the right. 2. Total consolidation of both lower lobes. 3. No other significant change. Cervical Spine CT 04/26/18 1251 Signed Impressions: CONCLUSION: Degenerative spondylosis with neural foraminal compromise right C5 -6 without any significant thecal sac stenosis. Abdomen/Pelvis CT 04/26/18 1251 Signed Impressions: CONCLUSION: 1. Laceration involving the mid to lower pole of the right kidney with a small amount of perirenal blood but no active hemorrhage observed. 2. 2.4 cm solid mass involving the right mid pole kidney worrisome for renal c ell carcinoma. Laboratory Tests Test 05/06/18 03:44 05/06/18 05:45 Blood Gas Puncture Site FEM Blood Gas Patient Temperature 98.6 Blood Gas HCO3 30 mmol/L Blood Gas Base Excess 6.5 mmol/L Blood Gas Oxygen Saturation 96 % Arterial Blood pH 7.47 Arterial Blood Partial Pressure CO2 42 mmHg Arterial Blood Partial Pressure O2 109 mmHg Arterial Blood Oxygen Content 14.6 Vol % Arterial Blood Carboxyhemoglobin 1.4 % Arterial Blood Methemoglobin 1.1 % Blood Gas Hemoglobin 10.7 G/DL Oxygen Delivery Device VENTILATOR Blood Gas Ventilator Setting PRVC/AC Blood Gas Inspired Oxygen 40 % White Blood Count 12.4 TH/MM3 Red Blood Count 3.23 MIL/MM3 Hemoglobin 10.1 GM/DL Hematocrit 29.8 % Mean Corpuscular Volume 92.3 FL Mean Corpuscular Hemoglobin 31.3 PG Mean Corpuscular Hemoglobin Concent 33.9 % Red Cell Distribution Width 13.6 % Platelet Count 260 TH/MM3 Mean Platelet Volume 8.9 FL Neutrophils (%) (Auto) 84.5 % Lymphocytes (%) (Auto) 4.8 % Monocytes (%) (Auto) 6.4 % Eosinophils (%) (Auto) 3.6 % Basophils (%) (Auto) 0.7 % Neutrophils # (Auto) 10.5 TH/MM3 Lymphocytes # (Auto) 0.6 TH/MM3 Monocytes # (Auto) 0.8 TH/MM3 Eosinophils # (Auto) 0.4 TH/MM3 Basophils # (Auto) 0.1 TH/MM3 CBC Comment DIFF FINAL Differential Comment Blood Urea Nitrogen 30 MG/DL Creatinine 0.68 MG/DL Random Glucose 108 MG/DL Total Protein 5.5 GM/DL Albumin 1.6 GM/DL Calcium Level 8.2 MG/DL Alkaline Phosphatase 112 U/L Aspartate Amino Transf (AST/SGOT) 45 U/L Alanine Aminotransferase (ALT/SGPT) 75 U/L Total Bilirubin 0.6 MG/DL Sodium Level 153 MEQ/L Potassium Level 3.8 MEQ/L Chloride Level 115 MEQ/L Carbon Dioxide Level 27.7 MEQ/L Anion Gap 10 MEQ/L Estimat Glomerular Filtration Rate 115 ML/MIN (Eusebio Massey) Medical Decision Making Impression and Plan A: 72 year old male trauma alert, fall off ladder onto cement TBI, left traumatic subarachnoid, subdural hemorrhage, s/p placement of ICP monitor 04/26/18, stable ICPs, ICP monitor removed 05/01/[address] 05/04/18 Impressions: CONCLUSION: 1. Evolving traumatic brain injury with resolving hemorrhages. 2. Persistent edema in left frontal and temporal lobe contusions. 3. No significant shift of midline structures. 4. Hairline fracture along the base of the skull in the right temporal region. 5. No evidence of new hemorrhage or acute infarct. Plan Plan Plan Remarks Continue to monitor neuro exam cont critical care per trauma team, cont sedation weaning as tolerated (Eusebio Massey) Attending Statement The exam, history, and the medical decision-making described in the above note were completed with the assistance of the mid-level provider. I reviewed and agree with the findings presented. I attest that I had a [id number] encounter with the patient on the same day, and personally performed and documented my assessment and findings in the medical record. Undergoing bedside tracheostomy. Discussed with trauma surgery. (Kleber Ruiz MD) Eusebio Massey May 06, 2018 07:55 Kleber Ruiz MD May 06, 2018 11:40
[2018-05-06] MEDS: CHLORHEXIDINE 0.12% (ORAL KIT) 15 ML CUP MT SCH ×2 (08:47→21:40)
[2018-05-06] MEDS: ARTIFICIAL TEARS OPTH OINT 3.5 APPLIC/3.5 GM TUBO EACH EYE SCH ×2 (08:47→21:00)
[2018-05-06] MEDS: SODIUM CHLORIDE 0.9% FLUSH 10 ML FLUSH IV FLUSH SCH ×2 (08:47→21:15)
[2018-05-06] MEDS: DOCUSATE SODIUM 50 MG/SENNA 8.6 MG TAB PO SCH ×2 (08:48→21:15)
[2018-05-06] MEDS: LACTULOSE SYRUP 20 GM/30 ML CUP PO SCH (08:49)
[2018-05-06] MEDS: LISINOPRIL 10 MG TAB PO SCH ×2 (08:49→21:15)
[2018-05-06] MEDS: MAGNESIUM HYDROXIDE SUSP 30 ML CUP PO SCH ×2 (08:49→21:15)
[2018-05-06] MEDS ORDERED: MIDAZOLAM HCL 5 MG/5 ML VIAL IV PUSH ONE (09:00)
[2018-05-06] MEDS ORDERED: ROCURONIUM INJ 50 MG/5 ML VIAL IV PUSH ONE (09:00)
[2018-05-06] MEDS: ENOXAPARIN SODIUM 40 MG/0.4 ML SYRINGE SQ SCH (11:00)
--- NOTE | 2018-05-06 12:20 | PD.PROCEDR ---
Procedure Note Procedure Diagnosis: Hypoxemic respiratory failure Procedure: Therapeutic fiberoptic bronchoscopy Operation: Time out performed, patient properly identified. Patient is presently intubated in the oral tracheal route with mechanical ventilation ongoing in the usual ICU monitoring devices in place. Through a sealed side- port in the ventilator circuit the scope was delivered into the tracheobronchial tree and the main bronchi and subsegments were visualized. Scattered thick sputum was aspirated from numerous secondary bronchial segments but the our airways were largely patent. Sputum was white and thin. The scope and endotracheal tube were then withdrawn to the level of the cricoid cartilage and this position was used to help with visualization during performance of a percutaneous tracheostomy by a separate operative team. Following insertion of the percutaneous tracheostomy the bronchoscope was delivered through the new trach tube and confirmed position of the new tube in good position in the mid trachea safely above the eleazar. Inner cannula was then inserted and conventional ventilation was resumed through the new tracheostomy tube with verification of suitable ventilatory volume return. Vel Florentino MD May 06, 2018 12:20
--- NOTE | 2018-05-06 12:46 | HHI.CCPN ---
Subjective Brief History This 72-year-old gentleman was brought in as priority 1 trauma alert after falling about 12-15 feet out of a tree as the ladder went flying sideways. The patient fell on a concrete walkway, right side down. According to witnesses, he was completely unconscious and on the arrival, the paramedics' [place] Coma Scale was 3-4, which improved on the way to about 8 or 9. The patient brought with a spinal board with C-collar in place, moaning and groaning and complained but pain in the right chest. Patient was resuscitated according trauma principles and placed in ICU for further care Final injuries Traumatic brain injury with mainly left frontal temporoparietal subarachnoid and subdural bleed and some superficial contusions of the brain Right chest contusion with a small hemothorax and serial rib fractures of 5th, 6th, 7th, 8th ribs, Transverse process fractures of several vertebrae, Laceration of the right kidney with a hematoma and a small mass of the right kidney 24 Hour Review/Hospital Course 04/27/2018 Patient remains intubated and ventilated Neuroprotective measures including propofol and fentanyl Keppra 2% hypertonic saline at 30 cc/h ICP remains 4-12 mmHg Hemodynamically patient stable Bilateral good breath sounds on decreasing levels of ventilatory support with good PO2 FiO2 gradient 04/28/2018 No change in neurologic status On sedation vacation patient moves all 4 extremities opens eyes but does not follow commands and does not track making [place] Coma Scale about 6 or 7 This is fairly significant brain injury and will take a while to resolve ICP remains low and from my point ICP monitor can be removed CPP within the parameters of autoregulation Remains on neuroprotective measures including propofol fentanyl Keppra Decrease 2% saline to about 20 cc an hour at this point Hemodynamically patient stable Bilateral breath sounds remains on assist control ventilation and pulmonary status and PO2 FiO2 gradient will allow for extubation but of course patient's neurologic status does not allow for the same Patient will not need tracheostomy and I believe he will recover in next few days sufficiently and regaining consciousness to extubate safely Abdomen soft enteral feeds tolerated Renal function normal 04/29/2018 No change in neurologic status Patient remains stable on propofol fentanyl Keppra ICP remains within physiologic range and ICP monitor may be removed as per neurosurgery Hemodynamically remains stable however hemoglobin dropped to 7.8 g/dL as a result of hemodilution and obviously decreased production We will transfuse 2 units PRBC faced with age and neurologic injury Bilateral good breath sounds good PO2 FiO2 gradient Abdomen soft enteral feeds tolerated Plan Once okay with neurosurgery will wake up the patient and start weaning down the sedation probably tomorrow or Tuesday Transfuse 2 units PRBC Continue care 04/30/2018 No change in current status Patient remains on neuroprotective measures with decreasing levels of propofol and fentanyl On sedation vacation moves purposefully does not open eyes yet Will need another few days before sufficiently improved to wean and extubate ICP remains 5-12 mmHg Hemodynamically patient stable if not somewhat hypertensive which is being addressed Bilateral breath sounds and bilateral pleural effusions with atelectasis as a result probably of her original event and retention of secretions I am concerned about patient's pulmonary function and he might need bronchoscopy early next week Renal function preserved Patient about 12 L positive since the arrival will diurese gently to take of the third space now that systemic inflammatory response is abating 05/01/2018 Neurologically patient is unchanged if not somewhat better With decrease of sedation and sedation vacation patient is waking up moving all 4 extremities however does not open eyes or follow commands This is very early in the course and I believe patient will eventually improve neurologically Hemodynamically stable somewhat hypertensive and medications adjusted for the same Added nicardipine drip for management of recalcitrant hypertension Bilateral breath sounds remains on assist control ventilation will start on CPAP trials daily Abdomen soft enteral feeds tolerated I am not sure this patient will require tracheostomy but I believe he will come off the ventilator without one 05/02/2018 Patient neurologically slightly improving On sedation vacation moves all 4 extremities does not follow commands Bilateral good breath sounds on assist control ventilation and will start on CPAP trials Patient does have significant secretions and atelectasis mainly right lower lobe Underwent successful bronchoscopy today Abdomen soft enteral feeds tolerated Again as noted previously patient might or might not require tracheostomy and will see how he does in next few days neurologically which will be the base of placing one or not 05/03/2018 Neurologic status unchanged On sedation vacation patient moves all 4 extremities but does not follow commands and is very restless ICP monitor has been removed due to low ICP pressures throughout At this point the patient remains on small dose propofol and fentanyl in face of his injuries however he is not ready to come off the respirator due to the low GCS Hemodynamically patient is stable however hypertensive Catapres patch Lisinopril Hydralazine Beta-blockers could not be used due to patient's development of bradycardia. Patient was placed on nicardipine drip however at this point we going to stop this due to large fluid load associated with the same Abdomen soft enteral feeds tolerated Renal function is preserved patient is now fluid overloaded in anasarca with bilateral pleural effusions right more than left We will try outpatient somewhat and see how he does but he may need right chest drained to evacuate hydrothorax 05/04/2018 Neurologically patient is unchanged Slightly decrease of propofol to 35 mcg and remains on fentanyl No change in neurologic status Based on low [place] Coma Scale patient will require tracheostomy Hemodynamically stable however hypertensive and now controlled with several medications as above noted Nicardipine has been removed due to huge volume load and general edema this has provoked Renal function well-preserved patient now diuresing very well and is back to his weight Tolerates enteral feeds well Plan Tracheostomy tomorrow and then weaned to liberate from the ventilator Gradually decrease sedation as the blood pressure and patient's general condition tolerates Will require neuro rehab placement 05/05/2018 Neurologically patient is unchanged Remains on small dose fentanyl and 35 mcg of propofol. Due to blood pressure issues patient was more sedated last night On sedation vacation patient moves all extremities but does not open eyes and does not track or follow any commands Withdraws to pain With this low level of consciousness and low [place] Coma Scale, patient clearly cannot be brought to extubation because he will be unable to protect his upper airway Tracheostomy today Hemodynamically stable 05/06/2018 No change in neurologic status Propofol has been completely removed and patient at this point is moving and withdrawing to pain but that is about it Does not open eyes trach or spontaneously performing the actions We will keep on small dose fentanyl and switch to Roxicodone p.o. Bilateral breath sounds on assist control ventilatory mode with excellent PO2 FiO2 gradient Successful tracheostomy today In face of tracheostomy will start weaning patient off the ventilator and I believe be from the ventilator next 24-48 hours Abdomen soft enteral feeds tolerated Dobbhoff placed and will consult GI for PEG This gentleman will require long-term neuro rehabilitative care and based on his age outcome may be quite limited as far as cognitive or motoric recovery is concerned I discussed this with family several times Objective Vital Signs Date Time Temp Pulse Resp B/P (MAP) Pulse Ox O2 Delivery O2 Flow Rate FiO2 05/06/18 11:34 100 50 05/06/18 06:00 61 05/06/18 04:00 100.3 16 129/82 (98) 05/05/18 19:00 Mechanical Ventilator 05/04/18 07:00 4.00 Intake and Output 05/06/18 05/06/18 05/07/18 08:00 16:00 00:00 Intake Total 435 ml Output Total 860 ml Balance -425 ml Result Diagram: 05/06/18 0545 05/06/18 0545 Other Results Microbiology Date/Time Source Procedure Growth Status 05/03/18 13:20 Sputum Endotracheal Gram Stain - Final Complete 05/03/18 13:20 Sputum Endotracheal Sputum Culture - Final HEAVY GROWTH NORMAL RESPIRATORY ADITYA Complete 05/03/18 13:00 Urine Catheterized Urine Urine Culture - Final NO GROWTH IN 48 HOURS. Complete Laboratory Tests Test 05/06/18 03:44 Blood Gas Puncture Site FEM Blood Gas Patient Temperature 98.6 Blood Gas HCO3 30 mmol/L (22-26) Blood Gas Base Excess 6.5 mmol/L (-2-2) Blood Gas Oxygen Saturation 96 % (90-100) Arterial Blood pH 7.47 (7.380-7.420) Arterial Blood Partial Pressure CO2 42 mmHg (38-42) Arterial Blood Partial Pressure O2 109 mmHg (61-120) Arterial Blood Oxygen Content 14.6 Vol % (12.0-20.0) Arterial Blood Carboxyhemoglobin 1.4 % (0-4) Arterial Blood Methemoglobin 1.1 % (0-2) Blood Gas Hemoglobin 10.7 G/DL (12.0-16.0) Oxygen Delivery Device VENTILATOR Blood Gas Ventilator Setting PRVC/AC Blood Gas Inspired Oxygen 40 % Imaging Last 24 hours Impressions Chest X-Ray 05/06/18 0600 Signed Impressions: CONCLUSION: 1. Endotracheal tube 3 cm above the eleazar. 2. Bilateral airspace disease, stable. Exam [employer] No change in neurologic status Propofol has been completely removed and patient at this point is moving and withdrawing to pain but that is about it Does not open eyes trach or spontaneously performing the actions We will keep on small dose fentanyl and switch to Roxicodone p.o. Hemodynamic/Cardiac Hemodynamically remained stable but somewhat hypertensive and finally the antihypertensives are working Pulmonary/Respiratory Bilateral breath sounds on assist control ventilatory mode with excellent PO2 FiO2 gradient Successful tracheostomy today In face of tracheostomy will start weaning patient off the ventilator and I believe be from the ventilator next 24-48 hours Abdomen/GI Nutrition Abdomen soft enteral feeds tolerated Dobbhoff placed and will consult GI for PEG Renal/I&O Renal function normal and preserved Georgia Bustillo MD May 06, 2018 12:46
--- NOTE | 2018-05-06 13:13 | RADRPT ---
EXAM DATE: 05/06/2018 1:07 PM EDT AGE/SEX: 72 years / Male INDICATIONS: Trach CLINICAL DATA: This is the patient's subsequent encounter. Patient reports that signs and symptoms h ave been present for 1 week and indicates a pain score of Nonresponsive. MEDICAL/SURGICAL HISTORY: Non-responsive. Non-responsive. COMPARISON: [facility] – [place]ST SINGLE AP, 05/06/2018. . FINDINGS: Tracheostomy in good position. Feeding tube traversing the esophagus. Basilar airspace disease simila r to May 06 exam from earlier today. Small bilateral effusions. CONCLUSION: Placement of tracheostomy. Feeding tube present. Electronically signed by: Bart Serrato MD 05/06/2018 1:12 PM EDT
--- NOTE | 2018-05-06 13:14 | RADRPT ---
EXAM DATE: 05/06/2018 1:06 PM EDT AGE/SEX: 72 years / Male INDICATIONS: DHT CLINICAL DATA: This is the patient's subsequent encounter. Patient reports that signs and symptoms h ave been present for 1 week and indicates a pain score of Nonresponsive. MEDICAL/SURGICAL HISTORY: Non-responsive. Non-responsive. COMPARISON: No prior exams available for comparison. FINDINGS: Feeding tube tip in proximal duodenum. Bowel gas pattern nonspecific without evidence for obstruction or free air. CONCLUSION: Feeding tube tip in proximal duodenum. Electronically signed by: Bart Serrato MD 05/06/2018 1:13 PM EDT
[2018-05-06] MEDS: PANTOPRAZOLE SODIUM 40 MG VIAL IV PUSH SCH (13:51)
--- NOTE | 2018-05-06 15:45 | MP ---
cc: Georgia Bustillo MD DATE OF OPERATION: 05/06/2018 PREOPERATIVE DIAGNOSES: 1. Traumatic brain injury. 2. Respiratory failure. POSTOPERATIVE DIAGNOSES: 1. Traumatic brain injury. 2. Respiratory failure. OPERATIVE PROCEDURE: Blue Rhino tracheostomy. SURGEON: Georgia Bustilol MD BRONCHOSCOPIST WHEEL PRESSER: Dr. Kevon Garay. ANESTHESIA: Versed, 1% Xylocaine and rocuronium. ESTIMATED BLOOD LOSS: 5 mL. DESCRIPTION OF PROCEDURE: The patient was prepped and draped in the usual fashion, the area infiltrated with 1% Xylocaine and small vertical incision was made in the anterior neck just above the suprasternal notch, deepened down with a hemostat to the level of the trachea and then under bronchoscopy direct vision, the Angiocath inserted between the second and third tracheal ring. Through the Angiocath, a guidewire was inserted. Over the guidewire, the punch dilator was placed and then over the guidewire, the Blue Rhino dilator was placed, followed by the 8 Shiley cannula on the guide. A #8 Shiley cannula is sutured in place with 2-0 nylon. The patient is bronchoscoped through the cannula to ascertain the position and then this one is secured around the neck with the band. The patient tolerated the procedure well. Georgia Bustillo MD SJ/MARTHA , 12:52 PM , 03:44 PM
[2018-05-06] MEDS: ACETAMINOPHEN 1000 MG/100 ML 100 ML IV PRN (16:26)
--- NOTE | 2018-05-06 17:24 | PD.CONS ---
HPI History of Present Illness This is a 72 year old male who was admitted to the hospital on 04/26/2018 as a #1 priority trauma alert after falling 10-15 feet out of a tree while standing on a ladder according to the record. There is currently no family available to speak with. Information gathered is from the nurse in the chart. Currently patient is maintained on ventilator management with tracheotomy and sinus rhythm heart rate 83. Patient has generalized extremity edema and is unresponsive to tactile or verbal stimuli. According to the record patient has traumatic brain injury series of broken ribs and right chest contusions and several fractures of vertebrae, laceration to the right kidney. At this time unknown for any GI history. Current labs show hemoglobin 10.1 without any obvious rectal bleeding, WBC count 12.4, INR 1, total bilirubin normal at 0.6, AST 45 which is mildly decreased and ALT 75. Gastroenterology has been consulted for gastric tube/PEG tube placement. Currently patient has clamped Dobbhoff . (Cassie Corbin) PFSH Past Medical History According to the record none Past Surgical History Negative according to the record (Cassie Corbin) Coded Allergies: No Known Allergies (Unverified , 04/26/18) Medications Administered Medications Medications (Trade) Dose Ordered Sig/Bonilal Route PRN Reason Start Time Stop Time Status Last Admin Dose Admin Sodium Chloride (NS Flush) 2 ml BID IV FLUSH 04/26/18 21:00 05/06/18 08:47 Pantoprazole Sodium (Protonix Inj) 40 mg Q24H IV PUSH 04/26/18 14:00 05/06/18 13:51 Fentanyl Citrate 250 ml @ 5 mls/hr TITRATE PRN IV Sedation 04/26/18 14:30 05/05/18 18:55 Potassium Bicarb/ Potassium Chloride (K-Lyte Cl Eff) 50 meq UNSCH PRN PO For Potassium 3.3 - 3.5 mEq/L 04/27/18 07:30 04/29/18 06:17 Sodium Phosphate 30 mmol/Sodium Chloride 250 ml @ 42 mls/hr UNSCH PRN IV For Phosphorus < 2.5 mg/dL 04/27/18 07:30 04/27/18 22:16 Chlorhexidine Gluconate (Peridex 0.12% Liq) 15 ml BID@08,20 MT 04/27/18 08:00 05/06/18 08:47 Senna/Docusate Sodium (Meron-Colace) 1 tab BID PO 04/27/18 09:00 05/06/18 08:48 Magnesium Hydroxide (Milk Of Magnesia Liq) 30 ml BID PO 04/27/18 09:00 05/05/18 20:06 Acetaminophen 100 ml @ 400 mls/hr Q6H PRN IV temp>101 04/27/18 16:15 05/06/18 16:26 Lactulose (Lactulose Liq) 30 ml DAILY PO 04/29/18 09:00 05/03/18 08:36 Enoxaparin Sodium (Lovenox Inj) 40 mg Q24H SQ 05/01/18 11:00 Future hold 05/04/18 11:04 Lisinopril (Prinivil) 10 mg Q12HR PO 05/01/18 17:00 05/06/18 08:49 Oxycodone HCl (Roxicodone) 10 mg Q6H NG 05/01/18 16:15 05/06/18 16:23 Hydralazine HCl (Apresoline) 25 mg Q6H NG 05/01/18 17:00 05/06/18 16:23 Clonidine (Catapres-Tts 0.3 Mg Patch.7d) 1 patch Q7D T-DERMAL 05/03/18 11:00 05/03/18 11:48 Artificial Tears (Lacrilube Opht Oint) 1 applic Q12HR EACH EYE 05/03/18 11:00 05/06/18 08:47 Metoprolol Tartrate (Lopressor Inj) 2.5 mg Q6H IV PUSH 05/03/18 21:00 05/06/18 13:52 Propofol 100 ml @ 2.463 mls/ hr TITRATE PRN IV SEDATION 05/05/18 09:15 05/06/18 05:00 Family History Unknown Social History 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 (Cassie Corbin) GI Exam Vitals I&O Vital Signs Date Time Temp Pulse Resp B/P (MAP) Pulse Ox O2 Delivery O2 Flow Rate FiO2 05/06/18 15:51 100 40 05/06/18 11:34 100 50 05/06/18 11:15 100 100 05/06/18 07:46 100 40 6/16/18 07:00 99 Mechanical Ventilator 40 05/06/18 06:00 61 05/06/18 04:00 100.3 61 16 129/82 (98) 100 05/06/18 04:00 61 05/06/18 04:00 40 05/06/18 03:32 100 40 05/06/18 02:00 66 05/06/18 00:15 100 40 05/06/18 00:00 100.2 78 16 141/70 (93) 100 05/06/18 00:00 78 05/06/18 00:00 40 05/05/18 22:00 77 05/05/18 20:52 100 40 05/05/18 20:00 40 05/05/18 20:00 77 05/05/18 20:00 99.2 77 20 149/58 (88) 100 05/05/18 19:00 99 Mechanical Ventilator 40 05/05/18 18:15 20 05/05/18 18:00 70 I/O 05/05/18 05/05/18 05/05/18 05/06/18 05/06/18 05/06/18 07:00 15:00 23:00 07:00 15:00 23:00 Intake Total 975 ml 200 ml 214 ml 435 ml Output Total 875 ml 1500 ml 860 ml Balance 100 ml 200 ml -1286 ml -425 ml Intake Oral 0 ml IV Total 100 ml 200 ml 194 ml Tube Feeding 675 ml 435 ml Tube Irrigant 200 ml 20 ml Output Urine Total 875 ml 1400 ml 850 ml Stool Total 100 ml 10 ml Tube Feeding Residual Discard 0 ml Imaging Last Impressions Chest X-Ray 05/06/18 1230 Signed Impressions: CONCLUSION: Placement of tracheostomy. Feeding tube present. Abdomen X-Ray 05/06/18 0000 Signed Impressions: CONCLUSION: Feeding tube tip in proximal duodenum. Head CT 05/04/18 0000 Signed Impressions: CONCLUSION: 1. Evolving traumatic brain injury with resolving hemorrhages. 2. Persistent edema in left frontal and temporal lobe contusions. 3. No significant shift of midline structures. 4. Hairline fracture along the base of the skull in the right temporal region. 5. No evidence of new hemorrhage or acute infarct. Chest CT 05/04/18 0000 Signed Impressions: CONCLUSION: 1. Increasing bilateral pleural effusions with a moderate to large effusion on the right. 2. Total consolidation of both lower lobes. 3. No other significant change. Cervical Spine CT 04/26/18 1251 Signed Impressions: CONCLUSION: Degenerative spondylosis with neural foraminal compromise right C5 -6 without any significant thecal sac stenosis. Abdomen/Pelvis CT 04/26/18 1251 Signed Impressions: CONCLUSION: 1. Laceration involving the mid to lower pole of the right kidney with a small amount of perirenal blood but no active hemorrhage observed. 2. 2.4 cm solid mass involving the right mid pole kidney worrisome for renal c ell carcinoma. Laboratory Test 05/06/18 03:44 05/06/18 05:45 Blood Gas Puncture Site FEM Blood Gas Patient Temperature 98.6 Blood Gas HCO3 30 mmol/L Blood Gas Base Excess 6.5 mmol/L Blood Gas Oxygen Saturation 96 % Arterial Blood pH 7.47 Arterial Blood Partial Pressure CO2 42 mmHg Arterial Blood Partial Pressure O2 109 mmHg Arterial Blood Oxygen Content 14.6 Vol % Arterial Blood Carboxyhemoglobin 1.4 % Arterial Blood Methemoglobin 1.1 % Blood Gas Hemoglobin 10.7 G/DL Oxygen Delivery Device VENTILATOR Blood Gas Ventilator Setting PRVC/AC Blood Gas Inspired Oxygen 40 % White Blood Count 12.4 TH/MM3 Red Blood Count 3.23 MIL/MM3 Hemoglobin 10.1 GM/DL Hematocrit 29.8 % Mean Corpuscular Volume 92.3 FL Mean Corpuscular Hemoglobin 31.3 PG Mean Corpuscular Hemoglobin Concent 33.9 % Red Cell Distribution Width 13.6 % Platelet Count 260 TH/MM3 Mean Platelet Volume 8.9 FL Neutrophils (%) (Auto) 84.5 % Lymphocytes (%) (Auto) 4.8 % Monocytes (%) (Auto) 6.4 % Eosinophils (%) (Auto) 3.6 % Basophils (%) (Auto) 0.7 % Neutrophils # (Auto) 10.5 TH/MM3 Lymphocytes # (Auto) 0.6 TH/MM3 Monocytes # (Auto) 0.8 TH/MM3 Eosinophils # (Auto) 0.4 TH/MM3 Basophils # (Auto) 0.1 TH/MM3 CBC Comment DIFF FINAL Differential Comment Blood Urea Nitrogen 30 MG/DL Creatinine 0.68 MG/DL Random Glucose 108 MG/DL Total Protein 5.5 GM/DL Albumin 1.6 GM/DL Calcium Level 8.2 MG/DL Alkaline Phosphatase 112 U/L Aspartate Amino Transf (AST/SGOT) 45 U/L Alanine Aminotransferase (ALT/SGPT) 75 U/L Total Bilirubin 0.6 MG/DL Sodium Level 153 MEQ/L Potassium Level 3.8 MEQ/L Chloride Level 115 MEQ/L Carbon Dioxide Level 27.7 MEQ/L Anion Gap 10 MEQ/L Estimat Glomerular Filtration Rate 115 ML/MIN Date/Time Source Procedure Growth Status 05/03/18 13:27 Blood Peripheral Aerobic Blood Culture - Preliminary NO GROWTH IN 3 DAYS Resulted 05/03/18 13:27 Blood Peripheral Anaerobic Blood Culture - Preliminary NO GROWTH IN 3 DAYS Resulted 05/03/18 13:20 Sputum Endotracheal Gram Stain - Final Complete 05/03/18 13:20 Sputum Endotracheal Sputum Culture - Final HEAVY GROWTH NORMAL RESPIRATORY ADITYA Complete 05/03/18 13:00 Urine Catheterized Urine Urine Culture - Final NO GROWTH IN 48 HOURS. Complete Physical Examination HEENT: Traumatic fall with traumatic brain injury NECK: Tracheotomy intact CHEST: Ventilator management with respirations synced with vent. CARDIAC: Regular rate and rhythm, rate 83 ABDOMEN: Round, soft, nondistended, bowel sounds are present in all four quadrants., Clamped Dobbhoff feeding tube. EXTREMITIES: Mild generalized extremity edema SKIn; few small healing abrasions no rash; no jaundice. 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 Patient is currently managed in the intensive care setting with tracheotomy and ventilator management. Unknown history of any GI issues. Heart rate is stable sinus rhythm 83, abdomen is round soft, nondistended. There is no current family present. Gastroenterology has been consulted for gastric PEG tube placement. Current hemoglobin 10.1, INR 1, W BC count 12.4, normal bilirubin with AST 45 mildly decreased and ALT 75. Patient currently has clamped Dobbhoff. Plan Consent for percutaneous endoscopic gastrotomy tube placement, PEG, 05/08/2018 N.p.o. at midnight night before procedure, 05/08/2018 Monitor labs with special attention to hemoglobin and INR which are now stable Nutritional consult for feedings Hold Lovenox a.m. of preprocedure PPI Bowel regimen Supportive care Patient was seen per myself and Dr. Perez, this note was written on his behalf (Cassie Corbin) Physician Comments Seen and examined, plan as above. Consent for PEG placement Tuesday. Thank you for the consult. (Ping Perez MD) Cassie Corbin May 06, 2018 17:24 Ping Perez MD May 07, 2018 10:14
[2018-05-07] VITALS (17 sets, daily range): BP systolic 154–179; BP diastolic 54–78; PULSE 62–89; RESP 16–22; TEMP 100.4–101.8; O2SAT 93–100
[2018-05-07] MEDS: fentaNYL 2,500 MCG/NS 250 ML IV PRN (03:12)
[2018-05-07] MEDS: METOPROLOL TARTRATE 5 MG/5 ML VIAL IV PUSH SCH ×4 (03:12→21:00)
[2018-05-07] MEDS: hydrALAZINE HCL 25 MG TAB NG SCH ×4 (04:20→22:00)
[2018-05-07 05:33] LABS: AUTOMATED NEUTROPHIL # 12.3 TH/MM3 (1.8-7.7); BASOPHIL # 0.1 TH/MM3 (0-0.2); BASOPHIL % 0.6 % (0.0-2.0); EOSINOPHIL % 0.3 % (0.0-4.0); HEMATOCRIT 28.5 % (39.0-51.0); HEMOGLOBIN 9.5 GM/DL (13.0-17.0); LYMPH % 4.8 % (9.0-44.0); LYMPHOCYTE # 0.7 TH/MM3 (1.0-4.8); MEAN CELL VOLUME 91.7 FL (80.0-100.0); MEAN CORPUSCULAR HEMOGLOBIN 30.4 PG (27.0-34.0); MEAN CORPUSCULAR HGB CONC 33.2 % (32.0-36.0); MEAN PLATELET VOLUME 8.6 FL (7.0-11.0); MONO % 5.5 % (0.0-8.0); MONOCYTE # 0.8 TH/MM3 (0-0.9); NEUT % 88.8 % (16.0-70.0); PLATELET COUNT 273 TH/MM3 (150-450); RED BLOOD COUNT 3.11 MIL/MM3 (4.50-5.90); RED CELL DISTRIBUTION WIDTH 13.3 % (11.6-17.2); WHITE BLOOD COUNT 13.9 TH/MM3 (4.0-11.0)
--- NOTE | 2018-05-07 05:36 | RADRPT ---
EXAM DATE: 05/07/2018 5:24 AM EDT AGE/SEX: 72 years / Male INDICATIONS: Respiratory disease. Pleural effusions. CLINICAL DATA: This is the patient's subsequent encounter. Patient reports that signs and symptoms h ave been present for 1 week and indicates a pain score of Nonresponsive. MEDICAL/SURGICAL HISTORY: Non-responsive. Non-responsive. COMPARISON: [facility] – [place], CHEST SINGLE AP, 05/06/2018. . FINDINGS: A single AP view of the chest demonstrates bilateral airspace disease. Tracheostomy tube and nasogast jose miguel tube unchanged. Heart mildly enlarged. Osseous structures are intact. CONCLUSION: Bilateral airspace disease Electronically signed by: Eusebio Huerta MD 05/07/2018 5:34 AM EDT
[2018-05-07 05:59] LABS: ALBUMIN 1.6 GM/DL (3.4-5.0); AST (GOT) 42 U/L (15-37); BLOOD UREA NITROGEN 28 MG/DL (7-18); CHLORIDE 117 MEQ/L (98-107); CREATININE 0.77 MG/DL (0.60-1.30); GLOMERULAR FILTRATION RATE 99 ML/MIN (>89); GLUCOSE,RANDOM 106 MG/DL (74-106); MAGNESIUM 2.7 MG/DL (1.5-2.5); SODIUM (NA) 153 MEQ/L (136-145)
[2018-05-07 06:00] LABS: ALT (GPT) 68 U/L (12-78)
[2018-05-07 06:02] LABS: ALKALINE PHOSPHATASE 115 U/L (45-117); TOTAL BILIRUBIN ADULT 0.9 MG/DL (0.2-1.0); TOTAL PROTEIN 5.6 GM/DL (6.4-8.2)
[2018-05-07 07:07] LABS: BANDS 13 % (0-6); LYMPHOCYTES 1 % (9-44); METAMYELOCYTES 1 % (0-1); MONOCYTES 3 % (0-8); NEUTROPHIL # MANUAL DIFF 13.3 TH/MM3 (1.8-7.7); POLYS (SEG NEUTROPHILS) 82 % (16-70)
[2018-05-07] MEDS: CHLORHEXIDINE 0.12% (ORAL KIT) 15 ML CUP MT SCH ×2 (08:00→20:00)
--- NOTE | 2018-05-07 08:14 | HHI.NSPN ---
(Eusebio Massey) History Chief Complaint: Unable to assess due to clinical condition. (Eusebio Massey) Interval History This 72-year-old gentleman was brought in as priority 1 trauma alert after falling about 12-15 feet out of a tree. Apparently the ladder fell sideways. No seizure activity. No tonguebitting. No incontinence of stool or urine. The patient fell on a concrete walkway, right side down. According to witnesses, he was completely unconscious and on the arrival, the paramedics' [place] Coma Scale was 3, which improved after resuscitation to about 8. The patient brought with a spinal board with C-collar in place, moaning and groaning. CT showed traumatic SAHand a small SDH. Neurosurgery consultation was requested 04/27: patient seen this morning during rounds, mildly sedated, intubated, but seen to be moving purposefully, no opening eyes or following commands. 04/28: seen this am during rounds, ICPs controlled overnight, intubated and currently well sedated. f/u CT Brain this morning completed, improved SDH, with evolving contusion. 05/01: intubated, sedated reported to move spontaneously when sedation lowered but not following command. ICPs controlled. 05/02: intubated, mildly sedated, minimally opens eyes, moves extremities, but not following commands. planned bronchoscopy today with trauma. 05/03: remains intubated, sedated. no changes neurologically. 05/04: remains intubated, sedated requiring for blood pressure control. for follow up CT Brain. 05/05: follow up CT Brain shows stable contusions, stable edema without significant midline shift, no new hemorrhage. for tracheostomy today. 05/06: Pt sedated on Diprivan and Fentanyl drips. Intubated. Pupils 3mm bilaterally reactive bilaterally. Not following commands for me. 05/07: Patient opens eyes to voice. He localizes with the left upper extremity to pain in the upper chest. He appears weaker in the right upper extremity. He is sedated on fentanyl. Trach is in place. (Eusebio Massey) System Review Comments Not able to obtain given clinical condition. (Eusebio Massey) Exam Results Vital Signs Date Time Temp Pulse Resp B/P (MAP) Pulse Ox O2 Delivery O2 Flow Rate FiO2 05/07/18 07:50 35 05/07/18 07:50 97 05/07/18 06:00 83 05/07/18 04:00 100.4 16 154/54 (87) 05/06/18 19:00 Mechanical Ventilator 05/04/18 07:00 4.00 Intake and Output 05/07/18 05/07/18 05/08/18 08:00 16:00 00:00 Output Total 750 ml Balance -750 ml (Eusebio Massey) Physical Examination General: Pt intubated and sedated in the ICU in [facility]. Eyes: Pupils 3mm bilaterally reactive bilaterally. Resp: Intubated. PRVC A/C rate 16 Peep 8. FiO2 35%. CTA bilaterally. Heart: NSR no murmurs Abd: Soft positive bs Skin: No cyanosis or erythema. SCDs in place. Muscle: Not following commands for muscle testing. He localizes with the left upper extremity to pain and appears weaker in the right upper extremity to pain in the upper chest. He withdraws his lower extremities to pain. Neuro: Open eyes to voice. Pupils 3mm bilaterally reactive bilaterally. Sedated on Fentanyl drip. Not following commands. Localizes with the left upper extremity to pain. He appears weak in the right upper extremity. He withdraws his lower extremities to pain. (Eusebio Massey) Lab, Micro, Other Results Last Impressions Chest X-Ray 05/07/18 0600 Signed Impressions: CONCLUSION: Bilateral airspace disease Abdomen X-Ray 05/06/18 0000 Signed Impressions: CONCLUSION: Feeding tube tip in proximal duodenum. Head CT 05/04/18 0000 Signed Impressions: CONCLUSION: 1. Evolving traumatic brain injury with resolving hemorrhages. 2. Persistent edema in left frontal and temporal lobe contusions. 3. No significant shift of midline structures. 4. Hairline fracture along the base of the skull in the right temporal region. 5. No evidence of new hemorrhage or acute infarct. Chest CT 05/04/18 0000 Signed Impressions: CONCLUSION: 1. Increasing bilateral pleural effusions with a moderate to large effusion on the right. 2. Total consolidation of both lower lobes. 3. No other significant change. Cervical Spine CT 04/26/18 1251 Signed Impressions: CONCLUSION: Degenerative spondylosis with neural foraminal compromise right C5 -6 without any significant thecal sac stenosis. Abdomen/Pelvis CT 04/26/18 1251 Signed Impressions: CONCLUSION: 1. Laceration involving the mid to lower pole of the right kidney with a small amount of perirenal blood but no active hemorrhage observed. 2. 2.4 cm solid mass involving the right mid pole kidney worrisome for renal c ell carcinoma. Laboratory Tests Test 05/07/18 04:11 05/07/18 05:15 Blood Gas Puncture Site ART LINE Blood Gas Patient Temperature 98.6 Blood Gas HCO3 25 mmol/L Blood Gas Base Excess 1.7 mmol/L Blood Gas Oxygen Saturation 97 % Arterial Blood pH 7.45 Arterial Blood Partial Pressure CO2 37 mmHg Arterial Blood Partial Pressure O2 130 mmHg Arterial Blood Oxygen Content 15.5 Vol % Arterial Blood Carboxyhemoglobin 1.4 % Arterial Blood Methemoglobin 1.1 % Blood Gas Hemoglobin 11.3 G/DL Oxygen Delivery Device VENTILATOR Blood Gas Ventilator Setting SEE COMMENTS Blood Gas Inspired Oxygen 35 % White Blood Count 13.9 TH/MM3 Red Blood Count 3.11 MIL/MM3 Hemoglobin 9.5 GM/DL Hematocrit 28.5 % Mean Corpuscular Volume 91.7 FL Mean Corpuscular Hemoglobin 30.4 PG Mean Corpuscular Hemoglobin Concent 33.2 % Red Cell Distribution Width 13.3 % Platelet Count 273 TH/MM3 Mean Platelet Volume 8.6 FL Neutrophils (%) (Auto) 88.8 % Lymphocytes (%) (Auto) 4.8 % Monocytes (%) (Auto) 5.5 % Eosinophils (%) (Auto) 0.3 % Basophils (%) (Auto) 0.6 % Neutrophils # (Auto) 12.3 TH/MM3 Lymphocytes # (Auto) 0.7 TH/MM3 Monocytes # (Auto) 0.8 TH/MM3 Eosinophils # (Auto) 0.0 TH/MM3 Basophils # (Auto) 0.1 TH/MM3 CBC Comment AUTO DIFF Differential Total Cells Counted 100 Neutrophils % (Manual) 82 % Band Neutrophils % 13 % Lymphocytes % 1 % Monocytes % 3 % Neutrophils # (Manual) 13.3 TH/MM3 Metamyelocytes 1 % Differential Comment FINAL DIFF MANUAL Platelet Estimate NORMAL Platelet Morphology Comment NORMAL Blood Urea Nitrogen 28 MG/DL Creatinine 0.77 MG/DL Random Glucose 106 MG/DL Total Protein 5.6 GM/DL Albumin 1.6 GM/DL Calcium Level 8.0 MG/DL Magnesium Level 2.7 MG/DL Alkaline Phosphatase 115 U/L Aspartate Amino Transf (AST/SGOT) 42 U/L Alanine Aminotransferase (ALT/SGPT) 68 U/L Total Bilirubin 0.9 MG/DL Sodium Level 153 MEQ/L Potassium Level 3.7 MEQ/L Chloride Level 117 MEQ/L Carbon Dioxide Level 28.0 MEQ/L Anion Gap 8 MEQ/L Estimat Glomerular Filtration Rate 99 ML/MIN (Eusebio Massey) Medical Decision Making Impression and Plan A: 72 year old male trauma alert, fall off ladder onto cement TBI, left traumatic subarachnoid, subdural hemorrhage, s/p placement of ICP monitor 04/26/18, stable ICPs, ICP monitor removed 05/01/[address] 05/04/18 Impressions: CONCLUSION: 1. Evolving traumatic brain injury with resolving hemorrhages. 2. Persistent edema in left frontal and temporal lobe contusions. 3. No significant shift of midline structures. 4. Hairline fracture along the base of the skull in the right temporal region. 5. No evidence of new hemorrhage or acute infarct. Plan Plan Plan Remarks Continue to monitor neuro exam cont critical care per trauma team, cont sedation weaning as tolerated (Eusebio Massey) Attending Statement The exam, history, and the medical decision-making described in the above note were completed with the assistance of the mid-level provider. I reviewed and agree with the findings presented. I attest that I had a [id number] encounter with the patient on the same day, and personally performed and documented my assessment and findings in the medical record. (Kleber Ruiz MD) Eusebio Massey May 07, 2018 08:14 Kleber Ruiz MD May 07, 2018 12:00
[2018-05-07] MEDS: SODIUM CHLORIDE 0.9% FLUSH 10 ML FLUSH IV FLUSH SCH ×2 (09:00→21:00)
[2018-05-07] MEDS: ARTIFICIAL TEARS OPTH OINT 3.5 APPLIC/3.5 GM TUBO EACH EYE SCH ×2 (09:00→21:00)
[2018-05-07] MEDS: MAGNESIUM HYDROXIDE SUSP 30 ML CUP PO SCH ×2 (09:25→20:27)
[2018-05-07] MEDS: LISINOPRIL 10 MG TAB PO SCH ×2 (09:25→21:00)
[2018-05-07] MEDS: LACTULOSE SYRUP 20 GM/30 ML CUP PO SCH (09:25)
[2018-05-07] MEDS: DOCUSATE SODIUM 50 MG/SENNA 8.6 MG TAB PO SCH ×2 (09:25→21:00)
[2018-05-07] MEDS ORDERED: REMOVE OLD CATAPRES (CLONIDINE) PATCH T-DERMAL SCH (11:00)
[2018-05-07] MEDS: ENOXAPARIN SODIUM 40 MG/0.4 ML SYRINGE SQ SCH (11:00)
[2018-05-07] MEDS: ACETAMINOPHEN 1000 MG/100 ML 100 ML IV PRN ×2 (11:37→19:00)
--- NOTE | 2018-05-07 11:51 | HHI.CCPN ---
Subjective Brief History This 72-year-old gentleman was brought in as priority 1 trauma alert after falling about 12-15 feet out of a tree as the ladder went flying sideways. The patient fell on a concrete walkway, right side down. According to witnesses, he was completely unconscious and on the arrival, the paramedics' [place] Coma Scale was 3-4, which improved on the way to about 8 or 9. The patient brought with a spinal board with C-collar in place, moaning and groaning and complained but pain in the right chest. Patient was resuscitated according trauma principles and placed in ICU for further care Final injuries Traumatic brain injury with mainly left frontal temporoparietal subarachnoid and subdural bleed and some superficial contusions of the brain Right chest contusion with a small hemothorax and serial rib fractures of 5th, 6th, 7th, 8th ribs, Transverse process fractures of several vertebrae, Laceration of the right kidney with a hematoma and a small mass of the right kidney 24 Hour Review/Hospital Course 04/27/2018 Patient remains intubated and ventilated Neuroprotective measures including propofol and fentanyl Keppra 2% hypertonic saline at 30 cc/h ICP remains 4-12 mmHg Hemodynamically patient stable Bilateral good breath sounds on decreasing levels of ventilatory support with good PO2 FiO2 gradient 04/28/2018 No change in neurologic status On sedation vacation patient moves all 4 extremities opens eyes but does not follow commands and does not track making [place] Coma Scale about 6 or 7 This is fairly significant brain injury and will take a while to resolve ICP remains low and from my point ICP monitor can be removed CPP within the parameters of autoregulation Remains on neuroprotective measures including propofol fentanyl Keppra Decrease 2% saline to about 20 cc an hour at this point Hemodynamically patient stable Bilateral breath sounds remains on assist control ventilation and pulmonary status and PO2 FiO2 gradient will allow for extubation but of course patient's neurologic status does not allow for the same Patient will not need tracheostomy and I believe he will recover in next few days sufficiently and regaining consciousness to extubate safely Abdomen soft enteral feeds tolerated Renal function normal 04/29/2018 No change in neurologic status Patient remains stable on propofol fentanyl Keppra ICP remains within physiologic range and ICP monitor may be removed as per neurosurgery Hemodynamically remains stable however hemoglobin dropped to 7.8 g/dL as a result of hemodilution and obviously decreased production We will transfuse 2 units PRBC faced with age and neurologic injury Bilateral good breath sounds good PO2 FiO2 gradient Abdomen soft enteral feeds tolerated Plan Once okay with neurosurgery will wake up the patient and start weaning down the sedation probably tomorrow or Tuesday Transfuse 2 units PRBC Continue care 04/30/2018 No change in current status Patient remains on neuroprotective measures with decreasing levels of propofol and fentanyl On sedation vacation moves purposefully does not open eyes yet Will need another few days before sufficiently improved to wean and extubate ICP remains 5-12 mmHg Hemodynamically patient stable if not somewhat hypertensive which is being addressed Bilateral breath sounds and bilateral pleural effusions with atelectasis as a result probably of her original event and retention of secretions I am concerned about patient's pulmonary function and he might need bronchoscopy early next week Renal function preserved Patient about 12 L positive since the arrival will diurese gently to take of the third space now that systemic inflammatory response is abating 05/01/2018 Neurologically patient is unchanged if not somewhat better With decrease of sedation and sedation vacation patient is waking up moving all 4 extremities however does not open eyes or follow commands This is very early in the course and I believe patient will eventually improve neurologically Hemodynamically stable somewhat hypertensive and medications adjusted for the same Added nicardipine drip for management of recalcitrant hypertension Bilateral breath sounds remains on assist control ventilation will start on CPAP trials daily Abdomen soft enteral feeds tolerated I am not sure this patient will require tracheostomy but I believe he will come off the ventilator without one 05/02/2018 Patient neurologically slightly improving On sedation vacation moves all 4 extremities does not follow commands Bilateral good breath sounds on assist control ventilation and will start on CPAP trials Patient does have significant secretions and atelectasis mainly right lower lobe Underwent successful bronchoscopy today Abdomen soft enteral feeds tolerated Again as noted previously patient might or might not require tracheostomy and will see how he does in next few days neurologically which will be the base of placing one or not 05/03/2018 Neurologic status unchanged On sedation vacation patient moves all 4 extremities but does not follow commands and is very restless ICP monitor has been removed due to low ICP pressures throughout At this point the patient remains on small dose propofol and fentanyl in face of his injuries however he is not ready to come off the respirator due to the low GCS Hemodynamically patient is stable however hypertensive Catapres patch Lisinopril Hydralazine Beta-blockers could not be used due to patient's development of bradycardia. Patient was placed on nicardipine drip however at this point we going to stop this due to large fluid load associated with the same Abdomen soft enteral feeds tolerated Renal function is preserved patient is now fluid overloaded in anasarca with bilateral pleural effusions right more than left We will try outpatient somewhat and see how he does but he may need right chest drained to evacuate hydrothorax 05/04/2018 Neurologically patient is unchanged Slightly decrease of propofol to 35 mcg and remains on fentanyl No change in neurologic status Based on low [place] Coma Scale patient will require tracheostomy Hemodynamically stable however hypertensive and now controlled with several medications as above noted Nicardipine has been removed due to huge volume load and general edema this has provoked Renal function well-preserved patient now diuresing very well and is back to his weight Tolerates enteral feeds well Plan Tracheostomy tomorrow and then weaned to liberate from the ventilator Gradually decrease sedation as the blood pressure and patient's general condition tolerates Will require neuro rehab placement 05/05/2018 Neurologically patient is unchanged Remains on small dose fentanyl and 35 mcg of propofol. Due to blood pressure issues patient was more sedated last night On sedation vacation patient moves all extremities but does not open eyes and does not track or follow any commands Withdraws to pain With this low level of consciousness and low [place] Coma Scale, patient clearly cannot be brought to extubation because he will be unable to protect his upper airway Tracheostomy today Hemodynamically stable 05/06/2018 No change in neurologic status Propofol has been completely removed and patient at this point is moving and withdrawing to pain but that is about it Does not open eyes trach or spontaneously performing the actions We will keep on small dose fentanyl and switch to Roxicodone p.o. Bilateral breath sounds on assist control ventilatory mode with excellent PO2 FiO2 gradient Successful tracheostomy today In face of tracheostomy will start weaning patient off the ventilator and I believe be from the ventilator next 24-48 hours Abdomen soft enteral feeds tolerated Dobbhoff placed and will consult GI for PEG This gentleman will require long-term neuro rehabilitative care and based on his age outcome may be quite limited as far as cognitive or motoric recovery is concerned I discussed this with family several times 05/07/2018 Patient doing well He is off all sedation however there is only response to pain and patient is not opening eyes for me or following any commands Status post tracheostomy at this point on CPAP will switch to T-piece and if tolerated will liberated from the ventilator Bilateral good breath sounds small right pleural effusion but in face of good respiratory function I will leave it alone Abdomen soft enteral feeds tolerated and PEG tube either today or tomorrow Patient can be transferred to rehab/LTAC any time Objective Vital Signs Date Time Temp Pulse Resp B/P (MAP) Pulse Ox O2 Delivery O2 Flow Rate FiO2 05/07/18 11:20 97 T-piece 8.00 40 05/07/18 06:00 83 05/07/18 04:00 100.4 16 154/54 (87) Intake and Output 05/07/18 05/07/18 05/08/18 08:00 16:00 00:00 Output Total 750 ml Balance -750 ml Result Diagram: 05/07/18 0515 05/07/18 0515 Other Results Laboratory Tests Test 05/07/18 04:11 Blood Gas Puncture Site ART LINE Blood Gas Patient Temperature 98.6 Blood Gas HCO3 25 mmol/L (22-26) Blood Gas Base Excess 1.7 mmol/L (-2-2) Blood Gas Oxygen Saturation 97 % (90-100) Arterial Blood pH 7.45 (7.380-7.420) Arterial Blood Partial Pressure CO2 37 mmHg (38-42) Arterial Blood Partial Pressure O2 130 mmHg (61-120) Arterial Blood Oxygen Content 15.5 Vol % (12.0-20.0) Arterial Blood Carboxyhemoglobin 1.4 % (0-4) Arterial Blood Methemoglobin 1.1 % (0-2) Blood Gas Hemoglobin 11.3 G/DL (12.0-16.0) Oxygen Delivery Device VENTILATOR Blood Gas Ventilator Setting SEE COMMENTS Blood Gas Inspired Oxygen 35 % Imaging Last 24 hours Impressions Chest X-Ray 05/07/18 0600 Signed Impressions: CONCLUSION: Bilateral airspace disease Chest X-Ray 05/06/18 1230 Signed Impressions: CONCLUSION: Placement of tracheostomy. Feeding tube present. Georgia Bustillo MD May 07, 2018 11:51
[2018-05-07] MEDS: PANTOPRAZOLE SODIUM 40 MG VIAL IV PUSH SCH (12:52)
[2018-05-07] MEDS: fentaNYL 25 MCG/HR PATCH T-DERMAL SCH (12:52)
[2018-05-08] VITALS (18 sets, daily range): BP systolic 109–182; BP diastolic 61–86; PULSE 64–176; RESP 21–28; TEMP 100.2–101.3; O2SAT 94–100
[2018-05-08] MEDS: METOPROLOL TARTRATE 5 MG/5 ML VIAL IV PUSH SCH ×4 (02:04→21:46)
--- NOTE | 2018-05-08 04:04 | RADRPT ---
EXAM DATE: 05/08/2018 3:44 AM EDT AGE/SEX: 72 years / Male INDICATIONS: Respiratory failure. CLINICAL DATA: This is the patient's subsequent encounter. Patient reports that signs and symptoms h ave been present for 2 weeks and indicates a pain score of Nonresponsive. MEDICAL/SURGICAL HISTORY: Non-responsive. Non-responsive. COMPARISON: [facility] [place], CHEST SINGLE AP, 05/07/2018. . FINDINGS: The tracheostomy tube, feeding tube remain stable in position. Patchy infiltrate left perihilar regio n is unchanged.. Density right lung base suggestive of pleural effusion. No visible pneumothorax CONCLUSION: Stable appearance the chest Electronically signed by: Arcadio Trejo MD 05/08/2018 4:03 AM EDT
[2018-05-08] MEDS: hydrALAZINE HCL 25 MG TAB NG SCH ×3 (05:04→17:09)
[2018-05-08 05:21] LABS: AUTOMATED NEUTROPHIL # 17.8 TH/MM3 (1.8-7.7); BASOPHIL # 0.1 TH/MM3 (0-0.2); BASOPHIL % 0.4 % (0.0-2.0); HEMATOCRIT 30.7 % (39.0-51.0); HEMOGLOBIN 10.1 GM/DL (13.0-17.0); LYMPH % 3.3 % (9.0-44.0); LYMPHOCYTE # 0.6 TH/MM3 (1.0-4.8); MEAN CELL VOLUME 92.2 FL (80.0-100.0); MEAN CORPUSCULAR HEMOGLOBIN 30.4 PG (27.0-34.0); MEAN PLATELET VOLUME 8.6 FL (7.0-11.0); MONO % 5.9 % (0.0-8.0); MONOCYTE # 1.2 TH/MM3 (0-0.9); NEUT % 90.4 % (16.0-70.0); PLATELET COUNT 364 TH/MM3 (150-450); RED BLOOD COUNT 3.33 MIL/MM3 (4.50-5.90); RED CELL DISTRIBUTION WIDTH 13.7 % (11.6-17.2); WHITE BLOOD COUNT 19.7 TH/MM3 (4.0-11.0)
[2018-05-08 05:48] LABS: ALBUMIN 1.7 GM/DL (3.4-5.0); AST (GOT) 82 U/L (15-37); BICARBONATE 27.6 MEQ/L (21.0-32.0); BLOOD UREA NITROGEN 30 MG/DL (7-18); CALCIUM 8.1 MG/DL (8.5-10.1); CHLORIDE 117 MEQ/L (98-107); CREATININE 0.79 MG/DL (0.60-1.30); GLOMERULAR FILTRATION RATE 96 ML/MIN (>89); GLUCOSE,RANDOM 119 MG/DL (74-106); MAGNESIUM 2.6 MG/DL (1.5-2.5); SODIUM (NA) 153 MEQ/L (136-145)
[2018-05-08 05:52] LABS: ALKALINE PHOSPHATASE 180 U/L (45-117); ALT (GPT) 115 U/L (12-78); TOTAL BILIRUBIN ADULT 1.2 MG/DL (0.2-1.0); TOTAL PROTEIN 6.1 GM/DL (6.4-8.2)
[2018-05-08 07:04] LABS: BANDS 7 % (0-6); LYMPHOCYTES 2 % (9-44); METAMYELOCYTES 1 % (0-1); MONOCYTES 7 % (0-8); NEUTROPHIL # MANUAL DIFF 17.9 TH/MM3 (1.8-7.7); POLYS (SEG NEUTROPHILS) 83 % (16-70)
--- NOTE | 2018-05-08 08:03 | HHI.PR ---
Neuropsych Emotional Emotional: UnabletoAssess: Emotional, Anxious/Fearful, Depressed/Sad, Hostile/ Resentful, Irritable/Angry/Frustrate, Labile, Constricted/Blunted Behavior Behavior: Intact: Impulsive/Agitated, Unable to Asses: Behavior, Coping/ Acceptance, Cooperative w/ Treatment, Motivation, Frustration Tolerance/[place], Suicidal/Homicidal Risk Cognitive Cognitive: Unable to Asses: Cognitive, Attention/Concentration, Confused/ Orientation, Insight/Awareness, Judgement/Problem-Solving, Memory Psychosocial Psychosocial: Intact: Psychosocial, Family/Other Adjustment, Realistic Expectation, Unable to Asses: Self-Esteem/Confidence Progress Notes/Response to Tx Contents of Sessions: Adjustment, Level of Consciousness Time with Patient: 30 minutes Premorbid psychological status Premorbid Cognitive, Emotional and Behavioral Status: Stable. The patient has college years of education and a solid work history prior to this injury. The patient has no prior psychiatric difficulties, as described above. Substance abuse history is unknown. Behavioral Reactions of Patient and Family/Support System: Stable. The patient s family is experiencing ongoing issues of adjustment given the nature of the injury, and this aspect of recovery will require ongoing monitoring. Emotional/Behavioral Status of Patient and Family/Support System: Stable. Pertinent issues, if appropriate to this patients clinical care, are described in detail above. Maximizing acute care outcome It is recommended that the patient be monitored for emergent behavioral impulsivity as the medical condition evolves. This patients neuropathological challenges may limit his rehabilitation potential going forward, and these challenges will require specialized therapeutic skills to maximize outcome. Additionally, the patients family is experiencing ongoing issues of adjustment given the traumatic nature of the injury, and they may benefit from ongoing psychological assistance. At this point in the recovery process, the patient does not have cognitive capacity as the patient is unable to understand a situation and its likely consequences, nor is he able to manipulate information rationally. Cognitive capacity will be assessed throughout the recovery process. Anticipated Problems Ongoing areas of concern will include behavioral impulsivity, lack of insight and judgment, which is expected to improve with time and treatment. Presently , the patient is critically ill. Given the severity of the patient's injuries it is my clinical opinion that this patient will be unable to return to any type of productive employment for at least one year, perhaps longer and likely never. This patient is not considered safe to discharge home without supervision at this time. Treatment Plan This clinician will continue to follow with you throughout the course of this patients critical care treatment, and I will be available to meet with the patients family/support system to facilitate their understanding and the ongoing care of their family member. The goals of neuropsychological intervention shall be both educational and supportive to the family/support system as is deemed clinically appropriate. [place] Level: II:General response-total assist Impression 72 year old male s/p TBI 2T fall on 04/26/2018. Diagnosis: (1) Major neurocognitive disorder as late effect of traumatic brain injury without behavioral disturbance Progress Note Narrative PTD 12. The patient is off sedation, and only has pain response, not following and not awake. He is solid [place]. He is ready for transfer to LTAC. Consider starting Amantadine 100 BID, unless medically contraindicated. I will follow. Germán Arriaga PhD May 08, 2018 8:03 am
[2018-05-08] MEDS ORDERED: PERI PO (08:59)
[2018-05-08] MEDS ORDERED: MAGN30S PO (08:59)
[2018-05-08] MEDS: DOCUSATE SODIUM 50 MG/SENNA 8.6 MG TAB PO SCH ×2 (09:00→21:47)
[2018-05-08] MEDS: LACTULOSE SYRUP 20 GM/30 ML CUP PO SCH (09:00)
[2018-05-08] MEDS: MAGNESIUM HYDROXIDE SUSP 30 ML CUP PO SCH ×2 (09:00→21:48)
[2018-05-08] MEDS: LISINOPRIL 10 MG TAB PO SCH ×2 (09:00→21:47)
[2018-05-08] MEDS ORDERED: Vancomycin Consult Pharmacy 1 EA OTHER SCH (09:45)
[2018-05-08] MEDS ORDERED: VANCOMYCIN INJ 1,000 MG in SODIUM CHLOR 0.9% 250 ML INJ 250 ML IV SCH (10:00)
[2018-05-08] MEDS: VANCOMYCIN INJ 1,250 MG in SODIUM CHLOR 0.9% 250 ML INJ 250 ML IV SCH (10:52)
[2018-05-08] MEDS ORDERED: PIPERACIL-TAZO 3.375 GM PREMIX 50 ML IV SCH (11:00)
[2018-05-08] MEDS ORDERED: PROPOFOL 200 MG/20 ML AMP IV ONE (12:00)
[2018-05-08] MEDS ORDERED: SODIUM CHLORIDE 0.9% 10 ML VIAL IV ONE (12:00)
[2018-05-08] MEDS ORDERED: PHENYLEPH/NS 1000 MCG/10 ML SYR IV ONE (12:00)
--- NOTE | 2018-05-08 12:23 | MR ---
cc: Ja Singleton MD, Slobodan MD [place], DATE: 05/08/2018 INDICATIONS FOR PROCEDURE: Dysphagia. PROCEDURE PERFORMED: Esophagogastroduodenoscopy with PEG tube placement. DESCRIPTION OF PROCEDURE: After informed consent obtained from the family, Mr. Hernandez was placed in the supine position. He was previously on the ventilator. He received appropriate preprocedure antibiotics. Upper endoscope was advanced in the mouth into the stomach and then into the duodenum. A previously placed Dobbhoff tube seen in place in the duodenum, this was removed. Some gastritis on the antrum. Under direct vision, a 20-Portuguese gastrostomy tube was placed in the body of the stomach with pull-through technique. Position verified endoscopically. The patient appeared to tolerate the procedure well and there were no apparent, immediate complications. IMPRESSION: Successful percutaneous endoscopic gastrostomy tube placement. RECOMMENDATIONS: Please follow post PEG protocol and post PEG orders. Ja Singleton MD HZ/TL , 12:00 PM , 12:22 PM
[2018-05-08] MEDS: AMANTADINE HCL SOLN 100 MG/10 ML UDC PO SCH (12:37)
[2018-05-08] MEDS: SODIUM CHLORIDE 0.9% FLUSH 10 ML FLUSH IV FLUSH SCH ×2 (12:38→21:00)
[2018-05-08] MEDS: CHLORHEXIDINE 0.12% (ORAL KIT) 15 ML CUP MT SCH ×2 (12:39→20:00)
[2018-05-08] MEDS: ARTIFICIAL TEARS OPTH OINT 3.5 APPLIC/3.5 GM TUBO EACH EYE SCH ×2 (12:39→21:00)
--- NOTE | 2018-05-08 13:35 | HHI.NSPN ---
Note Status Status: Progress Note Interval History Interval History This 72-year-old gentleman was brought in as priority 1 trauma alert after falling about 12-15 feet out of a tree. Apparently the ladder fell sideways. No seizure activity. No tonguebitting. No incontinence of stool or urine. The patient fell on a concrete walkway, right side down. According to witnesses, he was completely unconscious and on the arrival, the paramedics' [place] Coma Scale was 3, which improved after resuscitation to about 8. The patient brought with a spinal board with C-collar in place, moaning and groaning. CT showed traumatic SAHand a small SDH. Neurosurgery consultation was requested 04/27: patient seen this morning during rounds, mildly sedated, intubated, but seen to be moving purposefully, no opening eyes or following commands. 04/28: seen this am during rounds, ICPs controlled overnight, intubated and currently well sedated. f/u CT Brain this morning completed, improved SDH, with evolving contusion. 05/01: intubated, sedated reported to move spontaneously when sedation lowered but not following command. ICPs controlled. 05/02: intubated, mildly sedated, minimally opens eyes, moves extremities, but not following commands. planned bronchoscopy today with trauma. 05/03: remains intubated, sedated. no changes neurologically. 05/04: remains intubated, sedated requiring for blood pressure control. for follow up CT Brain. 05/08: minimal eye opening, not following for testing. Labs, Micro, & Vital Signs Results Date Time Temp Pulse Resp B/P (MAP) Pulse Ox O2 Delivery O2 Flow Rate FiO2 05/08/18 08:10 97 40 05/08/18 06:00 76 05/08/18 04:40 98 40 05/08/18 04:00 70 05/08/18 04:00 100.9 70 21 170/80 (110) 98 05/08/18 03:00 40 05/08/18 02:00 74 05/08/18 01:01 95 40 05/08/18 01:00 40 05/08/18 00:00 87 05/08/18 00:00 100.7 87 23 181/64 (103) 94 05/07/18 22:00 86 05/07/18 20:00 89 05/07/18 20:00 94 T-Piece 40 05/07/18 20:00 101.8 89 22 179/58 (98) 94 05/07/18 19:30 93 T-piece 10.00 40 05/07/18 18:00 81 05/07/18 16:00 83 05/07/18 16:00 40 05/07/18 16:00 75 05/07/18 15:31 94 T-piece 10.00 40 05/07/18 14:00 83 Constitutional Vital Signs Date Time Temp Pulse Resp B/P (MAP) Pulse Ox O2 Delivery O2 Flow Rate FiO2 05/08/18 08:10 97 40 05/08/18 06:00 76 05/08/18 04:40 98 40 05/08/18 04:00 70 05/08/18 04:00 100.9 70 21 170/80 (110) 98 05/08/18 03:00 40 05/08/18 02:00 74 05/08/18 01:01 95 40 05/08/18 01:00 40 05/08/18 00:00 87 05/08/18 00:00 100.7 87 23 181/64 (103) 94 05/07/18 22:00 86 05/07/18 20:00 89 05/07/18 20:00 94 T-Piece 40 05/07/18 20:00 101.8 89 22 179/58 (98) 94 05/07/18 19:30 93 T-piece 10.00 40 05/07/18 18:00 81 05/07/18 16:00 83 05/07/18 16:00 40 05/07/18 16:00 75 05/07/18 15:31 94 T-piece 10.00 40 05/07/18 14:00 83 Review of Systems ROS Limitations: Clinical Condition, Altered Mental Status Physical Exam General: no apparent distress HEENT: normocephalic, bolt site clean and dry with suture in place, no drainage or leakage noted, no erythema. Nonicteric sclera. Neuro: minimal eye opening, not following commands. Cranial nerve: pupils 3 mm equal. Conjugate gaze. Neck: no JVD, tracheostomy Musculoskeletal: no clubbing, sedated, not following commands for testing, spontaneous movement left upper seen, withdraws bilateral lower ext to pain stimuli Respiratory: clear, mechanically ventilated Heart: regular rate rhythm Medications Current Medications Current Medications Medications (Trade) Dose Ordered Sig/[place] Route PRN Reason Start Time Stop Time Status Last Admin Dose Admin Sodium Chloride (NS Flush) 2 ml UNSCH PRN IV FLUSH FLUSH AFTER USING IV ACCESS 04/26/18 13:15 Sodium Chloride (NS Flush) 2 ml BID IV FLUSH 04/26/18 21:00 05/08/18 12:38 Pantoprazole Sodium (Protonix Inj) 40 mg Q24H IV PUSH 04/26/18 14:00 05/07/18 12:52 Naloxone HCl (Narcan Inj) 0.4 mg UNSCH PRN IV PUSH SEE LABEL COMMENTS 04/26/18 13:15 Potassium Chloride 100 ml @ 50 mls/hr Q2H PRN IV-CENTRAL For Potassium 2.8 - 3.2 mEq/L 04/27/18 07:30 Potassium Chloride 100 ml @ 50 mls/hr Q2H PRN IV For Potassium 2.8 - 3.2 mEq/L 04/27/18 07:30 Potassium Bicarb/ Potassium Chloride (K-Lyte Cl Eff) 50 meq UNSCH PRN PO For Potassium 3.3 - 3.5 mEq/L 04/27/18 07:30 04/29/18 06:17 Potassium Chloride 100 ml @ 25 mls/hr UNSCH PRN IV-CENTRAL For Potassium 3.3 - 3.5 mEq/L 04/27/18 07:30 Potassium Chloride 100 ml @ 50 mls/hr Q2H PRN IV For Potassium 3.3 - 3.5 mEq/L 04/27/18 07:30 Magnesium Sulfate 4 gm/Sodium Chloride 100 ml @ 50 mls/hr UNSCH PRN IV For Magnesium 0.9 - 1.1 mg/dL 04/27/18 07:30 Magnesium Oxide (Mag-Ox) 800 mg UNSCH PRN PO For Magnesium 1.2 - 1.6 mg/dL 04/27/18 07:30 Magnesium Sulfate 2 gm/Sodium Chloride 100 ml @ 50 mls/hr UNSCH PRN IV For Magnesium 1.2 - 1.6 mg/dL 04/27/18 07:30 Potassium Phosphate (K-Phos) 2,000 mg Q4H PRN PO For Phosphorus < 2.5 mg/dL 04/27/18 07:30 Sodium Phosphate 30 mmol/Sodium Chloride 250 ml @ 42 mls/hr UNSCH PRN IV For Phosphorus < 2.5 mg/dL 04/27/18 07:30 04/27/18 22:16 Potassium Phosphate (K-Phos) 2,000 mg UNSCH PRN PO/TUBE SEE LABEL COMMENTS 04/27/18 07:30 Potassium Phosphate 30 mmol/ Sodium Chloride 260 ml @ 42 mls/hr UNSCH PRN IV SEE LABEL COMMENTS 04/27/18 07:30 Chlorhexidine Gluconate (Peridex 0.12% Liq) 15 ml BID@08,20 MT 04/27/18 08:00 05/08/18 12:39 Albuterol/ Ipratropium (Duoneb Neb) 1 ampule Q2HR NEB PRN NEB wheezing 04/27/18 07:30 05/08/18 00:47 Senna/Docusate Sodium (Meron-Colace) 1 tab BID PO 04/27/18 09:00 05/07/18 21:00 Magnesium Hydroxide (Milk Of Magnesia Liq) 30 ml BID PO 04/27/18 09:00 05/07/18 09:25 Acetaminophen 100 ml @ 400 mls/hr Q6H PRN IV temp>101 04/27/18 16:15 05/07/18 19:00 Lactulose (Lactulose Liq) 30 ml DAILY PO 04/29/18 09:00 05/07/18 09:25 Enoxaparin Sodium (Lovenox Inj) 40 mg Q24H SQ 05/01/18 11:00 Future hold 05/07/18 11:00 Lisinopril (Prinivil) 10 mg Q12HR PO 05/01/18 17:00 05/07/18 21:00 Oxycodone HCl (Roxicodone) 10 mg Q6H NG 05/01/18 16:15 05/08/18 12:37 Hydralazine HCl (Apresoline) 25 mg Q6H NG 05/01/18 17:00 05/08/18 12:37 Clonidine (Catapres-Tts 0.3 Mg Patch.7d) 1 patch Q7D T-DERMAL 05/03/18 11:00 05/03/18 11:48 Artificial Tears (Lacrilube Opht Oint) 1 applic Q12HR EACH EYE 05/03/18 11:00 05/08/18 12:39 Miscellaneous Information 1 Q7D T-DERMAL 05/10/18 10:59 Metoprolol Tartrate (Lopressor Inj) 2.5 mg Q6H IV PUSH 05/03/18 21:00 05/08/18 02:04 Fentanyl (Duragesic 25 Mcg Patch.72 Hr) 1 patch Q3D T-DERMAL 05/07/18 12:00 05/07/18 12:52 Miscellaneous Information 1 Q3D T-DERMAL 05/10/18 12:00 Pharmacy Profile Note 0 ml @ 0 mls/hr UNSCH OTHER 05/08/18 09:45 Piperacillin Sod/ Tazobactam Sod 50 ml @ 100 mls/hr Q6H IV 05/08/18 11:00 05/08/18 12:38 Amantadine HCl (Symmetrel Liq) 100 mg BID@07,12 PO 05/08/18 12:00 05/08/18 12:37 Vancomycin HCl 1250 mg/Sodium Chloride 262.5 ml @ 250 mls/hr Q12H IV 05/08/18 11:00 05/08/18 10:52 Miscellaneous Information [place] [place] SPECIFIC LAB TO BE DRAWN:VANCO TROUGH DATE TO... ONCE ONCE .XX 05/09/18 22:45 05/09/18 22:46 Medical Decision Making MDM Remarks 73 year old male trauma alert, fall off ladder onto cement TBI, left traumatic subarachnoid, subdural hemorrhage, s/p placement of ICP monitor 04/26/18, stable ICPs, ICP monitor removed 05/01/[address] 05/04/18 Impressions: CONCLUSION: 1. Evolving traumatic brain injury with resolving hemorrhages. 2. Persistent edema in left frontal and temporal lobe contusions. 3. No significant shift of midline structures. 4. Hairline fracture along the base of the skull in the right temporal region. 5. No evidence of new hemorrhage or acute infarct. Plan Plan Remarks cont critical care per trauma team cont follow up neuro exam therapy and rehab efforts Sofia Younger May 08, 2018 13:35
[2018-05-08] MEDS: PANTOPRAZOLE SODIUM 40 MG VIAL IV PUSH SCH (14:17)
--- NOTE | 2018-05-08 15:23 | RADRPT ---
EXAM DATE: 05/08/2018 3:04 PM EDT AGE/SEX: 72 years / Male INDICATIONS: Bilateral leg swelling. CLINICAL DATA: This is the patient's initial encounter. Patient reports that signs and symptoms have been present for 4 - 6 days and indicates a pain score of Nonresponsive. MEDICAL/SURGICAL HISTORY: . Leg swelling. . Left ankle surgery. COMPARISON: No prior exams available for comparison. TECHNIQUE: Venous ultrasound of both lower extremities was performed from the inguinal ligament to t he proximal calf. Real-time, color Doppler and spectral tracing, compression and augmentation techni ques were used. FINDINGS: Right Leg: Normal compression of the deep venous system from the inguinal region to the proximal ivette f. No echogenic clot is seen. Normal response of the venous system to augmentation and respiration. Left Leg: Normal compression of the deep venous system from the inguinal region to the proximal calf . No echogenic clot is seen. Normal response of the venous system to augmentation and respiration. Other: None. CONCLUSION: No DVT. Electronically signed by: Alcides Marsh MD 05/08/2018 3:21 PM EDT
--- NOTE | 2018-05-08 15:29 | PD.CONS ---
History of Present Illness Service Infectious disease Consult Requested By Dr Bustillo Reason for Consult Evaluate patient with worsening leukocytosis Primary Care Physician Alcides Beach MD Diagnoses: History of Present Illness Patient seen and examined. Records reviewed. Patient is a 72-year-old male, brought into the hospital as a trauma alert after falling about 12-15 feet out of a tree. He fell on a concrete walkway on his right side. Patient was unconscious when he was found. Patient was found to have traumatic brain injury with multiple contusion, and some subdural hematoma. He also had pulmonary contusion with multiple rib fractures, as well as a small kidney hematoma. Patient had significant edema in the brain, and he had a right bur hole for placement of an ICP monitor. He was on the vent. Patient since April 28 has been febrile. He continues to be febrile. The ICP monitor was eventually removed. He remains on the vent, and has had bronchoscopy done for thick secretions. He underwent tracheostomy placement May 06. Today's white count went up to 19,000. He was started on broad- spectrum antibiotic including vancomycin and Zosyn. He has no central line. He has a Vaca catheter in place. He had placement of a PEG tube today. Infectious disease consultation has been requested to assist with evaluation and treatment of patient with persistent fevers, worsening leukocytosis. Review of Systems ROS Limitations: Clinical Condition, Intubated, Unresponsive Constitutional: COMPLAINS OF: Fever Past Family Social History Allergies: Coded Allergies: No Known Allergies (Unverified , 04/26/18) Past Medical History Unremarkable Past Surgical History Left ankle surgery Active Ordered Medications Current Medications Medications (Trade) Dose Ordered Sig/Bonilla Route Start Time Stop Time Status Last Admin (NS Flush) 2 ml UNSCH PRN IV FLUSH 04/26/18 13:15 (NS Flush) 2 ml BID IV FLUSH 04/26/18 21:00 05/08/18 12:38 (Protonix Inj) 40 mg Q24H IV PUSH 04/26/18 14:00 05/08/18 14:17 (Narcan Inj) 0.4 mg UNSCH PRN IV PUSH 04/26/18 13:15 Potassium Chloride 100 ml @ 50 mls/hr Q2H PRN IV-CENTRAL 04/27/18 07:30 Potassium Chloride 100 ml @ 50 mls/hr Q2H PRN IV 04/27/18 07:30 (K-Lyte Cl Eff) 50 meq UNSCH PRN PO 04/27/18 07:30 04/29/18 06:17 Potassium Chloride 100 ml @ 25 mls/hr UNSCH PRN IV-CENTRAL 04/27/18 07:30 Potassium Chloride 100 ml @ 50 mls/hr Q2H PRN IV 04/27/18 07:30 Magnesium Sulfate 4 gm/Sodium Chloride 100 ml @ 50 mls/hr UNSCH PRN IV 04/27/18 07:30 (Mag-Ox) 800 mg UNSCH PRN PO 04/27/18 07:30 Magnesium Sulfate 2 gm/Sodium Chloride 100 ml @ 50 mls/hr UNSCH PRN IV 04/27/18 07:30 (K-Phos) 2,000 mg Q4H PRN PO 04/27/18 07:30 Sodium Phosphate 30 mmol/Sodium Chloride 250 ml @ 42 mls/hr UNSCH PRN IV 04/27/18 07:30 04/27/18 22:16 (K-Phos) 2,000 mg UNSCH PRN PO/TUBE 04/27/18 07:30 Potassium Phosphate 30 mmol/ Sodium Chloride 260 ml @ 42 mls/hr UNSCH PRN IV 04/27/18 07:30 (Peridex 0.12% Liq) 15 ml BID@08,20 MT 04/27/18 08:00 05/08/18 12:39 (Duoneb Neb) 1 ampule Q2HR NEB PRN NEB 04/27/18 07:30 05/08/18 00:47 (Meron-Colace) 1 tab BID PO 04/27/18 09:00 05/07/18 21:00 (Milk Of Magnesia Liq) 30 ml BID PO 04/27/18 09:00 05/07/18 09:25 Acetaminophen 100 ml @ 400 mls/hr Q6H PRN IV 04/27/18 16:15 05/07/18 19:00 (Lactulose Liq) 30 ml DAILY PO 04/29/18 09:00 05/07/18 09:25 (Lovenox Inj) 40 mg Q24H SQ 05/01/18 11:00 Future hold 05/07/18 11:00 (Prinivil) 10 mg Q12HR PO 05/01/18 17:00 05/07/18 21:00 (Roxicodone) 10 mg Q6H NG 05/01/18 16:15 05/08/18 12:37 (Apresoline) 25 mg Q6H NG 05/01/18 17:00 05/08/18 12:37 (Catapres-Tts 0.3 Mg Patch.7d) 1 patch Q7D T-DERMAL 05/03/18 11:00 05/03/18 11:48 (Lacrilube Opht Oint) 1 applic Q12HR EACH EYE 05/03/18 11:00 05/08/18 12:39 Miscellaneous Information 1 Q7D T-DERMAL 05/10/18 10:59 (Lopressor Inj) 2.5 mg Q6H IV PUSH 05/03/18 21:00 05/08/18 14:17 (Duragesic 25 Mcg Patch.72 Hr) 1 patch Q3D T-DERMAL 05/07/18 12:00 05/07/18 12:52 Miscellaneous Information 1 Q3D T-DERMAL 05/10/18 12:00 Pharmacy Profile Note 0 ml @ 0 mls/hr UNSCH OTHER 05/08/18 09:45 Piperacillin Sod/ Tazobactam Sod 50 ml @ 100 mls/hr Q6H IV 05/08/18 11:00 05/08/18 12:38 (Symmetrel Liq) 100 mg BID@07,12 PO 05/08/18 12:00 05/08/18 12:37 Vancomycin HCl 1250 mg/Sodium Chloride 262.5 ml @ 250 mls/hr Q12H IV 05/08/18 11:00 05/08/18 10:52 ([facility] Ordered Lab Info) SPECIFIC LAB TO BE DRAWN:VANCO TROUGH DATE TO... 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 No mention of any smoking alcohol use or illicit drug Physical Exam Vital Signs Vital Signs Date Time Temp Pulse Resp B/P (MAP) Pulse Ox O2 Delivery O2 Flow Rate FiO2 05/08/18 14:13 21 05/08/18 08:10 97 40 05/08/18 06:00 76 05/08/18 04:40 98 40 05/08/18 04:00 70 05/08/18 04:00 100.9 70 21 170/80 (110) 98 05/08/18 03:00 40 05/08/18 02:00 74 05/08/18 01:01 95 40 05/08/18 01:00 40 05/08/18 00:00 87 05/08/18 00:00 100.7 87 23 181/64 (103) 94 05/07/18 22:00 86 05/07/18 20:00 89 05/07/18 20:00 94 T-Piece 40 05/07/18 20:00 101.8 89 22 179/58 (98) 94 05/07/18 19:30 93 T-piece 10.00 40 05/07/18 18:00 81 05/07/18 16:00 83 05/07/18 16:00 40 05/07/18 16:00 75 05/07/18 15:31 94 T-piece 10.00 40 Physical Exam GENERAL: Patient is a well-nourished, well-developed male, sedated on the vent, not in respiratory distress. SKIN: Warm and dry. No generalized rash, no ecchymoses and no evidence of embolic lesions. HEAD: Previous ICP monitor site is dry. EYES: [employer] conjunctiva. No petechia or hemorrhage. Pupils equal, round and reactive to light. No scleral icterus. No injection or drainage. EARS, NOSE AND THROAT: Nose without bleeding or purulent nasal discharge. NECK: Tracheostomy site looks ok. Supple CARDIOVASCULAR: Regular rate and rhythm. No murmurs, rubs or gallops heard RESPIRATORY: Coarse breath sounds bilaterally, decreased at the bases. ABDOMEN: Soft, no reaction to palpation, nondistended. Bowel sounds present and hypoactive. PEG site looks okay. EXTREMITIES: No clubbing, cyanosis. Warm. NEUROLOGICAL: Unresponsive PSYCHIATRIC: Unable to assess LINE: No evidence of infection : Vaca catheter in place, urine with some sediment Laboratory Laboratory Tests Test 05/08/18 03:46 05/08/18 05:00 Blood Gas Puncture Site ART LINE Blood Gas Patient Temperature 98.6 Blood Gas HCO3 28 Blood Gas Base Excess 5.2 Blood Gas Oxygen Saturation 95 Arterial Blood pH 7.51 Arterial Blood Partial Pressure CO2 36 Arterial Blood Partial Pressure O2 87 Arterial Blood Oxygen Content 14.2 Arterial Blood Carboxyhemoglobin 1.4 Arterial Blood Methemoglobin 1.0 Blood Gas Hemoglobin 10.5 Oxygen Delivery Device VENTILATOR Blood Gas Ventilator Setting CPAP 8/+8/40% Blood Gas Inspired Oxygen 40 White Blood Count 19.7 Red Blood Count 3.33 Hemoglobin 10.1 Hematocrit 30.7 Mean Corpuscular Volume 92.2 Mean Corpuscular Hemoglobin 30.4 Mean Corpuscular Hemoglobin Concent 33.0 Red Cell Distribution Width 13.7 Platelet Count 364 Mean Platelet Volume 8.6 Neutrophils (%) (Auto) 90.4 Lymphocytes (%) (Auto) 3.3 Monocytes (%) (Auto) 5.9 Eosinophils (%) (Auto) 0.0 Basophils (%) (Auto) 0.4 Neutrophils # (Auto) 17.8 Lymphocytes # (Auto) 0.6 Monocytes # (Auto) 1.2 Eosinophils # (Auto) 0.0 Basophils # (Auto) 0.1 CBC Comment AUTO DIFF Differential Total Cells Counted 100 Neutrophils % (Manual) 83 Band Neutrophils % 7 Lymphocytes % 2 Monocytes % 7 Neutrophils # (Manual) 17.9 Metamyelocytes 1 Differential Comment FINAL DIFF MANUAL Platelet Estimate NORMAL Platelet Morphology Comment NORMAL Red Cell Morphology Comment NORMAL Blood Urea Nitrogen 30 Creatinine 0.79 Random Glucose 119 Total Protein 6.1 Albumin 1.7 Calcium Level 8.1 Magnesium Level 2.6 Alkaline Phosphatase 180 Aspartate Amino Transf (AST/SGOT) 82 Alanine Aminotransferase (ALT/SGPT) 115 Total Bilirubin 1.2 Sodium Level 153 Potassium Level 3.9 Chloride Level 117 Carbon Dioxide Level 27.6 Anion Gap 8 Estimat Glomerular Filtration Rate 96 Date/Time Source Procedure Growth Status 05/08/18 12:35 Blood Peripheral Aerobic Blood Culture Pending Received 05/08/18 12:35 Blood Peripheral Anaerobic Blood Culture Pending Received 05/08/18 12:40 Sputum Endotracheal Gram Stain Pending Received 05/08/18 12:40 Sputum Endotracheal Sputum Culture Pending Received 05/08/18 12:00 Urine Catheterized Urine Urine Culture Pending Received Result Diagram: 05/08/18 0500 05/08/18 0500 Imaging RADIOLOGY STUDIES/FILMS REVIEWED Last Impressions Chest X-Ray 05/08/18 0600 Signed Impressions: CONCLUSION: Stable appearance the chest Lower Extremity Ultrasound 05/08/18 0000 Signed Impressions: CONCLUSION: No DVT. Abdomen X-Ray 05/06/18 0000 Signed Impressions: CONCLUSION: Feeding tube tip in proximal duodenum. Head CT 05/04/18 0000 Signed Impressions: CONCLUSION: 1. Evolving traumatic brain injury with resolving hemorrhages. 2. Persistent edema in left frontal and temporal lobe contusions. 3. No significant shift of midline structures. 4. Hairline fracture along the base of the skull in the right temporal region. 5. No evidence of new hemorrhage or acute infarct. Chest CT 05/04/18 0000 Signed Impressions: CONCLUSION: 1. Increasing bilateral pleural effusions with a moderate to large effusion on the right. 2. Total consolidation of both lower lobes. 3. No other significant change. Cervical Spine CT 04/26/18 1251 Signed Impressions: CONCLUSION: Degenerative spondylosis with neural foraminal compromise right C5 -6 without any significant thecal sac stenosis. Abdomen/Pelvis CT 04/26/18 1251 Signed Impressions: CONCLUSION: 1. Laceration involving the mid to lower pole of the right kidney with a small amount of perirenal blood but no active hemorrhage observed. 2. 2.4 cm solid mass involving the right mid pole kidney worrisome for renal c ell carcinoma. Assessment and Plan Assessment and Plan IMPRESSION Persistent fevers, ?due to [employer] injury, ?PNA Worsening leukocytosis, concern with HCAP - ?other nosocominal infection - has no line - has vaca TBI, pulmonary contusion, multiple rib fractures RECOMMENDATION Agree with current management Cultures will be followed, he has blood, urine and sputum Agree with empiric antibiotics, vancomycin and Zosyn Follow cultures Follow temps Monitor progress I will determine course of antibiotic once workup is completed I will follow along with you Thank you for this consultation Rosa Barker MD May 08, 2018 15:29
[2018-05-08] MEDS: NITROGLYCERIN 0.6 MG/HR PATCH T-DERMAL SCH (15:59)
[2018-05-08] MEDS: PIPERACIL-TAZO 4.5 GM PREMIX 100 ML IV SCH (17:09)
--- NOTE | 2018-05-08 18:29 | HHI.CCPN ---
Subjective Brief History This 72-year-old gentleman was brought in as priority 1 trauma alert after falling about 12-15 feet out of a tree as the ladder went flying sideways. The patient fell on a concrete walkway, right side down. According to witnesses, he was completely unconscious and on the arrival, the paramedics' [place] Coma Scale was 3-4, which improved on the way to about 8 or 9. The patient brought with a spinal board with C-collar in place, moaning and groaning and complained but pain in the right chest. Patient was resuscitated according trauma principles and placed in ICU for further care Final injuries Traumatic brain injury with mainly left frontal temporoparietal subarachnoid and subdural bleed and some superficial contusions of the brain Right chest contusion with a small hemothorax and serial rib fractures of 5th, 6th, 7th, 8th ribs, Transverse process fractures of several vertebrae, Laceration of the right kidney with a hematoma and a small mass of the right kidney 24 Hour Review/Hospital Course 04/27/2018 Patient remains intubated and ventilated Neuroprotective measures including propofol and fentanyl Keppra 2% hypertonic saline at 30 cc/h ICP remains 4-12 mmHg Hemodynamically patient stable Bilateral good breath sounds on decreasing levels of ventilatory support with good PO2 FiO2 gradient 04/28/2018 No change in neurologic status On sedation vacation patient moves all 4 extremities opens eyes but does not follow commands and does not track making [place] Coma Scale about 6 or 7 This is fairly significant brain injury and will take a while to resolve ICP remains low and from my point ICP monitor can be removed CPP within the parameters of autoregulation Remains on neuroprotective measures including propofol fentanyl Keppra Decrease 2% saline to about 20 cc an hour at this point Hemodynamically patient stable Bilateral breath sounds remains on assist control ventilation and pulmonary status and PO2 FiO2 gradient will allow for extubation but of course patient's neurologic status does not allow for the same Patient will not need tracheostomy and I believe he will recover in next few days sufficiently and regaining consciousness to extubate safely Abdomen soft enteral feeds tolerated Renal function normal 04/29/2018 No change in neurologic status Patient remains stable on propofol fentanyl Keppra ICP remains within physiologic range and ICP monitor may be removed as per neurosurgery Hemodynamically remains stable however hemoglobin dropped to 7.8 g/dL as a result of hemodilution and obviously decreased production We will transfuse 2 units PRBC faced with age and neurologic injury Bilateral good breath sounds good PO2 FiO2 gradient Abdomen soft enteral feeds tolerated Plan Once okay with neurosurgery will wake up the patient and start weaning down the sedation probably tomorrow or Tuesday Transfuse 2 units PRBC Continue care 04/30/2018 No change in current status Patient remains on neuroprotective measures with decreasing levels of propofol and fentanyl On sedation vacation moves purposefully does not open eyes yet Will need another few days before sufficiently improved to wean and extubate ICP remains 5-12 mmHg Hemodynamically patient stable if not somewhat hypertensive which is being addressed Bilateral breath sounds and bilateral pleural effusions with atelectasis as a result probably of her original event and retention of secretions I am concerned about patient's pulmonary function and he might need bronchoscopy early next week Renal function preserved Patient about 12 L positive since the arrival will diurese gently to take of the third space now that systemic inflammatory response is abating 05/01/2018 Neurologically patient is unchanged if not somewhat better With decrease of sedation and sedation vacation patient is waking up moving all 4 extremities however does not open eyes or follow commands This is very early in the course and I believe patient will eventually improve neurologically Hemodynamically stable somewhat hypertensive and medications adjusted for the same Added nicardipine drip for management of recalcitrant hypertension Bilateral breath sounds remains on assist control ventilation will start on CPAP trials daily Abdomen soft enteral feeds tolerated I am not sure this patient will require tracheostomy but I believe he will come off the ventilator without one 05/02/2018 Patient neurologically slightly improving On sedation vacation moves all 4 extremities does not follow commands Bilateral good breath sounds on assist control ventilation and will start on CPAP trials Patient does have significant secretions and atelectasis mainly right lower lobe Underwent successful bronchoscopy today Abdomen soft enteral feeds tolerated Again as noted previously patient might or might not require tracheostomy and will see how he does in next few days neurologically which will be the base of placing one or not 05/03/2018 Neurologic status unchanged On sedation vacation patient moves all 4 extremities but does not follow commands and is very restless ICP monitor has been removed due to low ICP pressures throughout At this point the patient remains on small dose propofol and fentanyl in face of his injuries however he is not ready to come off the respirator due to the low GCS Hemodynamically patient is stable however hypertensive Catapres patch Lisinopril Hydralazine Beta-blockers could not be used due to patient's development of bradycardia. Patient was placed on nicardipine drip however at this point we going to stop this due to large fluid load associated with the same Abdomen soft enteral feeds tolerated Renal function is preserved patient is now fluid overloaded in anasarca with bilateral pleural effusions right more than left We will try outpatient somewhat and see how he does but he may need right chest drained to evacuate hydrothorax 05/04/2018 Neurologically patient is unchanged Slightly decrease of propofol to 35 mcg and remains on fentanyl No change in neurologic status Based on low [place] Coma Scale patient will require tracheostomy Hemodynamically stable however hypertensive and now controlled with several medications as above noted Nicardipine has been removed due to huge volume load and general edema this has provoked Renal function well-preserved patient now diuresing very well and is back to his weight Tolerates enteral feeds well Plan Tracheostomy tomorrow and then weaned to liberate from the ventilator Gradually decrease sedation as the blood pressure and patient's general condition tolerates Will require neuro rehab placement 05/05/2018 Neurologically patient is unchanged Remains on small dose fentanyl and 35 mcg of propofol. Due to blood pressure issues patient was more sedated last night On sedation vacation patient moves all extremities but does not open eyes and does not track or follow any commands Withdraws to pain With this low level of consciousness and low [place] Coma Scale, patient clearly cannot be brought to extubation because he will be unable to protect his upper airway Tracheostomy today Hemodynamically stable 05/06/2018 No change in neurologic status Propofol has been completely removed and patient at this point is moving and withdrawing to pain but that is about it Does not open eyes trach or spontaneously performing the actions We will keep on small dose fentanyl and switch to Roxicodone p.o. Bilateral breath sounds on assist control ventilatory mode with excellent PO2 FiO2 gradient Successful tracheostomy today In face of tracheostomy will start weaning patient off the ventilator and I believe be from the ventilator next 24-48 hours Abdomen soft enteral feeds tolerated Dobbhoff placed and will consult GI for PEG This gentleman will require long-term neuro rehabilitative care and based on his age outcome may be quite limited as far as cognitive or motoric recovery is concerned I discussed this with family several times 05/07/2018 Patient doing well He is off all sedation however there is only response to pain and patient is not opening eyes for me or following any commands Status post tracheostomy at this point on CPAP will switch to T-piece and if tolerated will liberated from the ventilator Bilateral good breath sounds small right pleural effusion but in face of good respiratory function I will leave it alone Abdomen soft enteral feeds tolerated and PEG tube either today or tomorrow Patient can be transferred to rehab/LTAC any time 05/08/2018 Neurologically patient is may be slightly improved I was told he was withdrawing more to pain and tried to open his eyes but have not seen this Definitely withdraws to pain Off of all sedation Bilateral breath sounds underwent tracheostomy on Tuesday and is been weaned down from the vent He was on fairly high pressure support on CPAP so this has to be weaned down first in order to get him to the T-piece Spiked fever and it is probably pulmonary related patient is on prophylactic antibiotics and cultures are pending Leukocytosis to 19,000 with left shift I suspect sepsis and at this point source is not clear as above noted that might be pulmonary but may be some other source Abdomen soft PEG today After all done patient will be able to transfer to LTAC for further neuro recovery Addendum This evening patient developed SVT which then turned to A. fib with RVR Patient volume loaded and started on amiodarone drip In addition Brewer was flushed with large amounts of air coming out as well as some blood This has to be further worked up for it is conceivable that patient has an intra -abdominal process like a colovesical fistula As soon as the rate is controlled patient will go to the CT of abdomen and pelvis with retrograde cystogram Objective Vital Signs Date Time Temp Pulse Resp B/P (MAP) Pulse Ox O2 Delivery O2 Flow Rate FiO2 05/08/18 17:25 32 05/08/18 16:44 50 05/08/18 16:43 95 05/08/18 06:00 76 05/08/18 04:00 100.9 170/80 (110) 05/07/18 20:00 T-Piece 05/07/18 19:30 10.00 Intake and Output 05/08/18 05/08/18 05/09/18 08:00 16:00 00:00 Intake Total 899 ml 500 ml Output Total 702 ml 2 ml Balance 197 ml 498 ml Result Diagram: 05/08/18 0500 05/08/18 0500 Other Results Laboratory Tests Test 05/08/18 03:46 Blood Gas Puncture Site ART LINE Blood Gas Patient Temperature 98.6 Blood Gas HCO3 28 mmol/L (22-26) Blood Gas Base Excess 5.2 mmol/L (-2-2) Blood Gas Oxygen Saturation 95 % (90-100) Arterial Blood pH 7.51 (7.380-7.420) Arterial Blood Partial Pressure CO2 36 mmHg (38-42) Arterial Blood Partial Pressure O2 87 mmHg (61-120) Arterial Blood Oxygen Content 14.2 Vol % (12.0-20.0) Arterial Blood Carboxyhemoglobin 1.4 % (0-4) Arterial Blood Methemoglobin 1.0 % (0-2) Blood Gas Hemoglobin 10.5 G/DL (12.0-16.0) Oxygen Delivery Device VENTILATOR Blood Gas Ventilator Setting CPAP 8/+8/40% Blood Gas Inspired Oxygen 40 % Imaging Last 24 hours Impressions Chest X-Ray 05/08/18 0600 Signed Impressions: CONCLUSION: Stable appearance the chest Lower Extremity Ultrasound 05/08/18 0000 Signed Impressions: CONCLUSION: No DVT. Assessment and Plan Attestation Critical care at 32 minutes Georgia Bustillo MD May 08, 2018 18:29
[2018-05-08] MEDS ORDERED: ADENOSINE IV SOLN 3 MG/ML 2 ML VIAL ONE (18:37)
[2018-05-08] MEDS ORDERED: AMIODARONE INJ 150 MG in DEXTROSE 5% IN WATER 100ML INJ 100 ML IV ONE ×2 (18:42)
[2018-05-08] MEDS: AMIODARONE INJ 450 MG in SODIUM CHLOR 0.9% (EXCEL) INJ 250 ML IV PRN (19:15)
[2018-05-08] MEDS ORDERED: DIGOXIN 0.5 MG/2 ML VIAL IV PUSH ONE (21:30)
[2018-05-08 23:49] LABS: MAGNESIUM 2.6 MG/DL (1.5-2.5)
[2018-05-08 23:52] LABS: TROPONIN I 0.1 NG/ML (0.02-0.05)
[2018-05-09] VITALS (18 sets, daily range): BP systolic 130–181; BP diastolic 56–74; PULSE 58–94; RESP 12–19; TEMP 98.6–99.9; O2SAT 96–100
[2018-05-09] MEDS ORDERED: IOHEXOL 350 MG/ML 10 ML VIAL (for RAD DIAG) IVCONTRAST ONE (00:04)
--- NOTE | 2018-05-09 00:12 | RADRPT ---
EXAM DATE: 05/09/2018 12:06 AM EDT AGE/SEX: 72 years / Male INDICATIONS: Follow up renal laceration. Hematuria. CLINICAL DATA: This is the patient's subsequent encounter. Patient reports that signs and symptoms h ave been present for 2 weeks and indicates a pain score of 5/10. MEDICAL/SURGICAL HISTORY: . . ORAL CONTRAST: No oral contrast ingested. RADIATION DOSE: 13.57 CTDI (mGy) COMPARISON: [facility] – [place], CT ABDOMEN & PELVIS W CONTRAST, 04/26/2018. . TECHNIQUE: Multiple contiguous axial images were obtained through the abdomen and pelvis following b olus infusion of 90 ml Omnipaque 350 (iohexol) nonionic water-soluble contrast as a single exam dos e. No oral contrast ingested. Using automated exposure control and adjustment of the mA and/or kV ac cording to patient size, radiation dose was kept as low as reasonably achievable to obtain optimal di agnostic quality images. DICOM format image data is available electronically for review and comparis on. FINDINGS: Lower Lungs: Moderate size bilateral pleural effusions. Some consolidation in both lung ching possib le air bronchograms left lower lobe pneumonia. Liver: The liver has a homogeneous density without space-occupying lesion. There is no dilation of th e biliary tree. Spleen: Homogeneous density without enlargement. Pancreas: Unremarkable without mass or calcification. Pancreatic atrophy. Kidneys: Multiple renal cysts are noted right greater than left. There is a stable solid mass marketing program manager ior right kidney measuring 2.4 cm. Adrenal Glands: Unremarkable. Aorta: The aorta and proximal iliac vessels are grossly unremarkable without aneurysmal dilation. Bowel/Mesentery: The bowel loops are grossly unremarkable. The cecum and sigmoid colon have a normal configuration. G-tube is in place. Abdominal Wall: Intact. Retroperitoneum: No evidence of adenopathy in the retrocrural, para-aortic, or deep pelvic regions. Bladder: Contours are smooth. Brewer catheter in place. Reproductive Organs: No abnormal masses or calcifications seen. Inguinal: The inguinal region is unremarkable without evidence of adenopathy. Bony Structures: There is very impressive edema within the musculature in both lower legs. The signi ficant fluid surrounding the musculature bilaterally with impressive edema in the subcutaneous fat. CONCLUSION: 1. Again questionable 2.4 solid mass of the right kidney with an adjacent large cyst. The hemorrhage seen earlier in April is no longer appreciated. 2. Very impressive anasarca in the lower extremities and very impressive fluid along the periphery o f both thighs musculature groupings Electronically signed by: Arcadio Trejo MD 05/09/2018 12:10 AM EDT
[2018-05-09] MEDS ORDERED: SODIUM CHLOR 0.9% 1000 ML INJ 1,000 ML IV ONE (01:00)
[2018-05-09] MEDS: PIPERACIL-TAZO 4.5 GM PREMIX 100 ML IV SCH ×5 (01:19→22:03)
[2018-05-09] MEDS: hydrALAZINE HCL 25 MG TAB NG SCH (01:19)
[2018-05-09] MEDS: VANCOMYCIN INJ 1,250 MG in SODIUM CHLOR 0.9% 250 ML INJ 250 ML IV SCH ×3 (01:20→23:30)
[2018-05-09] MEDS: AMIODARONE INJ 450 MG in SODIUM CHLOR 0.9% (EXCEL) INJ 250 ML IV PRN (02:39)
--- NOTE | 2018-05-09 03:57 | RADRPT ---
EXAM DATE: 05/09/2018 3:51 AM EDT AGE/SEX: 72 years / Male INDICATIONS: Trauma. CLINICAL DATA: This is the patient's subsequent encounter. Patient reports that signs and symptoms h ave been present for 2 weeks and indicates a pain score of Nonresponsive. MEDICAL/SURGICAL HISTORY: Non-responsive. Non-responsive. COMPARISON: [facility] – [place], CHEST SINGLE AP, 05/08/2018. . FINDINGS: The tracheostomy tube is in good position. The heart remains borderline enlarged. Subtle infiltrate i n the right lower lobe. Numerous rib fractures on the right are again noted. Pulmonary hilar vasculat ure congestion stable. CONCLUSION: Stable pulmonary vascular congestion. Tracheostomy tube in good position. Electronically signed by: Arcadio Trejo MD 05/09/2018 3:56 AM EDT
[2018-05-09 04:15] LABS: AUTOMATED NEUTROPHIL # 11.1 TH/MM3 (1.8-7.7); BASOPHIL % 0.1 % (0.0-2.0); HEMATOCRIT 26.5 % (39.0-51.0); HEMOGLOBIN 8.9 GM/DL (13.0-17.0); LYMPH % 5.7 % (9.0-44.0); LYMPHOCYTE # 0.7 TH/MM3 (1.0-4.8); MEAN CELL VOLUME 92.8 FL (80.0-100.0); MEAN CORPUSCULAR HEMOGLOBIN 31.1 PG (27.0-34.0); MEAN CORPUSCULAR HGB CONC 33.5 % (32.0-36.0); MONO % 5.9 % (0.0-8.0); MONOCYTE # 0.7 TH/MM3 (0-0.9); NEUT % 88.3 % (16.0-70.0); PLATELET COUNT 324 TH/MM3 (150-450); RED BLOOD COUNT 2.86 MIL/MM3 (4.50-5.90); RED CELL DISTRIBUTION WIDTH 13.7 % (11.6-17.2); WHITE BLOOD COUNT 12.6 TH/MM3 (4.0-11.0)
[2018-05-09] MEDS: METOPROLOL TARTRATE 5 MG/5 ML VIAL IV PUSH SCH ×4 (04:31→20:24)
[2018-05-09 04:46] LABS: ALBUMIN 1.4 GM/DL (3.4-5.0); AST (GOT) 41 U/L (15-37); BICARBONATE 24.2 MEQ/L (21.0-32.0); BLOOD UREA NITROGEN 40 MG/DL (7-18); CHLORIDE 120 MEQ/L (98-107); CREATININE 1.05 MG/DL (0.60-1.30); GLOMERULAR FILTRATION RATE 69 ML/MIN (>89); GLUCOSE,RANDOM 111 MG/DL (74-106); MAGNESIUM 2.7 MG/DL (1.5-2.5); SODIUM (NA) 155 MEQ/L (136-145)
[2018-05-09 04:49] LABS: ALKALINE PHOSPHATASE 135 U/L (45-117); ALT (GPT) 67 U/L (12-78); TOTAL PROTEIN 5.4 GM/DL (6.4-8.2)
[2018-05-09] MEDS: AMANTADINE HCL SOLN 100 MG/10 ML UDC PO SCH ×2 (06:22→11:53)
--- NOTE | 2018-05-09 07:47 | HHI.PR ---
Neuropsych Emotional Emotional: UnabletoAssess: Emotional, Anxious/Fearful, Depressed/Sad, Hostile/ Resentful, Irritable/Angry/Frustrate, Labile, Constricted/Blunted Behavior Behavior: Intact: Impulsive/Agitated, Unable to Asses: Behavior, Coping/ Acceptance, Cooperative w/ Treatment, Motivation, Frustration Tolerance/Rolla, Suicidal/Homicidal Risk Cognitive Cognitive: Unable to Asses: Cognitive, Attention/Concentration, Confused/ Orientation, Insight/Awareness, Judgement/Problem-Solving, Memory Psychosocial Psychosocial: Intact: Psychosocial, Family/Other Adjustment, Realistic Expectation, Unable to Asses: Self-Esteem/Confidence Progress Notes/Response to Tx Contents of Sessions: Adjustment, Level of Consciousness Time with Patient: 30 minutes Premorbid psychological status Premorbid Cognitive, Emotional and Behavioral Status: Stable. The patient has college years of education and a solid work history prior to this injury. The patient has no prior psychiatric difficulties, as described above. Substance abuse history is unknown. Behavioral Reactions of Patient and Family/Support System: Stable. The patient s family is experiencing ongoing issues of adjustment given the nature of the injury, and this aspect of recovery will require ongoing monitoring. Emotional/Behavioral Status of Patient and Family/Support System: Stable. Pertinent issues, if appropriate to this patients clinical care, are described in detail above. Maximizing acute care outcome It is recommended that the patient be monitored for emergent behavioral impulsivity as the medical condition evolves. This patients neuropathological challenges may limit his rehabilitation potential going forward, and these challenges will require specialized therapeutic skills to maximize outcome. Additionally, the patients family is experiencing ongoing issues of adjustment given the traumatic nature of the injury, and they may benefit from ongoing psychological assistance. At this point in the recovery process, the patient does not have cognitive capacity as the patient is unable to understand a situation and its likely consequences, nor is he able to manipulate information rationally. Cognitive capacity will be assessed throughout the recovery process. Anticipated Problems Ongoing areas of concern will include behavioral impulsivity, lack of insight and judgment, which is expected to improve with time and treatment. Presently , the patient is critically ill. Given the severity of the patient's injuries it is my clinical opinion that this patient will be unable to return to any type of productive employment for at least one year, perhaps longer and likely never. This patient is not considered safe to discharge home without supervision at this time. Treatment Plan This clinician will continue to follow with you throughout the course of this patients critical care treatment, and I will be available to meet with the patients family/support system to facilitate their understanding and the ongoing care of their family member. The goals of neuropsychological intervention shall be both educational and supportive to the family/support system as is deemed clinically appropriate. [facility] Level: II:General response-total assist Impression 72 year old male s/p TBI 2T fall on 04/26/2018. Diagnosis: (1) Major neurocognitive disorder as late effect of traumatic brain injury without behavioral disturbance Progress Note Narrative PTD 13. The patient developed cardiac difficulties in the evening last night. Otherwise, he is off sedation, and withdraws to pain. Amantadine 100 BID was started yesterday. He is Rancho II. I discussed neurobehavioral improvement with and daughter, who were bedside. I will follow. Germán Arriaga PhD May 09, 2018 7:47 am
[2018-05-09] MEDS: CHLORHEXIDINE 0.12% (ORAL KIT) 15 ML CUP MT SCH ×2 (08:00→20:00)
[2018-05-09] MEDS ORDERED: DIGOXIN 0.5 MG/2 ML VIAL IV PUSH ONE ×3 (08:00→14:00)
[2018-05-09] MEDS: SODIUM CHLORIDE 0.9% FLUSH 10 ML FLUSH IV FLUSH SCH ×2 (09:00→20:24)
[2018-05-09] MEDS: ARTIFICIAL TEARS OPTH OINT 3.5 APPLIC/3.5 GM TUBO EACH EYE SCH ×2 (09:00→20:24)
[2018-05-09] MEDS: REMOVE OLD NITRO-DUR (NITROGLYCERIN) PATCH T-DERMAL SCH (09:00)
[2018-05-09] MEDS: MAGNESIUM HYDROXIDE SUSP 30 ML CUP PO SCH ×2 (09:00→20:25)
[2018-05-09] MEDS: LACTULOSE SYRUP 20 GM/30 ML CUP PO SCH (09:05)
[2018-05-09] MEDS: DOCUSATE SODIUM 50 MG/SENNA 8.6 MG TAB PO SCH ×2 (09:05→20:25)
[2018-05-09] MEDS: LISINOPRIL 10 MG TAB PO SCH ×2 (09:06→20:25)
[2018-05-09] MEDS: NITROGLYCERIN 0.6 MG/HR PATCH T-DERMAL SCH (09:06)
--- NOTE | 2018-05-09 09:37 | MB ---
cc: David Reed DO DATE: 05/09/2018 HISTORY OF PRESENT ILLNESS: Mr. Hernandez is a 72-year-old male who was admitted on 04/26/2018 after a fall from about 12-15 feet out of a tree. This history will be taken from the chart as the patient is on a ventilator. The patient had a traumatic brain injury with multiple contusions and a subdural hematoma. He also had a pulmonary contusion, bilateral rib fractures, as well as a small kidney hematoma. Recently here last night, the patient had his Brewer changed and gross hematuria was noted that developed after the Brewer was changed by the nursing staff. The patient then went on to have a CT scan with a cystogram, which showed that the bladder was normal and there was a questionable 2.5 solid mass into the right kidney with an adjacent large cyst. The hemorrhage that was there previously from earlier this month was no longer visualized. There was no hydronephrosis. The Brewer was in good position based on the cystogram findings. ALLERGIES: NO KNOWN DRUG ALLERGIES. PAST MEDICAL HISTORY: Unobtainable. PAST SURGICAL HISTORY: Noted for left ankle surgery. MEDICATIONS: For medications, please refer to the chart. FAMILY HISTORY: Unable to obtain a family history. SOCIAL HISTORY: He is noted to be . 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 There is no indication of smoking, drinking or using drugs in the past. PHYSICAL EXAMINATION: VITAL SIGNS: Temperature 98.6, heart rate 59, respiratory rate 19, 130/61 is his blood pressure. FiO2 of 50 percent. GENERAL: Well-developed, well-nourished, 72-year-old male in no acute distress. HEENT: Normocephalic, atraumatic. Eyes: Sigourney conjunctivae. No petechia or hemorrhage is noted. Pupils are equal, round and reactive to light. NECK: Tracheostomy site is noted. HEART: Regular rate and rhythm. LUNGS: Breath sounds heard bilaterally. ABDOMEN: Soft, nontender, nondistended. GENITOURINARY: Uncircumcised phallus. Scrotal edema is present. Brewer catheter is in place and presently is draining clearing urine. EXTREMITIES: 2-3+ edema noted of the lower extremities. LABORATORY DATA: White count 12.6, hemoglobin 8.9, hematocrit 26.5, platelet count of 324. Sodium 155, potassium 5.5, chloride 120, CO2 24.2, BUN of 40, creatinine 1.05, glucose 111. IMAGING STUDIES: Again demonstrate a 2.4 solid mass of the right kidney with adjacent large cyst. The prior hemorrhage from the renal laceration has resolved. The bladder is noted that the contours are smooth, Brewer catheter in place. ASSESSMENT: A 72-year-old male status post fall with history of a renal laceration which has improved and resolved with a 2.4 cm right renal mass. Doubt that the renal mass is causing the hematuria as the Brewer was changed just prior to the hematuria beginning. Urine is now clearing. No intervention required at this time. Irrigate Brewer p.r.n. After recovery, the patient will need cystoscopy Thank you for the consult and allowing me to participate in the care of this patient. DO COLTEN Tapia/MILAGRO , 09:13 AM , 09:36 AM
[2018-05-09 09:46] LABS: CALCIUM 8.1 MG/DL (8.5-10.1)
--- NOTE | 2018-05-09 09:52 | HHI.IDPN ---
Subjective Subjective Remarks Patient is a 72-year-old male, brought into the hospital as a trauma alert after falling about 12-15 feet out of a tree. He fell on a concrete walkway on his right side. Patient was unconscious when he was found. Patient was found to have traumatic brain injury with multiple contusion, and some subdural hematoma. He also had pulmonary contusion with multiple rib fractures, as well as a small kidney hematoma. Patient had significant edema in the brain, and he had a right bur hole for placement of an ICP monitor. He was on the vent. Patient since April 28 has been febrile. He continues to be febrile. The ICP monitor was eventually removed. He remains on the vent, and has had bronchoscopy done for thick secretions. He underwent tracheostomy placement May 06. Today's white count went up to 19,000. He was started on broad- spectrum antibiotic including vancomycin and Zosyn. He has no central line. He has a Vaca catheter in place. He had placement of a PEG tube today. Infectious disease consultation has been requested to assist with evaluation and treatment of patient with persistent fevers, worsening leukocytosis. Notes reviewed D/W RN Temps ok this morning Febrile overnight Had problems with hematuria Nothing yet on C/S WBC lower On CPAP this morning S/P trach 05/06 S/P PEG 05/08 Antibiotics Vancomycin Zosyn Current Medications Medications (Trade) Dose Ordered Sig/Bonilla Route Start Time Stop Time Status Last Admin (NS Flush) 2 ml UNSCH PRN IV FLUSH 04/26/18 13:15 (NS Flush) 2 ml BID IV FLUSH 04/26/18 21:00 05/09/18 09:00 (Protonix Inj) 40 mg Q24H IV PUSH 04/26/18 14:00 05/08/18 14:17 (Narcan Inj) 0.4 mg UNSCH PRN IV PUSH 04/26/18 13:15 Potassium Chloride 100 ml @ 50 mls/hr Q2H PRN IV-CENTRAL 04/27/18 07:30 Potassium Chloride 100 ml @ 50 mls/hr Q2H PRN IV 04/27/18 07:30 (K-Lyte Cl Eff) 50 meq UNSCH PRN PO 04/27/18 07:30 04/29/18 06:17 Potassium Chloride 100 ml @ 25 mls/hr UNSCH PRN IV-CENTRAL 04/27/18 07:30 Potassium Chloride 100 ml @ 50 mls/hr Q2H PRN IV 04/27/18 07:30 Magnesium Sulfate 4 gm/Sodium Chloride 100 ml @ 50 mls/hr UNSCH PRN IV 04/27/18 07:30 (Mag-Ox) 800 mg UNSCH PRN PO 04/27/18 07:30 Magnesium Sulfate 2 gm/Sodium Chloride 100 ml @ 50 mls/hr UNSCH PRN IV 04/27/18 07:30 (K-Phos) 2,000 mg Q4H PRN PO 04/27/18 07:30 Sodium Phosphate 30 mmol/Sodium Chloride 250 ml @ 42 mls/hr UNSCH PRN IV 04/27/18 07:30 04/27/18 22:16 (K-Phos) 2,000 mg UNSCH PRN PO/TUBE 04/27/18 07:30 Potassium Phosphate 30 mmol/ Sodium Chloride 260 ml @ 42 mls/hr UNSCH PRN IV 04/27/18 07:30 (Peridex 0.12% Liq) 15 ml BID@08,20 MT 04/27/18 08:00 05/09/18 08:00 (Duoneb Neb) 1 ampule Q2HR NEB PRN NEB 04/27/18 07:30 05/08/18 00:47 (Meron-Colace) 1 tab BID PO 04/27/18 09:00 05/09/18 09:05 (Milk Of Magnesia Liq) 30 ml BID PO 04/27/18 09:00 05/08/18 21:48 Acetaminophen 100 ml @ 400 mls/hr Q6H PRN IV 04/27/18 16:15 05/07/18 19:00 (Lactulose Liq) 30 ml DAILY PO 04/29/18 09:00 05/09/18 09:05 (Lovenox Inj) 40 mg Q24H SQ 05/01/18 11:00 Future hold 05/07/18 11:00 (Prinivil) 10 mg Q12HR PO 05/01/18 17:00 05/09/18 09:06 (Roxicodone) 10 mg Q6H NG 05/01/18 16:15 05/09/18 04:31 (Catapres-Tts 0.3 Mg Patch.7d) 1 patch Q7D T-DERMAL 05/03/18 11:00 05/03/18 11:48 (Lacrilube Opht Oint) 1 applic Q12HR EACH EYE 05/03/18 11:00 05/09/18 09:00 Miscellaneous Information 1 Q7D T-DERMAL 05/10/18 10:59 (Lopressor Inj) 2.5 mg Q6H IV PUSH 05/03/18 21:00 05/09/18 09:05 (Duragesic 25 Mcg Patch.72 Hr) 1 patch Q3D T-DERMAL 05/07/18 12:00 05/07/18 12:52 Miscellaneous Information 1 Q3D T-DERMAL 05/10/18 12:00 Pharmacy Profile Note 0 ml @ 0 mls/hr UNSCH OTHER 05/08/18 09:45 (Symmetrel Liq) 100 mg BID@07,12 PO 05/08/18 12:00 05/09/18 06:22 Vancomycin HCl 1250 mg/Sodium Chloride 262.5 ml @ 250 mls/hr Q12H IV 05/08/18 11:00 05/09/18 01:20 [place] [place] Info[place] SPECIFIC LAB TO BE DRAWN:VANCO TROUGH DATE TO... ONCE ONCE .XX 05/09/18 22:45 05/09/18 22:46 (Nitro-Dur 0.6 Mg Patch.24 Hr) 1 patch DAILY T-DERMAL 05/08/18 15:30 05/09/18 09:06 Miscellaneous Information 1 DAILY T-DERMAL 05/09/18 09:00 05/09/18 09:00 Piperacillin Sod/ Tazobactam Sod 100 ml @ 100 mls/hr Q6H IV 05/08/18 17:00 05/09/18 04:31 Amiodarone HCl 450 mg/Sodium Chloride 259 ml @ 33.33 mls/ hr Q7H47M PRN IV 05/08/18 18:52 05/09/18 02:39 (Lanoxin Inj) 0.25 mg ONCE@1400 ONCE IV PUSH 05/09/18 14:00 05/09/18 14:01 (Free Water) 250 ml Q6HR G-TUBE 05/09/18 12:00 Lactated Ringer's 1,000 ml @ 50 mls/hr Q20H IV 05/09/18 10:00 Lines No evidence of infection Past Medical History Lymphedema LLE L ankle surgery Allergies: Coded Allergies: No Known Allergies (Unverified , 04/26/18) Objective . Vital Signs Date Time Temp Pulse Resp B/P (MAP) Pulse Ox O2 Delivery O2 Flow Rate FiO2 05/09/18 08:00 50 05/09/18 08:00 59 05/09/18 08:00 98.6 62 19 130/61 (84) 96 05/09/18 07:55 40 05/09/18 07:55 97 40 05/09/18 07:00 98 Mechanical Ventilator 40 05/09/18 06:00 59 05/09/18 04:00 85 05/09/18 04:00 98.7 81 19 181/74 (109) 97 05/09/18 04:00 50 05/09/18 03:39 100 50 05/09/18 02:39 69 139/64 05/09/18 02:00 71 05/09/18 00:15 100 100 05/09/18 00:15 98 50 05/09/18 00:00 50 05/09/18 00:00 94 05/09/18 00:00 98.7 71 18 132/56 (81) 98 05/08/18 22:00 94 05/08/18 20:05 98 50 05/08/18 20:00 176 05/08/18 20:00 100.6 176 23 109/77 (88) 98 05/08/18 20:00 50 05/08/18 19:15 176 123/74 05/08/18 19:00 100 Mechanical Ventilator 40 05/08/18 19:00 191 116/71 05/08/18 18:00 108 05/08/18 17:25 32 05/08/18 16:44 50 05/08/18 16:43 95 50 05/08/18 16:00 110 05/08/18 16:00 101.3 110 28 182/86 (118) 99 05/08/18 16:00 50 05/08/18 14:00 86 05/08/18 12:00 64 05/08/18 12:00 100 05/08/18 12:00 100.2 64 21 140/61 (87) 100 05/08/18 10:50 96 50 05/08/18 10:00 70 . Laboratory Tests Test 05/08/18 05:00 05/09/18 03:57 White Blood Count 19.7 TH/MM3 12.6 TH/MM3 Red Blood Count 3.33 MIL/MM3 2.86 MIL/MM3 Hemoglobin 10.1 GM/DL 8.9 GM/DL Hematocrit 30.7 % 26.5 % Mean Corpuscular Volume 92.2 FL 92.8 FL Mean Corpuscular Hemoglobin 30.4 PG 31.1 PG Mean Corpuscular Hemoglobin Concent 33.0 % 33.5 % Red Cell Distribution Width 13.7 % 13.7 % Platelet Count 364 TH/MM3 324 TH/MM3 Mean Platelet Volume 8.6 FL 9.0 FL Neutrophils (%) (Auto) 90.4 % 88.3 % Lymphocytes (%) (Auto) 3.3 % 5.7 % Monocytes (%) (Auto) 5.9 % 5.9 % Eosinophils (%) (Auto) 0.0 % 0.0 % Basophils (%) (Auto) 0.4 % 0.1 % Neutrophils # (Auto) 17.8 TH/MM3 11.1 TH/MM3 Lymphocytes # (Auto) 0.6 TH/MM3 0.7 TH/MM3 Monocytes # (Auto) 1.2 TH/MM3 0.7 TH/MM3 Eosinophils # (Auto) 0.0 TH/MM3 0.0 TH/MM3 Basophils # (Auto) 0.1 TH/MM3 0.0 TH/MM3 CBC Comment AUTO DIFF DIFF FINAL Differential Total Cells Counted 100 Neutrophils % (Manual) 83 % Band Neutrophils % 7 % Lymphocytes % 2 % Monocytes % 7 % Neutrophils # (Manual) 17.9 TH/MM3 Metamyelocytes 1 % Differential Comment FINAL DIFF MANUAL Platelet Estimate NORMAL Platelet Morphology Comment NORMAL Red Cell Morphology Comment NORMAL Laboratory Tests Test 05/08/18 05:00 05/08/18 22:27 05/09/18 09:11 Blood Urea Nitrogen 30 MG/DL 40 MG/DL Creatinine 0.79 MG/DL 1.05 MG/DL Random Glucose 119 MG/DL 111 MG/DL Total Protein 6.1 GM/DL 5.4 GM/DL Albumin 1.7 GM/DL 1.4 GM/DL Calcium Level 8.1 MG/DL 8.1 MG/DL Magnesium Level 2.6 MG/DL 2.6 MG/DL 2.7 MG/DL Alkaline Phosphatase 180 U/L 135 U/L Aspartate Amino Transf (AST/SGOT) 82 U/L 41 U/L Alanine Aminotransferase (ALT/SGPT) 115 U/L 67 U/L Total Bilirubin 1.2 MG/DL 2.0 MG/DL Sodium Level 153 MEQ/L 155 MEQ/L Potassium Level 3.9 MEQ/L 3.8 MEQ/L 5.5 MEQ/L Chloride Level 117 MEQ/L 120 MEQ/L Carbon Dioxide Level 27.6 MEQ/L 24.2 MEQ/L Anion Gap 8 MEQ/L 11 MEQ/L Estimat Glomerular Filtration Rate 96 ML/MIN 69 ML/MIN Troponin I 0.10 NG/ML Microbiology Date/Time Source Procedure Growth Status 05/08/18 12:35 Blood Peripheral Aerobic Blood Culture Pending Received 05/08/18 12:35 Blood Peripheral Anaerobic Blood Culture Pending Received 05/08/18 12:30 Blood Peripheral Aerobic Blood Culture Pending Received 05/08/18 12:30 Blood Peripheral Anaerobic Blood Culture Pending Received 05/08/18 12:40 Sputum Endotracheal Gram Stain Pending Received 05/08/18 12:40 Sputum Endotracheal Sputum Culture Pending Received 05/08/18 12:00 Urine Catheterized Urine Urine Culture Pending Received Imaging Chest X-Ray 05/09/18 0600 Signed Impressions: CONCLUSION: Stable pulmonary vascular congestion. Tracheostomy tube in good position. Chest X-Ray 05/08/18 0600 Signed Impressions: CONCLUSION: Stable appearance the chest Lower Extremity Ultrasound 05/08/18 0000 Signed Impressions: CONCLUSION: No DVT. Abdomen/Pelvis CT 05/08/18 0000 Signed Impressions: CONCLUSION: 1. Again questionable 2.4 solid mass of the right kidney with an adjacent larg e cyst. The hemorrhage seen earlier in April is no longer appreciated. 2. Very impressive anasarca in the lower extremities and very impressive fluid along the periphery of both thighs musculature groupings Chest X-Ray 05/07/18 0600 Signed Impressions: CONCLUSION: Bilateral airspace disease Chest X-Ray 05/06/18 1230 Signed Impressions: CONCLUSION: Placement of tracheostomy. Feeding tube present. Physical Exam GENERAL: sedated on the vent, not in respiratory distress. SKIN: Warm and dry. No generalized rash, no ecchymoses and no evidence of embolic lesions. HEAD: Previous ICP monitor site is dry. EYES: Malin conjunctiva. No petechia or hemorrhage. Pupils equal, round and reactive to light. No scleral icterus. No injection or drainage. EARS, NOSE AND THROAT: Nose without bleeding or purulent nasal discharge. NECK: Tracheostomy site looks ok. Supple CARDIOVASCULAR: Regular rate and rhythm. No murmurs, rubs or gallops heard RESPIRATORY: Coarse breath sounds bilaterally, decreased at the bases. ABDOMEN: Soft, no reaction to palpation, nondistended. Bowel sounds present and hypoactive. PEG site looks okay. EXTREMITIES: No clubbing, cyanosis. Warm. NEUROLOGICAL: Unresponsive PSYCHIATRIC: Unable to assess LINE: No evidence of infection : Vaca catheter in place, urine with bloody urine Assessment & Plan Remarks IMPRESSION Persistent fevers, ?PNA, ?central fever Worsening leukocytosis, concern with HCAP - ?other nosocomial infection - has no line - has vaca TBI, pulmonary contusion, multiple rib fractures RECOMMENDATION Continue Vanco Continue Zosyn Follow C/S Weaning per trauma team Follow temps Monitor progress D/W Rosa Stanley MD May 09, 2018 09:52
[2018-05-09] MEDS: LACTATED RINGER'S 1000 ML INJ 1,000 ML IV SCH (10:00)
[2018-05-09] MEDS ORDERED: PROPOFOL 200 MG/20 ML AMP IV ONE (10:01)
[2018-05-09] MEDS ORDERED: PHENYLEPH/NS 1000 MCG/10 ML SYR IV ONE (10:01)
[2018-05-09] MEDS ORDERED: SODIUM CHLORIDE 0.9% 10 ML VIAL IV ONE (10:01)
--- NOTE | 2018-05-09 10:32 | MB ---
cc: Zane Phillips MD DATE: 05/09/2018 REASON FOR CONSULTATION: Evaluation atrial fibrillation with rapid ventricular response. HISTORY OF PRESENT ILLNESS: Omar Hernandez is a 72-year-old man admitted to the hospital on 04/26/2018 as a Trauma Alert. He had fallen out of a tree and landed on concrete with a brain contusion and rib fractures. He has been having some fever since 04/28/2018. Last night he went into rapid atrial fibrillation. He was started on amiodarone and he has converted to sinus rhythm. I talked to the . He has had a lifelong history of being quite athletic and has had a low heart rate, even with heart rates down into the 40s. He was active even right up until the time of this admission, never complained of chest pain or shortness of breath. Never smoked, never had high blood pressure or diabetes that she is aware of. SOCIAL HISTORY: Does not smoke. 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 ALLERGIES: NONE. FAMILY HISTORY: Negative for heart disease. PAST MEDICAL HISTORY: Negative. PHYSICAL EXAMINATION: GENERAL: A robust, well-developed, well-nourished white male. He is not verbally responding. He is awake. NECK: His neck does not show any jugular venous distention. There are no carotid bruits. CHEST: Shows normal breath sounds anteriorly. CARDIAC: S1, S2. Regular rate and rhythm. I do not appreciate murmurs or gallops. ABDOMEN: Soft. EXTREMITIES: Reveal mild generalized edema. Pedal pulses are strong. The left leg is in a compression stocking and mentioned he has a history of lymphedema of the left leg following an ankle injury. IMPRESSION: 1. Paroxysmal atrial fibrillation with rapid ventricular response, now converted back to sinus rhythm. 2. Traumatic brain injury. 3. Rib fractures with a small pneumothorax previously. RECOMMENDATIONS: He has converted to sinus rhythm with amiodarone. We will check an EKG, checking a 2-D echo Doppler study. Magnesium and potassium do not appear to be needing repletion. I am going to start oral amiodarone and discontinue the IV amiodarone when the drip runs out. He probably does not need to be on this permanently, but to get him through this week. I spoke to the in detail. I will follow up tomorrow. MD CELSO Prado/MILAGRO , 10:16 AM , 10:30 AM
[2018-05-09] MEDS: ENOXAPARIN SODIUM 40 MG/0.4 ML SYRINGE SQ SCH (11:08)
--- NOTE | 2018-05-09 11:41 | HHI.GIFU ---
Subjective Remarks Pt remains intubated, family at bedside PEG clamped, site is clean and dry with gauze (Елена Sun) Objective Vitals I&O Vital Signs Date Time Temp Pulse Resp B/P (MAP) Pulse Ox O2 Delivery O2 Flow Rate FiO2 05/09/18 10:00 62 05/09/18 08:00 50 05/09/18 08:00 59 05/09/18 08:00 98.6 62 19 130/61 (84) 96 05/09/18 07:55 40 05/09/18 07:55 97 40 05/09/18 07:00 98 Mechanical Ventilator 40 05/09/18 06:00 59 05/09/18 04:00 85 05/09/18 04:00 98.7 81 19 181/74 (109) 97 05/09/18 04:00 50 05/09/18 03:39 100 50 05/09/18 02:39 69 139/64 05/09/18 02:00 71 05/09/18 00:15 100 100 05/09/18 00:15 98 50 05/09/18 00:00 50 05/09/18 00:00 94 05/09/18 00:00 98.7 71 18 132/56 (81) 98 05/08/18 22:00 94 05/08/18 20:05 98 50 05/08/18 20:00 176 05/08/18 20:00 100.6 176 23 109/77 (88) 98 05/08/18 20:00 50 05/08/18 19:15 176 123/74 05/08/18 19:00 100 Mechanical Ventilator 40 05/08/18 19:00 191 116/71 18 18:00 108 18 17:25 32 18 16:44 50 18 16:43 95 50 05/08/18 16:00 110 05/08/18 16:00 101.3 110 28 182/86 (118) 99 05/08/18 16:00 50 05/08/18 14:00 86 05/08/18 12:00 64 05/08/18 12:00 100 05/08/18 12:00 100.2 64 21 140/61 (87) 100 I/O 6/18/18 605/08/18 05/09/18 05/09/18 05/09/18 07:00 15:00 23:00 07:00 15:00 23:00 Intake Total 899 ml 500 ml 379 ml 1884 ml Output Total 702 ml 2 ml 520 ml 2150 ml Balance 197 ml 498 ml -141 ml -266 ml Intake Oral 0 ml IV Total 259 ml 1764 ml Tube Feeding 719 ml 0 ml 0 ml Other 180 ml 500 ml 120 ml 120 ml Output Urine Total 700 ml 120 ml 2150 ml Stool Total 2 ml 400 ml Estimated Blood Loss 2 ml # Voids 1 # Bowel Movements 1 1 Laboratory Laboratory Tests Test 05/08/18 22:27 05/09/18 03:57 05/09/18 04:14 05/09/18 09:11 Potassium Level 3.8 5.5 Magnesium Level 2.6 2.7 Troponin I 0.10 White Blood Count 12.6 Red Blood Count 2.86 Hemoglobin 8.9 Hematocrit 26.5 Mean Corpuscular Volume 92.8 Mean Corpuscular Hemoglobin 31.1 Mean Corpuscular Hemoglobin Concent 33.5 Red Cell Distribution Width 13.7 Platelet Count 324 Mean Platelet Volume 9.0 Neutrophils (%) (Auto) 88.3 Lymphocytes (%) (Auto) 5.7 Monocytes (%) (Auto) 5.9 Eosinophils (%) (Auto) 0.0 Basophils (%) (Auto) 0.1 Neutrophils # (Auto) 11.1 Lymphocytes # (Auto) 0.7 Monocytes # (Auto) 0.7 Eosinophils # (Auto) 0.0 Basophils # (Auto) 0.0 CBC Comment DIFF FINAL Differential Comment Blood Gas Puncture Site RT RADIAL Blood Gas Patient Temperature 98.6 Blood Gas HCO3 26 Blood Gas Base Excess 3.1 Blood Gas Oxygen Saturation 95 Arterial Blood pH 7.50 Arterial Blood Partial Pressure CO2 34 Arterial Blood Partial Pressure O2 87 Arterial Blood Oxygen Content 13.0 Arterial Blood Carboxyhemoglobin 1.3 Arterial Blood Methemoglobin 1.0 Blood Gas Hemoglobin 9.6 Oxygen Delivery Device VENTILATOR Blood Gas Ventilator Setting PRVC/ AC Blood Gas Inspired Oxygen 50 Blood Urea Nitrogen 40 Creatinine 1.05 Random Glucose 111 Total Protein 5.4 Albumin 1.4 Calcium Level 8.1 Alkaline Phosphatase 135 Aspartate Amino Transf (AST/SGOT) 41 Alanine Aminotransferase (ALT/SGPT) 67 Total Bilirubin 2.0 Sodium Level 155 Chloride Level 120 Carbon Dioxide Level 24.2 Anion Gap 11 Estimat Glomerular Filtration Rate 69 Date/Time Source Procedure Growth Status 05/08/18 12:35 Blood Peripheral Aerobic Blood Culture - Preliminary NO GROWTH IN 1 DAY Resulted 05/08/18 12:35 Blood Peripheral Anaerobic Blood Culture - Preliminary NO GROWTH IN 1 DAY Resulted 05/08/18 12:40 Sputum Endotracheal Gram Stain - Final Resulted 05/08/18 12:40 Sputum Endotracheal Sputum Culture Pending Resulted 05/08/18 12:00 Urine Catheterized Urine Urine Culture Pending Received Imaging Last Impressions Chest X-Ray 05/09/18 0600 Signed Impressions: CONCLUSION: Stable pulmonary vascular congestion. Tracheostomy tube in good position. Lower Extremity Ultrasound 05/08/18 0000 Signed Impressions: CONCLUSION: No DVT. Abdomen/Pelvis CT 05/08/18 0000 Signed Impressions: CONCLUSION: 1. Again questionable 2.4 solid mass of the right kidney with an adjacent larg e cyst. The hemorrhage seen earlier in April is no longer appreciated. 2. Very impressive anasarca in the lower extremities and very impressive fluid along the periphery of both thighs musculature groupings Abdomen X-Ray 05/06/18 0000 Signed Impressions: CONCLUSION: Feeding tube tip in proximal duodenum. Head CT 05/04/18 0000 Signed Impressions: CONCLUSION: 1. Evolving traumatic brain injury with resolving hemorrhages. 2. Persistent edema in left frontal and temporal lobe contusions. 3. No significant shift of midline structures. 4. Hairline fracture along the base of the skull in the right temporal region. 5. No evidence of new hemorrhage or acute infarct. Chest CT 05/04/18 0000 Signed Impressions: CONCLUSION: 1. Increasing bilateral pleural effusions with a moderate to large effusion on the right. 2. Total consolidation of both lower lobes. 3. No other significant change. Cervical Spine CT 04/26/18 1251 Signed Impressions: CONCLUSION: Degenerative spondylosis with neural foraminal compromise right C5 -6 without any significant thecal sac stenosis. Physical Exam HEENT: Normocephalic; atraumatic CHEST: Respirations synchronized with vent via tracheostomy CARDIAC: RRR ABDOMEN: Soft, nondistended, bowel sounds active EXTREMITIES: No clubbing, cyanosis, or edema. SKIN: Normal; no rash; no jaundice. 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 Singleton and this note is written on his behalf (Елена Sun) Physician Comments Seen and examined with BUYER, s/p peg. Start TF as tolerated. Flush PEG with water q shift. Gi will sign off, reconsult as needed. Thank you (Ja Singleton MD) Елена Sun May 09, 2018 11:41 Ja Singleton MD May 09, 2018 17:35
[2018-05-09] MEDS: FREE WATER G-TUBE SCH ×2 (11:49→17:05)
--- NOTE | 2018-05-09 12:36 | HHI.CCPN ---
Subjective Brief History This 72-year-old gentleman was brought in as priority 1 trauma alert after falling about 12-15 feet out of a tree as the ladder went flying sideways. The patient fell on a concrete walkway, right side down. According to witnesses, he was completely unconscious and on the arrival, the paramedics' [place] Coma Scale was 3-4, which improved on the way to about 8 or 9. The patient brought with a spinal board with C-collar in place, moaning and groaning and complained but pain in the right chest. Patient was resuscitated according trauma principles and placed in ICU for further care Final injuries Traumatic brain injury with mainly left frontal temporoparietal subarachnoid and subdural bleed and some superficial contusions of the brain Right chest contusion with a small hemothorax and serial rib fractures of 5th, 6th, 7th, 8th ribs, Transverse process fractures of several vertebrae, Laceration of the right kidney with a hematoma and a small mass of the right kidney 24 Hour Review/Hospital Course 04/27/2018 Patient remains intubated and ventilated Neuroprotective measures including propofol and fentanyl Keppra 2% hypertonic saline at 30 cc/h ICP remains 4-12 mmHg Hemodynamically patient stable Bilateral good breath sounds on decreasing levels of ventilatory support with good PO2 FiO2 gradient 04/28/2018 No change in neurologic status On sedation vacation patient moves all 4 extremities opens eyes but does not follow commands and does not track making [place] Coma Scale about 6 or 7 This is fairly significant brain injury and will take a while to resolve ICP remains low and from my point ICP monitor can be removed CPP within the parameters of autoregulation Remains on neuroprotective measures including propofol fentanyl Keppra Decrease 2% saline to about 20 cc an hour at this point Hemodynamically patient stable Bilateral breath sounds remains on assist control ventilation and pulmonary status and PO2 FiO2 gradient will allow for extubation but of course patient's neurologic status does not allow for the same Patient will not need tracheostomy and I believe he will recover in next few days sufficiently and regaining consciousness to extubate safely Abdomen soft enteral feeds tolerated Renal function normal 04/29/2018 No change in neurologic status Patient remains stable on propofol fentanyl Keppra ICP remains within physiologic range and ICP monitor may be removed as per neurosurgery Hemodynamically remains stable however hemoglobin dropped to 7.8 g/dL as a result of hemodilution and obviously decreased production We will transfuse 2 units PRBC faced with age and neurologic injury Bilateral good breath sounds good PO2 FiO2 gradient Abdomen soft enteral feeds tolerated Plan Once okay with neurosurgery will wake up the patient and start weaning down the sedation probably tomorrow or Tuesday Transfuse 2 units PRBC Continue care 04/30/2018 No change in current status Patient remains on neuroprotective measures with decreasing levels of propofol and fentanyl On sedation vacation moves purposefully does not open eyes yet Will need another few days before sufficiently improved to wean and extubate ICP remains 5-12 mmHg Hemodynamically patient stable if not somewhat hypertensive which is being addressed Bilateral breath sounds and bilateral pleural effusions with atelectasis as a result probably of her original event and retention of secretions I am concerned about patient's pulmonary function and he might need bronchoscopy early next week Renal function preserved Patient about 12 L positive since the arrival will diurese gently to take of the third space now that systemic inflammatory response is abating 05/01/2018 Neurologically patient is unchanged if not somewhat better With decrease of sedation and sedation vacation patient is waking up moving all 4 extremities however does not open eyes or follow commands This is very early in the course and I believe patient will eventually improve neurologically Hemodynamically stable somewhat hypertensive and medications adjusted for the same Added nicardipine drip for management of recalcitrant hypertension Bilateral breath sounds remains on assist control ventilation will start on CPAP trials daily Abdomen soft enteral feeds tolerated I am not sure this patient will require tracheostomy but I believe he will come off the ventilator without one 05/02/2018 Patient neurologically slightly improving On sedation vacation moves all 4 extremities does not follow commands Bilateral good breath sounds on assist control ventilation and will start on CPAP trials Patient does have significant secretions and atelectasis mainly right lower lobe Underwent successful bronchoscopy today Abdomen soft enteral feeds tolerated Again as noted previously patient might or might not require tracheostomy and will see how he does in next few days neurologically which will be the base of placing one or not 05/03/2018 Neurologic status unchanged On sedation vacation patient moves all 4 extremities but does not follow commands and is very restless ICP monitor has been removed due to low ICP pressures throughout At this point the patient remains on small dose propofol and fentanyl in face of his injuries however he is not ready to come off the respirator due to the low GCS Hemodynamically patient is stable however hypertensive Catapres patch Lisinopril Hydralazine Beta-blockers could not be used due to patient's development of bradycardia. Patient was placed on nicardipine drip however at this point we going to stop this due to large fluid load associated with the same Abdomen soft enteral feeds tolerated Renal function is preserved patient is now fluid overloaded in anasarca with bilateral pleural effusions right more than left We will try outpatient somewhat and see how he does but he may need right chest drained to evacuate hydrothorax 05/04/2018 Neurologically patient is unchanged Slightly decrease of propofol to 35 mcg and remains on fentanyl No change in neurologic status Based on low [place] Coma Scale patient will require tracheostomy Hemodynamically stable however hypertensive and now controlled with several medications as above noted Nicardipine has been removed due to huge volume load and general edema this has provoked Renal function well-preserved patient now diuresing very well and is back to his weight Tolerates enteral feeds well Plan Tracheostomy tomorrow and then weaned to liberate from the ventilator Gradually decrease sedation as the blood pressure and patient's general condition tolerates Will require neuro rehab placement 05/05/2018 Neurologically patient is unchanged Remains on small dose fentanyl and 35 mcg of propofol. Due to blood pressure issues patient was more sedated last night On sedation vacation patient moves all extremities but does not open eyes and does not track or follow any commands Withdraws to pain With this low level of consciousness and low [place] Coma Scale, patient clearly cannot be brought to extubation because he will be unable to protect his upper airway Tracheostomy today Hemodynamically stable 05/06/2018 No change in neurologic status Propofol has been completely removed and patient at this point is moving and withdrawing to pain but that is about it Does not open eyes trach or spontaneously performing the actions We will keep on small dose fentanyl and switch to Roxicodone p.o. Bilateral breath sounds on assist control ventilatory mode with excellent PO2 FiO2 gradient Successful tracheostomy today In face of tracheostomy will start weaning patient off the ventilator and I believe be from the ventilator next 24-48 hours Abdomen soft enteral feeds tolerated Dobbhoff placed and will consult GI for PEG This gentleman will require long-term neuro rehabilitative care and based on his age outcome may be quite limited as far as cognitive or motoric recovery is concerned I discussed this with family several times 05/07/2018 Patient doing well He is off all sedation however there is only response to pain and patient is not opening eyes for me or following any commands Status post tracheostomy at this point on CPAP will switch to T-piece and if tolerated will liberated from the ventilator Bilateral good breath sounds small right pleural effusion but in face of good respiratory function I will leave it alone Abdomen soft enteral feeds tolerated and PEG tube either today or tomorrow Patient can be transferred to rehab/LTAC any time 05/08/2018 Neurologically patient is may be slightly improved I was told he was withdrawing more to pain and tried to open his eyes but have not seen this Definitely withdraws to pain Off of all sedation Bilateral breath sounds underwent tracheostomy on Tuesday and is been weaned down from the vent He was on fairly high pressure support on CPAP so this has to be weaned down first in order to get him to the T-piece Spiked fever and it is probably pulmonary related patient is on prophylactic antibiotics and cultures are pending Leukocytosis to 19,000 with left shift I suspect sepsis and at this point source is not clear as above noted that might be pulmonary but may be some other source Abdomen soft PEG today After all done patient will be able to transfer to LTAC for further neuro recovery Addendum This evening patient developed SVT which then turned to A. fib with RVR Patient volume loaded and started on amiodarone drip In addition Brewer was flushed with large amounts of air coming out as well as some blood This has to be further worked up for it is conceivable that patient has an intra -abdominal process like a colovesical fistula As soon as the rate is controlled patient will go to the CT of abdomen and pelvis with retrograde cystogram 05/09 Patient is today more stable-his A. fib converted to sinus rhythm on amiodarone Appreciate cardiology's input- Also the hematuria which in the meantime resolved-hemoglobin is now 8.9 Appreciate also urology's input-will need cystoscopy of the discharge Is on CPAP pressure support tolerating well WBC is now 12.6 this is down from -is on empiric antibiotics and cultures are so far negative and infectious disease is on board Sodium is 155, BUN is 40-patient is intravascularly on the loop drier operator side- We carefully start him on free water-and crystalloid on low rate We will continue to follow the sodium Objective Vital Signs Date Time Temp Pulse Resp B/P (MAP) Pulse Ox O2 Delivery O2 Flow Rate FiO2 05/09/18 12:05 100 40 05/09/18 10:00 62 6/19/18 08:00 98.6 19 130/61 (84) 05/09/18 07:00 Mechanical Ventilator 05/07/18 19:30 10.00 Intake and Output 05/09/18 05/09/18 05/10/18 08:00 16:00 00:00 Intake Total 1884 ml Output Total 2150 ml Balance -266 ml Result Diagram: 05/09/18 0357 05/09/18 0911 Other Results Laboratory Tests Test 05/09/18 04:14 Blood Gas Puncture Site RT RADIAL Blood Gas Patient Temperature 98.6 Blood Gas HCO3 26 mmol/L (22-26) Blood Gas Base Excess 3.1 mmol/L (-2-2) Blood Gas Oxygen Saturation 95 % (90-100) Arterial Blood pH 7.50 (7.380-7.420) Arterial Blood Partial Pressure CO2 34 mmHg (38-42) Arterial Blood Partial Pressure O2 87 mmHg (61-120) Arterial Blood Oxygen Content 13.0 Vol % (12.0-20.0) Arterial Blood Carboxyhemoglobin 1.3 % (0-4) Arterial Blood Methemoglobin 1.0 % (0-2) Blood Gas Hemoglobin 9.6 G/DL (12.0-16.0) Oxygen Delivery Device VENTILATOR Blood Gas Ventilator Setting PRVC/ AC Blood Gas Inspired Oxygen 50 % Imaging Last 24 hours Impressions Chest X-Ray 05/09/18 0600 Signed Impressions: CONCLUSION: Stable pulmonary vascular congestion. Tracheostomy tube in good position. 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
[2018-05-09] MEDS: PANTOPRAZOLE SODIUM 40 MG VIAL IV PUSH SCH (14:12)
--- NOTE | 2018-05-09 14:37 | HHI.NSPN ---
Note Status Status: Progress Note Interval History Interval History This 72-year-old gentleman was brought in as priority 1 trauma alert after falling about 12-15 feet out of a tree. Apparently the ladder fell sideways. No seizure activity. No tonguebitting. No incontinence of stool or urine. The patient fell on a concrete walkway, right side down. According to witnesses, he was completely unconscious and on the arrival, the paramedics' [place] Coma Scale was 3, which improved after resuscitation to about 8. The patient brought with a spinal board with C-collar in place, moaning and groaning. CT showed traumatic SAHand a small SDH. Neurosurgery consultation was requested 04/27: patient seen this morning during rounds, mildly sedated, intubated, but seen to be moving purposefully, no opening eyes or following commands. 04/28: seen this am during rounds, ICPs controlled overnight, intubated and currently well sedated. f/u CT Brain this morning completed, improved SDH, with evolving contusion. 05/01: intubated, sedated reported to move spontaneously when sedation lowered but not following command. ICPs controlled. 05/02: intubated, mildly sedated, minimally opens eyes, moves extremities, but not following commands. planned bronchoscopy today with trauma. 05/03: remains intubated, sedated. no changes neurologically. 05/04: remains intubated, sedated requiring for blood pressure control. for follow up CT Brain. 05/08: minimal eye opening, not following for testing. 05/09: opens eyes, not following commands. Labs, Micro, & Vital Signs Results Date Time Temp Pulse Resp B/P (MAP) Pulse Ox O2 Delivery O2 Flow Rate FiO2 05/09/18 12:05 100 40 05/09/18 12:00 40 05/09/18 12:00 58 05/09/18 12:00 99.0 58 16 162/69 (100) 97 05/09/18 10:00 62 05/09/18 08:00 50 05/09/18 08:00 59 05/09/18 08:00 98.6 62 19 130/61 (84) 96 6/19/18 07:55 40 05/09/18 07:55 97 40 05/09/18 07:00 98 Mechanical Ventilator 40 05/09/18 06:00 59 05/09/18 04:00 85 05/09/18 04:00 98.7 81 19 181/74 (109) 97 05/09/18 04:00 50 05/09/18 03:39 100 50 05/09/18 02:39 69 139/64 05/09/18 02:00 71 05/09/18 00:15 100 100 05/09/18 00:15 98 50 05/09/18 00:00 50 05/09/18 00:00 94 05/09/18 00:00 98.7 71 18 132/56 (81) 98 05/08/18 22:00 94 05/08/18 20:05 98 50 05/08/18 20:00 176 05/08/18 20:00 100.6 176 23 109/77 (88) 98 05/08/18 20:00 50 05/08/18 19:15 176 123/74 05/08/18 19:00 100 Mechanical Ventilator 40 05/08/18 19:00 191 116/71 05/08/18 18:00 108 05/08/18 17:25 32 05/08/18 16:44 50 05/08/18 16:43 95 50 05/08/18 16:00 110 05/08/18 16:00 101.3 110 28 182/86 (118) 99 05/08/18 16:00 50 Constitutional Vital Signs Date Time Temp Pulse Resp B/P (MAP) Pulse Ox O2 Delivery O2 Flow Rate FiO2 05/09/18 12:05 100 40 05/09/18 12:00 40 05/09/18 12:00 58 05/09/18 12:00 99.0 58 16 162/69 (100) 97 05/09/18 10:00 62 05/09/18 08:00 50 05/09/18 08:00 59 05/09/18 08:00 98.6 62 19 130/61 (84) 96 05/09/18 07:55 40 05/09/18 07:55 97 40 05/09/18 07:00 98 Mechanical Ventilator 40 05/09/18 06:00 59 05/09/18 04:00 85 05/09/18 04:00 98.7 81 19 181/74 (109) 97 05/09/18 04:00 50 05/09/18 03:39 100 50 05/09/18 02:39 69 139/64 05/09/18 02:00 71 05/09/18 00:15 100 100 05/09/18 00:15 98 50 05/09/18 00:00 50 05/09/18 00:00 94 05/09/18 00:00 98.7 71 18 132/56 (81) 98 05/08/18 22:00 94 05/08/18 20:05 98 50 05/08/18 20:00 176 05/08/18 20:00 100.6 176 23 109/77 (88) 98 05/08/18 20:00 50 05/08/18 19:15 176 123/74 05/08/18 19:00 100 Mechanical Ventilator 40 05/08/18 19:00 191 116/71 05/08/18 18:00 108 05/08/18 17:25 32 05/08/18 16:44 50 05/08/18 16:43 95 50 05/08/18 16:00 110 05/08/18 16:00 101.3 110 28 182/86 (118) 99 05/08/18 16:00 50 Review of Systems ROS Limitations: Altered Mental Status Physical Exam General: no apparent distress HEENT: normocephalic, bolt site clean and dry with suture in place, no drainage or leakage noted, no erythema. Nonicteric sclera. Neuro: minimal eye opening, not following commands. Cranial nerve: pupils 3 mm equal. Conjugate gaze. Neck: no JVD, tracheostomy Musculoskeletal: no clubbing, sedated, not following commands for testing, spontaneous movement left upper seen, withdraws bilateral lower ext to pain stimuli Respiratory: clear, mechanically ventilated Heart: regular rate rhythm Medications Current Medications Current Medications Medications (Trade) Dose Ordered Sig/Bonilla Route PRN Reason Start Time Stop Time Status Last Admin Dose Admin Sodium Chloride (NS Flush) 2 ml UNSCH PRN IV FLUSH FLUSH AFTER USING IV ACCESS 04/26/18 13:15 Sodium Chloride (NS Flush) 2 ml BID IV FLUSH 04/26/18 21:00 05/09/18 09:00 Pantoprazole Sodium (Protonix Inj) 40 mg Q24H IV PUSH 04/26/18 14:00 05/09/18 14:12 Naloxone HCl (Narcan Inj) 0.4 mg UNSCH PRN IV PUSH SEE LABEL COMMENTS 04/26/18 13:15 Potassium Chloride 100 ml @ 50 mls/hr Q2H PRN IV-CENTRAL For Potassium 2.8 - 3.2 mEq/L 04/27/18 07:30 Potassium Chloride 100 ml @ 50 mls/hr Q2H PRN IV For Potassium 2.8 - 3.2 mEq/L 04/27/18 07:30 Potassium Bicarb/ Potassium Chloride (K-Lyte Cl Eff) 50 meq UNSCH PRN PO For Potassium 3.3 - 3.5 mEq/L 04/27/18 07:30 04/29/18 06:17 Potassium Chloride 100 ml @ 25 mls/hr UNSCH PRN IV-CENTRAL For Potassium 3.3 - 3.5 mEq/L 04/27/18 07:30 Potassium Chloride 100 ml @ 50 mls/hr Q2H PRN IV For Potassium 3.3 - 3.5 mEq/L 04/27/18 07:30 Magnesium Sulfate 4 gm/Sodium Chloride 100 ml @ 50 mls/hr UNSCH PRN IV For Magnesium 0.9 - 1.1 mg/dL 04/27/18 07:30 Magnesium Oxide (Mag-Ox) 800 mg UNSCH PRN PO For Magnesium 1.2 - 1.6 mg/dL 04/27/18 07:30 Magnesium Sulfate 2 gm/Sodium Chloride 100 ml @ 50 mls/hr UNSCH PRN IV For Magnesium 1.2 - 1.6 mg/dL 04/27/18 07:30 Potassium Phosphate (K-Phos) 2,000 mg Q4H PRN PO For Phosphorus < 2.5 mg/dL 04/27/18 07:30 Sodium Phosphate 30 mmol/Sodium Chloride 250 ml @ 42 mls/hr UNSCH PRN IV For Phosphorus < 2.5 mg/dL 04/27/18 07:30 04/27/18 22:16 Potassium Phosphate (K-Phos) 2,000 mg UNSCH PRN PO/TUBE SEE LABEL COMMENTS 04/27/18 07:30 Potassium Phosphate 30 mmol/ Sodium Chloride 260 ml @ 42 mls/hr UNSCH PRN IV SEE LABEL COMMENTS 04/27/18 07:30 Chlorhexidine Gluconate (Peridex 0.12% Liq) 15 ml BID@08,20 MT 04/27/18 08:00 05/09/18 08:00 Albuterol/ Ipratropium (Duoneb Neb) 1 ampule Q2HR NEB PRN NEB wheezing 04/27/18 07:30 05/08/18 00:47 Senna/Docusate Sodium (Meron-Colace) 1 tab BID PO 04/27/18 09:00 05/09/18 09:05 Magnesium Hydroxide (Milk Of Magnesia Liq) 30 ml BID PO 04/27/18 09:00 05/08/18 21:48 Acetaminophen 100 ml @ 400 mls/hr Q6H PRN IV temp>101 04/27/18 16:15 05/07/18 19:00 Lactulose (Lactulose Liq) 30 ml DAILY PO 04/29/18 09:00 05/09/18 09:05 Enoxaparin Sodium (Lovenox Inj) 40 mg Q24H SQ 05/01/18 11:00 Future hold 05/09/18 11:08 Lisinopril (Prinivil) 10 mg Q12HR PO 05/01/18 17:00 05/09/18 09:06 Oxycodone HCl (Roxicodone) 10 mg Q6H NG 05/01/18 16:15 05/09/18 10:28 Clonidine (Catapres-Tts 0.3 Mg Patch.7d) 1 patch Q7D T-DERMAL 05/03/18 11:00 05/03/18 11:48 Artificial Tears (Lacrilube Opht Oint) 1 applic Q12HR EACH EYE 05/03/18 11:00 05/09/18 09:00 Miscellaneous Information 1 Q7D T-DERMAL 05/10/18 10:59 Metoprolol Tartrate (Lopressor Inj) 2.5 mg Q6H IV PUSH 05/03/18 21:00 05/09/18 14:12 Fentanyl (Duragesic 25 Mcg Patch.72 Hr) 1 patch Q3D T-DERMAL 05/07/18 12:00 05/07/18 12:52 Miscellaneous Information 1 Q3D T-DERMAL 05/10/18 12:00 Pharmacy Profile Note 0 ml @ 0 mls/hr UNSCH OTHER 05/08/18 09:45 Amantadine HCl (Symmetrel Liq) 100 mg BID@07,12 PO 05/08/18 12:00 05/09/18 11:53 Vancomycin HCl 1250 mg/Sodium Chloride 262.5 ml @ 250 mls/hr Q12H IV 05/08/18 11:00 05/09/18 11:08 Miscellaneous Information ([facility] Ordered Lab Info) SPECIFIC LAB TO BE DRAWN:VANCO TROUGH DATE TO... ONCE ONCE .XX 05/09/18 22:45 05/09/18 22:46 Nitroglycerin (Nitro-Dur 0.6 Mg Patch.24 Hr) 1 patch DAILY T-DERMAL 05/08/18 15:30 05/09/18 09:06 Miscellaneous Information 1 DAILY T-DERMAL 05/09/18 09:00 05/09/18 09:00 Piperacillin Sod/ Tazobactam Sod 100 ml @ 100 mls/hr Q6H IV 05/08/18 17:00 05/09/18 11:00 Amiodarone HCl 450 mg/Sodium Chloride 259 ml @ 33.33 mls/ hr Q7H47M PRN IV Per Protocol 05/08/18 18:52 05/09/18 02:39 Water (Free Water) 250 ml Q6HR G-TUBE 05/09/18 12:00 05/09/18 11:49 Lactated Ringer's 1,000 ml @ 50 mls/hr Q20H IV 05/09/18 10:00 05/09/18 10:00 Amiodarone HCl (Cordarone) 400 mg Q12HR PEG 05/09/18 21:00 Medical Decision Making MDM Remarks 73 year old male trauma alert, fall off ladder onto cement TBI, left traumatic subarachnoid, subdural hemorrhage, s/p placement of ICP monitor 04/26/18, stable ICPs, ICP monitor removed 05/01/[address] 05/04/18 Impressions: CONCLUSION: 1. Evolving traumatic brain injury with resolving hemorrhages. 2. Persistent edema in left frontal and temporal lobe contusions. 3. No significant shift of midline structures. 4. Hairline fracture along the base of the skull in the right temporal region. 5. No evidence of new hemorrhage or acute infarct. Plan Plan Remarks cont critical care per trauma team cont follow up neuro exam therapy and rehab efforts Sofia Younger May 09, 2018 14:37
--- NOTE | 2018-05-09 16:47 | EKG ---
Date Performed: 05/08/2018 Time Performed: 19:46:42 PTAGE: 72 years EKG: Atrial fibrillation with uncontrolled ventricular response. Extensive ST-T changes may be d ue to myocardial ischemia Abnormal ECG No prior EKG to compare with NO PREVIOUS TRACING DOCTOR: Ken Owusu Interpretating Date/Time 05/09/2018 16:44:41
--- NOTE | 2018-05-09 16:50 | EKG ---
Date Performed: 05/09/2018 Time Performed: 10:20:58 PTAGE: 72 years EKG: Sinus bradycardia. Prolonged QT interval Extensive ST-T changes may be due to myocardial is chemia Low QRS voltages in limb leads Abnormal ECG when compared to prior EKG, patient has converted from atrial fibrillation to sinus rythm. There are now anterior ischemic changes. There are significa nt.There is also a prolonged QT interval at 508ms. Clinical correlation is recommended PREVIOUS TRACING : 05/08/2018 19.46 DOCTOR: Ken Owusu Interpretating Date/Time 05/09/2018 16:46:23
[2018-05-09 17:05] LABS: HEMATOCRIT 24.7 % (39.0-51.0); HEMOGLOBIN 8.3 GM/DL (13.0-17.0)
[2018-05-09] MEDS: AMIODARONE 200 MG TAB PEG SCH (20:25)
[2018-05-09] MEDS ORDERED: PHARMACY ORDERED LAB ONE (22:45)
[2018-05-10] VITALS (10 sets, daily range): BP systolic 165–176; BP diastolic 72–80; PULSE 53–62; RESP 14–15; TEMP 98.8–99.8; O2SAT 93–100
[2018-05-10] MEDS: ACETAMINOPHEN 1000 MG/100 ML 100 ML IV PRN (00:29)
[2018-05-10] MEDS: METOPROLOL TARTRATE 5 MG/5 ML VIAL IV PUSH SCH ×2 (03:12→08:38)
[2018-05-10 04:34] LABS: AUTOMATED NEUTROPHIL # 8.3 TH/MM3 (1.8-7.7); BASOPHIL % 0.2 % (0.0-2.0); EOSINOPHIL # 0.1 TH/MM3 (0-0.4); EOSINOPHIL % 1.4 % (0.0-4.0); HEMATOCRIT 24.8 % (39.0-51.0); HEMOGLOBIN 8.3 GM/DL (13.0-17.0); LYMPH % 6.3 % (9.0-44.0); LYMPHOCYTE # 0.6 TH/MM3 (1.0-4.8); MEAN CELL VOLUME 93.1 FL (80.0-100.0); MEAN CORPUSCULAR HEMOGLOBIN 31.1 PG (27.0-34.0); MEAN CORPUSCULAR HGB CONC 33.4 % (32.0-36.0); MEAN PLATELET VOLUME 9.4 FL (7.0-11.0); MONO % 6.1 % (0.0-8.0); MONOCYTE # 0.6 TH/MM3 (0-0.9); PLATELET COUNT 336 TH/MM3 (150-450); RED BLOOD COUNT 2.66 MIL/MM3 (4.50-5.90); RED CELL DISTRIBUTION WIDTH 13.9 % (11.6-17.2); WHITE BLOOD COUNT 9.6 TH/MM3 (4.0-11.0)
[2018-05-10 05:11] LABS: ALBUMIN 1.3 GM/DL (3.4-5.0); ALKALINE PHOSPHATASE 149 U/L (45-117); ALT (GPT) 136 U/L (12-78); AST (GOT) 166 U/L (15-37); BLOOD UREA NITROGEN 37 MG/DL (7-18); CALCIUM 7.7 MG/DL (8.5-10.1); CHLORIDE 122 MEQ/L (98-107); GLOMERULAR FILTRATION RATE 60 ML/MIN (>89); GLUCOSE,RANDOM 129 MG/DL (74-106); TOTAL PROTEIN 5.1 GM/DL (6.4-8.2)
--- NOTE | 2018-05-10 05:11 | RADRPT ---
EXAM DATE: 05/10/2018 4:59 AM EDT AGE/SEX: 72 years / Male INDICATIONS: Follow up trauma. Respiratory status. CLINICAL DATA: This is the patient's subsequent encounter. Patient reports that signs and symptoms h ave been present for 4 - 6 days and indicates a pain score of Nonresponsive. MEDICAL/SURGICAL HISTORY: None. None. COMPARISON: [facility] [place], CHEST SINGLE AP, 05/09/2018. . FINDINGS: The tracheostomy tube remains in good position. There are moderate size bilateral pleural effusions r ight greater than left. No visible pneumothorax. Mild pulmonary vascular congestion. Broad rightward thoracolumbar scoliosis CONCLUSION: No interval change. Pleural effusions and pulmonary vascular congestion persist Electronically signed by: Arcadio Trejo MD 05/10/2018 5:09 AM EDT
[2018-05-10] MEDS: FREE WATER G-TUBE SCH ×3 (05:19→11:04)
[2018-05-10] MEDS: PIPERACIL-TAZO 4.5 GM PREMIX 100 ML IV SCH ×2 (05:19→11:03)
[2018-05-10 05:27] LABS: SODIUM (NA) 157 MEQ/L (136-145)
[2018-05-10] MEDS: LACTATED RINGER'S 1000 ML INJ 1,000 ML IV SCH (06:00)
[2018-05-10] MEDS: AMANTADINE HCL SOLN 100 MG/10 ML UDC PO SCH ×2 (06:46→11:02)
[2018-05-10] MEDS: CHLORHEXIDINE 0.12% (ORAL KIT) 15 ML CUP MT SCH (07:36)
[2018-05-10] MEDS: ARTIFICIAL TEARS OPTH OINT 3.5 APPLIC/3.5 GM TUBO EACH EYE SCH (07:36)
[2018-05-10] MEDS: POTASSIUM CHLOR 20 MEQ PREMIX 100 ML IV PRN ×3 (07:36→11:05)
[2018-05-10] MEDS: SODIUM CHLORIDE 0.9% FLUSH 10 ML FLUSH IV FLUSH SCH (08:37)
[2018-05-10] MEDS: LACTULOSE SYRUP 20 GM/30 ML CUP PO SCH (08:38)
[2018-05-10] MEDS: REMOVE OLD NITRO-DUR (NITROGLYCERIN) PATCH T-DERMAL SCH (08:38)
[2018-05-10] MEDS: NITROGLYCERIN 0.6 MG/HR PATCH T-DERMAL SCH (08:38)
[2018-05-10] MEDS: MAGNESIUM HYDROXIDE SUSP 30 ML CUP PO SCH (08:39)
[2018-05-10] MEDS: DOCUSATE SODIUM 50 MG/SENNA 8.6 MG TAB PO SCH (08:39)
[2018-05-10] MEDS: LISINOPRIL 10 MG TAB PO SCH (08:49)
[2018-05-10] MEDS: AMIODARONE 200 MG TAB PEG SCH (09:00)
[2018-05-10] MEDS ORDERED: LIDOCAINE 1%/EPINEPHrine 1:100,000 SOLN 30 ML VIAL ONE (09:07)
--- NOTE | 2018-05-10 10:40 | PD.CARD.PN ---
Subjective Subjective Remarks lethargic, nonverbal Objective Medications Current Medications Medications (Trade) Dose Ordered Sig/Bonilla Route Start Time Stop Time Status Last Admin (NS Flush) 2 ml UNSCH PRN IV FLUSH 04/26/18 13:15 (NS Flush) 2 ml BID IV FLUSH 04/26/18 21:00 05/10/18 08:37 (Protonix Inj) 40 mg Q24H IV PUSH 04/26/18 14:00 05/09/18 14:12 (Narcan Inj) 0.4 mg UNSCH PRN IV PUSH 04/26/18 13:15 Potassium Chloride 100 ml @ 50 mls/hr Q2H PRN IV-CENTRAL 04/27/18 07:30 Potassium Chloride 100 ml @ 50 mls/hr Q2H PRN IV 04/27/18 07:30 05/10/18 09:31 (K-Lyte Cl Eff) 50 meq UNSCH PRN PO 04/27/18 07:30 04/29/18 06:17 Potassium Chloride 100 ml @ 25 mls/hr UNSCH PRN IV-CENTRAL 04/27/18 07:30 Potassium Chloride 100 ml @ 50 mls/hr Q2H PRN IV 04/27/18 07:30 Magnesium Sulfate 4 gm/Sodium Chloride 100 ml @ 50 mls/hr UNSCH PRN IV 04/27/18 07:30 (Mag-Ox) 800 mg UNSCH PRN PO 04/27/18 07:30 Magnesium Sulfate 2 gm/Sodium Chloride 100 ml @ 50 mls/hr UNSCH PRN IV 04/27/18 07:30 (K-Phos) 2,000 mg Q4H PRN PO 04/27/18 07:30 Sodium Phosphate 30 mmol/Sodium Chloride 250 ml @ 42 mls/hr UNSCH PRN IV 04/27/18 07:30 04/27/18 22:16 (K-Phos) 2,000 mg UNSCH PRN PO/TUBE 04/27/18 07:30 Potassium Phosphate 30 mmol/ Sodium Chloride 260 ml @ 42 mls/hr UNSCH PRN IV 04/27/18 07:30 (Peridex 0.12% Liq) 15 ml BID@08,20 MT 04/27/18 08:00 05/10/18 07:36 (Duoneb Neb) 1 ampule Q2HR NEB PRN NEB 04/27/18 07:30 05/08/18 00:47 (Meron-Colace) 1 tab BID PO 04/27/18 09:00 05/10/18 08:39 (Milk Of Magnesia Liq) 30 ml BID PO 04/27/18 09:00 05/10/18 08:39 Acetaminophen 100 ml @ 400 mls/hr Q6H PRN IV 04/27/18 16:15 05/10/18 00:29 (Lactulose Liq) 30 ml DAILY PO 04/29/18 09:00 05/09/18 09:05 (Lovenox Inj) 40 mg Q24H SQ 05/01/18 11:00 Future hold 05/09/18 11:08 (Roxicodone) 10 mg Q6H NG 05/01/18 16:15 05/10/18 09:16 (Catapres-Tts 0.3 Mg Patch.7d) 1 patch Q7D T-DERMAL 05/03/18 11:00 05/03/18 11:48 (Lacrilube Opht Oint) 1 applic Q12HR EACH EYE 05/03/18 11:00 05/10/18 07:36 Miscellaneous Information 1 Q7D T-DERMAL 05/10/18 10:59 05/10/18 10:32 (Lopressor Inj) 2.5 mg Q6H IV PUSH 05/03/18 21:00 05/10/18 08:38 (Duragesic 25 Mcg Patch.72 Hr) 1 patch Q3D T-DERMAL 05/07/18 12:00 05/07/18 12:52 Miscellaneous Information 1 Q3D T-DERMAL 05/10/18 12:00 Pharmacy Profile Note 0 ml @ 0 mls/hr UNSCH OTHER 05/08/18 09:45 (Symmetrel Liq) 100 mg BID@07,12 PO 05/08/18 12:00 05/10/18 06:46 Vancomycin HCl 1250 mg/Sodium Chloride 262.5 ml @ 250 mls/hr Q12H IV 05/08/18 11:00 05/09/18 23:30 (Nitro-Dur 0.6 Mg Patch.24 Hr) 1 patch DAILY T-DERMAL 05/08/18 15:30 05/10/18 08:38 Miscellaneous Information 1 DAILY T-DERMAL 05/09/18 09:00 05/10/18 08:38 Piperacillin Sod/ Tazobactam Sod 100 ml @ 100 mls/hr Q6H IV 05/08/18 17:00 05/10/18 05:19 (Free Water) 250 ml Q6HR G-TUBE 05/09/18 12:00 05/10/18 05:19 Lactated Ringer's 1,000 ml @ 50 mls/hr Q20H IV 05/09/18 10:00 05/10/18 06:00 (Cordarone) 400 mg Q12HR PEG 05/09/18 21:00 05/10/18 09:00 ([facility] [place] [place] [facility] Ordered Lab Info) SPECIFIC LAB TO BE ... ONCE ONCE .XX 05/11/18 10:45 05/11/18 10:46 (Prinivil) 20 mg Q12HR PO 05/10/18 21:00 (Nitroglycerin 2% Oint) 1 inch Q8HR TOPICAL 05/10/18 14:00 Vital Signs / I&O Vital Signs Date Time Temp Pulse Resp B/P (MAP) Pulse Ox O2 Delivery O2 Flow Rate FiO2 05/10/18 10:00 61 05/10/18 08:00 60 05/10/18 08:00 99.5 60 15 176/80 (112) 98 05/10/18 08:00 40 05/10/18 07:00 98 Mechanical Ventilator 40 05/10/18 06:00 55 05/10/18 04:27 100 40 05/10/18 04:00 53 05/10/18 04:00 99.0 53 14 167/72 (103) 100 05/10/18 04:00 40 05/10/18 02:00 56 05/10/18 00:41 98 40 05/10/18 00:00 54 05/10/18 00:00 98.8 54 14 168/72 (104) 98 05/10/18 00:00 40 05/09/18 23:03 16 05/09/18 22:00 76 05/09/18 20:29 99 40 05/09/18 20:00 62 05/09/18 20:00 40 05/09/18 20:00 99.9 62 18 167/72 (103) 97 05/09/18 19:00 97 Mechanical Ventilator 40 05/09/18 18:00 60 05/09/18 16:02 98 40 05/09/18 16:00 99.5 58 12 154/56 (88) 98 05/09/18 16:00 58 05/09/18 16:00 40 05/09/18 14:00 58 05/09/18 12:05 100 40 05/09/18 12:00 40 05/09/18 12:00 58 05/09/18 12:00 99.0 58 16 162/69 (100) 97 I/O 05/09/18 05/09/18 05/09/18 05/10/18 05/10/18 05/10/18 07:00 15:00 23:00 07:00 15:00 23:00 Intake Total 1884 ml 350 ml 639 ml 1967 ml 700 ml Output Total 2150 ml 1100 ml 775 ml Balance -266 ml 350 ml -461 ml 1192 ml 700 ml Intake Oral 0 ml IV Total 1764 ml 350 ml 100 ml 1000 ml 700 ml Tube Feeding 0 ml 139 ml 467 ml Other 120 ml 400 ml 500 ml Output Urine Total 2150 ml 1100 ml 775 ml # Voids 1 # Bowel Movements 1 1 1 Physical Exam nonverbal, lethargic mild anasarca Chest clear ant. CV sinus rhythm Liver tests quadrupled since yest Laboratory Laboratory Tests Test 05/09/18 16:10 05/09/18 23:38 05/10/18 03:11 05/10/18 05:33 Hemoglobin 8.3 GM/DL 8.3 GM/DL Hematocrit 24.7 % 24.8 % Vancomycin Level Trough 15.2 MCG/ML White Blood Count 9.6 TH/MM3 Red Blood Count 2.66 MIL/MM3 Mean Corpuscular Volume 93.1 FL Mean Corpuscular Hemoglobin 31.1 PG Mean Corpuscular Hemoglobin Concent 33.4 % Red Cell Distribution Width 13.9 % Platelet Count 336 TH/MM3 Mean Platelet Volume 9.4 FL Neutrophils (%) (Auto) 86.0 % Lymphocytes (%) (Auto) 6.3 % Monocytes (%) (Auto) 6.1 % Eosinophils (%) (Auto) 1.4 % Basophils (%) (Auto) 0.2 % Neutrophils # (Auto) 8.3 TH/MM3 Lymphocytes # (Auto) 0.6 TH/MM3 Monocytes # (Auto) 0.6 TH/MM3 Eosinophils # (Auto) 0.1 TH/MM3 Basophils # (Auto) 0.0 TH/MM3 CBC Comment DIFF FINAL Differential Comment Blood Urea Nitrogen 37 MG/DL Creatinine 1.20 MG/DL Random Glucose 129 MG/DL Total Protein 5.1 GM/DL Albumin 1.3 GM/DL Calcium Level 7.7 MG/DL Alkaline Phosphatase 149 U/L Aspartate Amino Transf (AST/SGOT) 166 U/L Alanine Aminotransferase (ALT/SGPT) 136 U/L Total Bilirubin 1.0 MG/DL Sodium Level 157 MEQ/L Potassium Level 3.1 MEQ/L Chloride Level 122 MEQ/L Carbon Dioxide Level 25.0 MEQ/L Anion Gap 10 MEQ/L Estimat Glomerular Filtration Rate 60 ML/MIN Blood Gas Puncture Site RT RADIAL Blood Gas Patient Temperature 98.6 Blood Gas HCO3 27 mmol/L Blood Gas Base Excess 3.9 mmol/L Blood Gas Oxygen Saturation 97 % Arterial Blood pH 7.48 Arterial Blood Partial Pressure CO2 37 mmHg Arterial Blood Partial Pressure O2 118 mmHg Arterial Blood Oxygen Content 11.2 Vol % Arterial Blood Carboxyhemoglobin 1.3 % Arterial Blood Methemoglobin 0.9 % Blood Gas Hemoglobin 8.1 G/DL Oxygen Delivery Device VENTILATOR Blood Gas Ventilator Setting CPAP 10/5 Blood Gas Inspired Oxygen 40 % Imaging Last 24 hours Impressions Chest X-Ray 05/10/18 0600 Signed Impressions: CONCLUSION: No interval change. Pleural effusions and pulmonary vascular congestion persist Assessment and Plan Problem List: (1) Hypokalemia ICD Codes: E87.6 - Hypokalemia (2) Liver function test abnormality ICD Codes: R94.5 - Abnormal results of liver function studies (3) Paroxysmal atrial fibrillation ICD Codes: I48.0 - Paroxysmal atrial fibrillation Assessment and Plan stop amiodarone. cont. to monitor Zane Phillips MD May 10, 2018 10:40
[2018-05-10] MEDS ORDERED: REMOVE OLD CATAPRES (CLONIDINE) PATCH T-DERMAL SCH (10:59)
[2018-05-10] MEDS: cloNIDine HCL 0.3 MG/24 HR PATCH T-DERMAL SCH (11:03)
[2018-05-10] MEDS: ENOXAPARIN SODIUM 40 MG/0.4 ML SYRINGE SQ SCH (11:03)
[2018-05-10] MEDS: fentaNYL 25 MCG/HR PATCH T-DERMAL SCH ×2 (11:03→12:59)
[2018-05-10] MEDS: VANCOMYCIN INJ 1,250 MG in SODIUM CHLOR 0.9% 250 ML INJ 250 ML IV SCH (11:04)
--- NOTE | 2018-05-10 11:13 | HHI.IDPN ---
Subjective Subjective Remarks Patient is a 72-year-old male, brought into the hospital as a trauma alert after falling about 12-15 feet out of a tree. He fell on a concrete walkway on his right side. Patient was unconscious when he was found. Patient was found to have traumatic brain injury with multiple contusion, and some subdural hematoma. He also had pulmonary contusion with multiple rib fractures, as well as a small kidney hematoma. Patient had significant edema in the brain, and he had a right bur hole for placement of an ICP monitor. He was on the vent. Patient since April 28 has been febrile. He continues to be febrile. The ICP monitor was eventually removed. He remains on the vent, and has had bronchoscopy done for thick secretions. He underwent tracheostomy placement May 06. Today's white count went up to 19,000. He was started on broad- spectrum antibiotic including vancomycin and Zosyn. He has no central line. He has a Vaca catheter in place. He had placement of a PEG tube today. Infectious disease consultation has been requested to assist with evaluation and treatment of patient with persistent fevers, worsening leukocytosis. Notes reviewed D/W RN Abdirashid better Has been on CPAP since yesterday and today To be tried on T-piece Mental status improved some, tracking to , and following some commands Urine culture with Proteus Blood cultures negative Sputum normal shad WBC lower, no normal Chest x-ray stable infiltrates and effusion S/P trach 05/06 S/P PEG 05/08, tolerating tube feeding Antibiotics Vancomycin Zosyn Current Medications Medications (Trade) Dose Ordered Sig/Bonilla Route Start Time Stop Time Status Last Admin (NS Flush) 2 ml UNSCH PRN IV FLUSH 04/26/18 13:15 (NS Flush) 2 ml BID IV FLUSH 04/26/18 21:00 05/10/18 08:37 (Protonix Inj) 40 mg Q24H IV PUSH 04/26/18 14:00 05/09/18 14:12 (Narcan Inj) 0.4 mg UNSCH PRN IV PUSH 04/26/18 13:15 Potassium Chloride 100 ml @ 50 mls/hr Q2H PRN IV-CENTRAL 04/27/18 07:30 Potassium Chloride 100 ml @ 50 mls/hr Q2H PRN IV 04/27/18 07:30 05/10/18 11:05 (K-Lyte Cl Eff) 50 meq UNSCH PRN PO 04/27/18 07:30 04/29/18 06:17 Potassium Chloride 100 ml @ 25 mls/hr UNSCH PRN IV-CENTRAL 04/27/18 07:30 Potassium Chloride 100 ml @ 50 mls/hr Q2H PRN IV 04/27/18 07:30 Magnesium Sulfate 4 gm/Sodium Chloride 100 ml @ 50 mls/hr UNSCH PRN IV 04/27/18 07:30 (Mag-Ox) 800 mg UNSCH PRN PO 04/27/18 07:30 Magnesium Sulfate 2 gm/Sodium Chloride 100 ml @ 50 mls/hr UNSCH PRN IV 04/27/18 07:30 (K-Phos) 2,000 mg Q4H PRN PO 04/27/18 07:30 Sodium Phosphate 30 mmol/Sodium Chloride 250 ml @ 42 mls/hr UNSCH PRN IV 04/27/18 07:30 04/27/18 22:16 (K-Phos) 2,000 mg UNSCH PRN PO/TUBE 04/27/18 07:30 Potassium Phosphate 30 mmol/ Sodium Chloride 260 ml @ 42 mls/hr UNSCH PRN IV 04/27/18 07:30 (Peridex 0.12% Liq) 15 ml BID@08,20 MT 04/27/18 08:00 05/10/18 07:36 (Duoneb Neb) 1 ampule Q2HR NEB PRN NEB 04/27/18 07:30 05/08/18 00:47 (Meron-Colace) 1 tab BID PO 04/27/18 09:00 05/10/18 08:39 (Milk Of Magnesia Liq) 30 ml BID PO 04/27/18 09:00 05/10/18 08:39 Acetaminophen 100 ml @ 400 mls/hr Q6H PRN IV 04/27/18 16:15 05/10/18 00:29 (Lactulose Liq) 30 ml DAILY PO 04/29/18 09:00 05/09/18 09:05 (Lovenox Inj) 40 mg Q24H SQ 05/01/18 11:00 Future hold 05/10/18 11:03 (Roxicodone) 10 mg Q6H NG 05/01/18 16:15 05/10/18 09:16 (Catapres-Tts 0.3 Mg Patch.7d) 1 patch Q7D T-DERMAL 05/03/18 11:00 05/10/18 11:03 (Lacrilube Opht Oint) 1 applic Q12HR EACH EYE 05/03/18 11:00 05/10/18 07:36 Miscellaneous Information 1 Q7D T-DERMAL 05/10/18 10:59 05/10/18 10:32 (Lopressor Inj) 2.5 mg Q6H IV PUSH 05/03/18 21:00 05/10/18 08:38 (Duragesic 25 Mcg Patch.72 Hr) 1 patch Q3D T-DERMAL 05/07/18 12:00 05/10/18 11:03 Miscellaneous Information 1 Q3D T-DERMAL 05/10/18 12:00 05/10/18 11:04 Pharmacy Profile Note 0 ml @ 0 mls/hr UNSCH OTHER 05/08/18 09:45 (Symmetrel Liq) 100 mg BID@07,12 PO 05/08/18 12:00 05/10/18 11:02 Vancomycin HCl 1250 mg/Sodium Chloride 262.5 ml @ 250 mls/hr Q12H IV 05/08/18 11:00 05/10/18 11:04 (Nitro-Dur 0.6 Mg Patch.24 Hr) 1 patch DAILY T-DERMAL 05/08/18 15:30 05/10/18 08:38 Miscellaneous Information 1 DAILY T-DERMAL 05/09/18 09:00 05/10/18 08:38 Piperacillin Sod/ Tazobactam Sod 100 ml @ 100 mls/hr Q6H IV 05/08/18 17:00 05/10/18 11:03 (Free Water) 250 ml Q6HR G-TUBE 05/09/18 12:00 05/10/18 11:04 Lactated Ringer's 1,000 ml @ 50 mls/hr Q20H IV 05/09/18 10:00 05/10/18 06:00 ([facility] Ordered Lab Info) SPECIFIC LAB TO BE NICOLAS... ONCE ONCE .XX 05/11/18 10:45 05/11/18 10:46 (Prinivil) 20 mg Q12HR PO 05/10/18 21:00 (Nitroglycerin 2% Oint) 1 inch Q8HR TOPICAL 05/10/18 14:00 Lines No evidence of infection Past Medical History Lymphedema LLE L ankle surgery Allergies: Coded Allergies: No Known Allergies (Unverified , 04/26/18) Objective . Vital Signs Date Time Temp Pulse Resp B/P (MAP) Pulse Ox O2 Delivery O2 Flow Rate FiO2 05/10/18 11:05 50 05/10/18 11:05 98 T-piece 10.00 50 05/10/18 10:00 61 05/10/18 08:00 60 05/10/18 08:00 99.5 60 15 176/80 (112) 98 05/10/18 08:00 40 05/10/18 07:00 98 Mechanical Ventilator 40 05/10/18 06:00 55 05/10/18 04:27 100 40 05/10/18 04:00 53 05/10/18 04:00 99.0 53 14 167/72 (103) 100 05/10/18 04:00 40 05/10/18 02:00 56 05/10/18 00:41 98 40 05/10/18 00:00 54 05/10/18 00:00 98.8 54 14 168/72 (104) 98 05/10/18 00:00 40 05/09/18 23:03 16 05/09/18 22:00 76 05/09/18 20:29 99 40 05/09/18 20:00 62 05/09/18 20:00 40 05/09/18 20:00 99.9 62 18 167/72 (103) 97 05/09/18 19:00 97 Mechanical Ventilator 40 05/09/18 18:00 60 05/09/18 16:02 98 40 05/09/18 16:00 99.5 58 12 154/56 (88) 98 05/09/18 16:00 58 05/09/18 16:00 40 05/09/18 14:00 58 05/09/18 12:05 100 40 05/09/18 12:00 40 05/09/18 12:00 58 05/09/18 12:00 99.0 58 16 162/69 (100) 97 05/10/18 05/10/18 05/11/18 15:00 23:00 07:00 Intake Total 700 ml Balance 700 ml IV Total 700 ml . Laboratory Tests Test 05/09/18 03:57 05/09/18 16:10 05/10/18 03:11 White Blood Count 12.6 TH/MM3 9.6 TH/MM3 Red Blood Count 2.86 MIL/MM3 2.66 MIL/MM3 Hemoglobin 8.9 GM/DL 8.3 GM/DL 8.3 GM/DL Hematocrit 26.5 % 24.7 % 24.8 % Mean Corpuscular Volume 92.8 FL 93.1 FL Mean Corpuscular Hemoglobin 31.1 PG 31.1 PG Mean Corpuscular Hemoglobin Concent 33.5 % 33.4 % Red Cell Distribution Width 13.7 % 13.9 % Platelet Count 324 TH/MM3 336 TH/MM3 Mean Platelet Volume 9.0 FL 9.4 FL Neutrophils (%) (Auto) 88.3 % 86.0 % Lymphocytes (%) (Auto) 5.7 % 6.3 % Monocytes (%) (Auto) 5.9 % 6.1 % Eosinophils (%) (Auto) 0.0 % 1.4 % Basophils (%) (Auto) 0.1 % 0.2 % Neutrophils # (Auto) 11.1 TH/MM3 8.3 TH/MM3 Lymphocytes # (Auto) 0.7 TH/MM3 0.6 TH/MM3 Monocytes # (Auto) 0.7 TH/MM3 0.6 TH/MM3 Eosinophils # (Auto) 0.0 TH/MM3 0.1 TH/MM3 Basophils # (Auto) 0.0 TH/MM3 0.0 TH/MM3 CBC Comment DIFF FINAL DIFF FINAL Differential Comment Laboratory Tests Test 05/08/18 22:27 05/09/18 09:11 05/10/18 03:11 Potassium Level 3.8 MEQ/L 5.5 MEQ/L 3.1 MEQ/L Magnesium Level 2.6 MG/DL 2.7 MG/DL Troponin I 0.10 NG/ML Blood Urea Nitrogen 40 MG/DL 37 MG/DL Creatinine 1.05 MG/DL 1.20 MG/DL Random Glucose 111 MG/DL 129 MG/DL Total Protein 5.4 GM/DL 5.1 GM/DL Albumin 1.4 GM/DL 1.3 GM/DL Calcium Level 8.1 MG/DL 7.7 MG/DL Alkaline Phosphatase 135 U/L 149 U/L Aspartate Amino Transf (AST/SGOT) 41 U/L 166 U/L Alanine Aminotransferase (ALT/SGPT) 67 U/L 136 U/L Total Bilirubin 2.0 MG/DL 1.0 MG/DL Sodium Level 155 MEQ/L 157 MEQ/L Chloride Level 120 MEQ/L 122 MEQ/L Carbon Dioxide Level 24.2 MEQ/L 25.0 MEQ/L Anion Gap 11 MEQ/L 10 MEQ/L Estimat Glomerular Filtration Rate 69 ML/MIN 60 ML/MIN Microbiology Date/Time Source Procedure Growth Status 05/08/18 12:35 Blood Peripheral Aerobic Blood Culture - Preliminary NO GROWTH IN 2 DAYS Resulted 05/08/18 12:35 Blood Peripheral Anaerobic Blood Culture - Preliminary NO GROWTH IN 2 DAYS Resulted 05/08/18 12:30 Blood Peripheral Aerobic Blood Culture - Preliminary NO GROWTH IN 2 DAYS Resulted 05/08/18 12:30 Blood Peripheral Anaerobic Blood Culture - Preliminary NO GROWTH IN 2 DAYS Resulted 05/08/18 12:40 Sputum Endotracheal Gram Stain - Final Complete 05/08/18 12:40 Sputum Endotracheal Sputum Culture - Final HEAVY GROWTH NORMAL RESPIRATORY SHAD Complete 05/08/18 12:00 Urine Catheterized Urine Urine Culture - Final Proteus Mirabilis Complete Imaging Chest X-Ray 05/10/18 0600 Signed Impressions: CONCLUSION: No interval change. Pleural effusions and pulmonary vascular congestion persist Chest X-Ray 05/09/18 0600 Signed Impressions: CONCLUSION: Stable pulmonary vascular congestion. Tracheostomy tube in good position. Chest X-Ray 05/09/18 0600 Signed Impressions: CONCLUSION: Stable pulmonary vascular congestion. Tracheostomy tube in good position. Chest X-Ray 05/08/18 0600 Signed Impressions: CONCLUSION: Stable appearance the chest Lower Extremity Ultrasound 05/08/18 0000 Signed Impressions: CONCLUSION: No DVT. Abdomen/Pelvis CT 05/08/18 0000 Signed Impressions: CONCLUSION: 1. Again questionable 2.4 solid mass of the right kidney with an adjacent larg e cyst. The hemorrhage seen earlier in April is no longer appreciated. 2. Very impressive anasarca in the lower extremities and very impressive fluid along the periphery of both thighs musculature groupings Chest X-Ray 05/07/18 0600 Signed Impressions: CONCLUSION: Bilateral airspace disease Chest X-Ray 05/06/18 1230 Signed Impressions: CONCLUSION: Placement of tracheostomy. Feeding tube present. Physical Exam GENERAL: Awake, tracking, following simple commands, looks comfortable on CPAP SKIN: Warm and dry. No generalized rash, no ecchymoses and no evidence of embolic lesions. HEAD: Previous ICP monitor site is dry. EYES: [place] conjunctiva. No petechia or hemorrhage. Pupils equal, round and reactive to light. No scleral icterus. No injection or drainage. EARS, NOSE AND THROAT: Nose without bleeding or purulent nasal discharge. NECK: Tracheostomy site looks ok. Supple CARDIOVASCULAR: Regular rate and rhythm. No murmurs, rubs or gallops heard RESPIRATORY: Coarse breath sounds bilaterally, decreased at the bases. ABDOMEN: Soft, no reaction to palpation, nondistended. Bowel sounds present and hypoactive. PEG site looks okay. EXTREMITIES: No clubbing, cyanosis. Warm. NEUROLOGICAL: Awake, and tracking, following commands PSYCHIATRIC: Unable to assess LINE: No evidence of infection : Vaca catheter in place Assessment & Plan Remarks IMPRESSION Persistent fevers, ?PNA, ?central fever -Better - ?other nosocomial infection - has no line - has vaca UTI Pneumonia Respiratory failure, status post trach, tolerating weaning trials Status post PEG TBI, pulmonary contusion, multiple rib fractures RECOMMENDATION Stop Vanco Stop Zosyn Use IV Rocephin to complete treatment of infection Weaning per trauma team Follow temps Monitor progress D/W RN Spoke with I will be off 05/11-05/14 Other ID covering in my absence Rosa Barker MD May 10, 2018 11:12
[2018-05-10] MEDS ORDERED: REMOVE OLD DURAGESIC (FENTANYL) PATCH T-DERMAL SCH (12:00)
[2018-05-10] MEDS ORDERED: cefTRIAXone INJ 2,000 MG in SODIUM CHLORIDE 0.9% INJ 100 ML IV SCH (12:00)
[2018-05-10] MEDS ORDERED: CEFTINJ2 IV (12:45)
[2018-05-10] MEDS ORDERED: ARTI3.5O EACH EYE (12:49)
[2018-05-10] MEDS ORDERED: Chlorhexidine 0.12% Liq MT (12:49)
[2018-05-10] MEDS ORDERED: METO5INJ13 IV PUSH (12:49)
[2018-05-10] MEDS ORDERED: ENOX40P SQ (12:49)
[2018-05-10] MEDS ORDERED: LISI-515 PO (12:49)
[2018-05-10] MEDS ORDERED: AMAN100UDC PO (12:49)
[2018-05-10] MEDS ORDERED: NITR1PAT T-DERMAL (12:49)
[2018-05-10] MEDS ORDERED: CLON.3T T-DERMAL (12:49)
[2018-05-10] MEDS ORDERED: Free Water G-TUBE (12:49)
[2018-05-10] MEDS ORDERED: FENT25T T-DERMAL (12:49)
[2018-05-10] MEDS ORDERED: OXYC-395 NG (12:49)
[2018-05-10] MEDS ORDERED: Albuterol-Ipratropium Neb NEB (12:49)
[2018-05-10] MEDS ORDERED: Lactulose Liq PO (12:49)
[2018-05-10] MEDS ORDERED: PANT40P IV PUSH (12:49)
[2018-05-10] MEDS: PANTOPRAZOLE SODIUM 40 MG VIAL IV PUSH SCH (13:00)
--- NOTE | 2018-05-10 13:33 | HHI.DS ---
Discharge Summary Admission Date Apr 26, 2018 at 13:48 Discharge Date: May 10, 2018 Admitting Diagnosis (1) Right rib fracture ICD Code: S22.31XA - Fracture of one rib, right side, initial encounter for closed fracture Diagnosis: Principal Status: Acute (2) T6 vertebral fracture ICD Code: S22.059A - Unspecified fracture of T5-T6 vertebra, initial encounter for closed fracture Diagnosis: Principal Status: Acute (3) T7 vertebral fracture ICD Code: S22.069A - Unspecified fracture of T7-T8 vertebra, initial encounter for closed fracture Diagnosis: Principal Status: Acute (4) T5 vertebral fracture ICD Code: S22.059A - Unspecified fracture of T5-T6 vertebra, initial encounter for closed fracture Diagnosis: Principal Status: Acute (5) Intracranial hemorrhage ICD Code: I62.9 - Nontraumatic intracranial hemorrhage, unspecified Status: Acute (6) Kidney laceration ICD Code: S37.039A - Laceration of unspecified kidney, unspecified degree, initial encounter Diagnosis: Principal Status: Acute (7) Hemothorax, right ICD Code: J94.2 - Hemothorax Diagnosis: Principal Status: Acute (8) Multiple rib fractures ICD Code: S22.49XA - Multiple fractures of ribs, unspecified side, initial encounter for closed fracture Status: Acute (9) Major neurocognitive disorder due to Alzheimer's disease, probable, without behavioral disturbance ICD Code: G30.9 - Alzheimer's disease, unspecified; F02.80 - Dementia in other diseases classified elsewhere without behavioral disturbance Diagnosis: Principal Status: Acute (10) Hypokalemia ICD Code: E87.6 - Hypokalemia Diagnosis: Principal Status: Acute (11) Paroxysmal atrial fibrillation ICD Code: I48.0 - Paroxysmal atrial fibrillation Diagnosis: Principal Status: Acute (12) Afib ICD Code: I48.91 - Unspecified atrial fibrillation Diagnosis: Principal Status: Acute (13) Liver function test abnormality ICD Code: R94.5 - Abnormal results of liver function studies Diagnosis: Principal Status: Acute (14) Major neurocognitive disorder as late effect of traumatic brain injury without behavioral disturbance ICD Code: S06.9X9S - Unspecified intracranial injury with loss of consciousness of unspecified duration, sequela; F02.80 - Dementia in other diseases classified elsewhere without behavioral disturbance Diagnosis: Principal Status: Acute Brief History Fall from a tree. CBC/BMP: 05/10/18 0311 05/10/18 0311 Significant Findings Laboratory Tests Test 05/08/18 03:46 05/08/18 05:00 05/08/18 22:27 05/09/18 03:57 Blood Gas HCO3 28 mmol/L (22-26) Blood Gas Base Excess 5.2 mmol/L (-2-2) Arterial Blood pH 7.51 (7.380-7.420) Arterial Blood Partial Pressure CO2 36 mmHg (38-42) Blood Gas Hemoglobin 10.5 G/DL (12.0-16.0) White Blood Count 19.7 TH/MM3 (4.0-11.0) 12.6 TH/MM3 (4.0-11.0) Red Blood Count 3.33 MIL/MM3 (4.50-5.90) 2.86 MIL/MM3 (4.50-5.90) Hemoglobin 10.1 GM/DL (13.0-17.0) 8.9 GM/DL (13.0-17.0) Hematocrit 30.7 % (39.0-51.0) 26.5 % (39.0-51.0) Neutrophils (%) (Auto) 90.4 % (16.0-70.0) 88.3 % (16.0-70.0) Lymphocytes (%) (Auto) 3.3 % (9.0-44.0) 5.7 % (9.0-44.0) Neutrophils # (Auto) 17.8 TH/MM3 (1.8-7.7) 11.1 TH/MM3 (1.8-7.7) Lymphocytes # (Auto) 0.6 TH/MM3 (1.0-4.8) 0.7 TH/MM3 (1.0-4.8) Monocytes # (Auto) 1.2 TH/MM3 (0-0.9) Neutrophils % (Manual) 83 % (16-70) Band Neutrophils % 7 % (0-6) Lymphocytes % 2 % (9-44) Neutrophils # (Manual) 17.9 TH/MM3 (1.8-7.7) Blood Urea Nitrogen 30 MG/DL (7-18) Random Glucose 119 MG/DL (74-106) Total Protein 6.1 GM/DL (6.4-8.2) Albumin 1.7 GM/DL (3.4-5.0) Calcium Level 8.1 MG/DL (8.5-10.1) Magnesium Level 2.6 MG/DL (1.5-2.5) 2.6 MG/DL (1.5-2.5) Alkaline Phosphatase 180 U/L (45-117) Aspartate Amino Transf (AST/SGOT) 82 U/L (15-37) Alanine Aminotransferase (ALT/SGPT) 115 U/L (12-78) Total Bilirubin 1.2 MG/DL (0.2-1.0) Sodium Level 153 MEQ/L (136-145) Chloride Level 117 MEQ/L (98-107) Troponin I 0.10 NG/ML (0.02-0.05) Test 05/09/18 04:14 05/09/18 09:11 05/09/18 16:10 05/09/18 23:38 Blood Gas Base Excess 3.1 mmol/L (-2-2) Arterial Blood pH 7.50 (7.380-7.420) Arterial Blood Partial Pressure CO2 34 mmHg (38-42) Blood Gas Hemoglobin 9.6 G/DL (12.0-16.0) Blood Urea Nitrogen 40 MG/DL (7-18) Random Glucose 111 MG/DL (74-106) Total Protein 5.4 GM/DL (6.4-8.2) Albumin 1.4 GM/DL (3.4-5.0) Calcium Level 8.1 MG/DL (8.5-10.1) Magnesium Level 2.7 MG/DL (1.5-2.5) Alkaline Phosphatase 135 U/L (45-117) Aspartate Amino Transf (AST/SGOT) 41 U/L (15-37) Total Bilirubin 2.0 MG/DL (0.2-1.0) Sodium Level 155 MEQ/L (136-145) Potassium Level 5.5 MEQ/L (3.5-5.1) Chloride Level 120 MEQ/L (98-107) Estimat Glomerular Filtration Rate 69 ML/MIN (>89) Hemoglobin 8.3 GM/DL (13.0-17.0) Hematocrit 24.7 % (39.0-51.0) Vancomycin Level Trough 15.2 MCG/ML (5.0-10.0) Test 05/10/18 03:11 05/10/18 05:33 Red Blood Count 2.66 MIL/MM3 (4.50-5.90) Hemoglobin 8.3 GM/DL (13.0-17.0) Hematocrit 24.8 % (39.0-51.0) Neutrophils (%) (Auto) 86.0 % (16.0-70.0) Lymphocytes (%) (Auto) 6.3 % (9.0-44.0) Neutrophils # (Auto) 8.3 TH/MM3 (1.8-7.7) Lymphocytes # (Auto) 0.6 TH/MM3 (1.0-4.8) Blood Urea Nitrogen 37 MG/DL (7-18) Random Glucose 129 MG/DL (74-106) Total Protein 5.1 GM/DL (6.4-8.2) Albumin 1.3 GM/DL (3.4-5.0) Calcium Level 7.7 MG/DL (8.5-10.1) Alkaline Phosphatase 149 U/L (45-117) Aspartate Amino Transf (AST/SGOT) 166 U/L (15-37) Alanine Aminotransferase (ALT/SGPT) 136 U/L (12-78) Sodium Level 157 MEQ/L (136-145) Potassium Level 3.1 MEQ/L (3.5-5.1) Chloride Level 122 MEQ/L (98-107) Estimat Glomerular Filtration Rate 60 ML/MIN (>89) Blood Gas HCO3 27 mmol/L (22-26) Blood Gas Base Excess 3.9 mmol/L (-2-2) Arterial Blood pH 7.48 (7.380-7.420) Arterial Blood Partial Pressure CO2 37 mmHg (38-42) Arterial Blood Oxygen Content 11.2 Vol % (12.0-20.0) Blood Gas Hemoglobin 8.1 G/DL (12.0-16.0) Imaging Last Impressions Chest X-Ray 05/10/18 0600 Signed Impressions: CONCLUSION: No interval change. Pleural effusions and pulmonary vascular congestion persist Lower Extremity Ultrasound 05/08/18 0000 Signed Impressions: CONCLUSION: No DVT. Abdomen/Pelvis CT 05/08/18 0000 Signed Impressions: CONCLUSION: 1. Again questionable 2.4 solid mass of the right kidney with an adjacent larg e cyst. The hemorrhage seen earlier in April is no longer appreciated. 2. Very impressive anasarca in the lower extremities and very impressive fluid along the periphery of both thighs musculature groupings Abdomen X-Ray 05/06/18 Signed Impressions: CONCLUSION: Feeding tube tip in proximal duodenum. Head CT 05/04/18 Signed Impressions: CONCLUSION: 1. Evolving traumatic brain injury with resolving hemorrhages. 2. Persistent edema in left frontal and temporal lobe contusions. 3. No significant shift of midline structures. 4. Hairline fracture along the base of the skull in the right temporal region. 5. No evidence of new hemorrhage or acute infarct. Chest CT 05/04/18 Signed Impressions: CONCLUSION: 1. Increasing bilateral pleural effusions with a moderate to large effusion on the right. 2. Total consolidation of both lower lobes. 3. No other significant change. Cervical Spine CT 04/26/18 1251 Signed Impressions: CONCLUSION: Degenerative spondylosis with neural foraminal compromise right C5 -6 without any significant thecal sac stenosis. PE at Discharge GENERAL: This is a 72-year-old male lying in bed. Mechanically ventilated via trach SKIN: Warm and dry. HEAD: Atraumatic. Normocephalic. EYES: PERRLA ENT: No nasal bleeding or discharge. Mucous membranes pink and moist. NECK: RIB CHOPPER. Trachea midline. No JVD. CARDIOVASCULAR: Regular rate and rhythm. RESPIRATORY: No accessory muscle use. Lungs are clear to auscultation. Breath sounds equal bilaterally. No distress or dyspnea. GASTROINTESTINAL: BS + x 4 quads. Abdomen soft, non-tender, nondistended. PEG tube in place MUSCULOSKELETAL: Extremities without cyanosis, or edema. + peripheral pulses x 4 extremities. Warm with good capillary refill. NEUROLOGICAL: Opens eyes. M Hospital Course [place]: This 72-year-old gentleman who was brought in as priority 1 trauma alert after falling about 12-15 feet out of a tree as the ladder went flying sideways. The patient fell on a concrete walkway, right side down. According to witnesses, he was completely unconscious and on the arrival, the paramedics' [place] Coma Scale was 3-4, which improved enroute to about 8 or 9. The patient brought with a spinal board with C-collar in place, moaning and groaning and complained but pain in the right chest. Patient was resuscitated according trauma principles and placed in ICU for further care Final injuries Traumatic brain injury with mainly left frontal temporoparietal subarachnoid and subdural bleed and some superficial contusions of the brain Right chest contusion with a small hemothorax and serial rib fractures of 5th, 6th, 7th, 8th ribs, Transverse process fractures of several vertebrae, Laceration of the right kidney with a hematoma and a small mass of the right kidney Hospital Course 04/27/2018 Patient remains intubated and ventilated Neuroprotective measures including propofol and fentanyl Keppra 2% hypertonic saline at 30 cc/h ICP remains 4-12 mmHg Hemodynamically patient stable Bilateral good breath sounds on decreasing levels of ventilatory support with good PO2 FiO2 gradient 04/28/2018 No change in neurologic status On sedation vacation patient moves all 4 extremities opens eyes but does not follow commands and does not track making Tal[place] Coma Scale about 6 or 7 This is fairly significant brain injury and will take a while to resolve ICP remains low and from my point ICP monitor can be removed CPP within the parameters of autoregulation Remains on neuroprotective measures including propofol fentanyl Keppra Decrease 2% saline to about 20 cc an hour at this point Hemodynamically patient stable Bilateral breath sounds remains on assist control ventilation and pulmonary status and PO2 FiO2 gradient will allow for extubation but of course patient's neurologic status does not allow for the same Patient will not need tracheostomy and I believe he will recover in next few days sufficiently and regaining consciousness to extubate safely Abdomen soft enteral feeds tolerated Renal function normal 04/29/2018 No change in neurologic status Patient remains stable on propofol fentanyl Keppra ICP remains within physiologic range and ICP monitor may be removed as per neurosurgery Hemodynamically remains stable however hemoglobin dropped to 7.8 g/dL as a result of hemodilution and obviously decreased production We will transfuse 2 units PRBC faced with age and neurologic injury Bilateral good breath sounds good PO2 FiO2 gradient Abdomen soft enteral feeds tolerated Plan Once okay with neurosurgery will wake up the patient and start weaning down the sedation probably tomorrow or Tuesday Transfuse 2 units PRBC Continue care 04/30/2018 No change in current status Patient remains on neuroprotective measures with decreasing levels of propofol and fentanyl On sedation vacation moves purposefully does not open eyes yet Will need another few days before sufficiently improved to wean and extubate ICP remains 5-12 mmHg Hemodynamically patient stable if not somewhat hypertensive which is being addressed Bilateral breath sounds and bilateral pleural effusions with atelectasis as a result probably of her original event and retention of secretions I am concerned about patient's pulmonary function and he might need bronchoscopy early next week Renal function preserved Patient about 12 L positive since the arrival will diurese gently to take of the third space now that systemic inflammatory response is abating 05/01/2018 Neurologically patient is unchanged if not somewhat better With decrease of sedation and sedation vacation patient is waking up moving all 4 extremities however does not open eyes or follow commands This is very early in the course and I believe patient will eventually improve neurologically Hemodynamically stable somewhat hypertensive and medications adjusted for the same Added nicardipine drip for management of recalcitrant hypertension Bilateral breath sounds remains on assist control ventilation will start on CPAP trials daily Abdomen soft enteral feeds tolerated I am not sure this patient will require tracheostomy but I believe he will come off the ventilator without one 05/02/2018 Patient neurologically slightly improving On sedation vacation moves all 4 extremities does not follow commands Bilateral good breath sounds on assist control ventilation and will start on CPAP trials Patient does have significant secretions and atelectasis mainly right lower lobe Underwent successful bronchoscopy today Abdomen soft enteral feeds tolerated Again as noted previously patient might or might not require tracheostomy and will see how he does in next few days neurologically which will be the base of placing one or not 05/03/2018 Neurologic status unchanged On sedation vacation patient moves all 4 extremities but does not follow commands and is very restless ICP monitor has been removed due to low ICP pressures throughout At this point the patient remains on small dose propofol and fentanyl in face of his injuries however he is not ready to come off the respirator due to the low GCS Hemodynamically patient is stable however hypertensive Catapres patch Lisinopril Hydralazine Beta-blockers could not be used due to patient's development of bradycardia. Patient was placed on nicardipine drip however at this point we going to stop this due to large fluid load associated with the same Abdomen soft enteral feeds tolerated Renal function is preserved patient is now fluid overloaded in anasarca with bilateral pleural effusions right more than left We will try outpatient somewhat and see how he does but he may need right chest drained to evacuate hydrothorax 05/04/2018 Neurologically patient is unchanged Slightly decrease of propofol to 35 mcg and remains on fentanyl No change in neurologic status Based on low [place] Coma Scale patient will require tracheostomy Hemodynamically stable however hypertensive and now controlled with several medications as above noted Nicardipine has been removed due to huge volume load and general edema this has provoked Renal function well-preserved patient now diuresing very well and is back to his weight Tolerates enteral feeds well Plan Tracheostomy tomorrow and then weaned to liberate from the ventilator Gradually decrease sedation as the blood pressure and patient's general condition tolerates Will require neuro rehab placement 05/05/2018 Neurologically patient is unchanged Remains on small dose fentanyl and 35 mcg of propofol. Due to blood pressure issues patient was more sedated last night On sedation vacation patient moves all extremities but does not open eyes and does not track or follow any commands Withdraws to pain With this low level of consciousness and low [place] Coma Scale, patient clearly cannot be brought to extubation because he will be unable to protect his upper airway Tracheostomy today Hemodynamically stable 05/06/2018 No change in neurologic status Propofol has been completely removed and patient at this point is moving and withdrawing to pain but that is about it Does not open eyes trach or spontaneously performing the actions We will keep on small dose fentanyl and switch to Roxicodone p.o. Bilateral breath sounds on assist control ventilatory mode with excellent PO2 FiO2 gradient Successful tracheostomy today In face of tracheostomy will start weaning patient off the ventilator and I believe be from the ventilator next 24-48 hours Abdomen soft enteral feeds tolerated Dobbhoff placed and will consult GI for PEG This gentleman will require long-term neuro rehabilitative care and based on his age outcome may be quite limited as far as cognitive or motoric recovery is concerned I discussed this with family several times 05/07/2018 Patient doing well He is off all sedation however there is only response to pain and patient is not opening eyes for me or following any commands Status post tracheostomy at this point on CPAP will switch to T-piece and if tolerated will liberated from the ventilator Bilateral good breath sounds small right pleural effusion but in face of good respiratory function I will leave it alone Abdomen soft enteral feeds tolerated and PEG tube either today or tomorrow Patient can be transferred to rehab/LTAC any time 05/08/2018 Neurologically patient is may be slightly improved I was told he was withdrawing more to pain and tried to open his eyes but have not seen this Definitely withdraws to pain Off of all sedation Bilateral breath sounds underwent tracheostomy on Tuesday and is been weaned down from the vent He was on fairly high pressure support on CPAP so this has to be weaned down first in order to get him to the T-piece Spiked fever and it is probably pulmonary related patient is on prophylactic antibiotics and cultures are pending Leukocytosis to 19,000 with left shift I suspect sepsis and at this point source is not clear as above noted that might be pulmonary but may be some other source Abdomen soft PEG today After all done patient will be able to transfer to LTAC for further neuro recovery Addendum This evening patient developed SVT which then turned to A. fib with RVR Patient volume loaded and started on amiodarone drip In addition Brewer was flushed with large amounts of air coming out as well as some blood This has to be further worked up for it is conceivable that patient has an intra -abdominal process like a colovesical fistula As soon as the rate is controlled patient will go to the CT of abdomen and pelvis with retrograde cystogram 05/09/2018 Patient is today more stable-his A. fib converted to sinus rhythm on amiodarone Appreciate cardiology's input- Also the hematuria which in the meantime resolved-hemoglobin is now 8.9 Appreciate also urology's input-will need cystoscopy of the discharge Is on CPAP pressure support tolerating well WBC is now 12.6 this is down from -is on empiric antibiotics and cultures are so far negative and infectious disease is on board Sodium is 155, BUN is 40-patient is intravascularly on the rotary drier feeder side- We carefully start him on free water-and crystalloid on low rate We will continue to follow the sodium 05/10/2018 Patient remains on CPAP via trach. playground monitor shows sinus rhythm. This point patient will transfer to select rehab care and rehab progression Pt Condition on Discharge: Stable Discharge Disposition: Rehab Inpatient Discharge Instructions DIET: Follow Instructions for: On Tube Feeding Additional Diet Instructions: Jevity @ 60 ml./hr Activities you can perform: Regular-No Restrictions Activities to Avoid: Driving for 24 hrs, Concussion Sports, Contact Sports, Lifting/Bending, Prolonged Standing, Strenuous Activity Autumn Leahy May 10, 2018 13:33
[2018-05-10] MEDS ORDERED: NITROGLYCERIN 2% OINT 1 GM PACKET TOPICAL SCH (14:00)
[2018-05-10] MEDS ORDERED: LISINOPRIL 20 MG TAB PO SCH (21:00)
--- NOTE | 2018-05-11 08:14 | PD.NP.DS ---
Discharge Summary Reason for Referral: The patient is a 72 year old unknown handed male status post traumatic brain injury secondary to a 12-15 foot fall sustained on 04/26/2018. The patient was admitted as a Trauma Alert I after falling 12-15 feet onto a concrete sidewalk. He had positive LOC at the scene, with GCS of 3-4, improving to 8-[address] showed left frontotemporal SAH and SDH with additional contusion. Additional injuries included serial rib fractures and right kidney laceration. He is referred for baseline neurobehavioral status examination per trauma protocol to assess cognitive, behavioral and emotional aspects of the injury and to provide treatment recommendations. He was started on Amantadine on day 12 with clinical improvement by day 14, not to the point of Rancho IV but improved. He was transferred to [facility] on day 15. Past Medical History: Please refer to the patient's history and physical for information concerning the patient's past medical, surgical, and psychiatric histories. Education/Learning Hx: The patient completed high school years of education. There is no report of learning difficulties, grade repetitions or behavioral difficulties. 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 The patient is . The patient lives in [place], [place]. Premorbid Cognitive, Emotional and Behavioral Status: Stable. The patient has college years of education and a solid work history prior to this injury. The patient has no prior psychiatric difficulties, as described above. Substance abuse history is unknown. Behavioral Reactions of Patient and Family/Support System: Stable. The patient s family is experiencing ongoing issues of adjustment given the nature of the injury, and this aspect of recovery will require ongoing monitoring. Emotional/Behavioral Status of Patient and Family/Support System: Stable. Pertinent issues, if appropriate to this patients clinical care, are described in detail above. Treatment Interventions: During the course of their acute care stay, this patient and their family/ support system were provided information concerning the neuropsychological aspects of the injury, education regarding course of recovery, and psychological support in the form of counseling with the person served and the family/support system as documented in the neuropsychology service progress notes, as deemed clinically appropriate. Current, Cognitive, Emotional and Behavioral Status: Stable. This patient has experienced a severe injury, and will be adjusting to significant cognitive , emotional and behavioral challenges going forward. Impression at Discharge: The cognitive and behavioral status of this patient meets criteria for [place] Level III: Localized response - total assistance. Major Neurocognitive Disorder due to Traumatic Brain Injury, without behavioral disturbance CODE: F02.81 The above listed diagnoses are supported by the following clinical criteria: Major Neurocognitive Disorder: This person demonstrates a significant cognitive decline from a previous level of estimated baseline performance in one or more cognitive domains (complex attention, executive functioning, learning and memory, language, perceptual-motor, or social cognition) based on the patients /informants report, further documented by todays testing results , with these cognitive deficits interfering with the patients independence in everyday activities. Status of Family/Support System Adjustment: Stable. The patients family/ support system will experience ongoing issues of adjustment given the nature of the injury, and this aspect of the patients recovery will require ongoing monitoring. Post Acute Recommendations: It is recommended that the patient continue to be monitored for behavioral impulsivity as they continue to be early in their course of recovery. This patients neuropathological challenges may limit their reintegration into work and family life going forward, and these challenges may require specialized therapeutic skills to maximize outcome. Additionally, the patients family is experiencing ongoing issues of adjustment given the traumatic nature of the injury, and they may benefit from ongoing psychological assistance following their discharge from acute care. Thank you for the opportunity to assist in this patients care. Germán Arriaga, Ph.D., ABPP Board Certified in Clinical Neuropsychology [place] [employer] [place] Licensed Psychologist #[id number] Germán Arriaga PhD May 11, 2018 08:14
[2018-05-11] MEDS ORDERED: PHARMACY ORDERED LAB ONE (10:45)
== END 2018-05-10 15:23 | DRG 3 ==
LOC: NEPI 12:45 → N03A 13:48 → EDBD 13:48
PROVIDERS: ADMIT Surgery; ATTEND Surgery
PROC: 00H032Z Insertion of Monitoring Device into Brain, Percutaneous Approach (ICD-10-PCS; principal; 2018-04-26)
PROC: 5A1955Z Respiratory Ventilation, Greater than 96 Consecutive Hours (ICD-10-PCS; 2018-04-26)
PROC: 4A103BD Monitoring of Intracranial Pressure, Percutaneous Approach (ICD-10-PCS; 2018-04-26)
PROC: 0BH17EZ Insertion of Endotracheal Airway into Trachea, Via Natural or Artificial Opening (ICD-10-PCS; 2018-04-26)
PROC: 30233N1 Transfusion of Nonautologous Red Blood Cells into Peripheral Vein, Percutaneous Approach (ICD-10-PCS; 2018-04-29)
PROC: 0B113F4 Bypass Trachea to Cutaneous with Tracheostomy Device, Percutaneous Approach (ICD-10-PCS; 2018-05-06)
PROC: 0BJ08ZZ Inspection of Tracheobronchial Tree, Via Natural or Artificial Opening Endoscopic (ICD-10-PCS; 2018-05-06)
PROC: 0DH63UZ Insertion of Feeding Device into Stomach, Percutaneous Approach (ICD-10-PCS; 2018-05-08)
DX: S06.5X9A Traumatic subdural hemorrhage with loss of consciousness of unspecified duration, initial encounter (principal); G93.6 Cerebral edema; J18.9 Pneumonia, unspecified organism; S27.1XXA Traumatic hemothorax, initial encounter; S22.059A Unspecified fracture of T5-T6 vertebra, initial encounter for closed fracture; S22.069A Unspecified fracture of T7-T8 vertebra, initial encounter for closed fracture; J90 Pleural effusion, not elsewhere classified; S27.321A Contusion of lung, unilateral, initial encounter; S37.019A Minor contusion of unspecified kidney, initial encounter; J96.91 Respiratory failure, unspecified with hypoxia; S37.031A Laceration of right kidney, unspecified degree, initial encounter; S22.41XA Multiple fractures of ribs, right side, initial encounter for closed fracture; N39.0 Urinary tract infection, site not specified; S06.6X9A Traumatic subarachnoid hemorrhage with loss of consciousness of unspecified duration, initial encounter; S02.19XA Other fracture of base of skull, initial encounter for closed fracture; R40.2431 Glasgow coma scale score 3-8, in the field [EMT or ambulance]; S06.2X9A Diffuse traumatic brain injury with loss of consciousness of unspecified duration, initial encounter; M47.892 Other spondylosis, cervical region; G30.9 Alzheimer's disease, unspecified; F02.80 Dementia in other diseases classified elsewhere, unspecified severity, without behavioral disturbance, psychotic disturbance, mood disturbance, and anxiety; N28.89 Other specified disorders of kidney and ureter; R31.0 Gross hematuria; I48.0 Paroxysmal atrial fibrillation; R00.1 Bradycardia, unspecified; R13.10 Dysphagia, unspecified; K29.70 Gastritis, unspecified, without bleeding; E87.6 Hypokalemia; E87.70 Fluid overload, unspecified; I10 Essential (primary) hypertension; R94.5 Abnormal results of liver function studies; W14.XXXA Fall from tree, initial encounter; W11.XXXA Fall on and from ladder, initial encounter
CPT/HCPCS: 31500; 36430; 36600; 36620; 61210; 70450; 71045; 71250; 71260; 72125; 74018; 74177; 76937; 80048; 80053; 80076; 80202; 80307; 82805; 83735; 83930; 84100; 84132; 84295; 84484; 85007; 85014; 85018; 85025; 85027; 85384; 85610; 85730; 86850; 86900; 86901; 86920; 87040; 87070; 87077; 87086; 87186; 87205; 87641; 93005; 93970; 94002; 94003; 94640; 94664; 96374; 99291; C9113; G0390; J0131; J0153; J0282; J0330; J0696; J1160; J1650; J1940; J1953; J2175; J2250; J2370; J2543; J3010; J3370; J3480; J7030; J7050; J7120; P9016; Q9967